=== PATIENT | female | born 1935 | race Caucasian/White ===

== ENCOUNTER → 2018-02-08 | Outpatient (CLI) | payer OTHER ==
--- NOTE | 2018-02-08 15:54 | DIAGNOSTIC IMAGING REPORT ---
TWO VIEW CHEST CLINICAL HISTORY: Pleural effusion. FINDINGS: PA and lateral chest radiographs are obtained. No prior studies are available for comparison at the time of dictation. The heart is enlarged and there is atherosclerotic calcification of the thoracic aorta. The pulmonary vasculature is noncongested. Nonspecific interstitial thickening is likely chronic. There is a small right pleural effusion with associated atelectasis. Left lung appears clear. There is no pneumothorax. The skeletal structures are osteopenic. Postoperative changes partially visualized in the left proximal humerus. Degenerative change and mild hyperkyphosis are noted in the thoracic spine. IMPRESSION: 1. Cardiomegaly without radiographic evidence of congestive failure. 2. There is a small right pleural effusion with associated atelectasis. Electronically signed by: Serjio Henning M.D. 02/08/2018 3:53 PM Dictated Date/Time: 02/08/2018 3:52 PM
== END | disposition home or self-care (01) ==
LOC: C.RAD1850 15:15
PROVIDERS: ATTEND Physician Assistant
DX: J90 Pleural effusion, not elsewhere classified (principal)

== ENCOUNTER 2022-02-10 15:23 | Inpatient (IN) ==
--- NOTE | 2022-02-10 16:19 | Emergency Department Note ---
History of Present Illness General Chief complaint: Abnormal Labs/Diagnostic Testing Stated complaint: ABNORMAL CT, WEAKNESS Time Seen by Provider: 02/10/22 15:50 Source: patient Mode of arrival: ambulatory Limitations: no limitations History of Present Illness Provider complaint: Chest pain, abnormal CT Onset (ago): week(s) Location: chest Radiation: non-radiation Associated symptoms: + chest pain and + shortness of breath; no cough, no loss of appetite or no nausea/vomiting Treatments prior to arrival: none This is an 86-year-old female presents emergency department after being referred in by physician statistical assistant and Dr. Krishnamurthy of cardiology due to an abnormal outpatient chest CT. Patient states she has had intermittent left-sided chest pain over the last several weeks. She did wear a heart monitor for some time, and had outpatient blood work done on Monday. Per the CT report patient had an elevated D-dimer and was sent for CT of the chest today. CT results that accompany the patient on the chart were negative for PE, but did show a moderate pericardial effusion. The physician statistical assistant who ordered the test spoke with Dr. Krishnamurthy who advised patient needs to come to the emergency room. Patient denies any prior history of pericardial effusion. Denies any recent fevers, chills, or URI symptoms. Patient does have a history of atrial fibrillation and does take Coumadin. She states this was last checked 3 to 4 weeks ago and was 3.4 at that time. She states she skipped a dose and then resumed her usual dosing. Patient states she does have a prior history of congestive heart failure and occasionally will take extra of her usual diuretic when she feels she needs it. Patient states last time she did this was 4 days ago. Patient states she is intermittently mildly more short of breath with exertion than usual although states this is very mild and not bothersome. Patient denies dizziness or syncope. She denies any increased leg swelling. Patient states s he routinely follows with Toy Baird PA-C for cardiology. Patient denies any current pain or sense of shortness of breath. Pt seen during a time of high acuity and national emergency pandemic while wearing PPE. Home Medications Medication Instructions Recorded Confirmed Type acetaminophen 500 mg tablet 500 - 1,000 mg PO Q6H PRN 02/10/22 02/10/22 History alprazolam 0.25 mg tablet 0.25 mg PO TID PRN 02/10/22 02/10/22 History aspirin 81 mg tablet,delayed 81 mg PO DAILY 02/10/22 02/10/22 History release calcium 600 mg capsule 1,200 mg PO DAILY 02/10/22 02/10/22 History dextran 70-hypromellose 0.1 %-0.3 2 drp OPHTHALMIC (EYE) TID PRN 02/10/22 02/10/22 History % eye drops (Artificial Tears (dextran 70-hypromellose)) diltiazem HCl 240 mg 240 mg PO DAILY 02/10/22 02/10/22 History capsule,extended release 24 hr famotidine 20 mg tablet 20 mg PO DAILY 02/10/22 02/10/22 History furosemide 20 mg tablet 20 mg PO DAILY PRN 02/10/22 02/10/22 History metoprolol succinate 25 mg 25 mg PO DAILY 02/10/22 02/10/22 History tablet,extended release 24 hr metoprolol succinate 25 mg 37.5 mg PO PM 02/10/22 02/10/22 History tablet,extended release 24 hr multivitamin 1 tab PO DAILY 02/10/22 02/10/22 History omega-3 fatty acids 1,000 mg PO DAILY 02/10/22 02/10/22 History raloxifene 60 mg tablet 60 mg PO DAILY 02/10/22 02/10/22 History warfarin 2 mg tablet 2 mg PO SUMOTUWEFRSA@1630 02/10/22 02/10/22 History warfarin 2 mg tablet 3 mg PO TH@1630 02/10/22 02/10/22 History Allergies Allergy/AdvReac Type Severity Reaction Status Date / Time Sulfa (Sulfonamide AdvReac Mild nausea Verified 02/10/22 17:02 Antibiotics) Past Med/Surg History Medical History Atrial fibrillation Carotid artery stenosis, asymptomatic Chronic anticoagulation CKD (chronic kidney disease) stage 3, GFR 30-59 ml/min GERD (gastroesophageal reflux disease) HTN (hypertension) Macular degeneration Pre-diabetes Pulmonary HTN Surgical History History of appendectomy History of colonoscopy History of cystoscopy History of total hysterectomy Family History Son Colorectal cancer Father Heart disease Silicosis Mother Hypertension Stroke Social History Smoking Status: Never smoker Hx Alcohol Use: No Hx Substance Use: No Preferred Language: Chadian Communication Ability: Effective [place] Inspector Required: No Beliefs That Will Affect Care: None marital status: / Current Living Situation: Alone Current Living Situation Comment: house, 1 floor Other Information That Helps Us Care for You: No Feels Safe at Home: Yes Safety Concerns: Feels Safe At This Time Assistive Devices: Glasses Review of Systems A total of 10 systems reviewed and were otherwise negative All systems reviewed & are unremarkable except as noted in HPI & below Physical Exam Vital Signs Vital Signs - 24 hr 02/10/22 15:30 Temperature 36.1 C L Temperature Source Oral Pulse Rate 80 Pulse Rhythm Regular Pulse Strength Normal Respiratory Rate 20 Respiratory Effort / Characteristics Non-Labored Spontaneous Respiratory Depth Normal Respiratory Pattern Regular Blood Pressure 146/92 H Blood Pressure Mean 110 Blood Pressure Position Sitting Pulse Oximetry 99 Oxygen Delivery Method Room Air Sepsis Recent Fever Within 48 Hours No Sepsis New/Unexplained Change in Mental Status N/A Sepsis Action Taken by Nursing No Action Required GENERAL: alert, well appearing, well nourished, no distress, non-toxic EYE EXAM: normal conjunctiva, PERRL and EOM's grossly intact OROPHARYNX: no exudate, no erythema, lips, buccal mucosa, and tongue normal and mucous membranes are moist NECK: supple, no nuchal rigidity, no adenopathy, non-tender, JVD noted on right LUNGS: Clear to auscultation. Normal chest wall mechanics, no w/r/r HEART: no murmurs, S1 normal and S2 normal ABDOMEN: abdomen soft, non-tender, normo-active bowel sounds, no masses, no rebound or guarding. BACK: Back is symmetrical on inspection and there is no deformity, no midline tenderness, no CVA tenderness. SKIN: no rashes and no bruising UPPER EXTREMITIES: upper extremities are grossly normal. FROM, nml pulses b/l. LOWER EXTREMITIES: No pitting edema. FROM, nml pulses b/l. NEURO EXAM: Normal sensorium, cranial nerves II-XII grossly intact, normal speech, no gross weakness of arms, no gross weakness of legs. Gross sensation intact. Course Administered Medications Metoprolol Succinate (Metoprolol Succ 25mg Ext Rel Tab) 37.5 mg PO PM ANA MARÍA Stop: 03/12/22 20:59 Last Admin: 02/10/22 21:44 Dose: 37.5 mg Documented by: [id number] Medical Decision Making Differential Diagnosis Differential diagnoses includes but is not limited to acute coronary syndrome, myocardial infarction, pericarditis, pulmonary embolus, aortic dissection, pneumonia, pneumothorax, musculoskeletal, shingles, esophageal. Medical Records Attestation: I reviewed the patient's medical records. Home Medications Current Medication List: was personally reviewed by me Laboratory Data Attestation: I reviewed the patient's lab results. Result diagrams: 02/10/22 16:27 02/10/22 16:27 Lab Results 02/10/22 02/10/22 02/10/22 Range/Units 16:27 16:27 16:27 WBC 7.67 (4.8-10.8) K/uL RBC 4.60 (4.2-5.4) M/uL Hgb 14.9 (12.0-16.0) g/dL Hct 44.0 (37-47) % MCV 95.7 (80-100) fL MCH 32.4 (25-34) pg MCHC 33.9 (32-36) g/dL RDW Std Deviation 52.7 H (36.4-46.3) fL RDW Coeff of Lonny 15.2 H (11.5-14.5) % Plt Count 176 (130-400) K/uL MPV 13.3 H (7.4-10.4) fL Immature Gran % (Auto) 0.1 % Neut % (Auto) 71.6 % Lymph % (Auto) 15.5 % Elmore % (Auto) 10.8 % Eos % (Auto) 1.6 % Baso % (Auto) 0.4 % Neut # (Auto) 5.49 (1.4-6.5) K/uL Lymph # (Auto) 1.19 L (1.2-3.4) K/uL Elmore # (Auto) 0.83 H (0.11-0.59) K/uL Eos # (Auto) 0.12 (0-0.5) K/uL Baso # (Auto) 0.03 (0-0.2) K/uL Immature Gran # (Auto) 0.01 (0.00-0.02) K/uL ESR (0-30) mm/hr PT 32.9 H (9.0-12.0) Seconds INR 3.3 H (0.9-1.1) Sodium 136 (136-145) mmol/L Potassium 4.1 (3.5-5.1) mmol/L Chloride 105 (98-107) mmol/L Carbon Dioxide 19 L (21-32) mmol/L Anion Gap 12 H (3-11) BUN 39 H (6-23) mg/dl Creatinine 1.41 H (0.6-1.2) mg/dl Est Cr Clr Drug Dosing 27.3 ml/min Est GFR ( Amer) 39.3 ml/min Est GFR (Non-Af Amer) 33.9 ml/min BUN/Creatinine Ratio 27.7 H (10-20) Glucose 123 H (70-99(Fasting)) mg/dl Calcium 9.3 (8.5-10.1) mg/dl Magnesium 2.2 (1.7-2.4) mg/dl Total Bilirubin 0.8 (0.2-1.0) mg/dl AST 22 (13-39) U/L ALT 13 (7-52) U/L Alkaline Phosphatase 155 H (34-104) U/L Troponin I High Sens 17.7 H (0-14) pg/ml C-Reactive Protein (0-0.5) mg/dl Total Protein 7.5 (6.0-8.3) gm/dl Albumin 4.3 (3.4-5.0) gm/dl Globulin 3.2 (2.5-4.0) gm/dl Albumin/Globulin Ratio 1.3 (0.9-2) Lipase 25 (11-82) U/L TSH (0.300-4.500) uIu/ml Lyme Disease IgG Ab (Negative) Lyme Disease IgM Ab (Negative) 02/10/22 02/10/22 02/10/22 Range/Units 16:27 16:27 16:27 WBC (4.8-10.8) K/uL RBC (4.2-5.4) M/uL Hgb (12.0-16.0) g/dL Hct (37-47) % MCV (80-100) fL MCH (25-34) pg MCHC (32-36) g/dL RDW Std Deviation (36.4-46.3) fL RDW Coeff of Lonny (11.5-14.5) % Plt Count (130-400) K/uL MPV (7.4-10.4) fL Immature Gran % (Auto) % Neut % (Auto) % Lymph % (Auto) % Elmore % (Auto) % Eos % (Auto) % Baso % (Auto) % Neut # (Auto) (1.4-6.5) K/uL Lymph # (Auto) (1.2-3.4) K/uL Elmore # (Auto) (0.11-0.59) K/uL Eos # (Auto) (0-0.5) K/uL Baso # (Auto) (0-0.2) K/uL Immature Gran # (Auto) (0.00-0.02) K/uL ESR 44 H (0-30) mm/hr PT (9.0-12.0) Seconds INR (0.9-1.1) Sodium (136-145) mmol/L Potassium (3.5-5.1) mmol/L Chloride (98-107) mmol/L Carbon Dioxide (21-32) mmol/L Anion Gap (3-11) BUN (6-23) mg/dl Creatinine (0.6-1.2) mg/dl Est Cr Clr Drug Dosing ml/min Est GFR ( Amer) ml/min Est GFR (Non-Af Amer) ml/min BUN/Creatinine Ratio (10-20) Glucose (70-99(Fasting)) mg/dl Calcium (8.5-10.1) mg/dl Magnesium (1.7-2.4) mg/dl Total Bilirubin (0.2-1.0) mg/dl AST (13-39) U/L ALT (7-52) U/L Alkaline Phosphatase (34-104) U/L Troponin I High Sens (0-14) pg/ml C-Reactive Protein (0-0.5) mg/dl Total Protein (6.0-8.3) gm/dl Albumin (3.4-5.0) gm/dl Globulin (2.5-4.0) gm/dl Albumin/Globulin Ratio (0.9-2) Lipase (11-82) U/L TSH 2.108 (0.300-4.500) uIu/ml Lyme Disease IgG Ab Negative (Negative) Lyme Disease IgM Ab Negative (Negative) 02/10/22 Range/Units 16:27 WBC (4.8-10.8) K/uL RBC (4.2-5.4) M/uL Hgb (12.0-16.0) g/dL Hct (37-47) % MCV (80-100) fL MCH (25-34) pg MCHC (32-36) g/dL RDW Std Deviation (36.4-46.3) fL RDW Coeff of Lonny (11.5-14.5) % Plt Count (130-400) K/uL MPV (7.4-10.4) fL Immature Gran % (Auto) % Neut % (Auto) % Lymph % (Auto) % Elmore % (Auto) % Eos % (Auto) % Baso % (Auto) % Neut # (Auto) (1.4-6.5) K/uL Lymph # (Auto) (1.2-3.4) K/uL Elmore # (Auto) (0.11-0.59) K/uL Eos # (Auto) (0-0.5) K/uL Baso # (Auto) (0-0.2) K/uL Immature Gran # (Auto) (0.00-0.02) K/uL ESR (0-30) mm/hr PT (9.0-12.0) Seconds INR (0.9-1.1) Sodium (136-145) mmol/L Potassium (3.5-5.1) mmol/L Chloride (98-107) mmol/L Carbon Dioxide (21-32) mmol/L Anion Gap (3-11) BUN (6-23) mg/dl Creatinine (0.6-1.2) mg/dl Est Cr Clr Drug Dosing ml/min Est GFR ( Amer) ml/min Est GFR (Non-Af Amer) ml/min BUN/Creatinine Ratio (10-20) Glucose (70-99(Fasting)) mg/dl Calcium (8.5-10.1) mg/dl Magnesium (1.7-2.4) mg/dl Total Bilirubin (0.2-1.0) mg/dl AST (13-39) U/L ALT (7-52) U/L Alkaline Phosphatase (34-104) U/L Troponin I High Sens (0-14) pg/ml C-Reactive Protein 1.62 H (0-0.5) mg/dl Total Protein (6.0-8.3) gm/dl Albumin (3.4-5.0) gm/dl Globulin (2.5-4.0) gm/dl Albumin/Globulin Ratio (0.9-2) Lipase (11-82) U/L TSH (0.300-4.500) uIu/ml Lyme Disease IgG Ab (Negative) Lyme Disease IgM Ab (Negative) MDM Narrative This is a well-appearing 86-year-old female who presents emergency department after being contacted by her outpatient provider and encouraged to come to the ER due to an abnormal outpatient CT chest which showed pericardial effusion. Patient had been evaluated for intermittent chest pain over the last several weeks with a heart monitor, blood work drawn the beginning of this week, and due to an elevated D-dimer a CTA of the chest today. No PE or other acute lung etiology noted however patient was noted to have a moderate pericardial effusion. Patient sent in based on the recommendation of cardiology. Patient is anticoagulated due to history of atrial fibrillation. She denies any recent illness or fevers. She had no pain or shortness of breath during my evaluation in the emergency room. Repeat labs drawn and sent, patient was found to have abnormal creatinine and does have a history of CKD. Troponin mildly elevated despite no EKG changes and no current chest pain, and INR slightly supratherapeutic. Patient remained hemodynamically stable while in the emergency room. Case discussed with hospitalist for additional evaluation and management. Pt seen during a time of high acuity and national emergency pandemic while wearing PPE. Impression & Plan Chest pain, Atrial fibrillation, CKD (chronic kidney disease) stage 3, GFR 30- 59 ml/min, Pericardial effusion, Elevated troponin, Chronic anticoagulation Discharge Plan Visit Data Chief Complaint: Abnormal Labs/Diagnostic Testing Stated Complaint: ABNORMAL CT, WEAKNESS ED Provider: Jada Romo Discharge Problem: Chest pain, Atrial fibrillation, CKD (chronic kidney disease) stage 3, GFR 30- 59 ml/min, Pericardial effusion, Elevated troponin, Chronic anticoagulation Patient Disposition: Admitted As Inpatient Discharge Instructions Interventions: ED Discharge Assessment Last Done: 02/10/22 19:38 Discharge Problem: Chest pain Qualifiers: Chest pain type: unspecified Qualified Code(s): R07.9 - Chest pain, unspecified Atrial fibrillation Qualifiers: Atrial fibrillation type: unspecified chronic Qualified Code(s): I48.20 - Chronic atrial fibrillation, unspecified CKD (chronic kidney disease) stage 3, GFR 30-59 ml/min Qualifiers: Chronic kidney disease stage 3 subtype: unspecified whether 3a or 3b Qualified Code(s): N18.30 - Chronic kidney disease, stage 3 unspecified
[2022-02-10 16:42] LABS: Basophils # (auto) 0.03 K/uL (0-0.2); Basophils % (auto) 0.4 %; Eosinophils # (auto) 0.12 K/uL (0-0.5); Eosinophils % (auto) 1.6 %; Hemoglobin 14.9 g/dL (12.0-16.0); Immature Granulocytes # (auto) 0.01 K/uL (0.00-0.02); Immature Granulocytes % (auto) 0.1 %; Lymphocytes # (auto) 1.19 K/uL (1.2-3.4); Lymphocytes % (auto) 15.5 %; Mean Corpuscular Hemoglobin 32.4 pg (25-34); Mean Corpuscular Hgb Conc 33.9 g/dL (32-36); Mean Corpuscular Volume 95.7 fL (80-100); Mean Platelet Volume 13.3 fL (7.4-10.4); Monocytes # (auto) 0.83 K/uL (0.11-0.59); Monocytes % (auto) 10.8 %; Neutrophils # (auto) 5.49 K/uL (1.4-6.5); Neutrophils % (auto) 71.6 %; Platelet Count 176 K/uL (130-400); RDW Coefficient of Variation 15.2 % (11.5-14.5); RDW Standard Deviation 52.7 fL (36.4-46.3); White Blood Count 7.67 K/uL (4.8-10.8)
--- NOTE | 2022-02-10 16:50 | History & Physical Report ---
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 Moderate pericardial effusion Supratherapeutic INR Left-sided chest pain Elevated troponin Admit to PCU Consult cardiology Obtain echocardiogram Hold warfarin given elevated INR Obtain ESR, CRP continue tele monitoring will make npo after midnight in event intervention is warranted cycle troponins, currently pt is CP free Chronic Atrial fibrillation Long-term anticoagulation Continue diltiazem and metoprolol, currently rate controlled Hold warfarin, INR 3.3 Current regimen is 3 mg on and 2 mg all other days Patient is requesting possibly switching to DOAC, encouraged her to discuss with carbon paper coating machine setter Pre diabetes a1c 01/24/22 6.4 currently no treatment indicated monitor fbs CKD 3b cr ~ 1.4 baseline monitor CMP pending avoid nephrotoxic agents DVT ppx: SCDS, hold warfarin Dispo: PCU PCP: Zander FULL CODE Pt was seen and examined in collaboration with Dr. 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 Patient was seen in [facility] from clinic on 02/07/2022 secondary to intermittent chest pain that was worse with inspiration and improved with Tylenol. Lab work was ordered at that time troponin elevated D-dimer. She was scheduled for an outpatient CTA which was performed today 02/10/2022. CT results accompany patient today as it was done at [facility] [place]. CTA was negative for PE but did show a moderate pericardial effusion. Case was discussed with [facility] carbon paper coating machine setter who recommended patient be referred to ED for admission and further evaluation. Patient states over the last week or so she is been having intermittent left-sided chest pain. Symptoms typically last minutes, resolved with Tylenol, worse with inspiration, not affected with meals or leaning forward or lying down. She describes the pain as an ache and it is nonradiating. She has never experienced it before. She also complains of dyspnea on exertion but denies any orthopnea or PND. She does have intermittent lower extremity swelling which is controlled with Lasix as needed. She does not feel this is changed. She denies any weight gain. Her appetite has been normal. No recent illness. She always has chills but denies any documented fever or sweats. Denies any lightheadedness, dizziness, syncope, palpitations, hemoptysis, cough, URI symptoms, nausea, vomiting, abdominal pain, change in bowel or urinary habits. Her son is at bedside. Patient currently lives by herself and ambulates without assist device. In ED patient remained hemodynamically stable. Her EKG did reveal atrial fibrillation at 80 bpm and incomplete right bundle branch block. No ST or T wave changes were noted. Her initial troponin was elevated at 17.7. Her CBC was relatively unremarkable. CMP is currently pending. INR was elevated at 3.3. Allergies Allergy/AdvReac Type Severity Reaction Status Date / Time Sulfa (Sulfonamide AdvReac Mild nausea Verified 02/10/22 17:02 Antibiotics) Home Medications Medication Instructions Recorded Confirmed Type acetaminophen 500 mg tablet 500 - 1,000 mg PO Q6H PRN 02/10/22 02/10/22 History alprazolam 0.25 mg tablet 0.25 mg PO TID PRN 02/10/22 02/10/22 History aspirin 81 mg tablet,delayed 81 mg PO DAILY 02/10/22 02/10/22 History release calcium 600 mg capsule 1,200 mg PO DAILY 02/10/22 02/10/22 History diltiazem HCl 240 mg 240 mg PO DAILY 02/10/22 02/10/22 History capsule,extended release 24 hr famotidine 20 mg tablet 20 mg PO DAILY 02/10/22 02/10/22 History furosemide 20 mg tablet 20 mg PO DAILY PRN 02/10/22 02/10/22 History metoprolol succinate 25 mg 25 mg PO DAILY 02/10/22 02/10/22 History tablet,extended release 24 hr metoprolol succinate 25 mg 37.5 mg PO PM 02/10/22 02/10/22 History tablet,extended release 24 hr multivitamin 1 tab PO DAILY 02/10/22 02/10/22 History omega-3 fatty acids 1,000 mg PO DAILY 02/10/22 02/10/22 History raloxifene 60 mg tablet 60 mg PO DAILY 02/10/22 02/10/22 History warfarin 2 mg tablet 2 mg PO SUMOTUWEFRSA@1630 02/10/22 02/10/22 History warfarin 2 mg tablet 3 mg PO TH@1630 02/10/22 02/10/22 History Past Med/Surg History Medical History Atrial fibrillation Carotid artery stenosis, asymptomatic Chronic anticoagulation CKD (chronic kidney disease) stage 3, GFR 30-59 ml/min GERD (gastroesophageal reflux disease) HTN (hypertension) Macular degeneration Pre-diabetes Pulmonary HTN Surgical History History of appendectomy History of colonoscopy History of cystoscopy History of total hysterectomy Family History Son Colorectal cancer Father Heart disease Silicosis Mother Hypertension Stroke Social History Smoking Status: Never smoker Hx Alcohol Use: No Hx Substance Use: No Preferred Language: Malay marital status: / Current Living Situation: Alone Feels Safe at Home: Yes Review of Systems Review of Systems: All systems reviewed & are unremarkable except as noted in HPI & below Physical Exam Physical Exam: Constitutional: WD/WN, vitals as above, NAD, sitting up in bed, pleasant, conversing easily Head: Normocephalic, Atraumatic Eyes: PERRL, conjunctivae normal, anicteric sclerae ENMT: external ear and nose normal, oropharynx normal Neck: trachea midline, no thyromegaly normal visual inspection Respiratory: normal respiratory effort, lungs clear to auscultation, no wheeze, rales, rhonchi. Normal insp/exp effort, no accessory muscle use Cardiovascular:, Irregular rhythm, no murmur, bilateral venous stasis changes +1edema Vessels: no JVD or carotid bruit Chest: normal inspection of chest Abdomen: normal bowel sounds, soft, nontender, no hepatosplenomegaly Musculoskeletal: no cyanosis or clubbing, extremities motor strength 5/5 Skin: no rashes, warm and dry normal turgor Neurologic: PERRL, EOMI, accommodation nl, no face palsy, no dysarthria CN's II-XI intact bilaterally and moves all extremities Psychiatric: A+Ox3, euthymic affect Lymphatic: no cervical or axillary lymphadenopathy : deferred Results & Data Results & Data ([facility]) Vital Signs (Past 12 Hours) Vital Signs Temp Pulse Pulse Resp BP BP Pulse Ox 02/10/22 16:41 82 17 134/88 94 02/10/22 15:30 36.1 C L 80 20 146/[address] scan report reviewed from outside facility revealing a moderate pericardial effusion, no PE. ECG Rate (beats per minute): 80 Rhythm: atrial fibrillation COVID-19 Results Results COVID-19 Adm Lab Results: RBC 4.60 M/uL (4.2-5.4) 02/10/22 WBC 7.67 K/uL (4.8-10.8) 02/10/22 Hgb 14.9 g/dL (12.0-16.0) 02/10/22 Hct 44.0 % (37-47) 02/10/22 Plt Count 176 K/uL (130-400) 02/10/22 Neutrophils (%) (Auto) 71.6 % 02/10/22 Lymphocytes (%) (Auto) 15.5 % 02/10/22 Monocytes # (Auto) 0.83 K/uL (0.11-0.59) H 02/10/22 Eosinophils # (Auto) 0.12 K/uL (0-0.5) 02/10/22 Immature Granulocyte % (Auto) 0.1 % 02/10/22 Neutrophils # (Auto) 5.49 K/uL (1.4-6.5) 02/10/22 Lymphocytes # (Auto) 1.19 K/uL (1.2-3.4) L 02/10/22 Monocytes # (Auto) 0.83 K/uL (0.11-0.59) H 02/10/22 Eosinophils # (Auto) 0.12 K/uL (0-0.5) 02/10/22 Basophils # (Auto) 0.03 K/uL (0-0.2) 02/10/22 Immature Granulocyte # (Auto) 0.01 K/uL (0.00-0.02) 02/10/22 Na Pending 02/10/22 K Pending 02/10/22 Cl Pending 02/10/22 CO2 Pending 02/10/22 Anion Gap Pending 02/10/22 BUN Pending 02/10/22 Creatinine Pending 02/10/22 BUN/Creatinine Ratio Pending 02/10/22 Glucose Level Pending 02/10/22 Ca Pending 02/10/22 Total Bilirubin Pending 02/10/22 AST/SGOT Pending 02/10/22 ALT/SGPT Pending 02/10/22 Alkaline Phosphatase Pending 02/10/22 Total Protein Pending 02/10/22 Albumin Pending 02/10/22 Globulin Pending 02/10/22 Albumin/Globulin Ratio Pending 02/10/22 CRP Pending 02/10/22 INR 3.3 (0.9-1.1) H 02/10/22 SARS-CoV-2, RNA, NAAT NEGATIVE (NEGATIVE) 02/10/22 Code Status & VTE Plan Code Status FULL CODE VTE Prophylaxis Plan VTE Prophylaxis will be ordered: Yes
[2022-02-10 16:55] LABS: INR 3.3 (0.9-1.1); Prothrombin Time 32.9 Seconds (9.0-12.0)
[2022-02-10 17:21] LABS: Troponin I High Sensitivity 17.7 pg/ml (0-14)
[2022-02-10 17:36] LABS: Lyme Ab IgG w/WB Rflx Negative (Negative); Lyme Ab IgM w/WB Rflx Negative (Negative)
[2022-02-10 18:20] LABS: Albumin Globulin Ratio 1.3 (0.9-2); Albumin Level 4.3 gm/dl (3.4-5.0); BUN Creatinine Ratio 27.7 (10-20); Bilirubin,Total 0.8 mg/dl (0.2-1.0); Calcium 9.3 mg/dl (8.5-10.1); Creatinine Clr Calc Pharmacy 27.3 ml/min; Est GFR (African American) 39.3 ml/min; Est GFR (Non-African American) 33.9 ml/min; Globulin 3.2 gm/dl (2.5-4.0); Magnesium 2.2 mg/dl (1.7-2.4); Potassium 4.1 mmol/L (3.5-5.1); Total Protein 7.5 gm/dl (6.0-8.3)
--- NOTE | 2022-02-10 18:36 | Communication Note ---
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 Patient was complaining of chest pain on and off since last few weeks, was evaluated on Monday for achy chest pain as OP and D-dimer was elevated, CTA was ordered which was done yesterday and was found to have moderate pericardial effusion today and hence sent by cardiology office to the ER. Patient denies fever/headache/chills/cough/palpitation/acute changes in bowel or bladder habits/other review of symptoms. Labs reviewed, hs troponin minimally elevated, trend troponin. Cardiology co nsult for pericardial effusion. INR 3.3, hold Coumadin today. follow inr, resume when appropriate. N.p.o. midnight. For further information, refer to H&P. Upon examination: GENERAL: Alert and oriented x3. NAD, on RA. HEENT: No pallor, no icterus. Pupils equal, round and reactive to light. Oral mucosa moist. NECK: No JVD, no neck masses. HEART: S1 and S2 heard. irregular rate and rhythm. No murmur, no gallop. RESPIRATORY SYSTEM: Normal AP diameter. No accessory muscle use. No wheezing, no crackles. ABDOMEN: Soft, bowel sounds present, nontender, no distention. CENTRAL NERVOUS SYSTEM: No facial droop. Speech is clear. Obeys simple commands. Moves extremities. EXTREMITIES: trace ble edema, b/l chronic skin changes noted, no erythema seen. I have seen and examined the patient and have discussed the case with the provider above. I agree with the assessment and plan as stated in H and P.
[2022-02-10] MEDS ORDERED: ACETAMINOPHEN 325 MG TAB PO PRN (20:03)
[2022-02-10] MEDS ORDERED: ALPRAZolam 0.25 MG TABLET PO PRN (20:03)
[2022-02-10] MEDS ORDERED: POLYETHYLENE (MIRALAX) 17 GM PACK PO PRN (20:03)
[2022-02-10] MEDS ORDERED: MAGNESIUM HYDROXIDE SUSP 30 ML UDC PO PRN (20:03)
[2022-02-10] MEDS ORDERED: ONDANSETRON INJ 2 MG/ML 2 ML VIAL IV PRN (20:03)
[2022-02-10] MEDS ORDERED: DEXTRAN HYPROMELLOSE OP PRN (20:03)
[2022-02-10] MEDS ORDERED: ALUMINUM/MAGNESIUM SUSP 30 ML UDC PO PRN (20:03)
[2022-02-10] MEDS: METOPROLOL SUCC 25MG EXT REL TAB PO SCH ×2 (21:30→21:44)
[2022-02-11] MEDS ORDERED: MELATONIN 3 MG TAB PO PRN (01:14)
[2022-02-11] MEDS ORDERED: MELATONIN 3 MG TAB PO ONE (01:16)
[2022-02-11 04:41] LABS: Hematocrit (blood only) 38.4 % (37-47); Hemoglobin 13.1 g/dL (12.0-16.0); Mean Corpuscular Hemoglobin 32.3 pg (25-34); Mean Corpuscular Hgb Conc 34.1 g/dL (32-36); Mean Corpuscular Volume 94.6 fL (80-100); Platelet Count 150 K/uL (130-400); RDW Coefficient of Variation 15.1 % (11.5-14.5); RDW Standard Deviation 51.2 fL (36.4-46.3); Red Blood Count 4.06 M/uL (4.2-5.4); White Blood Count 7.39 K/uL (4.8-10.8)
[2022-02-11 04:57] LABS: INR 3.3 (0.9-1.1); Prothrombin Time 33.3 Seconds (9.0-12.0)
[2022-02-11 05:02] LABS: Albumin Globulin Ratio 1.2 (0.9-2); Albumin Level 3.4 gm/dl (3.4-5.0); BUN Creatinine Ratio 24.1 (10-20); Bilirubin,Total 0.8 mg/dl (0.2-1.0); Calcium 8.6 mg/dl (8.5-10.1); Est GFR (Non-African American) 32.8 ml/min; Globulin 2.8 gm/dl (2.5-4.0); Total Protein 6.2 gm/dl (6.0-8.3)
[2022-02-11] MEDS: MULTIVITAMIN TAB PO SCH (08:33)
[2022-02-11] MEDS: CALCIUM CARBONATE 1250MG TAB PO SCH (08:33)
[2022-02-11] MEDS: dilTIAZem HCL 240 MG CAPCR PO SCH (08:33)
[2022-02-11] MEDS: ASPIRIN 81 MG ECTAB PO SCH (08:33)
[2022-02-11] MEDS: RALOXIFENE HCL 60 MG TAB PO SCH (08:33)
[2022-02-11] MEDS: METOPROLOL SUCC 25MG EXT REL TAB PO SCH ×2 (08:33→20:22)
[2022-02-11] MEDS: FAMOTIDINE 20 MG TAB PO SCH (08:34)
[2022-02-11] MEDS: OMEGA-3 (PURIFIED FISH OIL) 1 GM CAP PO SCH (08:34)
--- NOTE | 2022-02-11 10:16 | Hospitalist Progress Note ---
Date of Service February 11, 2022 Assessment & Plan (1) Pericardial effusion: (2) Atrial fibrillation: (3) Chronic anticoagulation: (4) Supratherapeutic INR: (5) Elevated troponin: (6) Pre-diabetes: (7) CKD (chronic kidney disease) stage 3, GFR 30-59 ml/min: Plan: 86-year-old female who has a significant past medical history of PAF anticoagulated on warfarin, pulmonary hypertension, prediabetes, 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 Moderate pericardial effusion Left-sided chest pain Elevated troponin No chest pain at this time Reports occasional MAX at home CT chest was reported to show moderate pericardial effusion CRP elevated at 1.62. ESR 44 Get 2D Echo Pericarditis is a possibility Appreciate Cardiology evaluation. Colchicine 0.3mg daily started Troponin HS in the 20s Continue tele monitoring Chronic Atrial fibrillation Long-term anticoagulation Supratherapeutic INR Continue diltiazem and metoprolol, currently rate controlled Hold warfarin, INR 3.3 Current regimen is 3 mg on and 2 mg all other days Monitor INR Pre diabetes A1c 01/24/22 6.4 Monitor blood glucose CKD 3b Cr ~ 1.4 baseline Stable Avoid nephrotoxic agents DVT ppx: SCDS, hold warfarin Dispo: PCU PCP: Zander FULL CODE Admission and Anticipated Discharge Date Admission Date: February 10, 2022 Subjective Patient seen and examined. Denies any chest pain at this time. Denies cough, shortness of breath at rest. Reports occasional dyspnea on exertion Denies any nausea, vomiting, abdominal pain, diarrhea Denies fevers, chills Denies dysuria, frequency, urgency Physical Exam Constitutional: + well hydrated; no acute distress Elderly woman ENMT: external ear and nose normal, oropharynx normal Respiratory: normal respiratory effort, lungs clear to auscultation Cardiovascular: Rate/Rhythm: + irregularly irregular S1-S2 Gastrointestinal (Abdomen): normal bowel sounds, soft, nontender, no hepatosplenomegaly Musculoskeletal: No pedal edema Neurologic: PERRL, EOMI, accommodation nl, no face palsy, no dysarthria Psychiatric: A+Ox3, euthymic affect Results & Data Results & Data ([facility]) Vital Signs (Past 12 Hours) Vital Signs Temp Pulse Pulse Resp BP Pulse Ox 02/11/22 07:45 36.6 C 72 16 138/88 90 02/11/22 02:37 36.6 C 68 18 120/68 95 02/11/22 00:33 80 02/10/22 22:56 36.5 C 71 18 132/80 92 Laboratory Results Abnormal lab results 02/10/22 02/10/22 02/10/22 Range/Units 16:27 16:27 16:27 RBC (4.2-5.4) M/uL RDW Std Deviation 52.7 H (36.4-46.3) fL RDW Coeff of Lonny 15.2 H (11.5-14.5) % MPV 13.3 H (7.4-10.4) fL Lymph # (Auto) 1.19 L (1.2-3.4) K/uL Motley # (Auto) 0.83 H (0.11-0.59) K/uL ESR (0-30) mm/hr PT 32.9 H (9.0-12.0) Seconds INR 3.3 H (0.9-1.1) Chloride (98-107) mmol/L Carbon Dioxide 19 L (21-32) mmol/L Anion Gap 12 H (3-11) BUN 39 H (6-23) mg/dl Creatinine 1.41 H (0.6-1.2) mg/dl BUN/Creatinine Ratio 27.7 H (10-20) Glucose 123 H (70-99(Fasting)) mg/dl Alkaline Phosphatase 155 H (34-104) U/L Troponin I High Sens 17.7 H (0-14) pg/ml C-Reactive Protein (0-0.5) mg/dl 02/10/22 02/10/22 02/10/22 Range/Units 16:27 16:27 22:44 RBC (4.2-5.4) M/uL RDW Std Deviation (36.4-46.3) fL RDW Coeff of Lonny (11.5-14.5) % MPV (7.4-10.4) fL Lymph # (Auto) (1.2-3.4) K/uL Motley # (Auto) (0.11-0.59) K/uL ESR 44 H (0-30) mm/hr PT (9.0-12.0) Seconds INR (0.9-1.1) Chloride (98-107) mmol/L Carbon Dioxide (21-32) mmol/L Anion Gap (3-11) BUN (6-23) mg/dl Creatinine (0.6-1.2) mg/dl BUN/Creatinine Ratio (10-20) Glucose (70-99(Fasting)) mg/dl Alkaline Phosphatase (34-104) U/L Troponin I High Sens 20.4 H (0-14) pg/ml C-Reactive Protein 1.62 H (0-0.5) mg/dl 02/11/22 02/11/22 02/11/22 Range/Units 04:16 04:16 04:16 RBC 4.06 L (4.2-5.4) M/uL RDW Std Deviation 51.2 H (36.4-46.3) fL RDW Coeff of Lonny 15.1 H (11.5-14.5) % MPV 13.0 H (7.4-10.4) fL Lymph # (Auto) (1.2-3.4) K/uL Motley # (Auto) (0.11-0.59) K/uL ESR (0-30) mm/hr PT 33.3 H (9.0-12.0) Seconds INR 3.3 H (0.9-1.1) Chloride 109 H (98-107) mmol/L Carbon Dioxide 19 L (21-32) mmol/L Anion Gap (3-11) BUN 35 H (6-23) mg/dl Creatinine 1.45 H (0.6-1.2) mg/dl BUN/Creatinine Ratio 24.1 H (10-20) Glucose (70-99(Fasting)) mg/dl Alkaline Phosphatase 123 H (34-104) U/L Troponin I High Sens (0-14) pg/ml C-Reactive Protein (0-0.5) mg/dl 02/11/22 Range/Units 04:16 RBC (4.2-5.4) M/uL RDW Std Deviation (36.4-46.3) fL RDW Coeff of Lonny (11.5-14.5) % MPV (7.4-10.4) fL Lymph # (Auto) (1.2-3.4) K/uL Motley # (Auto) (0.11-0.59) K/uL ESR (0-30) mm/hr PT (9.0-12.0) Seconds INR (0.9-1.1) Chloride (98-107) mmol/L Carbon Dioxide (21-32) mmol/L Anion Gap (3-11) BUN (6-23) mg/dl Creatinine (0.6-1.2) mg/dl BUN/Creatinine Ratio (10-20) Glucose (70-99(Fasting)) mg/dl Alkaline Phosphatase (34-104) U/L Troponin I High Sens 22.9 H (0-14) pg/ml C-Reactive Protein (0-0.5) mg/dl (1) CKD (chronic kidney disease) stage 3, GFR 30-59 ml/min Chronic kidney disease stage 3 subtype: unspecified whether 3a or 3b Qualified Code(s): N18.30 - Chronic kidney disease, stage 3 unspecified (2) Atrial fibrillation Atrial fibrillation type: unspecified chronic Qualified Code(s): I48.20 - Chronic atrial fibrillation, unspecified
--- NOTE | 2022-02-11 12:09 | Electrocardiogram Report ---
Test Reason : Blood Pressure : / mmHG Vent. Rate : 080 BPM Atrial Rate : 088 BPM P-R Int : 000 ms QRS Dur : 094 ms QT Int : 394 ms P-R-T Axes : 000 112 -02 degrees QTc Int : 454 ms Atrial fibrillation with premature ventricular or aberrantly conducted complexes Right axis deviation Incomplete right bundle branch block Septal infarct , age undetermined Abnormal ECG No previous ECGs available Confirmed by Chong Castle ([id number]) on 02/11/2022 12:09:18 PM Referred By: Dena Fermin Confirmed By:Chong Castle
--- NOTE | 2022-02-11 13:30 | Cardiology Consultation ---
Date of Consultation February 11, 2022 Assessment & Plan (1) Pleuritic chest pain: (2) Elevated troponin: (3) Pericardial effusion: (4) Pulmonary HTN: (5) Atrial fibrillation: Complex 86-year-old female with history of past paroxysmal and now longstanding persistent atrial fibrillation, known severe pulmonary hypertension, severely dilated RV with severe RV dysfunction, preserved LV systolic function, hypertensive heart and kidney disease, mild atherosclerotic carotid disease. Patient admitted following recent presentation with pleuritic type chest pain, CT scan demonstrating moderate pericardial effusion. Echocardiography this morning reveals a moderate loculated posterior pericardial effusion with moderate organization, possible thrombus, without echocardiographic indications of cardiac tamponade. HS Troponin minimally elevated. Patient afebrile, currently asymptomatic. Recommend cautious conservative treatment. Given age, renal function, and weight, recommend trial of colchicine 0.3 mg once daily x 1 month, as tolerated. Outpatient limited TTE and cardiology follow-up in 2 weeks. Supervising Physician Co-Signing Physician Notes 86-year-old female seen and examined the bedside. Referred to the hospital from the outpatient clinic due to CT evidence of moderate pericardial effusion. She is chronically anticoagulated due to history of atrial fibrillation. Patient reports chest discomfort several days ago which has resolved. Currently she is asymptomatic. Her echocardiogram reveals a moderate loculated posterior pericardial effusion with moderate organization. There is no evidence of tamponade. Patient denies palpitations, lightheadedness, dizziness. No orthopnea, PND, or lower extremity edema. Denies signs/symptoms of GI/ blood loss. PE: VSS. Gen: NAD, AAOx3. Heart: Irregular rhythm, normal S1-S2. 1/6 systolic ejection murmur heard best at the apex. Lungs: Clear bilateral, no rales, rhonchi, wheeze. Extremities: No clubbing, cyanosis, edema. Neuro: No focal deficit. A/P: Agree with above PA-C history, physical exam, assessment and plan. 86-year-old female currently asymptomatic. Echocardiogram demonstrating posterior loculated pericardial fusion. I suspect effusion is secondary to recent pericarditis which is spontaneously resolved. Due to presence of effusion agree with addition of low-dose colchicine. Repeat resting 2D transthoracic echocardiogram in 1-2 weeks. If there is any evidence of enlarging effusion or recurrent chest discomfort, a course of corticosteroids tapered over 2-3 weeks will be considered. Thank you for allowing to participat e in the care of your patient. History of Present Illness Reason for Consultation: Moderate pericardial effusion Requesting Physician: Brandee Attending Physician: Wilman History of Present Illness Ms. Bradford is a very pleasant 86-year-old female who began to have chest discomfort at the end of January. She describes to me earlier this morning experiencing a hurting or an achy type pain in the upper chest as well as lower chest that seemed to be worse when taking a deep breath in. This was not aggravated by positional change. She notes no issues when attempting to lay flat. She notes no recent illnesses. No sick contacts. No trauma other than falling on the ice in December. Notes improvement with discomfort with acetaminophen. On February 07, 2022 she was evaluated by [facility]. EKG at that time revealed atrial fibrillation with premature ventricular or aberrantly conducted complexes. Laboratory work included a CBC with normal white blood cell count. H&H were 14.7 and 45.0. An elevated D-dimer led to a CT scan of the chest that was performed at [facility]. Per report, there was no evidence of PE. Cardiomegaly was noted along with a moderately large pericardial effusion. Due to the CT findings, the patient was referred for hospitalization and was admitted to [facility] on February 10, 2022 The patient has been chest pain-free since admission. EKG on presentation revealed atrial fibrillation with premature ventricular or aberrantly conducted complexes, right axis deviation, incomplete right bundle branch block, possible old septal infarct. EKG this morning reveals atrial fibrillation with premature ventricular or aberrantly conducted complexes, right axis deviation, low voltage QRS, incomplete right bundle branch block. Criteria for septal infarct is no longer present. Resting echocardiography revealed a moderate loculated posterior pericardial effusion with moderate organization, possible thrombus. No echocardiographic indications of cardiac tamponade. IVC was dilated, with normal inspiratory variation. Septum was flattened, consistent with RV pressure/volume overload. The right ventricle was severely dilated, moderately reduced function. Ejection fraction 55 to 60%. LV cavity size small. Continuous telemetry monitoring has demonstrated atrial fibrillation with rates ranging from the 70s to 150s. No periods of sinus observed on telemetry. ESR 44. CRP 1.62 TSH normal, 2.108. High-sensitivity troponin I minimally elevated at 17.7, 20.4, 22.9 pg/ml Allergies Allergy/AdvReac Type Severity Reaction Status Date / Time Sulfa (Sulfonamide AdvReac Mild nausea Verified 02/10/22 17:02 Antibiotics) Home Medications Medication Instructions Recorded Confirmed Type acetaminophen 500 mg tablet 500 - 1,000 mg PO Q6H PRN 02/10/22 02/10/22 History alprazolam 0.25 mg tablet 0.25 mg PO TID PRN 02/10/22 02/10/22 History aspirin 81 mg tablet,delayed 81 mg PO DAILY 02/10/22 02/10/22 History release calcium 600 mg capsule 1,200 mg PO DAILY 02/10/22 02/10/22 History dextran 70-hypromellose 0.1 %-0.3 2 drp OPHTHALMIC (EYE) TID PRN 02/10/22 02/10/22 History % eye drops (Artificial Tears (dextran 70-hypromellose)) diltiazem HCl 240 mg 240 mg PO DAILY 02/10/22 02/10/22 History capsule,extended release 24 hr famotidine 20 mg tablet 20 mg PO DAILY 02/10/22 02/10/22 History furosemide 20 mg tablet 20 mg PO DAILY PRN 02/10/22 02/10/22 History metoprolol succinate 25 mg 25 mg PO DAILY 02/10/22 02/10/22 History tablet,extended release 24 hr metoprolol succinate 25 mg 37.5 mg PO PM 02/10/22 02/10/22 History tablet,extended release 24 hr multivitamin 1 tab PO DAILY 02/10/22 02/10/22 History omega-3 fatty acids 1,000 mg PO DAILY 02/10/22 02/10/22 History raloxifene 60 mg tablet 60 mg PO DAILY 02/10/22 02/10/22 History warfarin 2 mg tablet 2 mg PO SUMOTUWEFRSA@1630 02/10/22 02/10/22 History warfarin 2 mg tablet 3 mg PO TH@1630 02/10/22 02/10/22 History Patient History Medical History Atrial fibrillation Carotid artery stenosis, asymptomatic Chronic anticoagulation CKD (chronic kidney disease) stage 3, GFR 30-59 ml/min GERD (gastroesophageal reflux disease) HTN (hypertension) Macular degeneration Pre-diabetes Pulmonary HTN Surgical History History of appendectomy History of colonoscopy History of cystoscopy History of total hysterectomy Family History Son Colorectal cancer Father Heart disease Silicosis Mother Hypertension Stroke Social History Smoking Status: Never smoker Hx Alcohol Use: No Hx Substance Use: No Preferred Language: Yakut Communication Ability: Effective Government Affairs Manager Required: No Beliefs That Will Affect Care: None marital status: / Current Living Situation: Alone Current Living Situation Comment: house, 1 floor How many Children do You have: 5 Other Information That Helps Us Care for You: No Feels Safe at Home: Yes Safety Concerns: Feels Safe At This Time Assistive Devices: None Review of Systems Review of Systems: Complete review of systems is otherwise as stated above, negative, noncontributory. Physical Exam Physical Exam: General: Thin age-appropriate female in no acute distress Head: normocephalic, no masses, lesions, tenderness or abnormalities Eyes: conjunctiva are pink and non-injected, sclera clear Chest: normal shape and normal respiratory effort Lungs: clear to auscultation Cardiac Exam: Irregularly irregular around 100 bpm. Grade II/ holosystolic murmur. No diastolic murmur. No rub. Normal S-1. Normal S-2 Abdomen: Soft, non-tender, no abnormal masses, no hepatosplenomegaly, no abdomi nal bruit, no femoral bruit Extremities: Stasis changes. Varicosities. + Blister on the left second toe. No edema. No clubbing. No cyanosis. Pulses intact 2+/4 Neuro: grossly normal exam Results & Data ([facility]) Vital Signs (Past 12 Hours) Vital Signs Temp Pulse Resp BP BP Pulse Ox 02/11/22 11:04 36.5 C 85 17 129/77 92 02/11/22 07:45 36.6 C 72 16 138/88 90 02/11/22 02:37 36.6 C 68 18 120/68 95 Laboratory Results Laboratory Results - last 48 hr 02/10/22 02/10/22 02/10/22 16:27 16:27 16:27 WBC 7.67 RBC 4.60 Hgb 14.9 Hct 44.0 MCV 95.7 MCH 32.4 MCHC 33.9 RDW Std Deviation 52.7 H RDW Coeff of Lonny 15.2 H Plt Count 176 MPV 13.3 H Immature Gran % (Auto) 0.1 Neut % (Auto) 71.6 Lymph % (Auto) 15.5 [place] % (Auto) 10.8 Eos % (Auto) 1.6 Baso % (Auto) 0.4 Neut # (Auto) 5.49 Lymph # (Auto) 1.19 L [place] # (Auto) 0.83 H Eos # (Auto) 0.12 Baso # (Auto) 0.03 Immature Gran # (Auto) 0.01 ESR PT 32.9 H INR 3.3 H Sodium 136 Potassium 4.1 Chloride 105 Carbon Dioxide 19 L Anion Gap 12 H BUN 39 H Creatinine 1.41 H Est Cr Clr Drug Dosing 27.3 Est GFR ( Amer) 39.3 Est GFR (Non-Af Amer) 33.9 BUN/Creatinine Ratio 27.7 H Glucose 123 H Calcium 9.3 Magnesium 2.2 Total Bilirubin 0.8 AST 22 ALT 13 Alkaline Phosphatase 155 H Troponin I High Sens 17.7 H C-Reactive Protein Total Protein 7.5 Albumin 4.3 Globulin 3.2 Albumin/Globulin Ratio 1.3 Lipase 25 TSH Lyme Disease IgG Ab Lyme Disease IgM Ab SARS-CoV-2, RNA, NAAT 02/10/22 02/10/22 02/10/22 16:27 16:27 16:27 WBC RBC Hgb Hct MCV MCH MCHC RDW Std Deviation RDW Coeff of Lonny Plt Count MPV Immature Gran % (Auto) Neut % (Auto) Lymph % (Auto) [place] % (Auto) Eos % (Auto) Baso % (Auto) Neut # (Auto) Lymph # (Auto) [place] # (Auto) Eos # (Auto) Baso # (Auto) Immature Gran # (Auto) ESR 44 H PT INR Sodium Potassium Chloride Carbon Dioxide Anion Gap BUN Creatinine Est Cr Clr Drug Dosing Est GFR ( Amer) Est GFR (Non-Af Amer) BUN/Creatinine Ratio Glucose Calcium Magnesium Total Bilirubin AST ALT Alkaline Phosphatase Troponin I High Sens C-Reactive Protein Total Protein Albumin Globulin Albumin/Globulin Ratio Lipase TSH 2.108 Lyme Disease IgG Ab Negative Lyme Disease IgM Ab Negative SARS-CoV-2, RNA, NAAT 02/10/22 02/10/22 02/10/22 16:27 16:32 22:44 WBC RBC Hgb Hct MCV MCH MCHC RDW Std Deviation RDW Coeff of Lonny Plt Count MPV Immature Gran % (Auto) Neut % (Auto) Lymph % (Auto) [place] % (Auto) Eos % (Auto) Baso % (Auto) Neut # (Auto) Lymph # (Auto) [place] # (Auto) Eos # (Auto) Baso # (Auto) Immature Gran # (Auto) ESR PT INR Sodium Potassium Chloride Carbon Dioxide Anion Gap BUN Creatinine Est Cr Clr Drug Dosing Est GFR ( Amer) Est GFR (Non-Af Amer) BUN/Creatinine Ratio Glucose Calcium Magnesium Total Bilirubin AST ALT Alkaline Phosphatase Troponin I High Sens 20.4 H C-Reactive Protein 1.62 H Total Protein Albumin Globulin Albumin/Globulin Ratio Lipase TSH Lyme Disease IgG Ab Lyme Disease IgM Ab SARS-CoV-2, RNA, NAAT NEGATIVE 02/11/22 02/11/22 02/11/22 04:16 04:16 04:16 WBC 7.39 RBC 4.06 L Hgb 13.1 Hct 38.4 MCV 94.6 MCH 32.3 MCHC 34.1 RDW Std Deviation 51.2 H RDW Coeff of Lonny 15.1 H Plt Count 150 MPV 13.0 H Immature Gran % (Auto) Neut % (Auto) Lymph % (Auto) [place] % (Auto) Eos % (Auto) Baso % (Auto) Neut # (Auto) Lymph # (Auto) [place] # (Auto) Eos # (Auto) Baso # (Auto) Immature Gran # (Auto) ESR PT 33.3 H INR 3.3 H Sodium 138 Potassium 4.0 Chloride 109 H Carbon Dioxide 19 L Anion Gap 10 BUN 35 H Creatinine 1.45 H Est Cr Clr Drug Dosing 26.0 Est GFR ( Amer) 38.0 Est GFR (Non-Af Amer) 32.8 BUN/Creatinine Ratio 24.1 H Glucose 77 Calcium 8.6 Magnesium Total Bilirubin 0.8 AST 18 ALT 10 Alkaline Phosphatase 123 H Troponin I High Sens C-Reactive Protein Total Protein 6.2 Albumin 3.4 Globulin 2.8 Albumin/Globulin Ratio 1.2 Lipase TSH Lyme Disease IgG Ab Lyme Disease IgM Ab SARS-CoV-2, RNA, NAAT 02/11/22 04:16 WBC RBC Hgb Hct MCV MCH MCHC RDW Std Deviation RDW Coeff of Lonny Plt Count MPV Immature Gran % (Auto) Neut % (Auto) Lymph % (Auto) [place] % (Auto) Eos % (Auto) Baso % (Auto) Neut # (Auto) Lymph # (Auto) [place] # (Auto) Eos # (Auto) Baso # (Auto) Immature Gran # (Auto) ESR PT INR Sodium Potassium Chloride Carbon Dioxide Anion Gap BUN Creatinine Est Cr Clr Drug Dosing Est GFR ( Amer) Est GFR (Non-Af Amer) BUN/Creatinine Ratio Glucose Calcium Magnesium Total Bilirubin AST ALT Alkaline Phosphatase Troponin I High Sens 22.9 H C-Reactive Protein Total Protein Albumin Globulin Albumin/Globulin Ratio Lipase TSH Lyme Disease IgG Ab Lyme Disease IgM Ab SARS-CoV-2, RNA, NAAT Diagnostic Findings February 11, 2022 TTE Interpretation Summary ([facility], Dr. Eugene): Technically adequate. No comparison study available. The left ventricular cavity size is small. Ejection fraction 55 to 60%. Flattened septum is consistent with RV pressure/volume overload. RV is severely dilated. RV systolic function is moderately reduced. Severely dilated right atrium. Dilated tricuspid annulus resulting in severe tricuspid regurgitation. Moderate loculated posterior pericardial effusion with moderate organization, possible thrombus. No echocardiographic findings of cardiac tamponade. Dilated IVC with normal respiratory variation. (1) Atrial fibrillation Atrial fibrillation type: unspecified chronic Qualified Code(s): I48.20 - Chronic atrial fibrillation, unspecified
[2022-02-11] MEDS: COLCHICINE 0.6 MG TAB PO SCH (16:52)
[2022-02-11] MEDS ORDERED: LORazepam 2 MG/1 ML VIAL IV STA (22:52)
[2022-02-11] MEDS ORDERED: dilTIAZem HCl 5 MG/ML 5 ML VIAL IV STA (22:52)
[2022-02-11] MEDS ORDERED: ALBUMIN 25% 12.5 GM/50 ML VIAL IV ONE (22:53)
[2022-02-11] MEDS ORDERED: LORazepam 2 MG/1 ML VIAL ONE (22:58)
[2022-02-12 06:49] LABS: Hematocrit (blood only) 39.3 % (37-47); Hemoglobin 13.1 g/dL (12.0-16.0); Mean Corpuscular Hemoglobin 31.8 pg (25-34); Mean Corpuscular Hgb Conc 33.3 g/dL (32-36); Mean Corpuscular Volume 95.4 fL (80-100); Mean Platelet Volume 12.9 fL (7.4-10.4); Platelet Count 135 K/uL (130-400); RDW Coefficient of Variation 15.3 % (11.5-14.5); RDW Standard Deviation 52.8 fL (36.4-46.3); Red Blood Count 4.12 M/uL (4.2-5.4); White Blood Count 5.86 K/uL (4.8-10.8)
[2022-02-12 06:59] LABS: INR 2.3 (0.9-1.1); Prothrombin Time 23.5 Seconds (9.0-12.0)
[2022-02-12 07:30] LABS: BUN Creatinine Ratio 29.6 (10-20); Calcium 8.7 mg/dl (8.5-10.1); Creatinine Clr Calc Pharmacy 30.8 ml/min; Est GFR (African American) 45.4 ml/min; Est GFR (Non-African American) 39.2 ml/min; Potassium 3.9 mmol/L (3.5-5.1)
--- NOTE | 2022-02-12 07:38 | Electrocardiogram Report ---
Test Reason : Blood Pressure : / mmHG Vent. Rate : 079 BPM Atrial Rate : 250 BPM P-R Int : 000 ms QRS Dur : 104 ms QT Int : 414 ms P-R-T Axes : 000 114 010 degrees QTc Int : 474 ms Atrial fibrillation with premature ventricular or aberrantly conducted complexes Right axis deviation Low voltage QRS Incomplete right bundle branch block Abnormal ECG When compared with ECG of 10-FEB-2022 16:24, (unconfirmed) No significant change Confirmed by Chong Castle ([id number]) on 02/12/2022 7:37:51 AM Referred By: Dena Fermin Confirmed By:Chong Castle
[2022-02-12] MEDS: ASPIRIN 81 MG ECTAB PO SCH (08:07)
[2022-02-12] MEDS: COLCHICINE 0.6 MG TAB PO SCH (08:08)
[2022-02-12] MEDS: CALCIUM CARBONATE 1250MG TAB PO SCH (08:08)
[2022-02-12] MEDS: FAMOTIDINE 20 MG TAB PO SCH (08:10)
[2022-02-12] MEDS: MULTIVITAMIN TAB PO SCH (08:10)
[2022-02-12] MEDS: OMEGA-3 (PURIFIED FISH OIL) 1 GM CAP PO SCH (08:10)
[2022-02-12] MEDS: METOPROLOL SUCC 25MG EXT REL TAB PO SCH (08:10)
[2022-02-12] MEDS: RALOXIFENE HCL 60 MG TAB PO SCH (08:10)
[2022-02-12] MEDS: dilTIAZem HCL 240 MG CAPCR PO SCH (08:10)
--- NOTE | 2022-02-12 08:27 | XRay Report ---
XR chest 1V portable CLINICAL HISTORY: Renal failure. COMPARISON STUDY: Chest radiograph February 08, 2018. FINDINGS: An old proximal left humeral deformity is incidentally noted. There is no pneumothorax. Tra ce right pleural effusion is noted. No consolidation to suggest pneumonia. There is no evidence for p ulmonary edema. Marked enlargement of the cardiac silhouette is noted. This is increased since prior exam. IMPRESSION: 1. Marked enlargement of the cardiac silhouette, increased since prior exam. 2. Trace right pleural effusion. 3. No consolidation to suggest pneumonia. ACT 112: Negative or not required by law. Electronically signed by: Jarod Kaye M.D. 02/12/2022 8:26 AM
--- NOTE | 2022-02-12 11:30 | Hospitalist Progress Note ---
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 Moderate pericardial effusion Left-sided chest pain Elevated troponin No chest pain at this time Reports occasional MAX at home Tolerating colchicine without issues. CT chest was reported to show moderate pericardial effusion CRP elevated at 1.62. ESR 44 Echo revealed EF 55-60%, flattened septum consistent with RV pressure/volume overload, reduced RV systolic function, severe TR, moderate loculated posterior pericardial effusion with moderate organization, possible thrombus, no evidence of tamponade. Pericarditis is a possibility Appreciate Cardiology evaluation. Colchicine 0.3mg daily started Continue tele monitoring Chronic Atrial fibrillation Long-term anticoagulation Supratherapeutic INR Continue diltiazem and metoprolol, currently rate controlled Held warfarin initially with INR 3.3 but restarting today. Monitor INR CKD Stage III chronic, stable with Cr ~ 1.4 baseline Avoid nephrotoxic agents DVT ppx: SCDs, warfarin Dispo: PCU PCP: Zander FULL CODE DO [facility] Hospitalist Admission and Anticipated Discharge Date Admission Date: February 10, 2022 Subjective 86 yo F presented with weakness and chest pain on the left side. Denies CP, SOB today. Ambulating to bedside commode without issues today Had some hospital delirium overnight, receiving Ativan 0.25mg IV x 1 and Alprazolam 0.25mg PO last evening prior to midnight. As a result of her confusion, she was more tachycardic and did require dilt 20mg IV around this same time. 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 Review of Systems Review of Systems: all systems were reviewed and negative except as indicated in subjective above. Physical Exam Physical Exam: CONSTITUTIONAL: WNWD, vitals as above, generally well- appearing, NAD EYES: normal conjunctivae, no scleral icterus ENT: external ear and nose normal, MMM NECK: trachea midline RESPIRATORY: clear to auscultation bilaterally, no crackles, rales or wheezes, normal respiratory effort CARDIOVASCULAR: regular rate and rhythm, S1 and 2 heard without murmurs, gallops or rubs, no JVD, no peripheral edema CHEST: inspection of chest was normal GASTROINTESTINAL: soft, nontender, ND, no guarding MUSCULOSKELETAL: strength 5/5 throughout, head is normocephalic and atraumatic SKIN: warm and dry NEUROLOGIC: No facial palsy, no dysarthria. Touch, pain and proprioception normal. CN 2-12 grossly intact, no sensory deficit, normal cognition, normal speech, no tremor. No gross focal deficits. PSYCHIATRIC: alert cooperative and oriented to person, place and time. Results & Data Results & Data ([facility]) Vital Signs (Past 12 Hours) Vital Signs Temp Pulse Pulse Resp BP Pulse Ox 02/12/22 07:32 36.7 C 63 16 136/86 93 02/12/22 06:14 66 02/12/22 04:33 36.7 C 71 18 138/80 91 02/12/22 00:00 95 H Laboratory Results Short CBC 02/12/22 Range/Units 06:13 WBC 5.86 (4.8-10.8) K/uL Hgb 13.1 (12.0-16.0) g/dL Hct 39.3 (37-47) % Plt Count 135 (130-400) K/uL [facility] 02/12/22 06:13 Sodium 139 Potassium 3.9 Chloride 111 H Carbon Dioxide 21 BUN 37 H Creatinine 1.25 H Glucose 74 Calcium 8.7 Diagnostic Findings Chest X-Ray 02/11/22 22:53 XR chest 1V portable CLINICAL HISTORY: Renal failure. COMPARISON STUDY: Chest radiograph February 08, 2018. FINDINGS: An old proximal left humeral deformity is incidentally noted. There is no pneumothorax. Trace right pleural effusion is noted. No consolidation to suggest pneumonia. There is no evidence for pulmonary edema. Marked enlargement of the cardiac silhouette is noted. This is increased since prior exam. IMPRESSION: 1. Marked enlargement of the cardiac silhouette, increased since prior exam. 2. Trace right pleural effusion. 3. No consolidation to suggest pneumonia. ACT 112: Negative or not required by law. Electronically signed by: Jarod Kaye M.D. 02/12/2022 8:26 AM Medications Administered Current Inpatient Medications Acetaminophen (Acetaminophen 325 Mg Tab) 650 mg PO Q4H PRN PRN Reason: Pain or Fever Stop: 03/12/22 20:02 Al Hydrox/Mg Hydrox/Simethicone (Aluminum/Magnesium Susp 30 Ml Udc) 15 ml PO Q4H PRN PRN Reason: Dyspepsia Stop: 03/12/22 20:02 Alprazolam (Alprazolam 0.25 Mg Tablet) 0.25 mg PO TID PRN PRN Reason: Anxiety Stop: 03/12/22 20:02 Last Admin: 02/11/22 22:13 Dose: 0.25 mg Documented by: Aspirin (Aspirin 81 Mg Ectab) 81 mg PO DAILY ANA MARÍA Stop: 03/13/22 08:59 Last Admin: 02/12/22 08:07 Dose: 81 mg Documented by: Calcium Carbonate (Calcium Carbonate 1250mg Tab) 1,200 mg PO DAILY ANA MARÍA Stop: 03/13/22 08:59 Last Admin: 02/12/22 08:08 Dose: 1,200 mg Documented by: Colchicine (Colchicine 0.6 Mg Tab) 0.3 mg PO QAM ANA MARÍA Stop: 03/13/22 14:59 Last Admin: 02/12/22 08:08 Dose: 0.3 mg Documented by: Diltiazem HCl (Diltiazem Hcl 240 Mg Capcr) 240 mg PO DAILY ANA MARÍA Stop: 03/13/22 08:59 Last Admin: 02/12/22 08:10 Dose: 240 mg Documented by: Famotidine (Famotidine 20 Mg Tab) 20 mg PO DAILY ANA MARÍA Stop: 03/13/22 08:59 Last Admin: 02/12/22 08:10 Dose: 20 mg Documented by: Fish Oil (Elmo-3 (Purified Fish Oil) 1 Gm Cap) 1 gm PO DAILY ANA MARÍA Stop: 03/13/22 08:59 Last Admin: 02/12/22 08:10 Dose: 1 gm Documented by: Magnesium Hydroxide (Magnesium Hydroxide Susp 30 Ml Udc) 30 ml PO Q12H PRN PRN Reason: Constipation Stop: 03/12/22 20:02 Melatonin (Melatonin 3 Mg Tab) 3 mg PO HS PRN PRN Reason: Sleep Stop: 03/13/22 01:13 Last Admin: 02/11/22 20:22 Dose: 3 mg Documented by: Metoprolol Succinate (Metoprolol Succ 25mg Ext Rel Tab) 25 mg PO DAILY ANA MARÍA Stop: 03/13/22 08:59 Last Admin: 02/12/22 08:10 Dose: 25 mg Documented by: Metoprolol Succinate (Metoprolol Succ 25mg Ext Rel Tab) 37.5 mg PO PM ANA MARÍA Stop: 03/12/22 20:59 Last Admin: 02/11/22 20:22 Dose: 37.5 mg Documented by: Multivitamins (Multivitamin Tab) 1 tab PO DAILY ANA MARÍA Stop: 03/13/22 08:59 Last Admin: 02/12/22 08:10 Dose: 1 tab Documented by: Ondansetron HCl (Ondansetron Inj 2 Mg/Ml 2 Ml Vial) 4 mg IV Q6H PRN PRN Reason: Nausea Stop: 03/12/22 20:02 Polyethylene Glycol (Polyethylene (Miralax) 17 Gm Pack) 17 gm PO DAILY PRN PRN Reason: Constipation Stop: 03/12/22 20:02 Raloxifene HCl (Raloxifene Hcl 60 Mg Tab) 60 mg PO DAILY ANA MARÍA Stop: 03/13/22 08:59 Last Admin: 02/12/22 08:10 Dose: 60 mg Documented by: (1) CKD (chronic kidney disease) stage 3, GFR 30-59 ml/min Chronic kidney disease stage 3 subtype: unspecified whether 3a or 3b Qualified Code(s): N18.30 - Chronic kidney disease, stage 3 unspecified (2) Atrial fibrillation Atrial fibrillation type: unspecified chronic Qualified Code(s): I48.20 - Chronic atrial fibrillation, unspecified
--- NOTE | 2022-02-12 16:50 | Discharge Summary ---
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 Patient was seen in [facility] from clinic on 02/07/2022 secondary to intermittent chest pain that was worse with inspiration and improved with Tylenol. Lab work was ordered at that time troponin elevated D-dimer. She was scheduled for an outpatient CTA which was performed today 02/10/2022. CT results accompany patient today as it was done at [facility]. CTA was negative for PE but did show a moderate pericardial effusion. Case was discussed with [facility] surgical instrument technician who recommended patient be referred to ED for admission and further evaluation. Patient states over the last week or so she is been having intermittent left-sided chest pain. Symptoms typically last minutes, resolved with Tylenol, worse with inspiration, not affected with meals or leaning forward or lying down. She describes the pain as an ache and it is nonradiating. She has never experienced it before. She also complains of dyspnea on exertion but denies any orthopnea or PND. She does have intermittent lower extremity swelling which is controlled with Lasix as needed. She does not feel this is changed. She denies any weight gain. Her appetite has been normal. No recent illness. She always has chills but denies any documented fever or sweats. Denies any lightheadedness, dizziness, syncope, palpitations, hemoptysis, cough, URI symptoms, nausea, vomiting, abdominal pain, change in bowel or urinary habits. Her son is at bedside. Patient currently lives by herself and ambulates without assist device. In ED patient remained hemodynamically stable. Her EKG did reveal atrial fibrillation at 80 bpm and incomplete right bundle branch block. No ST or T wave changes were noted. Her initial troponin was elevated at 17.7. Her CBC was relatively unremarkable. CMP is currently pending. INR was elevated at 3.3. Admission Exam Per Admitting Provider Constitutional: WD/WN, vitals as above, NAD, sitting up in bed, pleasant, conversing easily Head: Normocephalic, Atraumatic Eyes: PERRL, conjunctivae normal, anicteric sclerae ENMT: external ear and nose normal, oropharynx normal Neck: trachea midline, no thyromegaly normal visual inspection Respiratory: normal respiratory effort, lungs clear to auscultation, no wheeze, rales, rhonchi. Normal insp/exp effort, no accessory muscle use Cardiovascular:, Irregular rhythm, no murmur, bilateral venous stasis changes +1edema Vessels: no JVD or carotid bruit Chest: normal inspection of chest Abdomen: normal bowel sounds, soft, nontender, no hepatosplenomegaly Musculoskeletal: no cyanosis or clubbing, extremities motor strength 5/5 Skin: no rashes, warm and dry normal turgor Neurologic: PERRL, EOMI, accommodation nl, no face palsy, no dysarthria CN's II-XI intact bilaterally and moves all extremities Psychiatric: A+Ox3, euthymic affect Lymphatic: no cervical or axillary lymphadenopathy : deferred Principal Diagnosis pericardial effusion Discharge Exam CONSTITUTIONAL: WNWD, vitals as above, generally well-appearing, NAD EYES: normal conjunctivae, no scleral icterus ENT: external ear and nose normal, MMM NECK: trachea midline RESPIRATORY: clear to auscultation bilaterally, no crackles, rales or wheezes, normal respiratory effort CARDIOVASCULAR: regular rate and rhythm, S1 and 2 heard without murmurs, gallops or rubs, no JVD, no peripheral edema CHEST: inspection of chest was normal GASTROINTESTINAL: soft, nontender, ND, no guarding MUSCULOSKELETAL: strength 5/5 throughout, head is normocephalic and atraumatic SKIN: warm and dry NEUROLOGIC: No facial palsy, no dysarthria. Touch, pain and proprioception normal. CN 2-12 grossly intact, no sensory deficit, normal cognition, normal speech, no tremor. No gross focal deficits. PSYCHIATRIC: alert cooperative and oriented to person, place and time. Discharge Data Allergies Allergy/AdvReac Type Severity Reaction Status Date / Time Sulfa (Sulfonamide AdvReac Mild nausea Verified 02/10/22 17:02 Antibiotics) Consultations 02/10/22 16:24 ED Decision to Admit Stat 02/10/22 16:28 Consult Cardiology Routine Hospital Course (1) Pericardial effusion: (2) Atrial fibrillation: (3) Chronic anticoagulation: (4) Supratherapeutic INR: (5) Elevated troponin: (6) Pre-diabetes: (7) CKD (chronic kidney disease) stage 3, GFR 30-59 ml/min: 86-year-old female who has a significant past medical history of PAF anticoagulated on warfarin, pulmonary hypertension, prediabetes, 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 Moderate pericardial effusion Left-sided chest pain Elevated troponin No chest pain at this time Reports occasional MAX at home Tolerating colchicine without issues. CT chest was reported to show moderate pericardial effusion CRP elevated at 1.62. ESR 44 Get 2D Echo Pericarditis is a possibility Cardiology evaluated as decided on conservative approach. Colchicine 0.3mg daily started Stable on telemetry monitoring, tolerating treatment and denied symptoms of chest pain for at least 48 hours prior to discharge. Chronic Atrial fibrillation Long-term anticoagulation Supratherapeutic INR Continue diltiazem and metoprolol, currently rate controlled warfarin therapeutic Total Time Total Time Spent Total Time Spent (In Minutes): 60 Discharge Plan Discharge Items Patient Disposition: Home - Self-Care Reason For Visit: ABNORMAL CT, WEAKNESS Discharge Diagnosis: Chest pain Pericardial effusion Pulmonary Hypertension Atrial fibrillation Activity: Resume your previous activity Non-emergency contact: Primary Care Provider Call non-emergency contact if: you have any medication questions, your symptoms worsen, your pain is not controlled, your pain is worsening, your pain is unusual for you, your pain is concerning for you and you have a fever Follow-up/Referrals: Dena Fermin MD [Primary Care Provider] - Diet: Heart Healthy Addtl Attending Provider Instructions: Please continue taking colchicine as instructed. You will need refills from your physician. Please followup with [facility] Cardiology in 1-2 weeks for a repeat echocardiogram and post-hospital visit. It is recommended that you follow-up with your primary care physician within the next week. Someone will contact you after the weekend to schedule this appointment. It was a pleasure taking care of you! Please call if you have any questions or problems. You can reach a [facility] hospitalist on duty at [facility] 24 hours a day by calling [phone]. Take care of yourself. Patricia Man, [facility] Hospitalist Pending Studies at Discharge: No Stand-Alone Forms: My [facility] Medications and DC Order Prescriptions: New colchicine [Colcrys] 0.6 mg Tablet 0.3 mg PO QAM Qty: 30 RF: 0 Continued multivitamin Tablet 1 tab PO DAILY RF: 0 calcium 600 mg Capsule 1,200 mg PO DAILY RF: 0 diltiazem HCl 240 mg capsule,extended release 24hr 240 mg PO DAILY RF: 0 aspirin 81 mg Tablet,Delayed Release (Dr/Ec) 81 mg PO DAILY RF: 0 acetaminophen 500 mg Tablet 500 - 1,000 mg PO Q6H PRN (Reason: Pain) RF: 0 alprazolam 0.25 mg Tablet 0.25 mg PO TID PRN (Reason: Anxiety) RF: 0 famotidine 20 mg Tablet 20 mg PO DAILY RF: 0 warfarin 2 mg tablet 3 mg PO TH@1630 RF: 0 warfarin 2 mg tablet 2 mg PO SUMOTUWEFRSA@1630 RF: 0 raloxifene 60 mg tablet 60 mg PO DAILY RF: 0 furosemide 20 mg Tablet 20 mg PO DAILY PRN (Reason: Edema) RF: 0 metoprolol succinate 25 mg Tablet Extended Release 24 Hr 25 mg PO DAILY RF: 0 metoprolol succinate 25 mg tablet extended release 24 hr 37.5 mg PO PM RF: 0 omega-3 fatty acids Capsule 1,000 mg PO DAILY RF: 0 Artificial Tears([id number]) 0.1-0.3 % drops 2 drp OPHTHALMIC (EYE) TID PRN (Reason: Dry Eye(S)) RF: 0 Discharge Orders: Discharge Order (Routine); Ordered 02/12/22 Ordered By: Patricia Man Admission Data Admit Date/Time: 02/10/22 16:28 Attending Provider: Patricia Man Admit Provider: Tracy Gallegos Primary Care Provider: Dena Fermin Other Providers: Matthew Eugene Rishikesh Other Interventions: Discharge Summary Assessment (RN) Last Done: 02/12/22 17:00
== END 2022-02-12 17:42 | disposition home or self-care (01) | DRG 315 ==
LOC: ED 15:23 → 2S 16:28 → SUATTDRO 16:28 → 2S 19:38

== ENCOUNTER 2022-05-03 17:36 | Inpatient (IN) ==
--- NOTE | 2022-05-03 17:43 | ED Triage Note ---
Date of Service May 03, 2022 History of Present Illness This patient was briefly evaluated while in triage. An abbreviated physical exam was performed. This patient is a 86-year-old Female with past medical history of GERD, HTN, macular degeneration who presents to the ED for evaluation of chest pain. Pt. has L sided intermittent chest pain which started 1 week ago. Also having right sided abdominal pain, right sided flank pain. Today, chest pain is 10/10. Physical Exam VITALS: Vitals are noted on the nurse's note and reviewed by myself. GENERAL: This is an 86 year old white female, in no acute distress, nondiaphoretic, well-developed well-nourished. SKIN: No rashes, edema, ecchymosis HEAD: Normocephalic atraumatic. NECK: No JVD. LUNGS: No retractions or accessory muscle use. MUSCULOSKELETAL: No obvious deformity NEURO: Patient was alert and oriented to person place and time. No focal neurological deficits. Initial orders for labs and / or imaging were placed and patient was placed in the waiting area until a bed is available. Please see further documentation for the full ED course. MDM / Impression Impression Impression: Acute hyponatremia, Pericardial effusion
--- NOTE | 2022-05-03 18:04 | Emergency Department Note ---
History of Present Illness General Chief complaint: Chest Pain Stated complaint: CHEST PAIN, FLANK PAIN Time Seen by Provider: 05/03/22 17:51 History of Present Illness Provider complaint: And abdominal pain weakness Onset (ago): week(s) 1 Location: abdomen Maximum Pain Intensity: 10 Associated symptoms: + chest pain, + malaise and + weakness; no cough, no fever/chills, no headaches, no nausea/vomiting or no shortness of breath 86-year-old female presents emergency department for chest pain abdominal pain and weakness. Patient's daughter reports her symptoms been gone for the last week. She reports that she recently stopped taking her Coumadin due to recurrent epistaxis. No fevers. No cough. Home Medications Medication Instructions Recorded Confirmed Type acetaminophen 500 mg tablet 500 - 1,000 mg PO Q6H PRN Pain 02/10/22 05/03/22 History alprazolam 0.25 mg tablet 0.125 - 0.25 mg PO TID PRN Anxiety 02/10/22 05/03/22 History aspirin 81 mg tablet,delayed 81 mg PO .ON HOLD 02/10/22 05/03/22 History release calcium 600 mg capsule 1,200 mg PO DAILY 02/10/22 05/03/22 History dextran 70-hypromellose 0.1 %-0.3 2 drp ophthalmic (eye) TID PRN Dry 02/10/22 05/03/22 History % eye drops (Artificial Tears Eye(S) (dextran 70-hypromellose)) diltiazem HCl 240 mg 240 mg PO DAILY 02/10/22 05/03/22 History capsule,extended release 24 hr furosemide 20 mg tablet 20 mg PO DAILY PRN Edema 02/10/22 05/03/22 History metoprolol succinate 25 mg 12.5 mg PO PM 02/10/22 05/03/22 History tablet,extended release 24 hr metoprolol succinate 25 mg 25 mg PO DAILY 02/10/22 05/03/22 History tablet,extended release 24 hr multivitamin 1 tab PO DAILY 02/10/22 05/03/22 History omega-3 fatty acids 1,000 mg PO .ON HOLD 02/10/22 05/03/22 History warfarin 2 mg tablet 3 mg PO DIRECTED 02/10/22 05/03/22 History Peroxide 1/2 Strength 1 dose buccal DIRECTED PRN SORES 05/03/22 05/03/22 History cholecalciferol (vitamin D3) 10 10 mcg PO DAILY 05/03/22 05/03/22 History mcg (400 unit) tablet (Vitamin D3) escitalopram oxalate 10 mg tablet 5 mg PO DAILY 05/03/22 05/03/22 History famotidine 10 mg tablet 10 mg PO DAILY 05/03/22 05/03/22 History Allergies Allergy/AdvReac Type Severity Reaction Status Date / Time Sulfa (Sulfonamide AdvReac Mild nausea Verified 05/03/22 19:40 Antibiotics) Past Med/Surg History Medical History (Updated 05/03/22 @ 21:58 by Abilio Rose) Atrial fibrillation Carotid artery stenosis, asymptomatic Chest pain Chronic anticoagulation CKD (chronic kidney disease) stage 3, GFR 30-59 ml/min Elevated troponin GERD (gastroesophageal reflux disease) HTN (hypertension) Macular degeneration Pericardial effusion Surgical History History of appendectomy History of colonoscopy History of cystoscopy History of total hysterectomy Family History Son Colorectal cancer Father Heart disease Silicosis Mother Hypertension Stroke Social History Smoking Status: Never smoker Hx Alcohol Use: No Hx Substance Use: No Preferred Language: Thai Communication Ability: Effective 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: No Beliefs That Will Affect Care: None marital status: / Current Living Situation: Alone Current Living Situation Comment: house, 1 floor How many Children do You have: 5 Feels Safe at Home: Yes Assistive Devices: None Review of Systems A total of 10 systems reviewed and were otherwise negative Physical Exam Vital Signs Vital Signs - 24 hr 05/03/22 17:38 05/03/22 18:06 05/03/22 17:56 Temperature 36.4 C L Temperature Source Temporal Artery Scan Pulse Rate 130 H 108 H 112 H Pulse Rate from SpO2 Sensor Respiratory Rate 20 16 36 H Blood Pressure 145/94 H Blood Pressure Mean 111 Blood Pressure Position Sitting Pulse Oximetry 94 93 Oxygen Delivery Method Room Air Room Air Sepsis Recent Fever Within 48 Hours No Sepsis New/Unexplained Change in Mental Status No Sepsis Action Taken by Nursing No Action Required 05/03/22 18:00 05/03/22 18:10 05/03/22 18:20 Temperature Temperature Source Pulse Rate 106 H 105 H 81 Pulse Rate from SpO2 Sensor 94 H Respiratory Rate 43 H 38 H 32 H Blood Pressure Blood Pressure Mean Blood Pressure Position Pulse Oximetry 91 Oxygen Delivery Method Sepsis Recent Fever Within 48 Hours Sepsis New/Unexplained Change in Mental Status Sepsis Action Taken by Nursing 05/03/22 18:30 05/03/22 18:40 05/03/22 18:50 Temperature Temperature Source Pulse Rate 90 108 H 86 Pulse Rate from SpO2 Sensor 92 H 94 H 80 Respiratory Rate 41 H 35 H 31 H Blood Pressure Blood Pressure Mean Blood Pressure Position Pulse Oximetry 93 93 90 Oxygen Delivery Method Sepsis Recent Fever Within 48 Hours Sepsis New/Unexplained Change in Mental Status Sepsis Action Taken by Nursing 05/03/22 19:00 05/03/22 19:53 05/03/22 19:53 Temperature Temperature Source Pulse Rate 101 H 66 Pulse Rate from SpO2 Sensor 108 H Respiratory Rate 28 H 27 H Blood Pressure 133/97 Blood Pressure Mean 109 Blood Pressure Position Pulse Oximetry 94 Oxygen Delivery Method Sepsis Recent Fever Within 48 Hours Sepsis New/Unexplained Change in Mental Status Sepsis Action Taken by Nursing 05/03/22 20:00 05/03/22 20:10 05/03/22 20:20 Temperature Temperature Source Pulse Rate 105 H 105 H 92 H Pulse Rate from SpO2 Sensor Respiratory Rate 36 H 27 H 34 H Blood Pressure Blood Pressure Mean Blood Pressure Position Pulse Oximetry Oxygen Delivery Method Sepsis Recent Fever Within 48 Hours Sepsis New/Unexplained Change in Mental Status Sepsis Action Taken by Nursing 05/03/22 20:30 05/03/22 20:40 05/03/22 20:50 Temperature Temperature Source Pulse Rate 122 H 116 H 113 H Pulse Rate from SpO2 Sensor Respiratory Rate 36 H 30 H 24 Blood Pressure Blood Pressure Mean Blood Pressure Position Pulse Oximetry Oxygen Delivery Method Sepsis Recent Fever Within 48 Hours Sepsis New/Unexplained Change in Mental Status Sepsis Action Taken by Nursing 05/03/22 21:00 05/03/22 21:10 05/03/22 21:20 Temperature Temperature Source Pulse Rate 108 H 94 H 126 H Pulse Rate from SpO2 Sensor Respiratory Rate 30 H 32 H 30 H Blood Pressure 133/97 Blood Pressure Mean 109 Blood Pressure Position Pulse Oximetry Oxygen Delivery Method Sepsis Recent Fever Within 48 Hours Sepsis New/Unexplained Change in Mental Status Sepsis Action Taken by Nursing 05/03/22 21:30 Temperature Temperature Source Pulse Rate 122 H Pulse Rate from SpO2 Sensor Respiratory Rate 22 Blood Pressure 161/115 H Blood Pressure Mean 130 Blood Pressure Position Pulse Oximetry Oxygen Delivery Method Sepsis Recent Fever Within 48 Hours Sepsis New/Unexplained Change in Mental Status Sepsis Action Taken by Nursing Physical Exam GENERAL: She is oriented to person, place, and time. She appears well-developed and well-nourished. She does not appear distressed. HENT: Exam performed. -Head: Normocephalic and atraumatic. -Right Ear: External ear normal. No mastoid tenderness. -Left Ear: External ear normal. No mastoid tenderness. -Mouth/Throat: The oropharynx is clear and moist. No trismus in the jaw. No dental abscesses or uvula swelling. No oropharyngeal exudate or tonsillar abscesses. EYES: Conjunctivae and EOM are normal. Pupils are equal, round, and reactive to light. Right eye exhibits no discharge. Left eye exhibits no discharge. No s cleral icterus. NECK: Normal range of motion. Neck supple. No JVD present. No spinous process tenderness present. No carotid bruit present. No rigidity. No tracheal deviation and normal range of motion present. No Brudzinski's sign and no Kernig's sign noted. CV: Normal rate, irregular rhythm, normal heart sounds and intact distal pulses. There is no peripheral edema. Palpable radial pulses bue. PULM/CHEST: Effort normal and breath sounds normal. No respiratory distress. No stridor. She has no wheezes. She has no rales. -Chest Wall: She exhibits no tenderness. ABD: The abdomen is soft. Bowel sounds are normal. She has no distension. No mass is present. There is no tenderness. There is no rebound, no guarding, no Wagner's sign and no tenderness at McBurney's point. Rovsig negative MUSC/SKEL: Normal range of motion. There is no peripheral edema, tenderness or deformity. LYMPH: No cervical adenopathy. NEURO: She is alert and oriented to person, place, and time. She has normal strength. No cranial nerve deficit or sensory deficit. Coordination and gait normal. GCS eye subscore is 4. GCS verbal subscore is 5. GCS motor subscore is 6. Cerebellar tests wnl. SKIN: Skin is warm and dry. She is not diaphoretic. PSYCH: She has a normal mood and affect. Behavior is normal. Judgment and thought content normal. Course Course 1750: The patient was evaluated in room C1. A complete history and physical exam was performed Cardiac monitoring: An order was placed for continuous cardiac monitoring. The monitor shows a rate of 90-110 with atrial fibrilation rhythm 2030: Vital signs stable. Labs showA D-dimer 4960. Sodium 123. Potassium 5.2. Creatinine within normal limits. Total bilirubin 1.3. Alkaline phosphatase 217. Troponin 27.6. CT of the head within normal limits. CTA of the chest shows no pulmonary embolus but does show large pericardial effusion with bilateral pleural regions. Bedside ultrasound was performed which did not show any evidence of tamponade. Patient blood pressures been stable and there is no JVD evidence of clinical tamponade either. CT of the abdomen shows cardiomegaly with moderate pericardial effusion as well as distended intrahepatic IVC. There is significant pericholecystic edema likely due to patient's cardiac congestion. Radiology reports and acute cholecystitis considered less likely. I agree with this assessment as clinically the patient has no Wagner sign and no pain on palpation of the right upper quadrant. Patient will be admitted to the [facility] hospitalist team Dr. Allen notified. Administered Medications Sodium Chloride (Nss) 500 mls @ 75 mls/hr IV .[id number] ANA MARÍA Stop: 06/02/22 18:14 Last Admin: 05/03/22 18:33 Dose: 75 mls/hr Documented By: CARYN Magnesium Sulfate/Dextrose (Magnesium Sulfate / D5w) 1 gm in 100 mls @ 50 mls/hr IV ONE ONE Stop: 05/03/22 22:48 Last Admin: 05/03/22 21:04 Dose: 50 mls/hr Documented By: CARYN Discontinued Medications Furosemide (Furosemide Inj 20 Mg/2 Ml Vial) 20 mg IV ONE ONE Stop: 05/03/22 20:42 Last Admin: 05/03/22 21:03 Dose: 20 mg Documented By: CARYN Ioversol (Optiray 320 125ml) 119 ml IV ONCE ONE Stop: 05/03/22 19:21 Last Admin: 05/03/22 19:21 Dose: 119 ml Documented By: LILIANA Ipratropium [place] (Ipratropium [place] Neb Soln 0.02% 2.5 Ml Vial) 0.5 mg INH NOW STA Stop: 05/03/22 20:53 Last Admin: 05/03/22 21:04 Dose: 0.5 mg Documented By: CARYN Levalbuterol HCl (Levalbuterol 1.25mg/0.5ml Neb) 1.25 mg INH NOW STA Stop: 05/03/22 20:53 Last Admin: 05/03/22 21:04 Dose: 1.25 mg Documented By: CARYN Medical Decision Making Laboratory Data Result diagrams: 05/03/22 18:08 05/03/22 18:08 Lab Results 05/03/22 05/03/22 05/03/22 Range/Units 18:08 18:08 18:08 WBC 11.87 H (4.8-10.8) K/ul RBC 4.31 (3.93-5.22) M/uL Hgb 13.9 (12.0-16.0) g/dl Hct 40.1 (34.1-44.9) % MCV 93.0 (80.0-100.0) fL MCH 32.3 (25.0-34.0) pg MCHC 34.7 (32.0-36.0) g/dL RDW Std Deviation 59.3 H (36.4-46.3) fL RDW Coeff of Lonny 17.4 H (11.5-14.5) % Plt Count 244 (130-400) K/uL MPV 12.1 (9.4-12.3) fL Immature Gran % (Auto) 0.7 % Neut % (Auto) 84.3 % Lymph % (Auto) 4.9 % [place] % (Auto) 9.8 % Eos % (Auto) 0.0 % Baso % (Auto) 0.3 % Neut # (Auto) 10.01 H (1.4-6.5) K/uL Lymph # (Auto) 0.58 L (1.2-3.4) K/uL [place] # (Auto) 1.16 H (0.24-0.82) K/uL Eos # (Auto) 0.00 (0-0.50) K/uL Baso # (Auto) 0.04 (0-0.2) K/uL Immature Gran # (Auto) 0.08 H (0.00-0.02) K/uL PT 14.7 H (9.0-12.0) Seconds INR 1.4 H (0.9-1.1) APTT 33.4 H (21.0-31.0) Seconds PTT Ratio 1.2 D-Dimer 4960 H* (0-500) ug/L FEU Sodium 123 L (136-145) mmol/L Potassium 5.2 H (3.5-5.1) mmol/L Chloride 95 L (98-107) mmol/L Carbon Dioxide 18 L (21-32) mmol/L Anion Gap 10 (3-11) BUN 27 H (6-23) mg/dl Creatinine 1.08 (0.6-1.2) mg/dl Est Cr Clr Drug Dosing Not Reportable Est GFR ( Amer) 54.2 ml/min Est GFR (Non-Af Amer) 46.8 ml/min BUN/Creatinine Ratio 25.0 H (10-20) Glucose 118 H (70-99(Fasting)) mg/dl Calcium 9.0 (8.5-10.1) mg/dl Magnesium 1.8 (1.7-2.4) mg/dl Total Bilirubin 1.3 H (0.2-1.0) mg/dl AST 29 (13-39) U/L ALT 18 (7-52) U/L Alkaline Phosphatase 217 H (34-104) U/L Troponin I High Sens 27.6 H (0-14) pg/ml Total Protein 7.2 (6.0-8.3) gm/dl Albumin 3.9 (3.4-5.0) gm/dl Globulin 3.3 (2.5-4.0) gm/dl Albumin/Globulin Ratio 1.2 (0.9-2) Lipase 17 (11-82) U/L SARS-CoV-2, RNA, NAAT (NEGATIVE) 05/03/22 Range/Units 19:58 WBC (4.8-10.8) K/ul RBC (3.93-5.22) M/uL Hgb (12.0-16.0) g/dl Hct (34.1-44.9) % MCV (80.0-100.0) fL MCH (25.0-34.0) pg MCHC (32.0-36.0) g/dL RDW Std Deviation (36.4-46.3) fL RDW Coeff of Lonny (11.5-14.5) % Plt Count (130-400) K/uL MPV (9.4-12.3) fL Immature Gran % (Auto) % Neut % (Auto) % Lymph % (Auto) % [place] % (Auto) % Eos % (Auto) % Baso % (Auto) % Neut # (Auto) (1.4-6.5) K/uL Lymph # (Auto) (1.2-3.4) K/uL [place] # (Auto) (0.24-0.82) K/uL Eos # (Auto) (0-0.50) K/uL Baso # (Auto) (0-0.2) K/uL Immature Gran # (Auto) (0.00-0.02) K/uL PT (9.0-12.0) Seconds INR (0.9-1.1) APTT (21.0-31.0) Seconds PTT Ratio D-Dimer (0-500) ug/L FEU Sodium (136-145) mmol/L Potassium (3.5-5.1) mmol/L Chloride (98-107) mmol/L Carbon Dioxide (21-32) mmol/L Anion Gap (3-11) BUN (6-23) mg/dl Creatinine (0.6-1.2) mg/dl Est Cr Clr Drug Dosing Est GFR ( Amer) ml/min Est GFR (Non-Af Amer) ml/min BUN/Creatinine Ratio (10-20) Glucose (70-99(Fasting)) mg/dl Calcium (8.5-10.1) mg/dl Magnesium (1.7-2.4) mg/dl Total Bilirubin (0.2-1.0) mg/dl AST (13-39) U/L ALT (7-52) U/L Alkaline Phosphatase (34-104) U/L Troponin I High Sens (0-14) pg/ml Total Protein (6.0-8.3) gm/dl Albumin (3.4-5.0) gm/dl Globulin (2.5-4.0) gm/dl Albumin/Globulin Ratio (0.9-2) Lipase (11-82) U/L SARS-CoV-2, RNA, NAAT NEGATIVE (NEGATIVE) Imaging Data Radiologist's Impression: Chest X-Ray 05/03/22 17:43 XR chest 1V portable CLINICAL HISTORY: Chest Pain. COMPARISON STUDY: 02/11/2022 TECHNIQUE: 1 view of the chest FINDINGS: Single frontal view of the chest demonstrates the heart to again be markedly enlarged. There has been interval development of bilateral pleural effusions and bibasilar atelectasis. The lungs are clear of alveolar opacities. There is no evidence for vascular congestion. There is no acute osseous pathology. IMPRESSION: 1. Cardiomegaly with interval development of small bilateral pleural effusions and bibasilar atelectasis. ACT 112: Negative or not required by law. Electronically signed by: Willian Rust M.D. 05/03/2022 6:46 PM Abdomen/Pelvis CT 05/03/22 18:[address] WITH IV CONTRAST CT DOSE: HISTORY: Weakness. Atypical chest pain. Generalized abdominal pain. TECHNIQUE: Multiaxial CT images of the abdomen and pelvis were performed following the use of intravenous contrast. A dose lowering technique was utilized adhering to the principles of ALARA. COMPARISON STUDY: None. FINDINGS: The visualized heart is markedly enlarged. There is a moderate pericardial effusion. There are small bilateral pleural effusions. Bibasilar densities favor atelectasis. This is better appreciated on the same day chest CT. No pneumoperitoneum. No pneumatosis. No fractures within the visualized osseous structures. Mild body wall edema is noted. Distended IVC and hepatic veins with heterogeneous enhancement of the liver. This suggests cardiac congestion. No hepatic masses. The main portal vein is patent. There is significant pericholecystic edema. No definite gallstones. The spleen and adrenal glands are unremarkable. Near complete fatty replacement of the pancreas. No retroperitoneal lymphadenopathy. Moderate calcified plaque within the normal caliber abdominal aorta. Moderate bilateral cortical renal thinning. There are few small bilateral renal hypodense lesions. These likely represent cysts. No ureteral stones. No hydronephrosis. No pelvic lymphadenopathy. The bladder is not well-distended but appears unremarkable. Prior hysterectomy. Trace pelvic free fluid. No bowel wall thickening or obstruction. The appendix is not identified and reportedly surgically absent. IMPRESSION: 1. No bowel wall thickening or obstruction. 2. Severe cardiomegaly with a moderate pericardial effusion and small bilateral pleural effusions. This is better present on the same day chest CT. 3. Distended intrahepatic IVC and hepatic veins likely due to the right-sided heart failure/dysfunction. 4. Significant pericholecystic edema. This is also likely due to the patient's cardiac congestion. Acute cholecystitis is considered less likely. Clinical correlation recommended for. Trace pelvic free fluid. 5. Mild body wall edema. ACT 112: Negative or not required by law. Electronically signed by: Harlan Ferrara M.D. 05/03/2022 7:42 PM Chest CTA 05/03/22 18:00 CT angio chest PE protocol CLINICAL HISTORY: Weakness, chest pain and abdominal pain COMPARISON STUDY: Portable chest from 05/03/2022 CT DOSE: TECHNIQUE: CT Angio of the chest was performed.followed by image post processing with coronal, and sagittal MIP reformats. Contrast Volume: Optiray 320, 119 ml FINDINGS: Vasculature: There is homogeneous perfusion of the pulmonary vasculature bilaterally. No intraluminal filling defects or evidence for pulmonary embolus is seen. Airway: The airway is clear. No endobronchial lesion is identified. Lungs and pleural: Compared to the chest radiograph, there are actually a moderate-sized bilateral pleural effusions with compressive atelectasis/collapse involving both lower lobes. The lungs are otherwise clear of acute alveolar opacities, air bronchograms or pulmonary nodules. Mediastinum: There is no evidence for pathologic adenopathy. The heart is markedly enlarged. There is a large pericardial effusion present. The thoracic aorta is within normal limits. Osseous structures: There is no acute osseous pathology. Degenerative changes are present. Impression: 1. No CTA evidence for pulmonary embolus. 2. Marked cardiomegaly with a large pericardial effusion. 3. Moderate sized bilateral pleural effusions with compressive atelectasis/collapse of both lung bases. ACT 112: Negative or not required by law. Electronically signed by: Willian Rust M.D. 05/03/2022 7:[address] 05/03/22 18:[address] DOSE: 1288.68 mGy.cm HISTORY: weakness cp abd pain TECHNIQUE: Multiaxial CT images of the head were performed without the use of intravenous contrast. Automated exposure control was utilized for this study. A dose lowering technique was utilized adhering to the principles of ALARA. Comparison: None. Findings: The paranasal sinuses and mastoid air cells are clear. The calvarium and skull base are intact. There is no mass, hematoma, midline shift, acute infarct. White matter hypodensity is nonspecific but suggestive of microvascular ischemic change. The ventricles and sulci demonstrate mild age-related involutional changes. Impression: No acute intracranial abnormality. ACT 112: Negative or not required by law. Electronically signed by: Harlan Ferrara M.D. 05/03/2022 7:33 PM ECG Data Indication: + chest pain Rate (beats per minute): 94 Rhythm: + atrial fibrillation ECG Intervals/blocks: + Normal QRS and + Normal QT-c ECG ST segments: + Normal ST segments ECG Findings: + PVCs MDM Narrative Vital signs stable. Labs showA D-dimer 4960. Sodium 123. Potassium 5.2. Creatinine within normal limits. Total bilirubin 1.3. Alkaline phosphatase 217. Troponin 27.6. CT of the head within normal limits. CTA of the chest shows no pulmonary embolus but does show large pericardial effusion with bilateral pleural regions. Bedside ultrasound was performed which did not show any evidence of tamponade. Patient blood pressures been stable and there is no JVD evidence of clinical tamponade either. CT of the abdomen shows cardiomegaly with moderate pericardial effusion as well as distended intrahepatic IVC. There is significant pericholecystic edema likely due to patient's cardiac congestion. Radiology reports and acute cholecystitis considered less likely. I agree with this assessment as clinically the patient has no Wagner sign and no pain on palpation of the right upper quadrant. [facility] Impression & Plan Acute hyponatremia, Pericardial effusion Discharge Plan Visit Data Chief Complaint: Chest Pain Stated Complaint: CHEST PAIN, FLANK PAIN ED Provider: Abilio Rose Discharge Problem: Acute hyponatremia, Pericardial effusion Patient Disposition: Admitted As Inpatient Forms Stand Alone Forms: [facility] Prescriptions Prescriptions: No Action multivitamin Tablet 1 tab PO DAILY calcium 600 mg Capsule 1,200 mg PO DAILY diltiazem HCl 240 mg capsule,extended release 24hr 240 mg PO DAILY aspirin 81 mg Tablet,Delayed Release (Dr/Ec) 81 mg PO .ON HOLD acetaminophen 500 mg Tablet 500 - 1,000 mg PO Q6H PRN (Reason: Pain) alprazolam 0.25 mg Tablet 0.125 - 0.25 mg PO TID PRN (Reason: Anxiety) warfarin 2 mg tablet 3 mg PO DIRECTED Rx Instructions: .ON HOLD. DIRECTED BY [facility] furosemide 20 mg Tablet 20 mg PO DAILY PRN (Reason: Edema) metoprolol succinate 25 mg Tablet Extended Release 24 Hr 25 mg PO DAILY metoprolol succinate 25 mg tablet extended release 24 hr 12.5 mg PO PM omega-3 fatty acids Capsule 1,000 mg PO .ON HOLD Artificial Tears([id number]) 0.1-0.3 % drops 2 drp OPHTHALMIC (EYE) TID PRN (Reason: Dry Eye(S)) famotidine 10 mg Tablet 10 mg PO DAILY cholecalciferol (vitamin D3) [Vitamin D3] 10 mcg (400 unit) Tablet 10 mcg PO DAILY escitalopram oxalate 10 mg tablet 5 mg PO DAILY Rx Instructions: AFTER 1ST Peroxide 1/2 Strength 1 dose buccal DIRECTED PRN (Reason: SORES) Referrals Referrals: Dena Fermin MD [Primary Care Provider] -
[2022-05-03] MEDS ORDERED: SODIUM CHLORIDE 0.9% 500 ML IV SCH (18:15)
[2022-05-03 18:26] LABS: Basophils # (auto) 0.04 K/uL (0-0.2); Basophils % (auto) 0.3 %; Hematocrit (blood only) 40.1 % (34.1-44.9); Hemoglobin 13.9 g/dl (12.0-16.0); Immature Granulocytes # (auto) 0.08 K/uL (0.00-0.02); Immature Granulocytes % (auto) 0.7 %; Lymphocytes # (auto) 0.58 K/uL (1.2-3.4); Lymphocytes % (auto) 4.9 %; Mean Corpuscular Hemoglobin 32.3 pg (25.0-34.0); Mean Corpuscular Hgb Conc 34.7 g/dL (32.0-36.0); Mean Platelet Volume 12.1 fL (9.4-12.3); Monocytes # (auto) 1.16 K/uL (0.24-0.82); Monocytes % (auto) 9.8 %; Neutrophils # (auto) 10.01 K/uL (1.4-6.5); Neutrophils % (auto) 84.3 %; Platelet Count 244 K/uL (130-400); RDW Coefficient of Variation 17.4 % (11.5-14.5); RDW Standard Deviation 59.3 fL (36.4-46.3); Red Blood Count 4.31 M/uL (3.93-5.22); White Blood Count 11.87 K/ul (4.8-10.8)
[2022-05-03 18:47] LABS: INR 1.4 (0.9-1.1); Partial Thromboplastin Ratio 1.2; Partial Thromboplastin Time 33.4 Seconds (21.0-31.0); Prothrombin Time 14.7 Seconds (9.0-12.0)
--- NOTE | 2022-05-03 18:47 | XRay Report ---
XR chest 1V portable CLINICAL HISTORY: Chest Pain. COMPARISON STUDY: 02/11/2022 TECHNIQUE: 1 view of the chest FINDINGS: Single frontal view of the chest demonstrates the heart to again be markedly enlarged. There has been interval development of bilateral pleural effusions and bibasilar atelectasis. The lungs are clear o f alveolar opacities. There is no evidence for vascular congestion. There is no acute osseous patholo gy. IMPRESSION: 1. Cardiomegaly with interval development of small bilateral pleural effusions and bibasilar atelecta sis. ACT 112: Negative or not required by law. Electronically signed by: Willian Rust M.D. 05/03/2022 6:46 PM
[2022-05-03 18:49] LABS: D Dimer 4960 ug/L FEU (0-500)
[2022-05-03 18:52] LABS: Alanine Aminotransferase 18 U/L (7-52); Albumin Globulin Ratio 1.2 (0.9-2); Albumin Level 3.9 gm/dl (3.4-5.0); Alkaline Phosphatase 217 U/L (34-104); Anion Gap 10 (3-11); Aspartate Aminotransferase 29 U/L (13-39); Bilirubin,Total 1.3 mg/dl (0.2-1.0); Blood Urea Nitrogen 27 mg/dl (6-23); Carbon Dioxide 18 mmol/L (21-32); Chloride 95 mmol/L (98-107); Est GFR (African American) 54.2 ml/min; Est GFR (Non-African American) 46.8 ml/min; Globulin 3.3 gm/dl (2.5-4.0); Glucose 118 mg/dl (70-99(Fasting)); Lipase 17 U/L (11-82); Magnesium 1.8 mg/dl (1.7-2.4); Potassium 5.2 mmol/L (3.5-5.1); Sodium 123 mmol/L (136-145); Total Protein 7.2 gm/dl (6.0-8.3)
[2022-05-03 18:53] LABS: Troponin I High Sensitivity 27.6 pg/ml (0-14)
[2022-05-03] MEDS ORDERED: OPTIRAY 320 125ml IV ONE (19:20)
--- NOTE | 2022-05-03 19:35 | CT Scan Report ---
HEAD CT NONCONTRAST CT DOSE: 1288.68 mGy.cm HISTORY: weakness cp abd pain TECHNIQUE: Multiaxial CT images of the head were performed without the use of intravenous contrast. A utomated exposure control was utilized for this study. A dose lowering technique was utilized adheri ng to the principles of ALARA. Comparison: None. Findings: The paranasal sinuses and mastoid air cells are clear. The calvarium and skull base are int act. There is no mass, hematoma, midline shift, acute infarct. White matter hypodensity is nonspecifi c but suggestive of microvascular ischemic change. The ventricles and sulci demonstrate mild age-rela francie involutional changes. Impression: No acute intracranial abnormality. ACT 112: Negative or not required by law. Electronically signed by: Harlan Ferrara M.D. 05/03/2022 7:33 PM
--- NOTE | 2022-05-03 19:35 | CT Scan Report ---
CT angio chest PE protocol CLINICAL HISTORY: Weakness, chest pain and abdominal pain COMPARISON STUDY: Portable chest from 05/03/2022 CT DOSE: TECHNIQUE: CT Angio of the chest was performed.followed by image post processing with coronal, and s agittal MIP reformats. Contrast Volume: Optiray 320, 119 ml FINDINGS: Vasculature: There is homogeneous perfusion of the pulmonary vasculature bilaterally. No intraluminal filling defects or evidence for pulmonary embolus is seen. Airway: The airway is clear. No endobronchial lesion is identified. Lungs and pleural: Compared to the chest radiograph, there are actually a moderate-sized bilateral pl eural effusions with compressive atelectasis/collapse involving both lower lobes. The lungs are other gottlieb clear of acute alveolar opacities, air bronchograms or pulmonary nodules. Mediastinum: There is no evidence for pathologic adenopathy. The heart is markedly enlarged. There is a large pericardial effusion present. The thoracic aorta is within normal limits. Osseous structures: There is no acute osseous pathology. Degenerative changes are present. Impression: 1. No CTA evidence for pulmonary embolus. 2. Marked cardiomegaly with a large pericardial effusion. 3. Moderate sized bilateral pleural effusions with compressive atelectasis/collapse of both lung base s. ACT 112: Negative or not required by law. Electronically signed by: Willian Rust M.D. 05/03/2022 7:34 PM
--- NOTE | 2022-05-03 19:44 | CT Scan Report ---
ABDOMEN AND PELVIS CT WITH IV CONTRAST CT DOSE: HISTORY: Weakness. Atypical chest pain. Generalized abdominal pain. TECHNIQUE: Multiaxial CT images of the abdomen and pelvis were performed following the use of intrave nous contrast. A dose lowering technique was utilized adhering to the principles of ALARA. COMPARISON STUDY: None. FINDINGS: The visualized heart is markedly enlarged. There is a moderate pericardial effusion. There are small bilateral pleural effusions. Bibasilar densities favor atelectasis. This is better apprecia francie on the same day chest CT. No pneumoperitoneum. No pneumatosis. No fractures within the visualized osseous structures. Mild body wall edema is noted. Distended IVC and hepatic veins with heterogeneou s enhancement of the liver. This suggests cardiac congestion. No hepatic masses. The main portal vein is patent. There is significant pericholecystic edema. No definite gallstones. The spleen and adrena l glands are unremarkable. Near complete fatty replacement of the pancreas. No retroperitoneal lympha denopathy. Moderate calcified plaque within the normal caliber abdominal aorta. Moderate bilateral co rtical renal thinning. There are few small bilateral renal hypodense lesions. These likely represent cysts. No ureteral stones. No hydronephrosis. No pelvic lymphadenopathy. The bladder is not well-dist ended but appears unremarkable. Prior hysterectomy. Trace pelvic free fluid. No bowel wall thickening or obstruction. The appendix is not identified and reportedly surgically absent. IMPRESSION: 1. No bowel wall thickening or obstruction. 2. Severe cardiomegaly with a moderate pericardial effusion and small bilateral pleural effusions. Th is is better present on the same day chest CT. 3. Distended intrahepatic IVC and hepatic veins likely due to the right-sided heart failure/dysfuncti on. 4. Significant pericholecystic edema. This is also likely due to the patient's cardiac congestion. Ac lower [place] cholecystitis is considered less likely. Clinical correlation recommended for. Trace pelvic free fluid. 5. Mild body wall edema. ACT 112: Negative or not required by law. Electronically signed by: Harlan Ferrara M.D. 05/03/2022 7:42 PM
[2022-05-03] MEDS ORDERED: XOPENEX/ATROVENT 1.25mg/0.5MG NEB COMBO NEB STA (20:41)
[2022-05-03] MEDS ORDERED: FUROSEMIDE INJ 20 MG/2 ML VIAL IV ONE (20:41)
--- NOTE | 2022-05-03 20:46 | History & Physical Report ---
Date of Service May 03, 2022 Assessment & Plan (1) Chest pain: (2) Atrial fibrillation: (3) Chronic anticoagulation: (4) HTN (hypertension): (5) Pericardial effusion: (6) CKD (chronic kidney disease) stage 3, GFR 30-59 ml/min: (7) Shortness of breath: Plan This is an 86yo F with a PMH of PAF anticoagulated on warfarin, pulmonary hypertension, prediabetes, exudative age-related macular degeneration, HTN, asymptomatic carotid artery stenosis, CKD stage IIIb, GERD, resolving pericardial effusion who presents to ED with chest pain x [address] Tracy's addendum for assessment and plan. History of Present Illness Chief Complaint: CP, SOB Primary Care Provider: Dena Fermin MD This is an 86yo F with a PMH of PAF anticoagulated on warfarin, pulmonary hypertension, prediabetes, exudative age-related macular degeneration, HTN, asymptomatic carotid artery stenosis, CKD stage IIIb, GERD who presents to ED with chest pain x 1 week. Patient was admitted in February 2022 for intermittent chest pain and CT chest revealed moderate pericardial effusion. Was discharged on colchicine for possible pericarditis and has completed course. Has been evaluated by Dr. Smith with recommendation for pacemaker but placement was delayed due to recent pericarditis. Was admitted at [facility] 04/18-04/19 for chest pain and a fib with RVR. Pericardial effusion on repeat echo was noted to be substantially improved from previous imaging. Continues to have intermittent CP and SOB per outpatient notes. Seen by PRISCILA Baird on 04/21/22. Plan for EP follow up and recommended counseling for treatment of generalized anxiety. Patient was experiencing dull intermittent chest pain over the past week that was more severe earlier today. Pain is L sided and non-radiating. Also endorsing R sided flank pain. Both have resolved by time of evaluation in ED. Endorses feeling very anxious. Feels short of breath. No fever, chills, wheezing, nausea, vomiting, abdominal pain, dysuria, diarrhea or constipation. Allergies Allergy/AdvReac Type Severity Reaction Status Date / Time Sulfa (Sulfonamide AdvReac Mild nausea Verified 05/03/22 19:40 Antibiotics) Home Medications Medication Instructions Recorded Confirmed Type acetaminophen 500 mg tablet 500 - 1,000 mg PO Q6H PRN Pain 02/10/22 05/03/22 History alprazolam 0.25 mg tablet 0.125 - 0.25 mg PO TID PRN Anxiety 02/10/22 05/03/22 History aspirin 81 mg tablet,delayed 81 mg PO .ON HOLD 02/10/22 05/03/22 History release calcium 600 mg capsule 1,200 mg PO DAILY 02/10/22 05/03/22 History dextran 70-hypromellose 0.1 %-0.3 2 drp ophthalmic (eye) TID PRN Dry 02/10/22 05/03/22 History % eye drops (Artificial Tears Eye(S) (dextran 70-hypromellose)) diltiazem HCl 240 mg 240 mg PO DAILY 02/10/22 05/03/22 History capsule,extended release 24 hr furosemide 20 mg tablet 20 mg PO DAILY PRN Edema 02/10/22 05/03/22 History metoprolol succinate 25 mg 12.5 mg PO PM 02/10/22 05/03/22 History tablet,extended release 24 hr metoprolol succinate 25 mg 25 mg PO DAILY 02/10/22 05/03/22 History tablet,extended release 24 hr multivitamin 1 tab PO DAILY 02/10/22 05/03/22 History omega-3 fatty acids 1,000 mg PO .ON HOLD 02/10/22 05/03/22 History warfarin 2 mg tablet 3 mg PO DIRECTED 02/10/22 05/03/22 History Peroxide 1/2 Strength 1 dose buccal DIRECTED PRN SORES 05/03/22 05/03/22 History cholecalciferol (vitamin D3) 10 10 mcg PO DAILY 05/03/22 05/03/22 History mcg (400 unit) tablet (Vitamin D3) escitalopram oxalate 10 mg tablet 5 mg PO DAILY 05/03/22 05/03/22 History famotidine 10 mg tablet 10 mg PO DAILY 05/03/22 05/03/22 History Past Med/Surg History Medical History (Updated 05/03/22 @ 21:58 by Abilio Rose) Atrial fibrillation Carotid artery stenosis, asymptomatic Chest pain Chronic anticoagulation CKD (chronic kidney disease) stage 3, GFR 30-59 ml/min Elevated troponin GERD (gastroesophageal reflux disease) HTN (hypertension) Macular degeneration Pericardial effusion Surgical History History of appendectomy History of colonoscopy History of cystoscopy History of total hysterectomy Family History Son Colorectal cancer Father Heart disease Silicosis Mother Hypertension Stroke Social History Smoking Status: Never smoker Second Hand Exposure: No; Do You Dip or Chew Tobacco: No; Tobacco Cessation Education Requested by Patient: No Hx Alcohol Use: No Hx Substance Use: No Preferred Language: Croatian Communication Ability: Effective Custom Protection Officer Required: No Beliefs That Will Affect Care: None marital status: / Current Living Situation: Alone Current Living Situation Comment: house, 1 floor How many Children do You have: 5 Other Information That Helps Us Care for You: No Feels Safe at Home: Yes Assistive Devices: Glasses Review of Systems Review of Systems: At least ten systems reviewed and negative except as noted in the HPI. Physical Exam Physical Exam: General Appearance: WD/WN, vitals as above, NAD, sitting up in bed, pleasant, anxious, oxygen mask in place Head: normocephalic, atraumatic Eyes: normal inspection, PERRL, conjunctivae normal, anicteric sclerae ENT: external ear and nose normal, oropharynx normal Neck: normal visual inspection, trachea midline, no thyromegaly Respiratory: normal respiratory effort, coarse lung sounds at bases, no wheezing or rhonchi. No accessory muscle use Cardiovascular: irregular rate & rhythm, no murmur, normal peripheral pulses, no BLE edema. Vessels: no JVD Chest: normal inspection of chest Abdomen/GI: normal bowel sounds, soft, nontender, no hepatosplenomegaly Extremities/Musculoskeletal: no cyanosis or clubbing, extremities motor strength 5/5 Neurologic: PERRL, EOMI, accommodation nl, no face palsy, no dysarthria, CN's II-XI intact bilaterally and moves all extremities Psychiatric: A+Ox3, anxious Skin: no rashes, normal color, warm/dry Results & Data Results & Data ([facility]) Vital Signs (Past 12 Hours) Vital Signs Temp Pulse Resp BP Pulse Ox O2 Del Method 05/03/22 20:20 92 H 34 H 05/03/22 20:10 105 H 27 H 05/03/22 20:00 105 H 36 H 07/26/22 19:53 66 27 H 05/03/22 19:53 133/97 05/03/22 19:00 101 H 28 H 94 05/03/22 18:50 86 31 H 90 05/03/22 18:40 108 H 35 H 93 05/03/22 18:30 90 41 H 93 05/03/22 18:20 81 32 H 91 05/03/22 18:10 105 H 38 H 05/03/22 18:00 106 H 43 H 05/03/22 17:56 112 H 36 H 05/03/22 18:06 108 H 16 93 Room Air 05/03/22 17:38 36.4 C L 130 H 20 145/94 H 94 Room Air Laboratory Results Short CBC 05/03/22 Range/Units 18:08 WBC 11.87 H (4.8-10.8) K/ul Hgb 13.9 (12.0-16.0) g/dl Hct 40.1 (34.1-44.9) % Plt Count 244 (130-400) K/uL BMP 05/03/22 18:08 Sodium 123 L Potassium 5.2 H Chloride 95 L Carbon Dioxide 18 L BUN 27 H Creatinine 1.08 Glucose 118 H Calcium 9.0 Liver Function 05/03/22 Range/Units 18:08 Total Bilirubin 1.3 H (0.2-1.0) mg/dl AST 29 (13-39) U/L ALT 18 (7-52) U/L Alkaline Phosphatase 217 H (34-104) U/L Albumin 3.9 (3.4-5.0) gm/dl Diagnostic Findings Chest X-Ray 05/03/22 17:43 XR chest 1V portable CLINICAL HISTORY: Chest Pain. COMPARISON STUDY: 02/11/2022 TECHNIQUE: 1 view of the chest FINDINGS: Single frontal view of the chest demonstrates the heart to again be markedly enlarged. There has been interval development of bilateral pleural effusions and bibasilar atelectasis. The lungs are clear of alveolar opacities. There is no evidence for vascular congestion. There is no acute osseous pathology. IMPRESSION: 1. Cardiomegaly with interval development of small bilateral pleural effusions and bibasilar atelectasis. ACT 112: Negative or not required by law. Electronically signed by: Willian Rust M.D. 05/03/2022 6:46 PM Abdomen/Pelvis CT 05/03/22 18:[address] WITH IV CONTRAST CT DOSE: HISTORY: Weakness. Atypical chest pain. Generalized abdominal pain. TECHNIQUE: Multiaxial CT images of the abdomen and pelvis were performed following the use of intravenous contrast. A dose lowering technique was utilized adhering to the principles of ALARA. COMPARISON STUDY: None. FINDINGS: The visualized heart is markedly enlarged. There is a moderate pericardial effusion. There are small bilateral pleural effusions. Bibasilar densities favor atelectasis. This is better appreciated on the same day chest CT. No pneumoperitoneum. No pneumatosis. No fractures within the visualized osseous structures. Mild body wall edema is noted. Distended IVC and hepatic veins with heterogeneous enhancement of the liver. This suggests cardiac congestion. No hepatic masses. The main portal vein is patent. There is significant pericholecystic edema. No definite gallstones. The spleen and adrenal glands are unremarkable. Near complete fatty replacement of the pancreas. No retroperitoneal lymphadenopathy. Moderate calcified plaque within the normal caliber abdominal aorta. Moderate bilateral cortical renal thinning. There are few small bilateral renal hypodense lesions. These likely represent cysts. No ureteral stones. No hydronephrosis. No pelvic lymphadenopathy. The bladder is not well-distended but appears unremarkable. Prior hysterectomy. Trace pelvic free fluid. No bowel wall thickening or obstruction. The appendix is not identified and reportedly surgically absent. IMPRESSION: 1. No bowel wall thickening or obstruction. 2. Severe cardiomegaly with a moderate pericardial effusion and small bilateral pleural effusions. This is better present on the same day chest CT. 3. Distended intrahepatic IVC and hepatic veins likely due to the right-sided heart failure/dysfunction. 4. Significant pericholecystic edema. This is also likely due to the patient's cardiac congestion. Acute cholecystitis is considered less likely. Clinical correlation recommended for. Trace pelvic free fluid. 5. Mild body wall edema. ACT 112: Negative or not required by law. Electronically signed by: Harlan Ferrara M.D. 05/03/2022 7:42 PM Chest CTA 05/03/22 18:00 CT angio chest PE protocol CLINICAL HISTORY: Weakness, chest pain and abdominal pain COMPARISON STUDY: Portable chest from 05/03/2022 CT DOSE: TECHNIQUE: CT Angio of the chest was performed.followed by image post processing with coronal, and sagittal MIP reformats. Contrast Volume: Optiray 320, 119 ml FINDINGS: Vasculature: There is homogeneous perfusion of the pulmonary vasculature bilaterally. No intraluminal filling defects or evidence for pulmonary embolus is seen. Airway: The airway is clear. No endobronchial lesion is identified. Lungs and pleural: Compared to the chest radiograph, there are actually a moderate-sized bilateral pleural effusions with compressive atelectasis/collapse involving both lower lobes. The lungs are otherwise clear of acute alveolar opacities, air bronchograms or pulmonary nodules. Mediastinum: There is no evidence for pathologic adenopathy. The heart is markedly enlarged. There is a large pericardial effusion present. The thoracic aorta is within normal limits. Osseous structures: There is no acute osseous pathology. Degenerative changes are present. Impression: 1. No CTA evidence for pulmonary embolus. 2. Marked cardiomegaly with a large pericardial effusion. 3. Moderate sized bilateral pleural effusions with compressive atelectasis/raymond apse of both lung bases. ACT 112: Negative or not required by law. Electronically signed by: Willian Rust M.D. 05/03/2022 7:[address] 05/03/22 18:[address] DOSE: 1288.68 mGy.cm HISTORY: weakness cp abd pain TECHNIQUE: Multiaxial CT images of the head were performed without the use of intravenous contrast. Automated exposure control was utilized for this study. A dose lowering technique was utilized adhering to the principles of ALARA. Comparison: None. Findings: The paranasal sinuses and mastoid air cells are clear. The calvarium and skull base are intact. There is no mass, hematoma, midline shift, acute infarct. White matter hypodensity is nonspecific but suggestive of microvascular ischemic change. The ventricles and sulci demonstrate mild age-related involutional changes. Impression: No acute intracranial abnormality. ACT 112: Negative or not required by law. Electronically signed by: Harlan Ferrara M.D. 05/03/2022 7:33 PM Supervising Physician Co-Signing Physician Notes IM ATTENDING : Patient seen and examined. History obtained from patient and records. Preceding documentation by Ms. Judy Salazar PA-C reviewed. FINAL ASSESSMENT AND PLAN as follows : Decompensated heart failure History right-sided heart failure/diastolic dysfunction (EF 55 to 60%), TTE 2021 Underlying pulmonary hypertension hx pericardial effusion status post colchicine Rx Rapid A. fib secondary to illness Anxiety contributory hx SSS, pacemaker procedure schedule on hold due to recent pericardial effusion Coumadin held recently due to bouts of epistaxis Hypervolemic hyponatremia SSRI possibly contributory History of PVD Prediabetes, hemoglobin A1c of 6.10 January 2022 PCU Diuretic Rx Cardiology consult Re: CHF/chest pain/persistent pericardial effusion Continue home beta-alon and CCB meds for rate control Low-dose IV heparin for thromboembolic prophylaxis given recent bouts of epistaxis Resume Coumadin if hemoglobin stable and if without recurrent epistaxis Resume home aspirin for PVD Hyponatremia work-up Hold SSRI for now until serum sodium within normal limits May benefit from nephrology consultation for hyponatremia PT OT eval DVT prophylaxis. IV heparin Full code Text document was generated using [employer] voice recognition software. It may contain grammatical or spelling errors. Kindly contact undersigned for clarification of any documentation item in question. (1) CKD (chronic kidney disease) stage 3, GFR 30-59 ml/min Chronic kidney disease stage 3 subtype: unspecified whether 3a or 3b Qualified Code(s): N18.30 - Chronic kidney disease, stage 3 unspecified (2) Atrial fibrillation Atrial fibrillation type: unspecified chronic Qualified Code(s): I48.20 - Chronic atrial fibrillation, unspecified (3) Chest pain Chest pain type: unspecified Qualified Code(s): R07.9 - Chest pain, unspecified
[2022-05-03] MEDS ORDERED: MAGNESIUM SULFATE / D5W 1 GM/100 ML BAG IV ONE (20:49)
[2022-05-03] MEDS ORDERED: IPRATROPIUM BROMIDE NEB SOLN 0.02% 2.5 ML VIAL INH STA (20:52)
[2022-05-03] MEDS ORDERED: LEVALBUTEROL 1.25MG/0.5ML NEB INH STA (20:52)
[2022-05-03] MEDS ORDERED: METOPROLOL TARTRATE 1 MG/ML VIAL IV STA (21:54)
[2022-05-03] MEDS ORDERED: Heparin IV Adult Wt-Based Low-Dose *NO* Bolus Protocol IV STA (21:58)
[2022-05-03] MEDS ORDERED: oxyCODONE HCL IR 5 MG TAB (IMMEDIATE RELEASE) PO PRN (23:15)
[2022-05-03] MEDS: HEPARIN SODIUM/DEXTROSE 25,000 UNITS/500 ML BAG IV SCH (23:31)
[2022-05-04] MEDS: METOPROLOL SUCC 25MG EXT REL TAB PO SCH ×3 (00:01→20:38)
[2022-05-04 00:13] LABS: Appearance Urine Clear (Clear); Bacteria Urine Automated Negative (Negative); Bilirubin Urine Negative (Negative); Blood Urine Negative (Negative); Color Urine Yellow; Epithelial Cell Urine Auto 20-30 /lpf (0-5); Glucose Urine UA Negative (Negative); Ketones Urine Negative (Negative); Leukocyte Esterase Urine Negative (Negative); Nitrite Urine Negative (Negative); Protein Urine 2+ (Negative); RBC Urine Automated 0-4 /hpf (0-4); Specific Gravity Urine > 1.045 (1.000-1.030); Urobilinogen Urine Negative (Negative)
[2022-05-04] MEDS: ACETAMINOPHEN 325 MG TAB PO PRN ×3 (01:06→22:04)
[2022-05-04 02:07] LABS: C Reactive Protein 10.89 mg/dl (0-0.5); Calcium 8.9 mg/dl (8.5-10.1); Est GFR (African American) 56.7 ml/min; Potassium 5.1 mmol/L (3.5-5.1)
[2022-05-04 02:08] LABS: Troponin I High Sensitivity 26.1 pg/ml (0-14)
[2022-05-04 05:43] LABS: Basophils # (auto) 0.03 K/uL (0-0.2); Basophils % (auto) 0.3 %; Eosinophils # (auto) 0.02 K/uL (0-0.50); Eosinophils % (auto) 0.2 %; Hematocrit (blood only) 37.3 % (34.1-44.9); Hemoglobin 13.1 g/dl (12.0-16.0); Immature Granulocytes # (auto) 0.06 K/uL (0.00-0.02); Immature Granulocytes % (auto) 0.6 %; Lymphocytes # (auto) 0.74 K/uL (1.2-3.4); Lymphocytes % (auto) 7.6 %; Mean Corpuscular Hemoglobin 32.6 pg (25.0-34.0); Mean Corpuscular Hgb Conc 35.1 g/dL (32.0-36.0); Mean Corpuscular Volume 92.8 fL (80.0-100.0); Mean Platelet Volume 12.2 fL (9.4-12.3); Monocytes # (auto) 1.36 K/uL (0.24-0.82); Monocytes % (auto) 13.9 %; Neutrophils # (auto) 7.59 K/uL (1.4-6.5); Neutrophils % (auto) 77.4 %; Platelet Count 212 K/uL (130-400); RDW Coefficient of Variation 17.2 % (11.5-14.5); RDW Standard Deviation 58.4 fL (36.4-46.3); Red Blood Count 4.02 M/uL (3.93-5.22)
[2022-05-04 06:11] LABS: BUN Creatinine Ratio 25.3 (10-20); Calcium 8.6 mg/dl (8.5-10.1); Creatinine Clr Calc Pharmacy 38.9 ml/min; Est GFR (African American) 60.2 ml/min
[2022-05-04 06:14] LABS: INR 1.4 (0.9-1.1); Partial Thromboplastin Ratio 1.7; Prothrombin Time 14.4 Seconds (9.0-12.0)
[2022-05-04 06:57] LABS: Partial Thromboplastin Time 48.1 Seconds (21.0-31.0)
[2022-05-04] MEDS: MULTIVITAMIN TAB PO SCH (08:23)
[2022-05-04] MEDS: dilTIAZem HCL 240 MG CAPCR PO SCH (08:23)
[2022-05-04] MEDS: ASPIRIN 81 MG ECTAB PO SCH ×2 (08:23→10:19)
[2022-05-04] MEDS: FAMOTIDINE 10 MG TABLET PO SCH (08:23)
--- NOTE | 2022-05-04 11:23 | Cardiology Consultation ---
Date of Consultation May 04, 2022 Assessment & Plan (1) Chest pain: (2) Shortness of breath: (3) Pleural effusion: (4) Pericardial effusion: (5) Chronic anticoagulation: (6) CKD (chronic kidney disease) stage 3, GFR 30-59 ml/min: (7) Atrial fibrillation: (8) HTN (hypertension): Plan chest pain with large pericardial effusion pt recently received shorten course of treatment for pericarditis given her age and small stature will restart colchicine 0.6 mg po bid along with ibuprofen 600mg po tid mediastinal ultrasound to further evaluate pleural effusions significant hyponatemia, likely volume overload will defer diuretics to our nephrology colleagues, recommend consultation History of Present Illness Attending Physician: Todd John MD History of Present Illness Patient Active Problem List Diagnosis Code Carotid stenosis, non-symptomatic I65.29 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 Gastroesophageal reflux disease without esophagitis K21.9 ADVANCE DIRECTIVE INFORMATION [facility] M19.019 HTN, goal below 140/80 I10 Pulmonary hypertension, moderate to severe (HCC) I27.20 Paroxysmal atrial fibrillation (HCC) I48.0 ARB intolerance Z78.9 Elevated hemoglobin (HCC) D58.2 Exudative age-related macular degeneration of both eyes with active choroidal neovascularization (HCC) H35.3231 FRAN (renal osteodystrophy) N25.0 Hx of actinic keratosis Z87.2 Age-related osteoporosis without current pathological fracture M81.0 Prediabetes R73.03 Hypertensive heart and kidney disease with chronic diastolic congestive heart failure and stage 3b chronic kidney disease (HCC) I13.0, I50.32, N18.32 Chronic kidney disease, stage 3b (HCC) N18.32 Seasonal allergic rhinitis J30.2 Pericardial effusion I31.3 Allergies Allergy/AdvReac Type Severity Reaction Status Date / Time Sulfa (Sulfonamide AdvReac Mild nausea Verified 05/03/22 19:40 Antibiotics) Home Medications Medication Instructions Recorded Confirmed Type acetaminophen 500 mg tablet 500 - 1,000 mg PO Q6H PRN Pain 02/10/22 05/03/22 History alprazolam 0.25 mg tablet 0.125 - 0.25 mg PO TID PRN Anxiety 02/10/22 05/03/22 History aspirin 81 mg tablet,delayed 81 mg PO .ON HOLD 02/10/22 05/03/22 History release calcium 600 mg capsule 1,200 mg PO DAILY 02/10/22 05/03/22 History dextran 70-hypromellose 0.1 %-0.3 2 drp ophthalmic (eye) TID PRN Dry 02/10/22 05/03/22 History % eye drops (Artificial Tears Eye(S) (dextran 70-hypromellose)) diltiazem HCl 240 mg 240 mg PO DAILY 02/10/22 05/03/22 History capsule,extended release 24 hr furosemide 20 mg tablet 20 mg PO DAILY PRN Edema 02/10/22 05/03/22 History metoprolol succinate 25 mg 12.5 mg PO PM 02/10/22 05/03/22 History tablet,extended release 24 hr metoprolol succinate 25 mg 25 mg PO DAILY 02/10/22 05/03/22 History tablet,extended release 24 hr multivitamin 1 tab PO DAILY 02/10/22 05/03/22 History omega-3 fatty acids 1,000 mg PO .ON HOLD 02/10/22 05/03/22 History warfarin 2 mg tablet 3 mg PO DIRECTED 02/10/22 05/03/22 History Peroxide 1/2 Strength 1 dose buccal DIRECTED PRN SORES 05/03/22 05/03/22 History cholecalciferol (vitamin D3) 10 10 mcg PO DAILY 05/03/22 05/03/22 History mcg (400 unit) tablet (Vitamin D3) escitalopram oxalate 10 mg tablet 5 mg PO DAILY 05/03/22 05/03/22 History famotidine 10 mg tablet 10 mg PO DAILY 05/03/22 05/03/22 History Patient History Medical History (Updated 05/04/22 @ 11:19 by Amos Baeza DO) Atrial fibrillation Carotid artery stenosis, asymptomatic Chest pain Chronic anticoagulation CKD (chronic kidney disease) stage 3, GFR 30-59 ml/min Elevated troponin GERD (gastroesophageal reflux disease) HTN (hypertension) Macular degeneration Pericardial effusion Surgical History History of appendectomy History of colonoscopy History of cystoscopy History of total hysterectomy Family History Son Colorectal cancer Father Heart disease Silicosis Mother Hypertension Stroke Social History Smoking Status: Never smoker Second Hand Exposure: No; Do You Dip or Chew Tobacco: No; Tobacco Cessation Education Requested by Patient: No Hx Alcohol Use: No Hx Substance Use: No Preferred Language: [place] Arabian Communication Ability: Effective Car Lubricator Required: No Beliefs That Will Affect Care: None marital status: / Current Living Situation: Alone Current Living Situation Comment: house, 1 floor How many Children do You have: 5 Other Information That Helps Us Care for You: No Feels Safe at Home: Yes Assistive Devices: Glasses Results & Data ([facility]) Vital Signs (Past 12 Hours) Vital Signs Temp Pulse Resp BP BP Pulse Ox Pulse Ox 05/04/22 07:40 36.6 C 115 H 16 142/86 H 96 05/04/22 03:00 36.5 C 102 H 16 130/87 96 05/04/22 01:49 80 16 129/81 94 05/04/22 00:00 94 O2 Del Method O2 Del Method O2 Flow Rate 05/04/22 07:40 Nasal Cannula 4 05/04/22 03:00 05/04/22 01:49 Nasal Cannula 4 05/04/22 00:00 Room Air (1) CKD (chronic kidney disease) stage 3, GFR 30-59 ml/min Chronic kidney disease stage 3 subtype: unspecified whether 3a or 3b Qualified Code(s): N18.30 - Chronic kidney disease, stage 3 unspecified (2) Atrial fibrillation Atrial fibrillation type: unspecified chronic Qualified Code(s): I48.20 - Chronic atrial fibrillation, unspecified (3) Chest pain Chest pain type: unspecified Qualified Code(s): R07.9 - Chest pain, unspecified
[2022-05-04] MEDS: IBUPROFEN 600 MG TAB PO SCH ×3 (12:12→20:43)
[2022-05-04] MEDS: COLCHICINE 0.6 MG TAB PO SCH ×2 (12:12→20:38)
--- NOTE | 2022-05-04 13:09 | Electrocardiogram Report ---
Test Reason : Blood Pressure : / mmHG Vent. Rate : 094 BPM Atrial Rate : 133 BPM P-R Int : 000 ms QRS Dur : 088 ms QT Int : 340 ms P-R-T Axes : 000 129 051 degrees QTc Int : 425 ms Atrial fibrillation f with premature ventricular or aberrantly conducted complexes Right axis deviation Incomplete right bundle branch block Possible Old Anteroseptal infarct Abnormal ECG When compared with ECG of 11-FEB-2022 04:58, No significant change Confirmed by Isaias Hartley ([id number]) on 05/04/2022 1:09:11 PM Referred By: REFERRED SELF Confirmed By:Isaias Hartley
--- NOTE | 2022-05-04 16:56 | Ultrasound Report ---
US effusion-chest/mediastinum HISTORY: 86 years-old Female pleural effusions follow-up study in a patient with pleural effusions COMPARISON: CTA chest 05/03/2022 TECHNIQUE: Multiple real time sonographic images of the chest were obtained assessing grayscale appea rosa maria FINDINGS: Bilateral minimally complex pleural effusions are present. The right pleural effusion has a volume of 322 mL and the left has a volume of 399 mL IMPRESSION: Bilateral pleural effusions are redemonstrated. ACT 112: Negative or not required by law. The above report was generated using voice recognition software. It may contain grammatical, syntax o r spelling errors. Electronically signed by: Jovani Chin M.D. 05/04/2022 4:54 PM
--- NOTE | 2022-05-04 17:49 | Nephrology Consultation ---
Date of Consultation May 04, 2022 Assessment & Plan (1) Hyponatremia: her sodium was 134 on outside labs 04/25 w/ K 4.3, creat 1.5. presented w/ sNa 123>124 today. not floridly overloaded on exam; would hold on lasix for now given her ; also w/ NAGMA ? from loose BM hypoosmolar hyponatremia > she is total body overloaded but examines as intravascularly depleted; challenging case of hyponatremia in a medically complex patient -bmp now > based on this will consider next steps but low threshold to give gen tle IVF; recheck mag w/ this -daily standing weight -strict I/O -for now no fluid limit (2) CKD (chronic kidney disease) stage 3, GFR 30-59 ml/min: high risk for ALEXANDER on CKD > d/t obligate diuretics, d/t IV contrast received, d/t nsaid use, d/t high dose colchicine -recheck bmp now -discuss pericarditis RX w/ cardiology in AM/not emergent History of Present Illness Reason for Consultation: hyponatremia Requesting Physician: Dr John Attending Physician: Todd John MD History of Present Illness 86 y/o F whom I'm asked to see for hyponatremia was sent to [facility] from CKD clinic yesterday d/t complaints of diffuse pain including sternal and L arm in setting of recent pericarditis and found to have recurrent now large pericardial effus ion. Her presenting sodium was 123 w/ K 5.2, creat 1.1. PMH includes permanent A fib w/ coumadin recently stopped, pulmonary hypertension w/ dilated and dysfunction right ventricle, CKD 3B, HTN, carotid artery stenosis, GERD, anxiety. Also admitted here February 2022 for pericarditis and small pericardial effusion treated with low dose colchicine. admitted [facility] 04/17- for chest and shoulder pain, a fib w/ RVR. She has been having recurrent nosebleeds and her coumadin has been held for unclear timeframe, since at least 05/02. In the ER she had 20 IV lasix x 1 as well as IV mag, 1/2 L NS Cardiology saw the patient and recommended colchicine and ibuprofen 600 mg bid as well as mediastinal u/s. pt has been eating poorly she tells me x months but works at [employer]; denies sob; stable chronic cough from PND w/ white phlegm; no worsenign orthopnea (sleeps w/ HOB elevated d/t GERD), no voiding sx, some loose BM today; no n/v or abd pain. no rash; no f. her diffuse joint pain dian BL shoulders L chest have resolved. ate well this evening she states w/o n/v. Allergies Allergy/AdvReac Type Severity Reaction Status Date / Time Sulfa (Sulfonamide AdvReac Mild nausea Verified 05/03/22 19:40 Antibiotics) Home Medications Medication Instructions Recorded Confirmed Type acetaminophen 500 mg tablet 500 - 1,000 mg PO Q6H PRN Pain 02/10/22 05/03/22 History alprazolam 0.25 mg tablet 0.125 - 0.25 mg PO TID PRN Anxiety 02/10/22 05/03/22 History aspirin 81 mg tablet,delayed 81 mg PO .ON HOLD 02/10/22 05/03/22 History release calcium 600 mg capsule 1,200 mg PO DAILY 02/10/22 05/03/22 History dextran 70-hypromellose 0.1 %-0.3 2 drp ophthalmic (eye) TID PRN Dry 02/10/22 05/03/22 History % eye drops (Artificial Tears Eye(S) (dextran 70-hypromellose)) diltiazem HCl 240 mg 240 mg PO DAILY 02/10/22 05/03/22 History capsule,extended release 24 hr furosemide 20 mg tablet 20 mg PO DAILY PRN Edema 02/10/22 05/03/22 History metoprolol succinate 25 mg 12.5 mg PO PM 02/10/22 05/03/22 History tablet,extended release 24 hr metoprolol succinate 25 mg 25 mg PO DAILY 02/10/22 05/03/22 History tablet,extended release 24 hr multivitamin 1 tab PO DAILY 02/10/22 05/03/22 History omega-3 fatty acids 1,000 mg PO .ON HOLD 02/10/22 05/03/22 History warfarin 2 mg tablet 3 mg PO DIRECTED 02/10/22 05/03/22 History Peroxide 1/2 Strength 1 dose buccal DIRECTED PRN SORES 05/03/22 05/03/22 History cholecalciferol (vitamin D3) 10 10 mcg PO DAILY 05/03/22 05/03/22 History mcg (400 unit) tablet (Vitamin D3) escitalopram oxalate 10 mg tablet 5 mg PO DAILY 05/03/22 05/03/22 History famotidine 10 mg tablet 10 mg PO DAILY 05/03/22 05/03/22 History Patient History Medical History (Updated 05/04/22 @ 18:10 by Hilaria Smith MD, PhD) Atrial fibrillation Carotid artery stenosis, asymptomatic Chest pain Chronic anticoagulation CKD (chronic kidney disease) stage 3, GFR 30-59 ml/min Elevated troponin GERD (gastroesophageal reflux disease) HTN (hypertension) Macular degeneration Pericardial effusion Surgical History History of appendectomy History of colonoscopy History of cystoscopy History of total hysterectomy Family History Son Colorectal cancer Father Heart disease Silicosis Mother Hypertension Stroke Social History Smoking Status: Never smoker Second Hand Exposure: No; Do You Dip or Chew Tobacco: No; Tobacco Cessation Education Requested by Patient: No Hx Alcohol Use: No Hx Substance Use: No Preferred Language: Upper Sorbian Communication Ability: Effective Commodity Director Required: No Beliefs That Will Affect Care: None marital status: / Current Living Situation: Alone Current Living Situation Comment: house, 1 floor How many Children do You have: 5 Other Information That Helps Us Care for You: No Feels Safe at Home: Yes Assistive Devices: None Review of Systems Review of Systems: All systems reviewed & are unremarkable except as noted in HPI & below Physical Exam Constitutional: well developed, well nourished, + thin and cooperative; no acute distress Eyes: EOM intact bilaterally ENMT: Ears: no external ear abnormality Nose: no external nose abnormality Mouth: + dry oral mucous membranes Neck: no nuchal rigidity Respiratory: normal respiratory effort Auscultation: + diminished lung sounds Cardiovascular: Rate/Rhythm: + irregularly irregular Heart Sounds: + murmur and + cardiac rub (?) Palpation: + abnormal PMI Extremities: no edema Gastrointestinal (Abdomen): Inspection/Auscultation: normal bowel sounds Percussion/Palpation: abdomen soft; abdomen nontender Musculoskeletal: Extremities: strength 5/5 throughout Skin: no rashes, warm and dry Neurologic: hackett, fluent speech, no tremor Psychiatric: Orientation: oriented x 3 Speech: normal rate/rhythm/volume of speech Affect: euthymic affect and + anxious affect Results & Data ([facility]) Vital Signs (Past 12 Hours) Vital Signs Temp Pulse Resp BP Pulse Ox O2 Del Method O2 Flow Rate 05/04/22 16:53 Room Air 05/04/22 16:08 36.7 C 89 19 137/90 90 Room Air 05/04/22 12:03 36.6 C 119 H 18 129/84 94 Room Air 05/04/22 07:40 36.6 C 115 H 16 142/86 H 96 Nasal Cannula 4 Laboratory Results 05/04/22 05:26 05/04/22 05:26 s albumin 3.9 s Osm 272 CRP 11 UA > 1045 sg; 2+ protein uOsm 568 Rocio 18 Diagnostic Findings CTA Vasculature: There is homogeneous perfusion of the pulmonary vasculature bilaterally. No intraluminal filling defects or evidence for pulmonary embolus is seen. Airway: The airway is clear. No endobronchial lesion is identified. Lungs and pleural: Compared to the chest radiograph, there are actually a mode rate-sized bilateral pleural effusions with compressive atelectasis/collapse involving both lower lobes. The lungs are otherwise clear of acute alveolar opacities, air bronchograms or pulmonary nodules. Mediastinum: There is no evidence for pathologic adenopathy. The heart is markedly enlarged. There is a large pericardial effusion present. The thoracic aorta is within normal limits. Osseous structures: There is no acute osseous pathology. Degenerative changes are present. Impression: 1. No CTA evidence for pulmonary embolus. 2. Marked cardiomegaly with a large pericardial effusion. 3. Moderate sized bilateral pleural effusions with compressive atelectasis/collapse of both lung bases. CT a/p no con FINDINGS: The visualized heart is markedly enlarged. There is a moderate pericardial effusion. There are small bilateral pleural effusions. Bibasilar densities favor atelectasis. This is better appreciated on the same day chest CT. No pneumoperitoneum. No pneumatosis. No fractures within the visualized osseous structures. Mild body wall edema is noted. Distended IVC and hepatic veins with heterogeneous enhancement of the liver. This suggests cardiac congestion. No hepatic masses. The main portal vein is patent. There is significant pericholecystic edema. No definite gallstones. The spleen and adrenal glands are unremarkable. Near complete fatty replacement of the pancreas. No retroperitoneal lymphadenopathy. Moderate calcified plaque within the normal caliber abdominal aorta. Moderate bilateral cortical renal thinning. There are few small bilateral renal hypodense lesions. These likely represent cysts. No ureteral stones. No hydronephrosis. No pelvic lymphadenopathy. The bl adder is not well-distended but appears unremarkable. Prior hysterectomy. Trace pelvic free fluid. No bowel wall thickening or obstruction. The appendix is not identified and reportedly surgically absent. IMPRESSION: 1. No bowel wall thickening or obstruction. 2. Severe cardiomegaly with a moderate pericardial effusion and small bilateral pleural effusions. This is better present on the same day chest CT. 3. Distended intrahepatic IVC and hepatic veins likely due to the right-sided heart failure/dysfunction. 4. Significant pericholecystic edema. This is also likely due to the patient's cardiac congestion. Acute cholecystitis is considered less likely. Clinical correlation recommended for. Trace pelvic free fluid. 5. Mild body wall edema. Head CT unremarkable cxr 1. Cardiomegaly with interval development of small bilateral pleural effusions and bibasilar atelectasis. mediastinal u/s Bilateral minimally complex pleural effusions are present. The right pleural effusion has a volume of 322 mL and the left has a volume of 399 mL IMPRESSION: Bilateral pleural effusions are redemonstrated. ECG no change from prior (1) CKD (chronic kidney disease) stage 3, GFR 30-59 ml/min Chronic kidney disease stage 3 subtype: unspecified whether 3a or 3b Qualified Code(s): N18.30 - Chronic kidney disease, stage 3 unspecified
[2022-05-04 19:51] LABS: BUN Creatinine Ratio 25.4 (10-20); Calcium 9.1 mg/dl (8.5-10.1); Creatinine Clr Calc Pharmacy 31.6 ml/min; Est GFR (African American) 46.8 ml/min; Est GFR (Non-African American) 40.4 ml/min; Magnesium 2.1 mg/dl (1.7-2.4); Potassium 5.3 mmol/L (3.5-5.1)
[2022-05-04] MEDS ORDERED: ALBUMIN 25% 12.5 GM/50 ML VIAL IV ONE (20:51)
--- NOTE | 2022-05-04 20:52 | Communication Note ---
Date of Service: May 04, 2022 Made aware by RN of 7 PM labs. serum potassium 5.3 serum crea 1.22 (from 0.99 in AM) AP ARF, hyperkalemia Hold NSAID Monitor creatinine response to IV albumin ADDENDUM : Dr. Joseph (Nephrology) recommended sodium bicarb IVF and chemistry recheck in a.m.
[2022-05-04] MEDS ORDERED: ALBUMIN 25% 100 mL 25 GM/100 ML VIAL IV ONE (20:53)
[2022-05-04] MEDS ORDERED: DEXTROSE 5% IV SCH (21:30)
[2022-05-04] MEDS ORDERED: SODIUM BICARBONATE IV SCH (21:30)
[2022-05-04] MEDS: ALPRAZolam 0.25 MG TABLET PO PRN (22:05)
--- NOTE | 2022-05-04 22:30 | Hospitalist Progress Note ---
Date of Service May 04, 2022 Assessment & Plan (1) Chest pain: (2) Atrial fibrillation: (3) Chronic anticoagulation: (4) HTN (hypertension): (5) Pericardial effusion: (6) CKD (chronic kidney disease) stage 3, GFR 30-59 ml/min: (7) Shortness of breath: Plan: Possible related to Large pleural effusion CTA chest showed Marked cardiomegaly with a large pericardial effusion. Moderate sized bilateral pleural effusions with compressive atelectasis/collapse of both lung bases. Received lasix 20mg IV on admission Chest u/s showed Bilateral pleural effusions are redemonstrated. Cardiology on board recommended to restart colchicine 0.6mg BID and Ibuprofen 600mg TID Diuretic management as per nephrology Continue monitor closely Hyponatremia Mostly due to volume overload Na 124 today Nephrology consulted Continue gentle hydration Continue monitor BMP Afib Rate control Continue IN+V heparin drip for now Coumadin on hold CKD stage 3 Creatinine stable continue monitor BMP DVT px on heparin subq Code status Full code Admission and Anticipated Discharge Date Admission Date: May 03, 2022 Subjective Pt was seen and examined for follow up of chest pain Lying in bed with no acute distress eating her meal She said that chest pain improves Denies any palpitation, dizziness and fever Review of Systems Review of Systems: All systems reviewed & are unremarkable except as noted in Subjective Physical Exam Physical Exam: General- No acute distress Head- atraumatic Eyes- PERRL, EOMI, ENT- oropharynx clear Neck- supple, no JVD Lungs- clear to auscultation Heart- no murmur Abdomen- normal bowel sounds, soft, nontender Extremities- no calf tenderness Neuro- alert, oriented x 3; PERRL, EOMI; no facial palsy; no dysarthria Skin- warm & dry Results & Data Results & [facility] ([facility]) Vital Signs (Past 12 Hours) Vital Signs Temp Pulse Resp BP BP Pulse Ox O2 Del Method 05/04/22 19:11 36.9 C 68 19 119/77 90 Room Air 05/04/22 16:53 Room Air 05/04/22 16:08 36.7 C 89 19 137/90 90 Room Air 05/04/22 12:03 36.6 C 119 H 18 129/84 94 Room Air (1) CKD (chronic kidney disease) stage 3, GFR 30-59 ml/min Chronic kidney disease stage 3 subtype: unspecified whether 3a or 3b Qualified Code(s): N18.30 - Chronic kidney disease, stage 3 unspecified (2) Atrial fibrillation Atrial fibrillation type: unspecified chronic Qualified Code(s): I48.20 - Chronic atrial fibrillation, unspecified (3) Chest pain Chest pain type: unspecified Qualified Code(s): R07.9 - Chest pain, unspecified
[2022-05-05] MEDS: ACETAMINOPHEN 325 MG TAB PO PRN ×3 (02:20→13:00)
[2022-05-05] MEDS: NITROGLYCERIN SL 0.4 MG/TAB TAB SL PRN ×3 (02:25→08:22)
[2022-05-05 04:34] LABS: Hematocrit (blood only) 36.1 % (34.1-44.9); Hemoglobin 12.5 g/dl (12.0-16.0); Mean Corpuscular Hemoglobin 32.2 pg (25.0-34.0); Mean Corpuscular Hgb Conc 34.6 g/dL (32.0-36.0); Mean Platelet Volume 11.9 fL (9.4-12.3); Platelet Count 218 K/uL (130-400); RDW Coefficient of Variation 17.5 % (11.5-14.5); RDW Standard Deviation 59.1 fL (36.4-46.3); Red Blood Count 3.88 M/uL (3.93-5.22); White Blood Count 9.34 K/ul (4.8-10.8)
[2022-05-05 04:45] LABS: INR 1.3 (0.9-1.1); Prothrombin Time 14.1 Seconds (9.0-12.0)
[2022-05-05 04:54] LABS: BUN Creatinine Ratio 25.7 (10-20); Calcium 8.3 mg/dl (8.5-10.1); Creatinine Clr Calc Pharmacy 35.3 ml/min; Est GFR (African American) 53.6 ml/min; Est GFR (Non-African American) 46.3 ml/min; Potassium 4.7 mmol/L (3.5-5.1)
[2022-05-05 05:01] LABS: Troponin I High Sensitivity 32.9 pg/ml (0-14)
[2022-05-05 07:35] LABS: Partial Thromboplastin Ratio 1.8
[2022-05-05 07:38] LABS: Partial Thromboplastin Time 50.7 Seconds (21.0-31.0)
[2022-05-05] MEDS: ASPIRIN 81 MG ECTAB PO SCH (08:42)
[2022-05-05] MEDS: dilTIAZem HCL 240 MG CAPCR PO SCH (08:43)
[2022-05-05] MEDS: COLCHICINE 0.6 MG TAB PO SCH (08:43)
[2022-05-05] MEDS: FAMOTIDINE 10 MG TABLET PO SCH (08:44)
[2022-05-05] MEDS: METOPROLOL SUCC 25MG EXT REL TAB PO SCH ×2 (08:45→20:40)
[2022-05-05] MEDS: MULTIVITAMIN TAB PO SCH (08:45)
--- NOTE | 2022-05-05 09:15 | Electrocardiogram Report ---
Test Reason : Blood Pressure : / mmHG Vent. 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
--- NOTE | 2022-05-05 09:39 | Electrocardiogram Report ---
Test Reason : Blood Pressure : / mmHG Vent. Rate : 125 BPM Atrial Rate : 129 BPM P-R Int : 000 ms QRS Dur : 082 ms QT Int : 334 ms P-R-T Axes : 000 144 078 degrees QTc Int : 482 ms Atrial fibrillation with rapid ventricular response with premature ventricular or aberrantly conducte d complexes Right axis deviation Possible Right ventricular hypertrophy Old Anteroseptal infarct (cited on or before 03-MAY-2022) Abnormal ECG When compared with ECG of 05-MAY-2022 02:29, No significant change was found Confirmed by Isaias Hartley ([id number]) on 05/05/2022 9:39:10 AM Referred By: REFERRED SELF Confirmed By:Isaias Hartley
[2022-05-05] MEDS: IBUPROFEN 600 MG TAB PO SCH ×2 (11:24→20:39)
--- NOTE | 2022-05-05 11:49 | Nephrology Progress Note ---
Date of Service May 05, 2022 Assessment & Plan (1) Hyponatremia: Plan: her sodium was 134 on outside labs 04/25 w/ K 4.3, creat 1.5. presented w/ sNa 123>124>123 today. suspect her ongoing/chronic pericardial effusion drives the recent onset (but not symptomatic and not acute) hyponatremia. mechanism for this not well understood but can relate to increased ADH secretion with increased atrial pressures +/- in this pt's case her uncontrolled pain. pericardial effusion - associated hyponatremia is more common with malignancy related pericardial effusions and with those that show tamponade physiology. -last evening w/ gave her 1/2 L of bicarb rich isotonic fluid > no real change in sodium but NAGMA/ mild hyperkalemia improved >>>>recommend she have a repeat TTE and that we get TTE from [place] if done during admission this month for comparison; would also get chem panels from that admission as well >advised patient to take nsaids as rx'd and we will watch renal function -coordinated care w/ cardiology -await TTE before more fluids or /and diuretic -started urea bid -recheck bmp 1500 adn will add ESR and CK -daily standing weight -strict I/O -for now no fluid limit (2) CKD (chronic kidney disease) stage 3, GFR 30-59 ml/min: Plan: high risk for ALEXANDER on CKD > d/t obligate diuretics, d/t IV contrast received, d/t nsaid use, d/t high dose colchicine -recheck bmp 1-2 times daily d/t hyponatremia -have discussed optimal pericarditis RX w/ cardiology >> agree w/ proceeding for now with nsaids and colchicine; (3) Pericarditis: Plan: based on large pericardial effusion, chest pain -will lower colchicine to daily 0.6 mg based on wt and contiue current nsaid dose for now -ensure PPI dosed while on nsaid in addition to H2 alon -watch for dilt/colchicine interaction -check ESR and CK w/ next labs (4) Pericardial effusion: Plan: can be a/w hyponatremia and when it is there is higher likelihood of tamponade and of malignancy related -cardiology agrees w/ repeat TTE Admission and Anticipated Discharge Date Admission Date: May 03, 2022 Subjective pt had restless night w/ recurrence of L chest pain. no sob, no n/v, no confusion. refused ibuprofen last evening b/c states she'd been told in past (prior to hospital) not to take it. no voiding sx. no worsening edema. pain /10 at time I saw her. Review of Systems Review of Systems: All systems reviewed & are unremarkable except as noted in Subjective Physical Exam Constitutional: well developed, well nourished, + thin and cooperative (looks tired today); no acute distress Eyes: EOM intact bilaterally ENMT: Ears: no external ear abnormality Nose: no external nose abnormality Mouth: + dry oral mucous membranes Neck: no nuchal rigidity Respiratory: normal respiratory effort Auscultation: + diminished lung sounds and + crackles (bibasilar) Cardiovascular: Rate/Rhythm: + irregularly irregular Heart Sounds: + murmur and + cardiac rub (?) Palpation: + abnormal PMI Extremities: no edema Gastrointestinal (Abdomen): Inspection/Auscultation: normal bowel sounds Percussion/Palpation: abdomen soft; abdomen nontender Musculoskeletal: Extremities: strength 5/5 throughout Skin: no rashes, warm and dry Neurologic: hackett, fluent speech, no tremor; generally weaker this am Psychiatric: Orientation: oriented x 3 Speech: normal rate/rhythm/volume of speech Affect: euthymic affect and + anxious affect Results & Data ([facility]) Vital Signs (Past 12 Hours) Vital Signs Temp Pulse Pulse Pulse Resp BP BP 05/05/22 11:00 36.7 C 69 17 102/61 05/05/22 06:12 71 05/05/22 08:20 75 124/82 05/05/22 07:53 36.4 C L 72 20 127/86 05/05/22 02:46 36 C L 79 22 122/84 05/05/22 00:00 Pulse Ox Pulse Ox O2 Del Method O2 Del Method O2 Flow Rate O2 Flow Rate 05/05/22 11:00 95 Nasal Cannula 2 05/05/22 06:12 05/05/22 08:20 05/05/22 07:53 96 Nasal Cannula 3 05/05/22 02:46 91 Nasal Cannula 3 05/05/22 00:00 90 Nasal Cannula 3 Laboratory Results 05/05/22 04:24 05/05/22 04:24 (1) CKD (chronic kidney disease) stage 3, GFR 30-59 ml/min Chronic kidney disease stage 3 subtype: unspecified whether 3a or 3b Qualif ied Code(s): N18.30 - Chronic kidney disease, stage 3 unspecified
[2022-05-05] MEDS: HEPARIN SODIUM/DEXTROSE 25,000 UNITS/500 ML BAG IV SCH (12:24)
[2022-05-05] MEDS: PANTOprazole 40 MG TAB PO SCH (13:10)
[2022-05-05] MEDS: UREA (UREA-NA) 15 GM PACK PO SCH ×2 (13:11→20:40)
[2022-05-05 15:25] LABS: BUN Creatinine Ratio 38.9 (10-20); Calcium 8.6 mg/dl (8.5-10.1); Creatinine Clr Calc Pharmacy 34.1 ml/min; Est GFR (African American) 51.3 ml/min; Est GFR (Non-African American) 44.3 ml/min; Magnesium 1.9 mg/dl (1.7-2.4); Potassium 4.8 mmol/L (3.5-5.1)
[2022-05-05] MEDS ORDERED: SODIUM CHLORIDE 0.65% NA SOLN 45 ML (OCEAN) ONE (15:40)
[2022-05-05] MEDS ORDERED: SODIUM CHLORIDE 0.65% NA SOLN 45 ML (OCEAN) PRN (15:44)
[2022-05-05] MEDS ORDERED: Nursing to Pharmacy Communication SCH (15:45)
[2022-05-05] MEDS ORDERED: FUROSEMIDE 40 MG/4 ML VIAL IV STA (19:00)
--- NOTE | 2022-05-05 22:17 | Hospitalist Progress Note ---
Date of Service May 05, 2022 Assessment & Plan (1) Chest pain: (2) Atrial fibrillation: (3) Chronic anticoagulation: (4) HTN (hypertension): (5) Pericardial effusion: (6) CKD (chronic kidney disease) stage 3, GFR 30-59 ml/min: (7) Shortness of breath: Plan: Possible related to Large pleural effusion CTA chest showed Marked cardiomegaly with a large pericardial effusion. Moderate sized bilateral pleural effusions with compressive atelectasis/collapse of both lung bases. Received lasix 20mg IV on admission Chest u/s showed Bilateral pleural effusions are redemonstrated. Cardiology on board recommended to restart colchicine 0.6mg BID and Ibuprofen 600mg TID Diuretic management as per nephrology Continue Lasix 30 mg 3 times daily Continue monitor closely Hyponatremia Mostly due to volume overload Na 123 today Nephrology consulted Continue urea Continue monitor BMP Afib Rate control Continue IV heparin drip for now Coumadin on hold Patient and daughter were thinking about to transition to Eliquis while inpatient CKD stage 3 Creatinine stable continue monitor BMP DVT px on heparin subq Code status Full code Admission and Anticipated Discharge Date Admission Date: May 03, 2022 Subjective Patient was seen and evaluated for follow-up of chest pain and hyponatremia Lying in bed with no acute distress Patient said last night she had ongoing chest pain but now she feels a lot better Daughter and son at bedside provided with update and answer all the question Currently denies any chest pain, palpitation, dizziness, shortness of breath. Review of Systems Review of Systems: All systems reviewed & are unremarkable except as noted in Subjective Physical Exam Physical Exam: General- No acute distress Head- atraumatic Eyes- PERRL, EOMI, ENT- oropharynx clear Neck- supple, no JVD Lungs- clear to auscultation Heart- no murmur Abdomen- normal bowel sounds, soft, nontender Extremities- no calf tenderness Neuro- alert, oriented x 3; PERRL, EOMI; no facial palsy; no dysarthria Skin- warm & dry Results & Data Results & Data ([facility]) Vital Signs (Past 12 Hours) Vital Signs Temp Pulse Pulse Resp BP Pulse Ox O2 Del Method 05/05/22 20:00 Nasal Cannula 05/05/22 19:44 36.5 C 73 20 134/83 92 Nasal Cannula 05/05/22 16:18 36.5 C 70 19 119/84 90 Nasal Cannula 05/05/22 14:15 67 05/05/22 11:00 36.7 C 69 17 102/61 95 Nasal Cannula O2 Flow Rate 05/05/22 20:00 4 05/05/22 19:44 4 05/05/22 16:18 4 05/05/22 14:15 05/05/22 11:00 2 (1) CKD (chronic kidney disease) stage 3, GFR 30-59 ml/min Chronic kidney disease stage 3 subtype: unspecified whether 3a or 3b Qualified Code(s): N18.30 - Chronic kidney disease, stage 3 unspecified (2) Atrial fibrillation Atrial fibrillation type: unspecified chronic Qualified Code(s): I48.20 - Chronic atrial fibrillation, unspecified (3) Chest pain Chest pain type: unspecified Qualified Code(s): R07.9 - Chest pain, unspecified
[2022-05-06 00:20] LABS: BUN Creatinine Ratio 47.1 (10-20); Calcium 8.8 mg/dl (8.5-10.1); Creatinine Clr Calc Pharmacy 27.9 ml/min; Est GFR (African American) 40.3 ml/min; Est GFR (Non-African American) 34.8 ml/min; Potassium 4.6 mmol/L (3.5-5.1)
[2022-05-06] MEDS: IBUPROFEN 600 MG TAB PO SCH ×3 (04:47→20:04)
[2022-05-06] MEDS: FUROSEMIDE 40 MG/4 ML VIAL IV SCH ×3 (06:11→17:31)
[2022-05-06 08:11] LABS: BUN Creatinine Ratio 43.9 (10-20); C Reactive Protein 10.25 mg/dl (0-0.5); Calcium 8.4 mg/dl (8.5-10.1); Creatinine Clr Calc Pharmacy 29.2 ml/min; Est GFR (African American) 42.5 ml/min; Est GFR (Non-African American) 36.7 ml/min; Potassium 4.1 mmol/L (3.5-5.1)
[2022-05-06 08:27] LABS: Partial Thromboplastin Ratio 2.4
[2022-05-06 08:33] LABS: Partial Thromboplastin Time 65.5 Seconds (21.0-31.0)
[2022-05-06] MEDS: ASPIRIN 81 MG ECTAB PO SCH (08:40)
[2022-05-06] MEDS: COLCHICINE 0.6 MG TAB PO SCH (08:40)
[2022-05-06] MEDS: dilTIAZem HCL 240 MG CAPCR PO SCH (08:41)
[2022-05-06] MEDS: ESCITALOPRAM OXALATE 10 MG TAB PO SCH (08:41)
[2022-05-06] MEDS: FAMOTIDINE 10 MG TABLET PO SCH (08:42)
[2022-05-06] MEDS: METOPROLOL SUCC 25MG EXT REL TAB PO SCH ×2 (08:42→20:04)
[2022-05-06] MEDS: MULTIVITAMIN TAB PO SCH (08:43)
[2022-05-06] MEDS: UREA (UREA-NA) 15 GM PACK PO SCH ×2 (08:43→20:04)
[2022-05-06] MEDS: PANTOprazole 40 MG TAB PO SCH (08:46)
[2022-05-06] MEDS ORDERED: COLCHICINE 0.6 MG TAB PO SCH (09:00)
--- NOTE | 2022-05-06 11:53 | Nephrology Progress Note ---
Date of Service May 06, 2022 Assessment & Plan (1) Hyponatremia: Plan: her sodium was 134 on outside labs 04/25 w/ K 4.3, creat 1.5. presented w/ sNa 123>124>123 but uptrending to 125 today. suspect her ongoing/chronic pericardial effusion drives the recent onset (but not symptomatic and not acute) hyponatremia. mechanism for this not well understood but can relate to increased ADH secretion with increased atrial pressures +/- in this pt's case her uncontrolled pain. pericardial effusion - associated hyponatremia is more common with malignancy related pericardial effusions and with those that show tamponade physiology. -Continue Lasix and urea -daily standing weight -strict I/O -for now no fluid limit (2) CKD (chronic kidney disease) stage 3, GFR 30-59 ml/min: Plan: high risk for ALEXANDER on CKD > d/t obligate diuretics, d/t IV contrast received, d/t nsaid use, d/t high dose colchicine -Cautious use of nsaids and colchicine; (3) Pericarditis: Plan: based on large pericardial effusion, chest pain -will continue colchicine to daily 0.6 mg based on wt and continue current nsaid dose for now Admission and Anticipated Discharge Date Admission Date: May 03, 2022 Subjective Seen for hyponatremia. She feels better. Still short of breath with exertion Review of Systems Review of Systems: All other systems were reviewed and negative except as noted in HPI Physical Exam Physical Exam: General exam: Appears comfortable, no acute distress. On oxygen nasal cannula HEENT: Pupils are equal and reactive to light Neck: No JVD, neck is supple trachea is midline Respiratory system: Clear breath sounds bilaterally. Gastrointestinal: Abdomen is soft, non distended, non tender, bowel sounds are present CVS: Regular rate and rhythm. No murmurs, rubs or gallops Musculoskeletal: No joint or muscle tenderness Extremities: Non tender, no edema, peripheral pulses are present Neuro: Oriented, no tremors, no focal neurological deficits Skin: No rashes Results & Data ([facility]) Vital Signs (Past 12 Hours) Vital Signs Temp Pulse Pulse Resp BP BP Pulse Ox 05/06/22 08:00 05/06/22 07:52 36.5 C 74 20 152/85 H 91 05/06/22 03:45 36.5 C 111 H 19 135/81 94 05/06/22 00:00 79 O2 Del Method O2 Flow Rate 05/06/22 08:00 Nasal Cannula 4 05/06/22 07:52 Nasal Cannula 4 05/06/22 03:45 Nasal Cannula 4 05/06/22 00:00 Laboratory Results 05/06/22 07:04 (1) CKD (chronic kidney disease) stage 3, GFR 30-59 ml/min Chronic kidney disease stage 3 subtype: unspecified whether 3a or 3b Qualified Code(s): N18.30 - Chronic kidney disease, stage 3 unspecified
--- NOTE | 2022-05-06 12:24 | Cardiology Progress Note ---
Date of Service May 06, 2022 Assessment & Plan (1) Chest pain: (2) Shortness of breath: (3) Pleural effusion: (4) Pericardial effusion: (5) Chronic anticoagulation: (6) CKD (chronic kidney disease) stage 3, GFR 30-59 ml/min: (7) Atrial fibrillation: (8) HTN (hypertension): Plan chest pain with large pericardial effusion pt recently received shorten course of treatment for pericarditis given her age and small stature After discussion with nephrology colchicine was reduced to 0.6 mg p.o. daily Chest pain is now resolved. No further cardiac testing intervention from cardiac perspective. Will sign off, please call with questions or concerns will defer diuretics to our nephrology colleagues, recommend consultation Admission and Anticipated Discharge Date Admission Date: May 03, 2022 Subjective Patient seen and examined, chart reviewed. Currently out of bed in chair and states that chest pain has resolved. Review of Systems Review of Systems: All systems reviewed & are unremarkable except as noted in HPI & below Physical Exam Physical Exam: General: Awake, alert and oriented x 3. No acute distress. HEENT: Normocephalic, atraumatic. Pupils equal, round and reactive to light and accommodation. Extraocular muscles are intact. Anicteric sclera. Moist mucous membranes. Neck: No JVD. No bruit. Cardiovascular: Regular. Positive S-4. Normal S-1 and S-2. No S-3. No murmurs or rubs. Pulmonary: Clear to auscultation B/L. No rales, rhonchi or wheezing Abdomen: Bowel sounds x 4, soft. No rebound, guarding or tenderness. No organomegaly. Extremities: No clubbing, cyanosis or edema. +2 pedal pulses bilaterally. Skin: Warm and dry. Results & Data ([facility]) Vital Signs (Past 12 Hours) Vital Signs Temp Pulse Resp BP BP Pulse Ox O2 Del Method 05/06/22 12:14 36.3 C L 75 18 114/77 94 Room Air 05/06/22 08:00 Nasal Cannula 05/06/22 07:52 36.5 C 74 20 152/85 H 91 Nasal Cannula 05/06/22 03:45 36.5 C 111 H 19 135/81 94 Nasal Cannula O2 Flow Rate 05/06/22 12:14 05/06/22 08:00 4 05/06/22 07:52 4 05/06/22 03:45 4 (1) Chest pain Chest pain type: unspecified Qualified Code(s): R07.9 - Chest pain, unspecified (2) CKD (chronic kidney disease) stage 3, GFR 30-59 ml/min Chronic kidney disease stage 3 subtype: unspecified whether 3a or 3b Qualified Code(s): N18.30 - Chronic kidney disease, stage 3 unspecified (3) Atrial fibrillation Atrial fibrillation type: unspecified chronic Qualified Code(s): I48.20 - Chronic atrial fibrillation, unspecified
--- NOTE | 2022-05-06 18:54 | Hospitalist Progress Note ---
Date of Service May 06, 2022 Assessment & Plan (1) Chest pain: (2) Atrial fibrillation: (3) Chronic anticoagulation: (4) HTN (hypertension): (5) Pericardial effusion: (6) CKD (chronic kidney disease) stage 3, GFR 30-59 ml/min: (7) Shortness of breath: Plan: Possible related to Large pleural effusion CTA chest showed Marked cardiomegaly with a large pericardial effusion. Moderate sized bilateral pleural effusions with compressive atelectasis/collapse of both lung bases. Received lasix 20mg IV on admission Chest u/s showed Bilateral pleural effusions are redemonstrated. CRP 10.2 today Cardiology on board colchicine decreased to 0.6mg daily and Ibuprofen 600mg TID Diuretic management as per nephrology Continue Lasix 30 mg 3 times daily Continue monitor closely Monitor I/O Hyponatremia Mostly due to volume overload Na 125 today Nephrology consulted Continue urea Continue monitor BMP Afib Rate control Continue IV heparin drip for now will resume coumadin today Patient and daughter were thinking about to transition to Eliquis while inpatient I discussed with cardiology to transition to eliquis. Cardiology was against it due to her age and renal function Also pt is on Motrin TID and colchicine CKD stage 3 Creatinine stable at 1.3 continue monitor BMP DVT px on heparin subq Code status Full code Admission and Anticipated Discharge Date Admission Date: May 03, 2022 Subjective Patient was seen and evaluated for follow-up of chest pain and hyponatremia Lying in bed with no acute distress eating her lunch She said that she did not sleep last night due to the noise She said that she did not have any chest pain last night She was off the oxygen early when i saw her this morning Currently denies any chest pain, palpitation, dizziness, shortness of breath. Review of Systems Review of Systems: All systems reviewed & are unremarkable except as noted in Subjective Physical Exam Physical Exam: General- No acute distress Head- atraumatic Eyes- PERRL, EOMI, ENT- oropharynx clear Neck- supple, no JVD Lungs- clear to auscultation Heart- no murmur Abdomen- normal bowel sounds, soft, nontender Extremities- no calf tenderness Neuro- alert, oriented x 3; PERRL, EOMI; no facial palsy; no dysarthria Skin- warm & dry Results & Data Results & Data ([facility]) Vital Signs (Past 12 Hours) Vital Signs Temp Pulse Resp BP BP Pulse Ox O2 Del Method 05/06/22 16:03 36.4 C L 72 18 112/73 90 Nasal Cannula 05/06/22 12:14 36.3 C L 75 18 114/77 94 Room Air 05/06/22 08:00 Nasal Cannula 05/06/22 07:52 36.5 C 74 20 152/85 H 91 Nasal Cannula O2 Flow Rate 05/06/22 16:03 2.0 05/06/22 12:14 05/06/22 08:00 4 05/06/22 07:52 4 (1) Chest pain Chest pain type: unspecified Qualified Code(s): R07.9 - Chest pain, unspecified (2) Atrial fibrillation Atrial fibrillation type: unspecified chronic Qualified Code(s): I48.20 - Chronic atrial fibrillation, unspecified (3) CKD (chronic kidney disease) stage 3, GFR 30-59 ml/min Chronic kidney disease stage 3 subtype: unspecified whether 3a or 3b Qualified Code(s): N18.30 - Chronic kidney disease, stage 3 unspecified
[2022-05-06] MEDS ORDERED: WARFARIN SOD 3 MG TAB PO ONE (19:04)
[2022-05-07] MEDS: HEPARIN SODIUM/DEXTROSE 25,000 UNITS/500 ML BAG IV SCH (00:17)
[2022-05-07] MEDS: ALPRAZolam 0.25 MG TABLET PO PRN (00:29)
[2022-05-07] MEDS: IBUPROFEN 600 MG TAB PO SCH ×2 (04:34→11:13)
[2022-05-07] MEDS: FUROSEMIDE 40 MG/4 ML VIAL IV SCH ×3 (05:47→17:19)
[2022-05-07 07:16] LABS: Partial Thromboplastin Ratio 2.4; Partial Thromboplastin Time 64.9 Seconds (21.0-31.0)
[2022-05-07] MEDS: ASPIRIN 81 MG ECTAB PO SCH (08:27)
[2022-05-07] MEDS: ESCITALOPRAM OXALATE 10 MG TAB PO SCH (08:27)
[2022-05-07] MEDS: PANTOprazole 40 MG TAB PO SCH (08:28)
[2022-05-07] MEDS: MULTIVITAMIN TAB PO SCH (08:28)
[2022-05-07] MEDS: dilTIAZem HCL 240 MG CAPCR PO SCH (08:29)
[2022-05-07] MEDS: METOPROLOL SUCC 25MG EXT REL TAB PO SCH ×2 (08:29→20:27)
[2022-05-07] MEDS: COLCHICINE 0.6 MG TAB PO SCH (08:29)
[2022-05-07] MEDS: UREA (UREA-NA) 15 GM PACK PO SCH ×2 (08:30→20:27)
[2022-05-07] MEDS: FAMOTIDINE 10 MG TABLET PO SCH (09:23)
[2022-05-07 10:03] LABS: INR 1.3 (0.9-1.1); Prothrombin Time 13.3 Seconds (9.0-12.0)
[2022-05-07 10:17] LABS: Calcium 8.7 mg/dl (8.5-10.1); Creatinine Clr Calc Pharmacy 26.9 ml/min; Est GFR (African American) 38.6 ml/min; Est GFR (Non-African American) 33.3 ml/min; Potassium 3.5 mmol/L (3.5-5.1)
--- NOTE | 2022-05-07 12:54 | Cardiology Progress Note ---
Date of Service May 07, 2022 Assessment & Plan (1) Chest pain: (2) Shortness of breath: (3) Pleural effusion: (4) Pericardial effusion: (5) Chronic anticoagulation: (6) CKD (chronic kidney disease) stage 3, GFR 30-59 ml/min: (7) Atrial fibrillation: (8) HTN (hypertension): Plan The patient is clinically stable and improving. I had a discussion with nephrology, they are having problems with worsening renal function and hyponatremia. They asked if we could decrease the dosage of ibuprofen and colchicine. I think it would be reasonable at this time to decrease the colchicine to 0.3 mg daily and ibuprofen to 200 mg 3 times daily. Admission and Anticipated Discharge Date Admission Date: May 03, 2022 Subjective The patient is eating lunch. Her son is visiting her. Overall she states that she is slowly getting better. Review of Systems Review of Systems: Review of Systems: See HPI for pertinent positives. All other 10 point review of systems are negative. Physical Exam Physical Exam: General: no acute distress and stated age Head: normocephalic, no masses, lesions, tenderness or abnormalities Eyes: conjunctiva are pink and non-injected, sclera clear Neck: supple, no adenopathy, no bruits, normal jugular venous pulse, no hepatojugular reflux Chest: normal shape and normal respiratory effort Lungs: clear to auscultation and percussion Cardiac Exam: - regular rate & rhythm, no murmurs gallops or rubs - normal S1, normal S2 Pulses: 2(+) throughout Abdomen: abdomen soft, non-tender, no abnormal masses and no hepatosplenomegaly Musculoskeletal: no gait disturbance, no joint inflammation, no deforming arthritis Extremities: no edema and no cyanosis Neuro: grossly normal exam Results & Data ([facility]) Vital Signs (Past 12 Hours) Vital Signs Temp Pulse Pulse Resp BP BP Pulse Ox 05/07/22 11:40 36.5 C 75 18 110/74 97 05/07/22 06:00 68 05/07/22 07:16 36.4 C L 69 21 130/72 92 05/07/22 02:27 36.7 C 77 20 126/81 90 O2 Del Method O2 Flow Rate 05/07/22 11:40 Nasal Cannula 2.0 05/07/22 06:00 05/07/22 07:16 Nasal Cannula 2 05/07/22 02:27 Room Air Laboratory Results Laboratory Results - last 24 hr 05/07/22 05/07/22 05/07/22 06:10 06:10 06:14 PT 13.3 H INR 1.3 H APTT 64.9 H* PTT Ratio 2.4 Sodium 125 L Potassium 3.5 Chloride 91 L Carbon Dioxide 24 Anion Gap 10 BUN 70 H Creatinine 1.43 H Est Cr Clr Drug Dosing 26.9 Est GFR ( Amer) 38.6 Est GFR (Non-Af Amer) 33.3 BUN/Creatinine Ratio 49.0 H Glucose 91 Calcium 8.7 Medications Administered Current Inpatient Medications Acetaminophen (Acetaminophen 325 Mg Tab) 650 mg PO Q4H PRN PRN Reason: Mild Pain or Fever Stop: 06/02/22 23:14 Last Admin: 05/05/22 13:00 Dose: 650 mg Alprazolam (Alprazolam 0.25 Mg Tablet) 0.125 mg PO TID PRN PRN Reason: Anxiety Stop: 06/02/22 23:14 Last Admin: 05/07/22 00:29 Dose: 0.125 mg Aspirin (Aspirin 81 Mg Ectab) 81 mg PO DAILY ANA MARÍA Stop: 06/03/22 08:59 Last Admin: 05/07/22 08:27 Dose: 81 mg Colchicine (Colchicine 0.6 Mg Tab) 0.3 mg PO QAM ANA MARÍA Stop: 06/07/22 08:59 Diltiazem HCl (Diltiazem Hcl 240 Mg Capcr) 240 mg PO DAILY ANA MARÍA Stop: 06/03/22 08:59 Last Admin: 05/07/22 08:29 Dose: 240 mg Escitalopram Oxalate (Escitalopram Oxalate 10 Mg Tab) 5 mg PO DAILY ANA MARÍA Stop: 06/05/22 08:59 Last Admin: 05/07/22 08:27 Dose: 5 mg Famotidine (Famotidine 10 Mg Tablet) 10 mg PO DAILY ANA MARÍA Stop: 06/03/22 08:59 Last Admin: 05/07/22 09:23 Dose: 10 mg Furosemide (Furosemide 40 Mg/4 Ml Vial) 30 mg IV TID@0600,1200,1800 ANA MARÍA Stop: 06/05/22 05:59 Last Admin: 05/07/22 11:13 Dose: 30 mg Heparin Sodium/Dextrose (Heparin Sodium/Dextrose) 25,000 units in 500 mls @ 13 mls/hr IV .Q24H ANA MARÍA; Protocol Stop: 06/02/22 21:59 Last Titration: 05/07/22 06:53 Dose: 650 units/hr, 13 mls/hr Ibuprofen (Ibuprofen 200 Mg Tab) 200 mg PO Q8H ANA MARÍA Stop: 06/06/22 18:59 Metoprolol Succinate (Metoprolol Succ 25mg Ext Rel Tab) 25 mg PO DAILY ANA MARÍA Stop: 06/03/22 08:59 Last Admin: 05/07/22 08:29 Dose: 25 mg Metoprolol Succinate (Metoprolol Succ 25mg Ext Rel Tab) 12.5 mg PO PM ANA MARÍA Stop: 06/02/22 23:14 Last Admin: 05/06/22 20:04 Dose: 12.5 mg Multivitamins (Multivitamin Tab) 1 tab PO DAILY ANA MARÍA Stop: 06/03/22 08:59 Last Admin: 05/07/22 08:28 Dose: 1 tab Nitroglycerin (Nitroglycerin Sl 0.4 Mg/Tab Tab) 0.4 mg SL UD PRN PRN Reason: Chest Pain Stop: 06/02/22 23:14 Last Admin: 05/05/22 08:22 Dose: 0.4 mg Oxycodone HCl (Oxycodone Hcl Ir 5 Mg Tab (Immediate Release)) 5 mg PO Q4H PRN PRN Reason: Moderate/Severe Pain Stop: 05/17/22 23:14 Last Admin: 05/05/22 02:40 Dose: 5 mg Pantoprazole Sodium (Pantoprazole 40 Mg Tab) 40 mg PO QAM ANA MARÍA Stop: 05/08/22 09:01 Last Admin: 05/07/22 08:28 Dose: 40 mg Sodium Chloride (Sodium Chloride 0.65% Na Soln 45 Ml ([place])) 1 sprays NA PRN PRN PRN Reason: Dryness Stop: 06/04/22 15:43 Urea (Urea (Urea-Na) 15 Gm Pack) 15 gm PO BID [facility] Stop: 06/04/22 12:14 Last Admin: 05/07/22 08:30 Dose: 15 gm (1) CKD (chronic kidney disease) stage 3, GFR 30-59 ml/min Chronic kidney disease stage 3 subtype: unspecified whether 3a or 3b Qualified Code(s): N18.30 - Chronic kidney disease, stage 3 unspecified (2) Atrial fibrillation Atrial fibrillation type: unspecified chronic Qualified Code(s): I48.20 - Chronic atrial fibrillation, unspecified (3) Chest pain Chest pain type: unspecified Qualified Code(s): R07.9 - Chest pain, unspecified
--- NOTE | 2022-05-07 15:57 | Nephrology Progress Note ---
Date of Service May 07, 2022 Assessment & Plan (1) Hyponatremia: Plan: her sodium was 134 on outside labs 04/25 w/ K 4.3, creat 1.5. presented w/ sNa 123>124>123 > 125 and plateau'd 125 today. suspect her ongoing/chronic pericardial effusion drives the recent onset (but not symptomatic and not acute) hyponatremia. mechanism for this not well understood but can relate to increased ADH secretion with increased atrial pressures +/- in this pt's case her uncontrolled pain. pericardial effusion - associated hyponatremia is more common with malignancy related pericardial effusions and with those that show tamponade physiology; however no evidence of either enoch gnancy or tamponade here. -Continue urea and lasix current dose bu tlow threshold to lower lasix if bp drops -daily standing weight -strict I/O -for now no fluid limit (2) CKD (chronic kidney disease) stage 3, GFR 30-59 ml/min: Plan: high risk for ALEXANDER on CKD > d/t obligate diuretics, d/t IV contrast received, d/t nsaid use, d/t high dose colchicine -Cautious use of nsaids and colchicine; appreciate cardiology adjusting nsaid, colchicine dosing (3) Pericarditis: Plan: based on large pericardial effusion, chest pain -colchicine and nsaid doses lowered 05/07 Admission and Anticipated Discharge Date Admission Date: May 03, 2022 Subjective no interval events. son at bedside midday when I saw her. no n/v, no worsening sob, no recurrent chest pain or diffuse body aches. Review of Systems Review of Systems: All systems reviewed & are unremarkable except as noted in Subjective Physical Exam Constitutional: well developed, well nourished, + thin and cooperative (looks tired today); no acute distress Eyes: EOM intact bilaterally ENMT: Ears: no external ear abnormality Nose: no external nose abnormality Mouth: + dry oral mucous membranes Neck: no nuchal rigidity Respiratory: normal respiratory effort Auscultation: + diminished lung sounds and + crackles (bibasilar but fewe) Cardiovascular: Rate/Rhythm: regular rate and regular rhythm Heart Sounds: + murmur Palpation: + abnormal PMI Extremities: + edema (trace LLE) Gastrointestinal (Abdomen): Inspection/Auscultation: normal bowel sounds Percussion/Palpation: abdomen soft; abdomen nontender Musculoskeletal: Extremities: strength 5/5 throughout Skin: no rashes, warm and dry Psychiatric: Orientation: oriented x 3 Speech: normal rate/rhythm/volume of speech Affect: euthymic affect and + anxious affect Results & Data ([facility]) Vital Signs (Past 12 Hours) Vital Signs Temp Pulse Pulse Resp BP Pulse Ox O2 Del Method 05/07/22 15:42 36.4 C L 74 17 102/69 92 Nasal Cannula 05/07/22 14:17 85 05/07/22 11:40 36.5 C 75 18 110/74 97 Nasal Cannula 05/07/22 06:00 68 05/07/22 07:16 36.4 C L 69 21 130/72 92 Nasal Cannula O2 Flow Rate 05/07/22 15:42 2.0 05/07/22 14:17 05/07/22 11:40 2.0 05/07/22 06:00 05/07/22 07:16 2 Laboratory Results 05/05/22 04:24 05/07/22 06:14 (1) CKD (chronic kidney disease) stage 3, GFR 30-59 ml/min Chronic kidney disease stage 3 subtype: unspecified whether 3a or 3b Qualifie d Code(s): N18.30 - Chronic kidney disease, stage 3 unspecified
[2022-05-07] MEDS: ACETAMINOPHEN 325 MG TAB PO PRN (17:18)
[2022-05-07] MEDS: IBUPROFEN 200 MG TAB PO SCH (18:40)
--- NOTE | 2022-05-07 20:25 | Hospitalist Progress Note ---
Date of Service May 07, 2022 Assessment & Plan (1) Chest pain: (2) Atrial fibrillation: (3) Chronic anticoagulation: (4) HTN (hypertension): (5) Pericardial effusion: (6) CKD (chronic kidney disease) stage 3, GFR 30-59 ml/min: (7) Shortness of breath: Plan: Possible related to Large pleural effusion CTA chest showed Marked cardiomegaly with a large pericardial effusion. Moderate sized bilateral pleural effusions with compressive atelectasis/collapse of both lung bases. Received lasix 20mg IV on admission Chest u/s showed Bilateral pleural effusions are redemonstrated. CRP 10.2 today Cardiology on board colchicine decreased to 0.3mg daily and Ibuprofen 200mg TID due to renal function Diuretic management as per nephrology Continue Lasix 30 mg 3 times daily Continue monitor closely Monitor I/O Hyponatremia Mostly due to volume overload Na 125 today Nephrology consulted Continue urea Continue monitor BMP Afib Rate control Continue IV heparin drip for now Patient and daughter were thinking about to transition to Eliquis while inpatient I discussed with cardiology to transition to eliquis. Cardiology was against it due to her age and renal function while currently on colchicine and Motrin TID Cardiology said that we can make the change to eliquis outpatient once completes the course of colchicine and motrin Continue Coumadin 3 mg , INR 1.3 CKD stage 3 Creatinine stable at 1.4 continue monitor BMP DVT px on heparin subq Code status Full code Admission and Anticipated Discharge Date Admission Date: May 03, 2022 Subjective Patient was seen and evaluated for follow-up of hyponatremia and pericarditis Lying in bed with no acute distress with son at bedside She got very anxious when she is getting ready to get the urea tele monitor showed a brief episodes of Vtach She said that her breathing is better Currently denies any chest pain, palpitation, dizziness, shortness of breath. Review of Systems Review of Systems: All systems reviewed & are unremarkable except as noted in Subjective Physical Exam Physical Exam: General- No acute distress Head- atraumatic Eyes- PERRL, EOMI, ENT- oropharynx clear Neck- supple, no JVD Lungs- clear to auscultation Heart- no murmur Abdomen- normal bowel sounds, soft, nontender Extremities- no calf tenderness Neuro- alert, oriented x 3; PERRL, EOMI; no facial palsy; no dysarthria Skin- warm & dry Results & Data Results & Data ([facility]) Vital Signs (Past 12 Hours) Vital Signs Temp Pulse Pulse Resp BP Pulse Ox O2 Del Method 05/07/22 19:55 Nasal Cannula 05/07/22 18:54 36.4 C L 66 20 107/71 92 Nasal Cannula 05/07/22 15:42 36.4 C L 74 17 102/69 92 Nasal Cannula 05/07/22 14:17 85 05/07/22 11:40 36.5 C 75 18 110/74 97 Nasal Cannula O2 Flow Rate 05/07/22 19:55 2 05/07/22 18:54 2 05/07/22 15:42 2.0 05/07/22 14:17 05/07/22 11:40 2.0 (1) CKD (chronic kidney disease) stage 3, GFR 30-59 ml/min Chronic kidney disease stage 3 subtype: unspecified whether 3a or 3b Qualified Code(s): N18.30 - Chronic kidney disease, stage 3 unspecified (2) Atrial fibrillation Atrial fibrillation type: unspecified chronic Qualified Code(s): I48.20 - Chronic atrial fibrillation, unspecified (3) Chest pain Chest pain type: unspecified Qualified Code(s): R07.9 - Chest pain, unspecified
[2022-05-07] MEDS ORDERED: WARFARIN SOD 3 MG TAB PO ONE (20:38)
[2022-05-08] MEDS: IBUPROFEN 200 MG TAB PO SCH ×3 (03:46→18:29)
[2022-05-08] MEDS: FUROSEMIDE 40 MG/4 ML VIAL IV SCH ×3 (06:00→18:28)
[2022-05-08 07:51] LABS: BUN Creatinine Ratio 59.6 (10-20); C Reactive Protein 10.93 mg/dl (0-0.5); Calcium 9.3 mg/dl (8.5-10.1); Creatinine Clr Calc Pharmacy 16.4 ml/min; Est GFR (African American) 37.6 ml/min; Est GFR (Non-African American) 32.5 ml/min; Potassium 3.5 mmol/L (3.5-5.1)
[2022-05-08 07:52] LABS: INR 1.6 (0.9-1.1); Partial Thromboplastin Ratio 2.3; Partial Thromboplastin Time 62.6 Seconds (21.0-31.0); Prothrombin Time 16.9 Seconds (9.0-12.0)
[2022-05-08] MEDS: COLCHICINE 0.6 MG TAB PO SCH (08:16)
[2022-05-08] MEDS: dilTIAZem HCL 240 MG CAPCR PO SCH (08:16)
[2022-05-08] MEDS: ASPIRIN 81 MG ECTAB PO SCH (08:19)
[2022-05-08] MEDS: FAMOTIDINE 10 MG TABLET PO SCH (08:19)
[2022-05-08] MEDS: PANTOprazole 40 MG TAB PO SCH (08:19)
[2022-05-08] MEDS: UREA (UREA-NA) 15 GM PACK PO SCH ×2 (08:19→20:39)
[2022-05-08] MEDS: METOPROLOL SUCC 25MG EXT REL TAB PO SCH ×2 (08:19→20:40)
[2022-05-08] MEDS: ESCITALOPRAM OXALATE 10 MG TAB PO SCH (08:20)
[2022-05-08] MEDS: MULTIVITAMIN TAB PO SCH (08:20)
[2022-05-08 08:25] LABS: Hematocrit (blood only) 40.4 % (34.1-44.9); Hemoglobin 14.3 g/dl (12.0-16.0); Mean Corpuscular Hgb Conc 35.4 g/dL (32.0-36.0); Mean Corpuscular Volume 90.4 fL (80.0-100.0); Mean Platelet Volume 12.6 fL (9.4-12.3); Platelet Count 263 K/uL (130-400); RDW Coefficient of Variation 17.4 % (11.5-14.5); RDW Standard Deviation 56.9 fL (36.4-46.3); Red Blood Count 4.47 M/uL (3.93-5.22); White Blood Count 11.16 K/ul (4.8-10.8)
[2022-05-08] MEDS: HEPARIN SODIUM/DEXTROSE 25,000 UNITS/500 ML BAG IV SCH (11:05)
[2022-05-08] MEDS: HYDROCORTISONE HC 2.5% CRM 30GM TUBE EXT PRN (14:16)
[2022-05-08] MEDS ORDERED: WARFARIN SOD 3 MG TAB PO SCH (16:00)
[2022-05-08] MEDS: ACETAMINOPHEN 325 MG TAB PO PRN (16:05)
--- NOTE | 2022-05-08 19:58 | Hospitalist Progress Note ---
Date of Service May 08, 2022 Assessment & Plan (1) Chest pain: (2) Atrial fibrillation: (3) Chronic anticoagulation: (4) HTN (hypertension): (5) Pericardial effusion: (6) CKD (chronic kidney disease) stage 3, GFR 30-59 ml/min: (7) Shortness of breath: Plan: Possible related to Large pleural effusion CTA chest showed Marked cardiomegaly with a large pericardial effusion. Moderate sized bilateral pleural effusions with compressive atelectasis/collapse of both lung bases. Received lasix 20mg IV on admission Chest u/s showed Bilateral pleural effusions are redemonstrated. CRP slightly increased from 10.2 to 10.9 Cardiology on board Continue colchicine 0.3mg daily and Ibuprofen 200mg TID due to renal function Diuretic management as per nephrology Continue Lasix 30 mg 3 times daily Continue monitor closely Monitor I/O Hyponatremia Mostly due to volume overload Na 128 today Nephrology consulted Continue urea Continue monitor BMP Afib Rate control Continue IV heparin drip for now Patient and daughter were thinking about to transition to Eliquis while inpatient I discussed with cardiology to transition to eliquis. Cardiology was against it due to her age and renal function while currently on colchicine and Motrin TID Cardiology said that we can make the change to eliquis outpatient once completes the course of colchicine and motrin Continue Coumadin 3 mg , INR 1.6 CKD stage 3 Creatinine stable at 1.4 continue monitor BMP DVT px on heparin subq Code status Full code Admission and Anticipated Discharge Date Admission Date: May 03, 2022 Subjective Patient was seen and evaluated for follow-up of hyponatremia and pericarditis Lying in bed with no acute distress with son and daughter at bedside She said that she feels alot better today Family is pleased by the way she looks today Currently denies any chest pain, palpitation, dizziness, shortness of breath. Review of Systems Review of Systems: All systems reviewed & are unremarkable except as noted in Subjective Physical Exam Physical Exam: General- No acute distress Head- atraumatic Eyes- PERRL, EOMI, ENT- oropharynx clear Neck- supple, no JVD Lungs- clear to auscultation Heart- no murmur Abdomen- normal bowel sounds, soft, nontender Extremities- no calf tenderness Neuro- alert, oriented x 3; PERRL, EOMI; no facial palsy; no dysarthria Skin- warm & dry Results & Data Results & Data ([facility]) Vital Signs (Past 12 Hours) Vital Signs Temp Pulse Pulse Resp BP BP Pulse Ox 05/08/22 19:44 36.5 C 76 17 95/63 L 96 05/08/22 14:19 85 05/08/22 15:10 36.5 C 79 19 107/68 91 05/08/22 12:21 36.6 C 86 19 103/65 96 05/08/22 08:00 05/08/22 08:29 36.4 C L 62 20 129/63 98 O2 Del Method O2 Flow Rate 05/08/22 19:44 Nasal Cannula 1 05/08/22 14:19 05/08/22 15:10 Nasal Cannula 1 05/08/22 12:21 Nasal Cannula 2 05/08/22 08:00 Nasal Cannula 2 05/08/22 08:29 Nasal Cannula 2 (1) Chest pain Chest pain type: unspecified Qualified Code(s): R07.9 - Chest pain, unspecified (2) Atrial fibrillation Atrial fibrillation type: unspecified chronic Qualified Code(s): I48.20 - Chronic atrial fibrillation, unspecified (3) CKD (chronic kidney disease) stage 3, GFR 30-59 ml/min Chronic kidney disease stage 3 subtype: unspecified whether 3a or 3b Qualified Code(s): N18.30 - Chronic kidney disease, stage 3 unspecified
[2022-05-08] MEDS ORDERED: POTASSIUM CHLORIDE CRTAB 20 MEQ TABCR PO STA (22:22)
--- NOTE | 2022-05-08 22:26 | Nephrology Progress Note ---
Date of Service May 08, 2022 Assessment & Plan (1) Hyponatremia: Plan: her sodium was 134 on outside labs 04/25 w/ K 4.3, creat 1.5. presented w/ sNa 123>124>123 > 125 and to 128 today. suspect her ongoing/chronic pericardial effusion drives the recent onset (but not symptomatic and not acute) hyponatremia. mechanism for this not well understood but can relate to increased ADH secretion with increased atrial pressures +/- in this pt's case her uncontrolled pain. -Continue urea and lasix current dose bu tlow threshold to lower lasix if bp drops > did put hold parameters on lasix -replete K; stopped low K diet -daily standing weight -strict I/O -cont FR 1.5L (2) CKD (chronic kidney disease) stage 3, GFR 30-59 ml/min: Plan: high risk for ALEXANDER on CKD > d/t obligate diuretics, d/t IV contrast received, d/t nsaid use, d/t high dose colchicine -Cautious use of nsaids and colchicine; appreciate cardiology adjusting nsaid, colchicine dosing; creatinine creaeping up slowly > baseline about 1.1 (3) Pericarditis: Plan: based on large pericardial effusion, chest pain -colchicine and nsaid doses lowered 05/07 Admission and Anticipated Discharge Date Admission Date: May 03, 2022 Subjective no interval events. pt more sore in back/ neck > thinks it's chairs/bed; not like the pain that brought her in Review of Systems Review of Systems: All systems reviewed & are unremarkable except as noted in Subjective Physical Exam Constitutional: well developed, well nourished, + thin and cooperative; no acute distress Eyes: EOM intact bilaterally ENMT: Ears: no external ear abnormality Nose: no external nose abnormality Mouth: + dry oral mucous membranes Neck: no nuchal rigidity Respiratory: normal respiratory effort Auscultation: + diminished lung sounds and + crackles (bibasilar but fewe) Cardiovascular: Rate/Rhythm: regular rate, regular rhythm and + irregularly irregular Heart Sounds: + murmur and + cardiac rub (?) Palpation: + abnormal PMI Extremities: + edema (trace LLE) Gastrointestinal (Abdomen): Inspection/Auscultation: normal bowel sounds Percussion/Palpation: abdomen soft; abdomen nontender Musculoskeletal: Extremities: strength 5/5 throughout Skin: no rashes, warm and dry Psychiatric: Orientation: oriented x 3 Speech: normal rate/rhythm/volume of speech Affect: euthymic affect and + anxious affect Results & Data ([facility]) Vital Signs (Past 12 Hours) Vital Signs Temp Pulse Pulse Resp BP BP Pulse Ox 05/08/22 20:00 05/08/22 19:44 36.5 C 76 17 95/63 L 96 05/08/22 14:19 85 05/08/22 15:10 36.5 C 79 19 107/68 91 05/08/22 12:21 36.6 C 86 19 103/65 96 O2 Del Method O2 Flow Rate 05/08/22 20:00 Nasal Cannula 1 05/08/22 19:44 Nasal Cannula 1 05/08/22 14:19 05/08/22 15:10 Nasal Cannula 1 05/08/22 12:21 Nasal Cannula 2 Laboratory Results 05/08/22 06:33 05/08/22 06:33 (1) CKD (chronic kidney disease) stage 3, GFR 30-59 ml/min Chronic kidney disease stage 3 subtype: unspecified whether 3a or 3b Qual ified Code(s): N18.30 - Chronic kidney disease, stage 3 unspecified
[2022-05-09] MEDS: IBUPROFEN 200 MG TAB PO SCH ×3 (02:17→18:01)
[2022-05-09] MEDS: FUROSEMIDE 40 MG/4 ML VIAL IV SCH ×3 (05:27→18:04)
[2022-05-09 06:41] LABS: Hematocrit (blood only) 37.1 % (34.1-44.9); Hemoglobin 12.8 g/dl (12.0-16.0); Mean Corpuscular Hemoglobin 31.4 pg (25.0-34.0); Mean Corpuscular Hgb Conc 34.5 g/dL (32.0-36.0); Mean Corpuscular Volume 91.2 fL (80.0-100.0); Mean Platelet Volume 11.6 fL (9.4-12.3); Platelet Count 229 K/uL (130-400); RDW Standard Deviation 56.6 fL (36.4-46.3); Red Blood Count 4.07 M/uL (3.93-5.22); White Blood Count 9.76 K/ul (4.8-10.8)
[2022-05-09 07:04] LABS: BUN Creatinine Ratio 64.3 (10-20); Calcium 8.9 mg/dl (8.5-10.1); Creatinine Clr Calc Pharmacy 23.4 ml/min; Est GFR (African American) 35.3 ml/min; Est GFR (Non-African American) 30.5 ml/min; Potassium 3.2 mmol/L (3.5-5.1)
[2022-05-09] MEDS ORDERED: POTASSIUM CHLORIDE CRTAB 20 MEQ TABCR PO STA (07:49)
[2022-05-09 07:50] LABS: INR 2.8 (0.9-1.1); Partial Thromboplastin Ratio 3.2; Prothrombin Time 28.2 Seconds (9.0-12.0)
[2022-05-09 07:55] LABS: Partial Thromboplastin Time 88.2 Seconds (21.0-31.0)
[2022-05-09] MEDS ORDERED: HEPARIN STOP ORDER ONE (08:15)
[2022-05-09] MEDS: METOPROLOL SUCC 25MG EXT REL TAB PO SCH ×2 (08:16→20:06)
[2022-05-09] MEDS: dilTIAZem HCL 240 MG CAPCR PO SCH (08:16)
[2022-05-09] MEDS: COLCHICINE 0.6 MG TAB PO SCH (08:17)
[2022-05-09] MEDS: ASPIRIN 81 MG ECTAB PO SCH (08:18)
[2022-05-09] MEDS: ESCITALOPRAM OXALATE 10 MG TAB PO SCH (08:18)
[2022-05-09] MEDS: FAMOTIDINE 10 MG TABLET PO SCH (08:19)
[2022-05-09] MEDS: MULTIVITAMIN TAB PO SCH (08:20)
[2022-05-09] MEDS: POTASSIUM CHLORIDE CRTAB 20 MEQ TABCR PO SCH (08:21)
[2022-05-09] MEDS: UREA (UREA-NA) 15 GM PACK PO SCH (08:59)
--- NOTE | 2022-05-09 09:03 | Nephrology Progress Note ---
Date of Service May 09, 2022 Assessment & Plan Admission and Anticipated Discharge Date Admission Date: May 03, 2022 Subjective Assessment & Plan (1) Hyponatremia: Plan: her sodium was 134 on outside labs 04/25 w/ K 4.3, creat 1.5. presented w/ sNa 123>124>123 > 125 and to 129 today. suspect her ongoing/chronic pericardial effusion drives the recent onset (but not symptomatic and not acute) hyponatremia. mechanism for this not well understood but can relate to increased ADH secretion with increased atrial pressures +/- in this pt's case her uncontrolled pain. -Continue urea and lasix current dose but low threshold to lower lasix if bp drops > did put hold parameters on lasix -replete K -daily standing weight -strict I/O -cont FR 1.5L na 129 and creat 1.5--for now continue same. Once na > 130 will cut down lasix use (2) CKD (chronic kidney disease) stage 3, GFR 30-59 ml/min: Plan: high risk for ALEXANDER on CKD > Due to obligate diuretics, Ongoing NSAID and IV contrast received+ colchicine. Creat up a tiny bit so far acceptable rise. (3) Pericarditis: Plan: based on large pericardial effusion, chest pain -colchicine and nsaid doses lowered 05/07 Subjective no interval events. pt more sore in back/ neck > thinks it's chairs/bed; not like the pain that brought her in Review of Systems Review of Systems: All systems reviewed & are unremarkable except as noted in Subjective Physical Exam Constitutional: well developed, well nourished, + thin and cooperative; no acute distress Eyes: EOM intact bilaterally ENMT: Ears: no external ear abnormality Nose: no external nose abnormality Mouth: + dry oral mucous membranes Neck: no nuchal rigidity Respiratory: normal respiratory effort Auscultation: + diminished lung sounds and + crackles (bibasilar but fewe) Cardiovascular: Rate/Rhythm: regular rate, regular rhythm and + irregularly irregular Heart Sounds: + murmur and + cardiac rub (?) Palpation: + abnormal PMI Extremities: + edema (trace LLE) Gastrointestinal (Abdomen): Inspection/Auscultation: normal bowel sounds Percussion/Palpation: abdomen soft; abdomen nontender Musculoskeletal: Extremities: strength 5/5 throughout Skin: no rashes, warm and dry Psychiatric: Orientation: oriented x 3 Speech: normal rate/rhythm/volume of speech Affect: euthymic affect and + anxious affect Results & Data ([facility]) Vital Signs (Past 12 Hours) Vital Signs Temp Pulse Pulse Resp BP Pulse Ox O2 Del Method 05/09/22 06:06 70 05/09/22 06:47 36.4 C L 77 18 114/78 92 Nasal Cannula 05/09/22 03:30 36.4 C L 79 19 113/71 95 Nasal Cannula 05/09/22 00:00 36.7 C 82 20 101/64 95 Nasal Cannula 05/08/22 23:07 74 O2 Flow Rate 05/09/22 06:06 05/09/22 06:47 05/09/22 03:30 05/09/22 00:00 1 05/08/22 23:07
[2022-05-09] MEDS: METOCLOPRAMIDE HCL INJ 5 MG/ML 2 ML VIAL IV STA ×2 (10:36→10:59)
[2022-05-09] MEDS ORDERED: ONDANSETRON 2 MG OD TAB PO PRN (11:19)
[2022-05-09] MEDS: WARFARIN SOD 2 MG TAB PO SCH (15:26)
--- NOTE | 2022-05-09 21:18 | Hospitalist Progress Note ---
Date of Service May 09, 2022 Assessment & Plan (1) Chest pain: (2) Atrial fibrillation: (3) Chronic anticoagulation: (4) HTN (hypertension): (5) Pericardial effusion: (6) CKD (chronic kidney disease) stage 3, GFR 30-59 ml/min: (7) Shortness of breath: Plan: Possible related to Large pleural effusion CTA chest showed Marked cardiomegaly with a large pericardial effusion. Moderate sized bilateral pleural effusions with compressive atelectasis/collapse of both lung bases. Received lasix 20mg IV on admission Chest u/s showed Bilateral pleural effusions are redemonstrated. CRP slightly increased from 10.2 to 10.9 Cardiology on board Continue colchicine 0.3mg daily and Ibuprofen 200mg TID due to renal function Diuretic management as per nephrology Continue Lasix 30 mg 3 times daily Continue monitor closely Monitor I/O Hyponatremia Mostly due to volume overload Na 129 today Nephrology consulted Urea discontinued today Continue monitor BMP Afib Rate control Continue IV heparin drip for now Patient and daughter were thinking about to transition to Eliquis while inpatient I discussed with cardiology to transition to eliquis. Cardiology was against it due to her age and renal function while currently on colchicine and Motrin TID Cardiology said that we can make the change to eliquis outpatient once completes the course of colchicine and motrin Heparin drip discontinued INR 2.8 today. continue coumain CKD stage 3 Creatinine stable at 1.5 Nephrology on board continue monitor BMP Hypokalemia Mostly due to diuretic K 3.2 today K replaced DVT px on heparin subq Code status Full code Admission and Anticipated Discharge Date Admission Date: May 03, 2022 Subjective Patient was seen and evaluated for follow-up of hyponatremia and pericarditis Lying in bed with no acute distress She feels nauseated after drinking the urea Currently denies any chest pain, palpitation, dizziness, shortness of breath. Review of Systems Review of Systems: All systems reviewed & are unremarkable except as noted in Subjective Physical Exam Physical Exam: General- No acute distress Head- atraumatic Eyes- PERRL, EOMI, ENT- oropharynx clear Neck- supple, no JVD Lungs- clear to auscultation Heart- +murmur, irregular Abdomen- normal bowel sounds, soft, nontender Extremities- no calf tenderness Neuro- alert, oriented x 3; PERRL, EOMI; no facial palsy; no dysarthria Skin- warm & dry Results & Data Results & Data ([facility]) Vital Signs (Past 12 Hours) Vital Signs Temp Pulse Pulse Resp BP BP Pulse Ox 05/09/22 20:22 36.4 C L 85 18 122/72 94 05/09/22 20:03 36.6 C 85 20 117/76 93 05/09/22 15:02 36.6 C 70 18 102/59 L 93 05/09/22 14:17 73 05/09/22 10:58 36.6 C 74 19 101/66 93 O2 Del Method 05/09/22 20:22 Room Air 05/09/22 20:03 Room Air 05/09/22 15:02 Room Air 05/09/22 14:17 05/09/22 10:58 Room Air (1) CKD (chronic kidney disease) stage 3, GFR 30-59 ml/min Chronic kidney disease stage 3 subtype: unspecified whether 3a or 3b Qualified Code(s): N18.30 - Chronic kidney disease, stage 3 unspecified (2) Atrial fibrillation Atrial fibrillation type: unspecified chronic Qualified Code(s): I48.20 - Chronic atrial fibrillation, unspecified (3) Chest pain Chest pain type: unspecified Qualified Code(s): R07.9 - Chest pain, unspecified
[2022-05-09] MEDS: ALPRAZolam 0.25 MG TABLET PO PRN (21:39)
[2022-05-10] MEDS: IBUPROFEN 200 MG TAB PO SCH ×3 (03:56→20:03)
[2022-05-10] MEDS: FUROSEMIDE 40 MG/4 ML VIAL IV SCH ×2 (05:01→16:20)
[2022-05-10 06:55] LABS: Prothrombin Time 30.3 Seconds (9.0-12.0)
[2022-05-10 07:11] LABS: BUN Creatinine Ratio 51.6 (10-20); Calcium 9.4 mg/dl (8.5-10.1); Creatinine Clr Calc Pharmacy 22.5 ml/min; Est GFR (African American) 33.5 ml/min; Est GFR (Non-African American) 28.9 ml/min; Potassium 3.6 mmol/L (3.5-5.1)
[2022-05-10] MEDS: ASPIRIN 81 MG ECTAB PO SCH (08:15)
[2022-05-10] MEDS: COLCHICINE 0.6 MG TAB PO SCH (08:16)
[2022-05-10] MEDS: dilTIAZem HCL 240 MG CAPCR PO SCH (08:17)
[2022-05-10] MEDS: ESCITALOPRAM OXALATE 10 MG TAB PO SCH (08:18)
[2022-05-10] MEDS: METOPROLOL SUCC 25MG EXT REL TAB PO SCH ×2 (08:19→20:03)
[2022-05-10] MEDS: FAMOTIDINE 10 MG TABLET PO SCH (08:19)
[2022-05-10] MEDS: MULTIVITAMIN TAB PO SCH (08:19)
[2022-05-10] MEDS: POTASSIUM CHLORIDE CRTAB 20 MEQ TABCR PO SCH (08:20)
[2022-05-10] MEDS: HYDROCORTISONE HC 2.5% CRM 30GM TUBE EXT PRN (10:11)
--- NOTE | 2022-05-10 11:43 | Nephrology Progress Note ---
Date of Service May 10, 2022 Assessment & Plan Admission and Anticipated Discharge Date Admission Date: May 03, 2022 Subjective Assessment & Plan (1) Hyponatremia: Plan: her sodium was 134 on outside labs 04/25 w/ K 4.3, creat 1.5. presented w/ sNa 123>124>123 > 125 and to 129 today. suspect her ongoing/chronic pericardial effusion drives the recent onset (but not symptomatic and not acute) hyponatremia. mechanism for this not well understood but can relate to increased ADH secretion with increased atrial pressures +/- in this pt's case her uncontrolled pain. -lower lasix to 30 iv bid. stop urea-NA -replete K -daily standing weight -strict I/O -cont FR 1.5L na 135 and creat 1.6 will cut down lasix use (2) CKD (chronic kidney disease) stage 3, GFR 30-59 ml/min: Plan: high risk for ALEXANDER on CKD > Due to obligate diuretics, Ongoing NSAID and IV contrast received+ colchicine. Creat up a tiny bit and Na normal so will lower lasx dose to 30 iv bid (3) Pericarditis: Plan: based on large pericardial effusion, chest pain -colchicine and nsaid doses lowered 05/07 Subjective no interval events. Feels better. No 02 and also walked in the hallway Review of Systems Review of Systems: All systems reviewed & are unremarkable except as noted in Subjective Physical Exam Constitutional: well developed, well nourished, + thin and cooperative; no acute distress Eyes: EOM intact bilaterally ENMT: Ears: no external ear abnormality Nose: no external nose abnormality Mouth: + dry oral mucous membranes Neck: no nuchal rigidity Respiratory: normal respiratory effort Auscultation: + diminished lung sounds and + crackles (bibasilar but fewe) Cardiovascular: Rate/Rhythm: regular rate, regular rhythm and + irregularly irregular Heart Sounds: + murmur and + cardiac rub (?) Palpation: + abnormal PMI Extremities: + edema (trace LLE) Gastrointestinal (Abdomen): Inspection/Auscultation: normal bowel sounds Percussion/Palpation: abdomen soft; abdomen nontender Musculoskeletal: Extremities: strength 5/5 throughout Skin: no rashes, warm and dry Psychiatric: Orientation: oriented x 3 Speech: normal rate/rhythm/volume of speech Affect: euthymic affect and + anxious affect Results & Data ([facility]) Vital Signs (Past 12 Hours) Vital Signs Temp Pulse Resp BP BP Pulse Ox O2 Del Method 05/10/22 11:29 36.8 C 80 20 114/77 92 Room Air 05/10/22 08:22 36.8 C 89 19 105/71 94 Room Air 05/10/22 04:00 36.4 C L 72 18 115/74 93 Room Air
--- NOTE | 2022-05-10 14:08 | Cardiology Progress Note ---
Date of Service May 10, 2022 Assessment & Plan (1) Chest pain: (2) Shortness of breath: (3) Pleural effusion: (4) Pericardial effusion: (5) Chronic anticoagulation: (6) CKD (chronic kidney disease) stage 3, GFR 30-59 ml/min: (7) Atrial fibrillation: (8) HTN (hypertension): Plan The patient still has a friction rub but her chest pain is markedly improved. I would continue the colchicine and ibuprofen. Otherwise patient is stable. Admission and Anticipated Discharge Date Admission Date: May 03, 2022 Subjective The patient's chest pain has for the most part resolved. She has no new cardiac complaints today. Review of Systems Review of Systems: Review of Systems: See HPI for pertinent positives. All other 10 point review of systems are negative. Physical Exam Physical Exam: General: no acute distress and stated age Head: normocephalic, no masses, lesions, tenderness or abnormalities Eyes: conjunctiva are pink and non-injected, sclera clear Neck: supple, no adenopathy, no bruits, normal jugular venous pulse, no hepatojugular reflux Chest: normal shape and normal respiratory effort Lungs: clear to auscultation and percussion Cardiac Exam: - regular rate & rhythm, friction rub- normal S1, normal S2 Pulses: 2(+) throughout Abdomen: abdomen soft, non-tender, no abnormal masses and no hepatosplenomegaly Musculoskeletal: no gait disturbance, no joint inflammation, no deforming arthritis Extremities: no edema and no cyanosis Neuro: grossly normal exam Results & Data ([facility]) Vital Signs (Past 12 Hours) Vital Signs Temp Pulse Resp BP BP Pulse Ox O2 Del Method 05/10/22 11:29 36.8 C 80 20 114/77 92 Room Air 05/10/22 08:22 36.8 C 89 19 105/71 94 Room Air 05/10/22 04:00 36.4 C L 72 18 115/74 93 Room Air Laboratory Results Laboratory Results - last 24 hr 05/10/22 05/10/22 06:16 06:16 PT 30.3 H INR 3.0 H Sodium 135 L Potassium 3.6 Chloride 95 L Carbon Dioxide 32 Anion Gap 8 BUN 83 H Creatinine 1.61 H Est Cr Clr Drug Dosing 22.5 Est GFR ( Amer) 33.5 Est GFR (Non-Af Amer) 28.9 BUN/Creatinine Ratio 51.6 H Glucose 118 H Calcium 9.4 Medications Administered Current Inpatient Medications Acetaminophen (Acetaminophen 325 Mg Tab) 650 mg PO Q4H PRN PRN Reason: Mild Pain or Fever Stop: 06/02/22 23:14 Last Admin: 05/08/22 16:05 Dose: 650 mg Alprazolam (Alprazolam 0.25 Mg Tablet) 0.125 mg PO TID PRN PRN Reason: Anxiety Stop: 06/02/22 23:14 Last Admin: 05/09/22 21:39 Dose: 0.125 mg Aspirin (Aspirin 81 Mg Ectab) 81 mg PO DAILY ANA MARÍA Stop: 06/03/22 08:59 Last Admin: 05/10/22 08:15 Dose: 81 mg Colchicine (Colchicine 0.6 Mg Tab) 0.3 mg PO QAM ANA MARÍA Stop: 06/07/22 08:59 Last Admin: 05/10/22 08:16 Dose: 0.3 mg Diltiazem HCl (Diltiazem Hcl 240 Mg Capcr) 240 mg PO DAILY ANA MARÍA Stop: 06/03/22 08:59 Last Admin: 05/10/22 08:17 Dose: 240 mg Escitalopram Oxalate (Escitalopram Oxalate 10 Mg Tab) 5 mg PO DAILY ANA MARÍA Stop: 06/05/22 08:59 Last Admin: 05/10/22 08:18 Dose: 5 mg Famotidine (Famotidine 10 Mg Tablet) 10 mg PO DAILY ANA MARÍA Stop: 06/03/22 08:59 Last Admin: 05/10/22 08:19 Dose: 10 mg Furosemide (Furosemide 40 Mg/4 Ml Vial) 30 mg IV [id number] [facility] Stop: 06/09/22 16:59 Hydrocortisone (Hydrocortisone Hc 2.5% Crm 30gm Tube) 1 appln EXT BID PRN PRN Reason: Hemorrhoids Stop: 06/07/22 12:19 Last Admin: 05/10/22 10:11 Dose: 1 appln Ibuprofen (Ibuprofen 200 Mg Tab) 200 mg PO Q8H ANA MARÍA Stop: 06/06/22 18:59 Last Admin: 05/10/22 11:27 Dose: 200 mg Metoprolol Succinate (Metoprolol Succ 25mg Ext Rel Tab) 25 mg PO DAILY ANA MARÍA Stop: 06/03/22 08:59 Last Admin: 05/10/22 08:19 Dose: 25 mg Metoprolol Succinate (Metoprolol Succ 25mg Ext Rel Tab) 12.5 mg PO PM ANA MARÍA Stop: 06/02/22 23:14 Last Admin: 05/09/22 20:06 Dose: 12.5 mg Multivitamins (Multivitamin Tab) 1 tab PO DAILY ANA MARÍA Stop: 06/03/22 08:59 Last Admin: 05/10/22 08:19 Dose: 1 tab Nitroglycerin (Nitroglycerin Sl 0.4 Mg/Tab Tab) 0.4 mg SL UD PRN PRN Reason: Chest Pain Stop: 06/02/22 23:14 Last Admin: 05/05/22 08:22 Dose: 0.4 mg Ondansetron HCl (Ondansetron 2 Mg Od Tab) 2 mg PO Q12H PRN PRN Reason: Nausea Stop: 06/08/22 11:18 Oxycodone HCl (Oxycodone Hcl Ir 5 Mg Tab (Immediate Release)) 5 mg PO Q4H PRN PRN Reason: Moderate/Severe Pain Stop: 05/17/22 23:14 Last Admin: 05/05/22 02:40 Dose: 5 mg Potassium Chloride (Potassium Chloride Crtab 20 Meq Tabcr) 20 meq PO QAM ANA MARÍA Stop: 06/08/22 08:59 Last Admin: 05/10/22 08:20 Dose: 20 meq Sodium Chloride (Sodium Chloride 0.65% Na Soln 45 Ml ([place])) 1 sprays NA PRN PRN PRN Reason: Dryness Stop: 06/04/22 15:43 Warfarin Sodium (Warfarin Sod 2 Mg Tab) 2 mg PO DAILY@1600 [facility] Stop: 06/08/22 15:59 Last Admin: 05/09/22 15:26 Dose: 2 mg (1) CKD (chronic kidney disease) stage 3, GFR 30-59 ml/min Chronic kidney disease stage 3 subtype: unspecified whether 3a or 3b Qualified Code(s): N18.30 - Chronic kidney disease, stage 3 unspecified (2) Atrial fibrillation Atrial fibrillation type: unspecified chronic Qualified Code(s): I48.20 - Chronic atrial fibrillation, unspecified (3) Chest pain Chest pain type: unspecified Qualified Code(s): R07.9 - Chest pain, unspecified
[2022-05-10] MEDS: WARFARIN SOD 2 MG TAB PO SCH (15:56)
--- NOTE | 2022-05-10 23:47 | Hospitalist Progress Note ---
Date of Service May 10, 2022 Assessment & Plan (1) Chest pain: (2) Atrial fibrillation: (3) Chronic anticoagulation: (4) HTN (hypertension): (5) Pericardial effusion: (6) CKD (chronic kidney disease) stage 3, GFR 30-59 ml/min: (7) Shortness of breath: Plan: Possible related to Large pleural effusion CTA chest showed Marked cardiomegaly with a large pericardial effusion. Moderate sized bilateral pleural effusions with compressive atelectasis/collapse of both lung bases. Received lasix 20mg IV on admission Chest u/s showed Bilateral pleural effusions are redemonstrated. CRP slightly increased from 10.2 to 10.9 Cardiology on board Continue colchicine 0.3mg daily and Ibuprofen 200mg TID due to renal function Diuretic management as per nephrology Case discussed with nephrology recommended to decrease to Lasix 30 mg BID Continue monitor closely Stable from cardiology, continue colchicine and NSAID on discharge Hyponatremia Mostly due to volume overload Na 135 today Nephrology consulted Urea discontinued Continue monitor BMP Afib Rate control Continue IV heparin drip for now Patient and daughter were thinking about to transition to Eliquis while inpatient I discussed with cardiology to transition to eliquis. Cardiology was against it due to her age and renal function while currently on colchicine and Motrin TID Cardiology said that we can make the change to eliquis outpatient once completes the course of colchicine and motrin Heparin drip discontinued INR 3 today. continue coumadin CKD stage 3 Creatinine 1.6 today Nephrology on board continue monitor BMP closely Hypokalemia Mostly due to diuretic K 3.6 today Continue K supplement DVT px On Coumadin Code status Full code Admission and Anticipated Discharge Date Admission Date: May 03, 2022 Subjective Patient was seen and evaluated for follow-up of hyponatremia and pericarditis Lying in bed with no acute distress She said that she feels better today because she did not have to drink the urea Currently denies any chest pain, palpitation, dizziness, shortness of breath. Review of Systems Review of Systems: All systems reviewed & are unremarkable except as noted in Subjective Physical Exam Physical Exam: General- No acute distress Head- atraumatic Eyes- PERRL, EOMI, ENT- oropharynx clear Neck- supple, no JVD Lungs- clear to auscultation Heart- +murmur, irregular Abdomen- normal bowel sounds, soft, nontender Extremities- no calf tenderness Neuro- alert, oriented x 3; PERRL, EOMI; no facial palsy; no dysarthria Skin- warm & dry Results & Data Results & Data ([facility]) Vital Signs (Past 12 Hours) Vital Signs Temp Pulse Pulse Resp BP Pulse Ox O2 Del Method 05/10/22 23:44 78 05/10/22 19:52 36.4 C L 68 18 112/75 92 Room Air 05/10/22 15:50 36.8 C 71 18 124/79 91 Room Air (1) CKD (chronic kidney disease) stage 3, GFR 30-59 ml/min Chronic kidney disease stage 3 subtype: unspecified whether 3a or 3b Qualified Code(s): N18.30 - Chronic kidney disease, stage 3 unspecified (2) Atrial fibrillation Atrial fibrillation type: unspecified chronic Qualified Code(s): I48.20 - Chronic atrial fibrillation, unspecified (3) Chest pain Chest pain type: unspecified Qualified Code(s): R07.9 - Chest pain, unspecified
[2022-05-11] MEDS: IBUPROFEN 200 MG TAB PO SCH ×3 (02:45→17:56)
[2022-05-11 06:45] LABS: Hematocrit (blood only) 37.4 % (34.1-44.9); Hemoglobin 12.8 g/dl (12.0-16.0); Mean Corpuscular Hemoglobin 32.2 pg (25.0-34.0); Mean Corpuscular Hgb Conc 34.2 g/dL (32.0-36.0); Mean Corpuscular Volume 94.2 fL (80.0-100.0); Mean Platelet Volume 11.7 fL (9.4-12.3); Platelet Count 226 K/uL (130-400); RDW Coefficient of Variation 17.7 % (11.5-14.5); RDW Standard Deviation 61.1 fL (36.4-46.3); Red Blood Count 3.97 M/uL (3.93-5.22); White Blood Count 9.09 K/ul (4.8-10.8)
[2022-05-11 07:00] LABS: INR 2.8 (0.9-1.1)
[2022-05-11 07:07] LABS: BUN Creatinine Ratio 49.7 (10-20); Calcium 9.1 mg/dl (8.5-10.1); Creatinine Clr Calc Pharmacy 24.9 ml/min; Est GFR (African American) 38.6 ml/min; Est GFR (Non-African American) 33.3 ml/min; Potassium 3.4 mmol/L (3.5-5.1)
--- NOTE | 2022-05-11 08:15 | Hospitalist Progress Note ---
Date of Service May 11, 2022 Assessment & Plan (1) Chest pain: (2) Atrial fibrillation: (3) Chronic anticoagulation: (4) HTN (hypertension): (5) Pericardial effusion: (6) CKD (chronic kidney disease) stage 3, GFR 30-59 ml/min: (7) Shortness of breath: Plan: Possible related to Large pleural effusion CTA chest showed Marked cardiomegaly with a large pericardial effusion. Moderate sized bilateral pleural effusions with compressive atelectasis/collapse of both lung bases. Received lasix 20mg IV on admission Chest u/s showed Bilateral pleural effusions are re-demonstrated. CRP slightly increased from 10.2 to 10.9 Cardiology consulted Continue colchicine 0.3mg daily and Ibuprofen 200mg TID due to renal function Diuretic management as per nephrology Case discussed with nephrology recommended to decrease to Lasix 30 mg BID Continue monitor closely Stable from cardiology, continue colchicine and NSAID on discharge Hyponatremia Mostly due to volume overload Na 137 today Nephrology consulted Urea discontinued Continue monitor BMP Afib Rate control Continue IV heparin drip for now Patient and daughter were thinking about to transition to Eliquis while inpatient I discussed with cardiology to transition to eliquis. Cardiology was against it due to her age and renal function while currently on colchicine and Motrin TID Cardiology said that we can make the change to eliquis outpatient once completes the course of colchicine and motrin Heparin drip discontinued INR 3. continue coumadin CKD stage 3 Creatinine 1.4 today Nephrology on board continue monitor BMP closely Hypokalemia Mostly due to diuretic K 3.6 today Continue K supplement DVT px On Coumadin Code status Full code Admission and Anticipated Discharge Date Admission Date: May 03, 2022 Subjective Patient was seen and evaluated for follow-up of hyponatremia and pericarditis Sitting up in bed in NAD Daughter at the bedside Pt reports feeling better overall Currently denies any chest pain, palpitation, dizziness, shortness of breath. Review of Systems Review of Systems: All systems reviewed & are unremarkable except as noted in Subjective Physical Exam Physical Exam: General- No acute distress Head- atraumatic Eyes- PERRL, EOMI, ENT- oropharynx clear Neck- supple, no JVD Lungs- clear to auscultation Heart- +murmur, irregular Abdomen- normal bowel sounds, soft, nontender Extremities- no calf tenderness, moves extremities Neuro- alert, oriented x 3; PERRL, EOMI; no facial palsy; no dysarthria, moves extremities Skin- warm & dry Results & Data Results & Data ([facility]) Vital Signs (Past 12 Hours) Vital Signs Temp Pulse Pulse Resp BP BP Pulse Ox 05/11/22 02:43 37 C 78 20 119/79 05/10/22 23:44 36.3 C L 87 22 110/69 93 05/10/22 23:44 78 O2 Del Method 05/11/22 02:43 Room Air 05/10/22 23:44 Room Air 05/10/22 23:44 Laboratory Results 05/11/22 05/11/22 05/11/22 Range/Units 06:01 06:01 06:01 WBC 9.09 (4.8-10.8) K/ul RBC 3.97 (3.93-5.22) M/uL Hgb 12.8 (12.0-16.0) g/dl Hct 37.4 (34.1-44.9) % MCV 94.2 (80.0-100.0) fL MCH 32.2 (25.0-34.0) pg MCHC 34.2 (32.0-36.0) g/dL RDW Std Deviation 61.1 H (36.4-46.3) fL RDW Coeff of Lonny 17.7 H (11.5-14.5) % Plt Count 226 (130-400) K/uL MPV 11.7 (9.4-12.3) fL PT 28.0 H (9.0-12.0) Seconds INR 2.8 H (0.9-1.1) Sodium 137 (136-145) mmol/L Potassium 3.4 L (3.5-5.1) mmol/L Chloride 97 L (98-107) mmol/L Carbon Dioxide 31 (21-32) mmol/L Anion Gap 9 (3-11) BUN 71 H (6-23) mg/dl Creatinine 1.43 H (0.6-1.2) mg/dl Est Cr Clr Drug Dosing 24.9 ml/min Est GFR ( Amer) 38.6 ml/min Est GFR (Non-Af Amer) 33.3 ml/min BUN/Creatinine Ratio 49.7 H (10-20) Glucose 103 H (70-99(Fasting)) mg/dl Calcium 9.1 (8.5-10.1) mg/dl Medications Administered Current Inpatient Medications Acetaminophen (Acetaminophen 325 Mg Tab) 650 mg PO Q4H PRN PRN Reason: Mild Pain or Fever Stop: 06/02/22 23:14 Last Admin: 05/08/22 16:05 Dose: 650 mg Alprazolam (Alprazolam 0.25 Mg Tablet) 0.125 mg PO TID PRN PRN Reason: Anxiety Stop: 06/02/22 23:14 Last Admin: 05/09/22 21:39 Dose: 0.125 mg Aspirin (Aspirin 81 Mg Ectab) 81 mg PO DAILY [facility] Stop: 06/03/22 08:59 Last Admin: 05/10/22 08:15 Dose: 81 mg Colchicine (Colchicine 0.6 Mg Tab) 0.3 mg PO QAM [facility] Stop: 06/07/22 08:59 Last Admin: 05/10/22 08:16 Dose: 0.3 mg Diltiazem HCl (Diltiazem Hcl 240 Mg Capcr) 240 mg PO DAILY [facility] Stop: 06/03/22 08:59 Last Admin: 05/10/22 08:17 Dose: 240 mg Escitalopram Oxalate (Escitalopram Oxalate 10 Mg Tab) 5 mg PO DAILY [facility] Stop: 06/05/22 08:59 Last Admin: 05/10/22 08:18 Dose: 5 mg Famotidine (Famotidine 10 Mg Tablet) 10 mg PO DAILY [facility] Stop: 06/03/22 08:59 Last Admin: 05/10/22 08:19 Dose: 10 mg Furosemide (Furosemide 40 Mg/4 Ml Vial) 30 mg IV BID17 [facility] Stop: 06/09/22 16:59 Last Admin: 05/10/22 16:20 Dose: 30 mg Hydrocortisone (Hydrocortisone Hc 2.5% Crm 30gm Tube) 1 appln EXT BID PRN PRN Reason: Hemorrhoids Stop: 06/07/22 12:19 Last Admin: 05/10/22 10:11 Dose: 1 appln Ibuprofen (Ibuprofen 200 Mg Tab) 200 mg PO Q8H [facility] Stop: 06/06/22 18:59 Last Admin: 05/11/22 02:45 Dose: 200 mg Metoprolol Succinate (Metoprolol Succ 25mg Ext Rel Tab) 25 mg PO DAILY [facility] Stop: 06/03/22 08:59 Last Admin: 05/10/22 08:19 Dose: 25 mg Metoprolol Succinate (Metoprolol Succ 25mg Ext Rel Tab) 12.5 mg PO PM [facility] Stop: 06/02/22 23:14 Last Admin: 05/10/22 20:03 Dose: 12.5 mg Multivitamins (Multivitamin Tab) 1 tab PO DAILY [facility] Stop: 06/03/22 08:59 Last Admin: 05/10/22 08:19 Dose: 1 tab Nitroglycerin (Nitroglycerin Sl 0.4 Mg/Tab Tab) 0.4 mg SL UD PRN PRN Reason: Chest Pain Stop: 06/02/22 23:14 Last Admin: 05/05/22 08:22 Dose: 0.4 mg Ondansetron HCl (Ondansetron 2 Mg Od Tab) 2 mg PO Q12H PRN PRN Reason: Nausea Stop: 06/08/22 11:18 Oxycodone HCl (Oxycodone Hcl Ir 5 Mg Tab (Immediate Release)) 5 mg PO Q4H PRN PRN Reason: Moderate/Severe Pain Stop: 05/17/22 23:14 Last Admin: 05/05/22 02:40 Dose: 5 mg Potassium Chloride (Potassium Chloride Crtab 20 Meq Tabcr) 20 meq PO QAM [facility] Stop: 06/08/22 08:59 Last Admin: 05/10/22 08:20 Dose: 20 meq Sodium Chloride (Sodium Chloride 0.65% Na Soln 45 Ml ([place])) 1 sprays NA PRN PRN PRN Reason: Dryness Stop: 06/04/22 15:43 Warfarin Sodium (Warfarin Sod 2 Mg Tab) 2 mg PO DAILY@1600 [facility] Stop: 06/08/22 15:59 Last Admin: 05/10/22 15:56 Dose: 2 mg (1) CKD (chronic kidney disease) stage 3, GFR 30-59 ml/min Chronic kidney disease stage 3 subtype: unspecified whether 3a or 3b Qualified Code(s): N18.30 - Chronic kidney disease, stage 3 unspecified (2) Atrial fibrillation Atrial fibrillation type: unspecified chronic Qualified Code(s): I48.20 - Chr onic atrial fibrillation, unspecified (3) Chest pain Chest pain type: unspecified Qualified Code(s): R07.9 - Chest pain, unspecified
[2022-05-11] MEDS: ASPIRIN 81 MG ECTAB PO SCH (08:30)
[2022-05-11] MEDS: COLCHICINE 0.6 MG TAB PO SCH (08:30)
[2022-05-11] MEDS: dilTIAZem HCL 240 MG CAPCR PO SCH (08:32)
[2022-05-11] MEDS: ESCITALOPRAM OXALATE 10 MG TAB PO SCH (08:32)
[2022-05-11] MEDS: FAMOTIDINE 10 MG TABLET PO SCH (08:33)
[2022-05-11] MEDS: FUROSEMIDE 40 MG/4 ML VIAL IV SCH ×2 (08:34→16:38)
[2022-05-11] MEDS: METOPROLOL SUCC 25MG EXT REL TAB PO SCH ×2 (08:35→20:02)
[2022-05-11] MEDS: MULTIVITAMIN TAB PO SCH (08:35)
--- NOTE | 2022-05-11 09:24 | Nephrology Progress Note ---
Date of Service May 11, 2022 Assessment & Plan Admission and Anticipated Discharge Date Admission Date: May 03, 2022 Subjective Assessment & Plan (1) Hyponatremia: Plan: her sodium was 134 on outside labs 04/25 w/ K 4.3, creat 1.5. presented w/ sNa 123>124>123 > 125 and to 129 today. suspect her ongoing/chronic pericardial effusion drives the recent onset (but not symptomatic and not acute) hyponatremia. mechanism for this not well understood but can relate to increased ADH secretion with increased atrial pressures +/- in this pt's case her uncontrolled pain. -Continue lasix 30 iv bid. na remains good now and also the creat -daily standing weight -strict I/O -cont FR 1.5L (2) CKD (chronic kidney disease) stage 3, GFR 30-59 ml/min: Plan: high risk for ALEXANDER on CKD > Due to obligate diuretics, Ongoing NSAID and IV contrast received+ colchicine. Creat went down a bit from yesterday after lasix lowered (3) Pericarditis: Plan: based on large pericardial effusion, chest pain -colchicine and nsaid doses lowered 05/07 Subjective no interval events. Feels better. No 02 and also walked in the hallway Review of Systems Review of Systems: All systems reviewed & are unremarkable except as noted in Subjective Physical Exam Constitutional: well developed, well nourished, + thin and cooperative; no acute distress Eyes: EOM intact bilaterally ENMT: Ears: no external ear abnormality Nose: no external nose abnormality Mouth: + dry oral mucous membranes Neck: no nuchal rigidity Respiratory: normal respiratory effort Auscultation: + diminished lung sounds and + crackles (bibasilar but fewe) Cardiovascular: Rate/Rhythm: regular rate, regular rhythm and + irregularly irregular Heart Sounds: + murmur and + cardiac rub (?) Palpation: + abnormal PMI Extremities: + edema (trace LLE) Gastrointestinal (Abdomen): Inspection/Auscultation: normal bowel sounds Percussion/Palpation: abdomen soft; abdomen nontender Musculoskeletal: Extremities: strength 5/5 throughout Skin: no rashes, warm and dry Psychiatric: Orientation: oriented x 3 Speech: normal rate/rhythm/volume of speech Affect: euthymic affect and + anxious affect Results & Data ([facility]) Vital Signs (Past 12 Hours) Vital Signs Temp Pulse Pulse Resp BP BP Pulse Ox 05/11/22 08:00 36.9 C 79 20 128/74 92 05/11/22 02:43 37 C 78 20 119/79 05/10/22 23:44 36.3 C L 87 22 110/69 93 05/10/22 23:44 78 O2 Del Method 05/11/22 08:00 05/11/22 02:43 Room Air 05/10/22 23:44 Room Air 05/10/22 23:44
[2022-05-11] MEDS: POTASSIUM CHLORIDE 20 MEQ/15 ML UDC PO SCH (09:43)
--- NOTE | 2022-05-11 13:51 | Cardiology Progress Note ---
Date of Service May 11, 2022 Assessment & Plan (1) Chest pain: (2) Shortness of breath: (3) Pleural effusion: (4) Pericardial effusion: (5) Chronic anticoagulation: (6) CKD (chronic kidney disease) stage 3, GFR 30-59 ml/min: (7) Atrial fibrillation: (8) HTN (hypertension): Plan The patient is clinically stable. I would continue the ibuprofen and colchicine. Admission and Anticipated Discharge Date Admission Date: May 03, 2022 Subjective Patient states she feels well. Review of Systems Review of Systems: Review of Systems: See HPI for pertinent positives. All other 10 point review of systems are negative. Physical Exam Physical Exam: General: no acute distress and stated age Head: normocephalic, no masses, lesions, tenderness or abnormalities Eyes: conjunctiva are pink and non-injected, sclera clear Neck: supple, no adenopathy, no bruits, normal jugular venous pulse, no hepatojugular reflux Chest: normal shape and normal respiratory effort Lungs: clear to auscultation and percussion Cardiac Exam: - regular rate & rhythm, friction rub- normal S1, normal S2 Pulses: 2(+) throughout Abdomen: abdomen soft, non-tender, no abnormal masses and no hepatosplenomegaly Musculoskeletal: no gait disturbance, no joint inflammation, no deforming arthritis Extremities: no edema and no cyanosis Neuro: grossly normal exam Results & Data ([facility]) Vital Signs (Past 12 Hours) Vital Signs Temp Pulse Resp BP BP Pulse Ox O2 Del Method 05/11/22 11:09 36.4 C L 68 18 112/78 96 Room Air 05/11/22 08:00 36.9 C 79 20 128/74 92 05/11/22 02:43 37 C 78 20 119/79 Room Air Laboratory Results Laboratory Results - last 24 hr 05/11/22 05/11/22 05/11/22 06:01 06:01 06:01 WBC 9.09 RBC 3.97 Hgb 12.8 Hct 37.4 MCV 94.2 MCH 32.2 MCHC 34.2 RDW Std Deviation 61.1 H RDW Coeff of Lonny 17.7 H Plt Count 226 MPV 11.7 PT 28.0 H INR 2.8 H Sodium 137 Potassium 3.4 L Chloride 97 L Carbon Dioxide 31 Anion Gap 9 BUN 71 H Creatinine 1.43 H Est Cr Clr Drug Dosing 24.9 Est GFR ( Amer) 38.6 Est GFR (Non-Af Amer) 33.3 BUN/Creatinine Ratio 49.7 H Glucose 103 H Calcium 9.1 Medications Administered Current Inpatient Medications Acetaminophen (Acetaminophen 325 Mg Tab) 650 mg PO Q4H PRN PRN Reason: Mild Pain or Fever Stop: 06/02/22 23:14 Last Admin: 05/08/22 16:05 Dose: 650 mg Alprazolam (Alprazolam 0.25 Mg Tablet) 0.125 mg PO TID PRN PRN Reason: Anxiety Stop: 06/02/22 23:14 Last Admin: 05/09/22 21:39 Dose: 0.125 mg Aspirin (Aspirin 81 Mg Ectab) 81 mg PO DAILY [facility] Stop: 06/03/22 08:59 Last Admin: 05/11/22 08:30 Dose: 81 mg Colchicine (Colchicine 0.6 Mg Tab) 0.3 mg PO QAM [facility] Stop: 06/07/22 08:59 Last Admin: 05/11/22 08:30 Dose: 0.3 mg Diltiazem HCl (Diltiazem Hcl 240 Mg Capcr) 240 mg PO DAILY [facility] Stop: 06/03/22 08:59 Last Admin: 05/11/22 08:32 Dose: 240 mg Escitalopram Oxalate (Escitalopram Oxalate 10 Mg Tab) 5 mg PO DAILY [facility] Stop: 06/05/22 08:59 Last Admin: 05/11/22 08:32 Dose: 5 mg Famotidine (Famotidine 10 Mg Tablet) 10 mg PO DAILY [facility] Stop: 06/03/22 08:59 Last Admin: 05/11/22 08:33 Dose: 10 mg Furosemide (Furosemide 40 Mg/4 Ml Vial) 30 mg IV BID17 [facility] Stop: 06/09/22 16:59 Last Admin: 05/11/22 08:34 Dose: 30 mg Hydrocortisone (Hydrocortisone Hc 2.5% Crm 30gm Tube) 1 appln EXT BID PRN PRN Reason: Hemorrhoids Stop: 06/07/22 12:19 Last Admin: 05/10/22 10:11 Dose: 1 appln Ibuprofen (Ibuprofen 200 Mg Tab) 200 mg PO Q8H [facility] Stop: 06/06/22 18:59 Last Admin: 05/11/22 11:59 Dose: 200 mg Metoprolol Succinate (Metoprolol Succ 25mg Ext Rel Tab) 25 mg PO DAILY [facility] Stop: 06/03/22 08:59 Last Admin: 05/11/22 08:35 Dose: 25 mg Metoprolol Succinate (Metoprolol Succ 25mg Ext Rel Tab) 12.5 mg PO PM [facility] Stop: 06/02/22 23:14 Last Admin: 05/10/22 20:03 Dose: 12.5 mg Multivitamins (Multivitamin Tab) 1 tab PO DAILY [facility] Stop: 06/03/22 08:59 Last Admin: 05/11/22 08:35 Dose: 1 tab Nitroglycerin (Nitroglycerin Sl 0.4 Mg/Tab Tab) 0.4 mg SL UD PRN PRN Reason: Chest Pain Stop: 06/02/22 23:14 Last Admin: 05/05/22 08:22 Dose: 0.4 mg Ondansetron HCl (Ondansetron 2 Mg Od Tab) 2 mg PO Q12H PRN PRN Reason: Nausea Stop: 06/08/22 11:18 Oxycodone HCl (Oxycodone Hcl Ir 5 Mg Tab (Immediate Release)) 5 mg PO Q4H PRN PRN Reason: Moderate/Severe Pain Stop: 05/17/22 23:14 Last Admin: 05/05/22 02:40 Dose: 5 mg Potassium Chloride (Potassium Chloride 20 Meq/15 Ml Udc) 20 meq PO QAM [facility] Stop: 06/10/22 08:59 Last Admin: 05/11/22 09:43 Dose: 20 meq Sodium Chloride (Sodium Chloride 0.65% Na Soln 45 Ml ([place])) 1 sprays NA PRN PRN PRN Reason: Dryness Stop: 06/04/22 15:43 Warfarin Sodium (Warfarin Sod 2 Mg Tab) 2 mg PO DAILY@1600 [facility] Stop: 06/08/22 15:59 Last Admin: 05/10/22 15:56 Dose: 2 mg (1) Chest pain Chest pain type: unspecified Qualified Code(s): R07.9 - Chest pain, unspecified (2) CKD (chronic kidney disease) stage 3, GFR 30-59 ml/min Chronic kidney disease stage 3 subtype: unspecified whether 3a or 3b Q ualified Code(s): N18.30 - Chronic kidney disease, stage 3 unspecified (3) Atrial fibrillation Atrial fibrillation type: unspecified chronic Qualified Code(s): I48.20 - Chronic atrial fibrillation, unspecified
[2022-05-11] MEDS: WARFARIN SOD 2 MG TAB PO SCH (16:38)
[2022-05-11] MEDS: ACETAMINOPHEN 325 MG TAB PO PRN (22:33)
[2022-05-12] MEDS: IBUPROFEN 200 MG TAB PO SCH ×3 (03:09→19:37)
[2022-05-12 06:49] LABS: INR 2.9 (0.9-1.1); Prothrombin Time 28.7 Seconds (9.0-12.0)
[2022-05-12] MEDS: COLCHICINE 0.6 MG TAB PO SCH (09:23)
[2022-05-12] MEDS: MULTIVITAMIN TAB PO SCH (09:23)
[2022-05-12] MEDS: FAMOTIDINE 10 MG TABLET PO SCH (09:23)
[2022-05-12] MEDS: ESCITALOPRAM OXALATE 10 MG TAB PO SCH (09:23)
[2022-05-12] MEDS: ASPIRIN 81 MG ECTAB PO SCH (09:24)
[2022-05-12] MEDS: METOPROLOL SUCC 25MG EXT REL TAB PO SCH ×2 (09:24→19:37)
[2022-05-12] MEDS: FUROSEMIDE 40 MG/4 ML VIAL IV SCH ×2 (09:24→18:02)
[2022-05-12] MEDS: dilTIAZem HCL 240 MG CAPCR PO SCH (09:24)
[2022-05-12] MEDS: POTASSIUM CHLORIDE 20 MEQ/15 ML UDC PO SCH (09:25)
--- NOTE | 2022-05-12 12:36 | Hospitalist Progress Note ---
Date of Service May 12, 2022 Assessment & Plan (1) Chest pain: (2) Atrial fibrillation: (3) Chronic anticoagulation: (4) HTN (hypertension): (5) Pericardial effusion: (6) CKD (chronic kidney disease) stage 3, GFR 30-59 ml/min: (7) Shortness of breath: Plan: Possible related to Large pleural effusion CTA chest showed Marked cardiomegaly with a large pericardial effusion. Moderate sized bilateral pleural effusions with compressive atelectasis/collapse of both lung bases. Received lasix 20mg IV on admission Chest u/s showed Bilateral pleural effusions are re-demonstrated. CRP slightly increased from 10.2 to 10.9 Cardiology consulted Continue colchicine 0.3mg daily and Ibuprofen 200mg TID due to renal function Diuretic management as per nephrology Case discussed with nephrology recommended to decrease to Lasix 30 mg BID Continue monitor closely Stable from cardiology, continue colchicine and NSAID on discharge Hyponatremia Mostly due to volume overload Na 137 today Nephrology consulted Urea discontinued Continue monitor BMP Afib Rate control Continue IV heparin drip for now Patient and daughter were thinking about to transition to Eliquis while inpatient I discussed with cardiology to transition to eliquis. Cardiology was against it due to her age and renal function while currently on colchicine and Motrin TID Cardiology said that we can make the change to eliquis outpatient once completes the course of colchicine and motrin Heparin drip discontinued INR 3. continue coumadin CKD stage 3 Creatinine 1.4 today Nephrology on board continue monitor BMP closely Hypokalemia Mostly due to diuretic K 3.6 today Continue K supplement DVT px On Coumadin Code status Full code Admission and Anticipated Discharge Date Admission Date: May 03, 2022 Subjective Patient was seen and evaluated for follow-up of hyponatremia and pericarditis Sitting up in bed in NAD Pt reports feeling better overall Currently denies any chest pain, palpitation, dizziness, shortness of breath. Review of Systems Review of Systems: All systems reviewed & are unremarkable except as noted in Subjective Physical Exam Physical Exam: General- No acute distress Head- atraumatic Eyes- PERRL, EOMI, ENT- oropharynx clear Neck- supple, no JVD Lungs- clear to auscultation Heart- +murmur, irregular Abdomen- normal bowel sounds, soft, nontender Extremities- no calf tenderness, moves extremities Neuro- alert, oriented x 3; PERRL, EOMI; no facial palsy; no dysarthria, moves extremities Skin- warm & dry Results & Data Results & Data ([facility]) Vital Signs (Past 12 Hours) Vital Signs Temp Pulse Resp BP BP Pulse Ox O2 Del Method 05/12/22 12:12 36.4 C L 88 16 125/79 93 Room Air 05/12/22 08:48 36.4 C L 91 H 16 124/79 93 Room Air 05/12/22 03:06 36.4 C L 79 16 100/54 L 92 Room Air Laboratory Results 05/12/22 05/12/22 05/12/22 Range/Units 12:38 12:34 05:56 PT 30.3 H 28.7 H (9.0-12.0) Seconds INR 3.0 H 2.9 H (0.9-1.1) Sodium 137 (136-145) mmol/L Potassium 3.8 (3.5-5.1) mmol/L Chloride 96 L (98-107) mmol/L Carbon Dioxide 31 (21-32) mmol/L Anion Gap 10 (3-11) BUN 70 H (6-23) mg/dl Creatinine 1.37 H (0.6-1.2) mg/dl Est Cr Clr Drug Dosing 26.0 ml/min Est GFR ( Amer) 40.7 ml/min Est GFR (Non-Af Amer) 35.1 ml/min BUN/Creatinine Ratio 51.1 H (10-20) Glucose 129 H (70-99(Fasting)) mg/dl Calcium 9.4 (8.5-10.1) mg/dl Phosphorus 3.3 (2.5-4.9) mg/dl Magnesium 2.0 (1.7-2.4) mg/dl Medications Administered Current Inpatient Medications Acetaminophen (Acetaminophen 325 Mg Tab) 650 mg PO Q4H PRN PRN Reason: Mild Pain or Fever Stop: 06/02/22 23:14 Last Admin: 05/11/22 22:33 Dose: 650 mg Alprazolam (Alprazolam 0.25 Mg Tablet) 0.125 mg PO TID PRN PRN Reason: Anxiety Stop: 06/02/22 23:14 Last Admin: 05/09/22 21:39 Dose: 0.125 mg Aspirin (Aspirin 81 Mg Ectab) 81 mg PO DAILY [facility] Stop: 06/03/22 08:59 Last Admin: 05/12/22 09:24 Dose: 81 mg Colchicine (Colchicine 0.6 Mg Tab) 0.3 mg PO QAM [facility] Stop: 06/07/22 08:59 Last Admin: 05/12/22 09:23 Dose: 0.3 mg Diltiazem HCl (Diltiazem Hcl 240 Mg Capcr) 240 mg PO DAILY [facility] Stop: 06/03/22 08:59 Last Admin: 05/12/22 09:24 Dose: 240 mg Escitalopram Oxalate (Escitalopram Oxalate 10 Mg Tab) 5 mg PO DAILY [facility] Stop: 06/05/22 08:59 Last Admin: 05/12/22 09:23 Dose: 5 mg Famotidine (Famotidine 10 Mg Tablet) 10 mg PO DAILY [facility] Stop: 06/03/22 08:59 Last Admin: 05/12/22 09:23 Dose: 10 mg Furosemide (Furosemide 40 Mg/4 Ml Vial) 30 mg IV BID17 [facility] Stop: 06/09/22 16:59 Last Admin: 05/12/22 09:24 Dose: 30 mg Hydrocortisone (Hydrocortisone Hc 2.5% Crm 30gm Tube) 1 appln EXT BID PRN PRN Reason: Hemorrhoids Stop: 06/07/22 12:19 Last Admin: 05/10/22 10:11 Dose: 1 appln Ibuprofen (Ibuprofen 200 Mg Tab) 200 mg PO Q8H [facility] Stop: 06/06/22 18:59 Last Admin: 05/12/22 11:32 Dose: 200 mg Metoprolol Succinate (Metoprolol Succ 25mg Ext Rel Tab) 25 mg PO DAILY [facility] Stop: 06/03/22 08:59 Last Admin: 05/12/22 09:24 Dose: 25 mg Metoprolol Succinate (Metoprolol Succ 25mg Ext Rel Tab) 12.5 mg PO PM [facility] Stop: 06/02/22 23:14 Last Admin: 05/11/22 20:02 Dose: 12.5 mg Multivitamins (Multivitamin Tab) 1 tab PO DAILY [facility] Stop: 06/03/22 08:59 Last Admin: 05/12/22 09:23 Dose: 1 tab Nitroglycerin (Nitroglycerin Sl 0.4 Mg/Tab Tab) 0.4 mg SL UD PRN PRN Reason: Chest Pain Stop: 06/02/22 23:14 Last Admin: 05/05/22 08:22 Dose: 0.4 mg Ondansetron HCl (Ondansetron 2 Mg Od Tab) 2 mg PO Q12H PRN PRN Reason: Nausea Stop: 06/08/22 11:18 Oxycodone HCl (Oxycodone Hcl Ir 5 Mg Tab (Immediate Release)) 5 mg PO Q4H PRN PRN Reason: Moderate/Severe Pain Stop: 05/17/22 23:14 Last Admin: 05/05/22 02:40 Dose: 5 mg Potassium Chloride (Potassium Chloride 20 Meq/15 Ml Udc) 20 meq PO QAM [facility] Stop: 06/10/22 08:59 Last Admin: 05/12/22 09:25 Dose: 20 meq Sodium Chloride (Sodium Chloride 0.65% Na Soln 45 Ml ([place])) 1 sprays NA PRN PRN PRN Reason: Dryness Stop: 06/04/22 15:43 Warfarin Sodium (Warfarin Sod 2 Mg Tab) 2 mg PO DAILY@1600 [facility] Stop: 06/08/22 15:59 Last Admin: 05/11/22 16:38 Dose: 2 mg (1) CKD (chronic kidney disease) stage 3, GFR 30-59 ml/min Chronic kidney disease stage 3 subtype: unspecified whether 3a or 3b Qualified Code(s): N18.30 - Chronic kidney disease, stage 3 unspecified (2) Atrial fibrillation Atrial fibrillation type: unspecified chronic Qualified Code(s): I48.20 - Chronic atrial fibrillation, unspecified (3) Chest pain Chest pain type: unspecified Qualified Code(s): R07.9 - Chest pain, unspecified
[2022-05-12 13:07] LABS: Prothrombin Time 30.3 Seconds (9.0-12.0)
[2022-05-12 13:12] LABS: BUN Creatinine Ratio 51.1 (10-20); Calcium 9.4 mg/dl (8.5-10.1); Est GFR (African American) 40.7 ml/min; Est GFR (Non-African American) 35.1 ml/min; Phosphorus 3.3 mg/dl (2.5-4.9); Potassium 3.8 mmol/L (3.5-5.1)
--- NOTE | 2022-05-12 14:09 | Nephrology Progress Note ---
Date of Service May 12, 2022 Assessment & Plan Admission and Anticipated Discharge Date Admission Date: May 03, 2022 Subjective Assessment & Plan (1) Hyponatremia: Plan: her sodium was 134 on outside labs 04/25 w/ K 4.3, creat 1.5. presented w/ sNa 123>124>123 > 125 and to 137 today. suspect her ongoing/chronic pericardial effusion drives the recent onset (but not symptomatic and not acute) hyponatremia. mechanism for this not well understood but can relate to increased ADH secretion with increased atrial pressures +/- in this pt's case her uncontrolled pain. -Continue lasix 30 iv bid. Defer to cardiology about changing to oral. na normal now and Creat getting better -daily standing weight -strict I/O -cont FR 1.5L. (2) Pericarditis: Plan: based on large pericardial effusion, chest pain -colchicine and nsaid doses lowered 05/07 Subjective no interval events. Feels better. No 02 and also walked in the hallway Review of Systems Review of Systems: All systems reviewed & are unremarkable except as noted in Subjective Physical Exam Constitutional: well developed, well nourished, + thin and cooperative; no acute distress Eyes: EOM intact bilaterally ENMT: Ears: no external ear abnormality Nose: no external nose abnormality Mouth: + dry oral mucous membranes Neck: no nuchal rigidity Respiratory: normal respiratory effort Auscultation: + diminished lung sounds and + crackles (bibasilar but fewe) Cardiovascular: Rate/Rhythm: regular rate, regular rhythm and + irregularly irregular Heart Sounds: + murmur and + cardiac rub (?) Palpation: + abnormal P MD Extremities: + edema (trace LLE) Gastrointestinal (Abdomen): Inspection/Auscultation: normal bowel sounds Percussion/Palpation: abdomen soft; abdomen nontender Musculoskeletal: Extremities: strength 5/5 throughout Skin: no rashes, warm and dry Psychiatric: Orientation: oriented x 3 Speech: normal rate/rhythm/volume of speech Affect: euthymic affect and + anxious affect Results & Data ([facility]) Vital Signs (Past 12 Hours) Vital Signs Temp Pulse Resp BP BP Pulse Ox O2 Del Method 05/12/22 12:12 36.4 C L 88 16 125/79 93 Room Air 05/12/22 08:48 36.4 C L 91 H 16 124/79 93 Room Air 05/12/22 03:06 36.4 C L 79 16 100/54 L 92 Room Air
[2022-05-12] MEDS: WARFARIN SOD 2 MG TAB PO SCH (16:30)
[2022-05-13] MEDS: IBUPROFEN 200 MG TAB PO SCH ×2 (03:31→14:00)
[2022-05-13 07:20] LABS: INR 2.7 (0.9-1.1); Prothrombin Time 27.7 Seconds (9.0-12.0)
[2022-05-13 07:38] LABS: BUN Creatinine Ratio 48.9 (10-20); Creatinine Clr Calc Pharmacy 26.8 ml/min; Est GFR (African American) 42.1 ml/min; Est GFR (Non-African American) 36.4 ml/min; Phosphorus 3.8 mg/dl (2.5-4.9); Potassium 3.4 mmol/L (3.5-5.1)
[2022-05-13] MEDS ORDERED: POTASSIUM CHLORIDE CRTAB 20 MEQ TABCR PO STA (07:43)
--- NOTE | 2022-05-13 08:22 | Hospitalist Progress Note ---
Date of Service May 13, 2022 Assessment & Plan (1) Chest pain: (2) Atrial fibrillation: (3) Chronic anticoagulation: (4) HTN (hypertension): (5) Pericardial effusion: (6) CKD (chronic kidney disease) stage 3, GFR 30-59 ml/min: (7) Shortness of breath: Plan: Possible related to Large pleural effusion CTA chest showed Marked cardiomegaly with a large pericardial effusion. Moderate sized bilateral pleural effusions with compressive atelectasis/collapse of both lung bases. Received lasix 20mg IV on admission Chest u/s showed Bilateral pleural effusions are re-demonstrated. CRP slightly increased from 10.2 to 10.9 Cardiology consulted Continue colchicine 0.3mg daily and Ibuprofen 200mg TID due to renal function Diuretic management as per nephrology Case discussed with nephrology recommended to decrease to Lasix 30 mg BID Continue monitor closely Stable from cardiology, continue colchicine and NSAID on discharge (at least 4 weeks) Plan to DC on lasix 20 mg daily Hyponatremia Mostly due to volume overload Na 138 today Nephrology consulted Urea discontinued Continue monitor BMP Follow up as outpt Afib Rate control Continue IV heparin drip for now Patient and daughter were thinking about to transition to Eliquis while inpatient I discussed with cardiology to transition to eliquis. Cardiology was against it due to her age and renal function while currently on colchicine and Motrin TID Cardiology said that we can make the change to eliquis outpatient once completes the course of colchicine and motrin Heparin drip discontinued INR 2.7 (on 05/13/22), INR 3 yesterday continue coumadin CKD stage 3 Creatinine 1.3 today (05/13/22) Nephrology on board continue monitor BMP closely Hypokalemia Mostly due to diuretic resolved DVT px On Coumadin Code status Full code Admission and Anticipated Discharge Date Admission Date: May 03, 2022 Subjective Patient was seen and evaluated for follow-up of hyponatremia and pericarditis Sitting up in bed in NAD Pt reports feeling better overall Currently denies any chest pain, palpitation, dizziness, shortness of breath. Review of Systems Review of Systems: All systems reviewed & are unremarkable except as noted in Subjective Physical Exam Physical Exam: General- No acute distress Head- atraumatic Eyes- PERRL, EOMI, ENT- oropharynx clear Neck- supple, no JVD Lungs- clear to auscultation Heart- +murmur, irregular Abdomen- normal bowel sounds, soft, nontender Extremities- no calf tenderness, moves extremities Neuro- alert, oriented x 3; PERRL, EOMI; no facial palsy; no dysarthria, moves extremities Skin- warm & dry Results & Data Results & Data ([facility]) Vital Signs (Past 12 Hours) Vital Signs Temp Pulse Pulse Resp BP BP Pulse Ox 05/13/22 07:57 37.1 C 82 22 119/76 94 05/13/22 03:32 36.4 C L 82 20 119/73 92 05/12/22 23:55 82 05/12/22 23:02 36.7 C 78 14 123/85 94 O2 Del Method 05/13/22 07:57 Room Air 05/13/22 03:32 Room Air 05/12/22 23:55 05/12/22 23:02 Room Air Laboratory Results 05/13/22 05/13/22 05/12/22 Range/Units 06:39 06:39 12:38 PT 27.7 H 30.3 H (9.0-12.0) Seconds INR 2.7 H 3.0 H (0.9-1.1) Sodium 138 (136-145) mmol/L Potassium 3.4 L (3.5-5.1) mmol/L Chloride 98 (98-107) mmol/L Carbon Dioxide 31 (21-32) mmol/L Anion Gap 9 (3-11) BUN 65 H (6-23) mg/dl Creatinine 1.33 H (0.6-1.2) mg/dl Est Cr Clr Drug Dosing 26.8 ml/min Est GFR ( Amer) 42.1 ml/min Est GFR (Non-Af Amer) 36.4 ml/min BUN/Creatinine Ratio 48.9 H (10-20) Glucose 92 (70-99(Fasting)) mg/dl Calcium 9.0 (8.5-10.1) mg/dl Phosphorus 3.8 (2.5-4.9) mg/dl Magnesium 2.0 (1.7-2.4) mg/dl 05/12/22 Range/Units 12:34 PT (9.0-12.0) Seconds INR (0.9-1.1) Sodium 137 (136-145) mmol/L Potassium 3.8 (3.5-5.1) mmol/L Chloride 96 L (98-107) mmol/L Carbon Dioxide 31 (21-32) mmol/L Anion Gap 10 (3-11) BUN 70 H (6-23) mg/dl Creatinine 1.37 H (0.6-1.2) mg/dl Est Cr Clr Drug Dosing 26.0 ml/min Est GFR ( Amer) 40.7 ml/min Est GFR (Non-Af Amer) 35.1 ml/min BUN/Creatinine Ratio 51.1 H (10-20) Glucose 129 H (70-99(Fasting)) mg/dl Calcium 9.4 (8.5-10.1) mg/dl Phosphorus 3.3 (2.5-4.9) mg/dl Magnesium 2.0 (1.7-2.4) mg/dl Medications Administered Current Inpatient Medications Acetaminophen (Acetaminophen 325 Mg Tab) 650 mg PO Q4H PRN PRN Reason: Mild Pain or Fever Stop: 06/02/22 23:14 Last Admin: 05/11/22 22:33 Dose: 650 mg Alprazolam (Alprazolam 0.25 Mg Tablet) 0.125 mg PO TID PRN PRN Reason: Anxiety Stop: 06/02/22 23:14 Last Admin: 05/09/22 21:39 Dose: 0.125 mg Aspirin (Aspirin 81 Mg Ectab) 81 mg PO DAILY [facility] Stop: 06/03/22 08:59 Last Admin: 05/12/22 09:24 Dose: 81 mg Colchicine (Colchicine 0.6 Mg Tab) 0.3 mg PO QAM [facility] Stop: 06/07/22 08:59 Last Admin: 05/12/22 09:23 Dose: 0.3 mg Diltiazem HCl (Diltiazem Hcl 240 Mg Capcr) 240 mg PO DAILY [facility] Stop: 06/03/22 08:59 Last Admin: 05/12/22 09:24 Dose: 240 mg Escitalopram Oxalate (Escitalopram Oxalate 10 Mg Tab) 5 mg PO DAILY [facility] Stop: 06/05/22 08:59 Last Admin: 05/12/22 09:23 Dose: 5 mg Famotidine (Famotidine 10 Mg Tablet) 10 mg PO DAILY [facility] Stop: 06/03/22 08:59 Last Admin: 05/12/22 09:23 Dose: 10 mg Furosemide (Furosemide 40 Mg/4 Ml Vial) 30 mg IV BID17 [facility] Stop: 06/09/22 16:59 Last Admin: 05/12/22 18:02 Dose: 30 mg Hydrocortisone (Hydrocortisone Hc 2.5% Crm 30gm Tube) 1 appln EXT BID PRN PRN Reason: Hemorrhoids Stop: 06/07/22 12:19 Last Admin: 05/10/22 10:11 Dose: 1 appln Ibuprofen (Ibuprofen 200 Mg Tab) 200 mg PO Q8H ANA MARÍA Stop: 06/06/22 18:59 Last Admin: 05/13/22 03:31 Dose: 200 mg Metoprolol Succinate (Metoprolol Succ 25mg Ext Rel Tab) 25 mg PO DAILY [facility]ÍA Stop: 06/03/22 08:59 Last Admin: 05/12/22 09:24 Dose: 25 mg Metoprolol Succinate (Metoprolol Succ 25mg Ext Rel Tab) 12.5 mg PO PM ANA MARÍA Stop: 06/02/22 23:14 Last Admin: 05/12/22 19:37 Dose: 12.5 mg Multivitamins (Multivitamin Tab) 1 tab PO DAILY [facility] Stop: 06/03/22 08:59 Last Admin: 05/12/22 09:23 Dose: 1 tab Nitroglycerin (Nitroglycerin Sl 0.4 Mg/Tab Tab) 0.4 mg SL UD PRN PRN Reason: Chest Pain Stop: 06/02/22 23:14 Last Admin: 05/05/22 08:22 Dose: 0.4 mg Ondansetron HCl (Ondansetron 2 Mg Od Tab) 2 mg PO Q12H PRN PRN Reason: Nausea Stop: 06/08/22 11:18 Oxycodone HCl (Oxycodone Hcl Ir 5 Mg Tab (Immediate Release)) 5 mg PO Q4H PRN PRN Reason: Moderate/Severe Pain Stop: 05/17/22 23:14 Last Admin: 05/05/22 02:40 Dose: 5 mg Potassium Chloride (Potassium Chloride 20 Meq/15 Ml Udc) 20 meq PO QAM [facility] Stop: 06/10/22 08:59 Last Admin: 05/12/22 09:25 Dose: 20 meq Sodium Chloride (Sodium Chloride 0.65% Na Soln 45 Ml (Register)) 1 sprays NA PRN PRN PRN Reason: Dryness Stop: 06/04/22 15:43 Warfarin Sodium (Warfarin Sod 2 Mg Tab) 2 mg PO DAILY@1600 ANA MARÍA Stop: 06/08/22 15:59 Last Admin: 05/12/22 16:30 Dose: 2 mg (1) Chest pain Chest pain type: unspecified Qualified Code(s): R07.9 - Chest pain, unspecified (2) Atrial fibrillation Atrial fibrillation type: unspecified chronic Qualified Code(s): I48.20 - Chronic atrial fibrillation, unspecified (3) CKD (chronic kidney disease) stage 3, GFR 30-59 ml/min Chronic kidney disease stage 3 subtype: unspecified whether 3a or 3b Qualified Code(s): N18.30 - Chronic kidney disease, stage 3 unspecified
--- NOTE | 2022-05-13 08:33 | Discharge Summary ---
Date of Service May 13, 2022 Admission HPI Per Admitting Provider This is an 86yo F with a PMH of PAF anticoagulated on warfarin, pulmonary hypertension, prediabetes, exudative age-related macular degeneration, HTN, asymptomatic carotid artery stenosis, CKD stage IIIb, GERD who presents to ED with chest pain x 1 week. Patient was admitted in February 2022 for intermittent chest pain and CT chest revealed moderate pericardial effusion. Was discharged on colchicine for possible pericarditis and has completed course. Has been evaluated by Dr. Smith with recommendation for pacemaker but placement was delayed due to recent pericarditis. Was admitted at [facility] 04/18-04/19 for chest pain and a fib with RVR. Pericardial effusion on repeat echo was noted to be substantially improved from previous imaging. Continues to have intermittent CP and SOB per outpatient notes. Seen by PRISCILA Baird on 04/21/22. Plan for EP follow up and recommended counseling for treatment of generalized anxiety. Patient was experiencing dull intermittent chest pain over the past week that was more severe earlier today. Pain is L sided and non-radiating. Also endorsing R sided flank pain. Both have resolved by time of evaluation in ED. Endorses feeling very anxious. Feels short of breath. No fever, chills, wheezing, nausea, vomiting, abdominal pain, dysuria, diarrhea or constipation. Admission Exam Per Admitting Provider General Appearance:WD/WN, vitals as above, NAD, sitting up in bed, pleasant, anxious, oxygen mask in place Head: normocephalic, atraumatic Eyes:normal inspection, PERRL, conjunctivae normal, anicteric sclerae ENT: external ear and nose normal, oropharynx normal Neck: normal visual inspection, trachea midline, no thyromegaly Respiratory:normal respiratory effort, coarse lung sounds at bases, no wheezing or rhonchi. No accessory muscle use Cardiovascular: irregular rate & rhythm, no murmur, normal peripheral pulses, no BLE edema. Vessels: no JVD Chest: normal inspection of chest Abdomen/GI: normal bowel sounds, soft, nontender, no hepatosplenomegaly Extremities/Musculoskeletal: no cyanosis or clubbing, extremities motor strength 5/5 Neurologic: PERRL, EOMI, accommodation nl, no face palsy, no dysarthria, CN's II-XI intact bilaterally and moves all extremities Psychiatric:A+Ox3, anxious Skin: no rashes, normal color, warm/dry Principal Diagnosis Pericardial effusion, pleural effusion, hyponatremia Discharge Exam General- No acute distress Head- atraumatic Eyes- PERRL, EOMI, ENT- oropharynx clear Neck- supple, no JVD Lungs- clear to auscultation, somewhat diminished at bases Heart- +murmur, irregular Abdomen- normal bowel sounds, soft, nontender Extremities- no calf tenderness, moves extremities Neuro- alert, oriented x 3; PERRL, EOMI; no facial palsy; no dysarthria, moves extremities Skin- warm & dry Discharge Data Allergies Allergy/AdvReac Type Severity Reaction Status Date / Time Sulfa (Sulfonamide AdvReac Mild nausea Verified 05/03/22 19:40 Antibiotics) Consultations 05/03/22 20:33 ED Decision to Admit Stat 05/03/22 23:15 Consult Cardiology Routine 05/04/22 11:42 Consult Nephrology Routine Ordered Studies 05/03/22 18:00 CT abd pelvis IV con only Stat FINDINGS: The visualized heart is markedly enlarged. There is a moderate pericardial effusion. There are small bilateral pleural effusions. Bibasilar densities favor atelectasis. This is better appreciated on the same day chest CT. No pneumoperitoneum. No pneumatosis. No fractures within the visualized osseous structures. Mild body wall edema is noted. Distended IVC and hepatic veins with heterogeneous enhancement of the liver. This suggests cardiac congestion. No hepatic masses. The main portal vein is patent. There is significant pericholecystic edema. No definite gallstones. The spleen and adrenal glands are unremarkable. Near complete fatty replacement of the pancreas. No retroperitoneal lymphadenopathy. Moderate calcified plaque within the normal caliber abdominal aorta. Moderate bilateral cortical renal thinning. There are few small bilateral renal hypodense lesions. These likely represent cysts. No ureteral stones. No hydronephrosis. No pelvic lymphadenopathy. The bladder is not well-distended but appears unremarkable. Prior hysterectomy. Trace pelvic free fluid. No bowel wall thickening or obstruction. The appendix is not identified and reportedly surgically absent. IMPRESSION: 1. No bowel wall thickening or obstruction. 2. Severe cardiomegaly with a moderate pericardial effusion and small bilateral pleural effusions. This is better present on the same day chest CT. 3. Distended intrahepatic IVC and hepatic veins likely due to the right-sided heart failure/dysfunction. 4. Significant pericholecystic edema. This is also likely due to the patient's cardiac congestion. Acute cholecystitis is considered less likely. Clinical correlation recommended for. Trace pelvic free fluid. 5. Mild body wall edema. CT angio chest PE protocol Stat FINDINGS: Vasculature: There is homogeneous perfusion of the pulmonary vasculature bilaterally. No intraluminal filling defects or evidence for pulmonary embolus is seen. Airway: The airway is clear. No endobronchial lesion is identified. Lungs and pleural: Compared to the chest radiograph, there are actually a mode rate-sized bilateral pleural effusions with compressive atelectasis/collapse involving both lower lobes. The lungs are otherwise clear of acute alveolar opacities, air bronchograms or pulmonary nodules. Mediastinum: There is no evidence for pathologic adenopathy. The heart is markedly enlarged. There is a large pericardial effusion present. The thoracic aorta is within normal limits. Osseous structures: There is no acute osseous pathology. Degenerative changes are present. Impression: 1. No CTA evidence for pulmonary embolus. 2. Marked cardiomegaly with a large pericardial effusion. 3. Moderate sized bilateral pleural effusions with compressive atelectasis/collapse of both lung bases. CT head/brain wo con Stat Findings: The paranasal sinuses and mastoid air cells are clear. The calvarium and skull base are intact. There is no mass, hematoma, midline shift, acute infarct. White matter hypodensity is nonspecific but suggestive of microvascular ischemic change. The ventricles and sulci demonstrate mild age-related involutional changes. Impression: No acute intracranial abnormality. 05/04/22 11:25 US effusion-chest/mediastinum Routine FINDINGS: Bilateral minimally complex pleural effusions are present. The right pleural effusion has a volume of 322 mL and the left has a volume of 399 mL IMPRESSION: Bilateral pleural effusions are redemonstrated. Hospital Course (1) Chest pain: (2) Atrial fibrillation: (3) Chronic anticoagulation: (4) HTN (hypertension): (5) Pericardial effusion: (6) CKD (chronic kidney disease) stage 3, GFR 30-59 ml/min: (7) Shortness of breath: Possible related to Large pleural effusion CTA chest showed Marked cardiomegaly with a large pericardial effusion. Moderate sized bilateral pleural effusions with compressive atelectasis/collapse of both lung bases. Received lasix 20mg IV on admission Chest u/s showed Bilateral pleural effusions are re-demonstrated. Echo -Small pericardial effusion. Circumferential pericardial effusion is noted. There are no echocardiographic indications of cardiac tamponade. Normal LV chamber size and wall thickness. Low normal LV systolic function with paradoxical septal wall motion consistent with RV pressure/volume overload, otherwise normal wall motion. Right ventricular cavity is enlarged. RV systolic function is reduced. Aortic valve sclerosis moderate, without significant aortic valvular stenosis. There is borderline mitral valve prolapse. There is mild mitral regurg. Severely dilated tricuspid annulus with torrential tricuspid regurg. Severe biatrial enlargement. PA systolic pressure of 34 mmHg assuming right atrial pressure of 15 mmHg. CRP slightly increased from 10.2 to 10.9 Cardiology consulted Continue colchicine 0.3mg daily and Ibuprofen 200mg TID due to renal function Diuretic management as per nephrology Case discussed with nephrology recommended to decrease to Lasix 30 mg BID Continue monitor closely Stable from cardiology, continue colchicine and NSAID on discharge (at least 4 weeks) Plan to DC on lasix 20 mg daily Hyponatremia Mostly due to volume overload Na 138 today Nephrology consulted Urea discontinued Continue monitor BMP Follow up as outpt Afib Rate control Continue IV heparin drip for now Patient [facility] discussed with [facility] to transition to eliquis. Cardiology was against it due to her age and renal function while currently on colchicine and Motrin TID Cardiology said that we can make the change to eliquis outpatient once completes the course of colchicine and motrin Heparin drip discontinued INR 2.7 (on 05/13/22), INR 3 yesterday continue coumadin CKD stage 3 Creatinine 1.3 today (05/13/22) Nephrology on board continue monitor BMP closely Hypokalemia Mostly due to diuretic resolved Total Time Total Time Spent Total Time Spent (In Minutes): 40 Discharge Plan Discharge Items Patient Disposition: Home - Home Health Services Reason For Visit: CHF, HYPONATREMIA Discharge Diagnosis: Pericardial effusion, pleural effusion, hyponatremia Activity: Per Instructions section Non-emergency contact: Primary Care Provider and Clearance Rep Call non-emergency contact if: you have any medication questions and your symptoms worsen Follow-up/Referrals: Liz Vieyra PA-C [Outside Practitioners] - (Date & Time 05/16/2022 3:00 PM Provider Liz Vieyra PA-C Department Rheumatology [facility] ) Dena Fermin MD [Primary Care Provider] - (Date & Time 05/17/2022 11:10 AM Provider Allie Eric DO Department Family Medicine [facility] ) Diet: Regular Fluids: 1500ml (6 cups) Addtl Attending Provider Instructions: Follow-up with the primary care provider, the appointment was scheduled for you for May 17. Take Lasix 20 mg daily. Take colchicine and ibuprofen as prescribed, for at least next 4 weeks. Adhere to fluid restriction, 1.5 L a day. Check your sodium level and kidney function in next 1 to 2 weeks. Pending Studies at Discharge: No Stand-Alone Forms: My [facility] PrePay, Smoking Cessation Medications and DC Order Prescriptions: New ibuprofen 200 mg Tablet 200 mg PO Q8H 28 Days Qty: 84 0RF colchicine [Colcrys] 0.6 mg Tablet 0.3 mg PO QAM Qty: 30 0RF Continued multivitamin Tablet 1 tab PO DAILY calcium 600 mg Capsule 1,200 mg PO DAILY diltiazem HCl 240 mg capsule,extended release 24hr 240 mg PO DAILY aspirin 81 mg Tablet,Delayed Release (Dr/Ec) 81 mg PO .ON HOLD acetaminophen 500 mg Tablet 500 - 1,000 mg PO Q6H PRN (Reason: Pain) alprazolam 0.25 mg Tablet 0.125 - 0.25 mg PO TID PRN (Reason: Anxiety) warfarin 2 mg tablet 3 mg PO DIRECTED Rx Instructions: .ON HOLD. DIRECTED BY [facility] metoprolol succinate 25 mg Tablet Extended Release 24 Hr 25 mg PO DAILY metoprolol succinate 25 mg tablet extended release 24 hr 12.5 mg PO PM omega-3 fatty acids Capsule 1,000 mg PO .ON HOLD Artificial Tears([id number]) 0.1-0.3 % drops 2 drp OPHTHALMIC (EYE) TID PRN (Reason: Dry Eye(S)) famotidine 10 mg Tablet 10 mg PO DAILY cholecalciferol (vitamin D3) [Vitamin D3] 10 mcg (400 unit) Tablet 10 mcg PO DAILY escitalopram oxalate 10 mg tablet 5 mg PO DAILY Rx Instructions: AFTER 1ST Peroxide 1/2 Strength 1 dose buccal DIRECTED PRN (Reason: SORES) Changed furosemide 20 mg Tablet 20 mg PO DAILY Qty: 30 0RF Discharge Orders: Discharge Order (Routine); Ordered 05/13/22 Ordered By: Andrew Acosta Admission Data Admit Date/Time: 05/03/22 21:58 Attending Provider: Andrew Acosta Admit Provider: Wyatt Tracy Primary Care Provider: Dena Fermin Other Providers: Wyatt Tracy ; Amos Baeza ; Georges Krishnamurthy ; Toni Ortiz ; Matthew Eugene ; Ede Laurent ; Toy Baird ; Yue Martinez ; Mago Smith ; Grace Mejia ; Prince Wyatt ; Hilaria Smith ; Todd John
[2022-05-13] MEDS: COLCHICINE 0.6 MG TAB PO SCH (08:48)
[2022-05-13] MEDS: ESCITALOPRAM OXALATE 10 MG TAB PO SCH (08:49)
[2022-05-13] MEDS: dilTIAZem HCL 240 MG CAPCR PO SCH (08:49)
[2022-05-13] MEDS: FAMOTIDINE 10 MG TABLET PO SCH (08:50)
[2022-05-13] MEDS: METOPROLOL SUCC 25MG EXT REL TAB PO SCH (08:50)
[2022-05-13] MEDS: MULTIVITAMIN TAB PO SCH (08:51)
[2022-05-13] MEDS: ASPIRIN 81 MG ECTAB PO SCH (08:51)
[2022-05-13] MEDS: FUROSEMIDE 40 MG/4 ML VIAL IV SCH ×2 (08:51→11:29)
[2022-05-13] MEDS: POTASSIUM CHLORIDE 20 MEQ/15 ML UDC PO SCH (11:29)
== END 2022-05-13 14:30 | disposition home health service (06) | DRG 315 ==
LOC: ED 17:36 → 2S 21:58 → SUATTDRO 21:58 → 2S 22:50

== ENCOUNTER 2022-07-08 16:55 | Inpatient (IN) ==
[2022-07-08] MEDS ORDERED: SODIUM CHLORIDE 0.9% 500 ML IV SCH (17:00)
[2022-07-08] MEDS ORDERED: METOPROLOL TARTRATE 1 MG/ML VIAL IV STA ×2 (17:01→19:02)
--- NOTE | 2022-07-08 17:11 | Emergency Department Note ---
Impression & Plan Atrial fibrillation with rapid ventricular response, Pleural effusion, Heart palpitations, Hypoxia ED Provider Note NAME: JOHNY BONE AGE: 87 SEX: F : 1935 ARRIVES VIA: Ambulance INFORMANT: Patient, EMS ED PROVIDER(S): Tim Carroll DO CHIEF COMPLAINT: Palpitations HPI: The patient is an 87-year-old female who presented to the emergency department by ambulance for fast heart rate. The patient has a history of atrial fibrillation. She takes beta-blockers as well as warfarin. She was evaluated by her home health nurse today and was felt to be in rapid atrial fibrillation. She was sent to the emergency department for further evaluation. The patient has no complaints at this time. She denies having any shortness of breath. Reportedly she had a low oxygen saturation prior to arrival by the visiting nurse. She denies having any abdominal pain. She has had no chest pain. She denies having any lower extremity swelling over baseline but does have abnormal swelling in the legs on a daily basis. She does normally have to sleep sitting upright. She has had an increase in her beta-alon dose recently. She has been taking her medications as prescribed. ROS: See above HPI for pertinent positives & negatives. A total of 10 systems reviewed and were otherwise negative. PAST MEDICAL HISTORY: See Below PAST SURGICAL HISTORY: See Below FAMILY HISTORY: See Below SOCIAL HISTORY: See Below HOME MEDICATIONS: See Below ALLERGIES: See Below VITALS: See Below PHYSICAL EXAMINATION: GENERAL: Patient is awake alert in no acute distress patient is resting comfortably and showing no signs of anxiety EYES: The conjunctivae are clear. The pupils are round and reactive. EARS, NOSE, MOUTH AND THROAT: The nose is without any evidence of any deformity. Mucous membranes are moist. Tongue is midline. NECK: The neck is nontender and supple. RESPIRATORY: Normal respiratory effort is noted there is no evidence of wheezing rhonchi or rales CARDIOVASCULAR: Tachycardic and irregular heart sounds were noted auscultation. No definite murmur was noted. GASTROINTESTINAL: The abdomen is soft. Abdomen is nontender. MUSCULOSKELETAL/EXTREMITIES: There is no evidence of gross deformity full range of motion is noted in the hips and shoulders. SKIN: Venous stasis changes were noted. Pedal edema was noted bilaterally. Skin is warm and dry. NEUROLOGIC: Patient is awake alert and oriented x3 MEDICAL DECISION MAKING: The patient is an 87-year-old female who presented to the emergency department for an evaluation of palpitations. The patient was found have hypoxia as well. She was treated with a small fluid bolus as well as IV Lopressor and IV Cardizem. On reevaluation she was feeling much better. Her pulse rate would fluctuate and A. fib with RVR was noted on reevaluation. I was concerned about the patient's overall condition. I discussed patient's laboratory and radiographic studies with her and her family member. Ultimately I discussed this case with the on-call [facility] hospitalist. They have agreed in the emergency department for further management and disposition. Triage Nursing notes reviewed. Prior medical records reviewed Vital Signs: reviewed and remarkable for no significant abnormalities Differential diagnosis: Premature contractions, electrolyte abnormality, cardiac dysrhythmia, thyroid dysfunction, pulmonary embolism, infection, gastrointestinal, as well as other pathologies. ER treatment provided: See below Diagnostics interpreted by me: ECG: EG was obtained in the emergency department. My interpretation is atrial fibrillation at 122 bpm. PVCs were noted. No acute ST segment abnormalities noted. This was compared to a tracing from May 05, 2022. No changes were noted. Cardiac Monitoring: An order was placed for continuous cardiac monitoring. The monitor shows a rate of 66 bpm with sinus rhythm. Laboratory studies: As stated above and show below. Imaging studies: See below Consultation(s): I discussed this case with Dr. Pulido ED COURSE: Procedures: none Critical Care: I have personally spent greater than 40 minutes of critical care time in the direct management of this patient. This includes bedside care, interpretation of diagnostic studies, and testing, discussion with consultants, patient, and family members, and other required patient management activities. This 40 minutes is in excess of all separately billable procedures. Past Med/Surg History Medical History Atrial fibrillation Carotid artery stenosis, asymptomatic Chest pain Chronic anticoagulation CKD (chronic kidney disease) stage 3, GFR 30-59 ml/min Elevated troponin GERD (gastroesophageal reflux disease) HTN (hypertension) Macular degeneration Pericardial effusion Surgical History History of appendectomy History of colonoscopy History of cystoscopy History of total hysterectomy Family History Son Colorectal cancer Father Heart disease Silicosis Mother Hypertension Stroke Social History Smoking Status: Never smoker Second Hand Exposure: No; Hx Alcohol Use: No Hx Substance Use: No Preferred Language: German Communication Ability: Effective Brush Hand Required: No Beliefs That Will Affect Care: None marital status: / Current Living Situation: Alone Current Living Situation Comment: house, 1 floor How many Children do You have: 5 Feels Safe at Home: Yes Assistive Devices: None Allergies Allergies Allergy/AdvReac Type Severity Reaction Status Date / Time Sulfa (Sulfonamide AdvReac Mild nausea Verified 05/03/22 19:40 Antibiotics) Home Meds Home Medications Medication Instructions Recorded Confirmed acetaminophen 500 mg tablet 500 - 1,000 mg PO Q6H PRN Pain 02/10/22 05/03/22 alprazolam 0.25 mg tablet 0.125 - 0.25 mg PO TID PRN Anxiety 02/10/22 05/03/22 aspirin 81 mg tablet,delayed 81 mg PO .ON HOLD 02/10/22 05/03/22 release calcium 600 mg capsule 1,200 mg PO DAILY 02/10/22 05/03/22 dextran 70-hypromellose 0.1 %-0.3 2 drp ophthalmic (eye) TID PRN Dry 02/10/22 05/03/22 % eye drops (Artificial Tears Eye(S) (dextran 70-hypromellose)) diltiazem HCl 240 mg 240 mg PO DAILY 02/10/22 05/03/22 capsule,extended release 24 hr metoprolol succinate 25 mg 12.5 mg PO PM 02/10/22 05/03/22 tablet,extended release 24 hr metoprolol succinate 25 mg 25 mg PO DAILY 02/10/22 05/03/22 tablet,extended release 24 hr multivitamin 1 tab PO DAILY 02/10/22 05/03/22 omega-3 fatty acids 1,000 mg PO .ON HOLD 02/10/22 05/03/22 warfarin 2 mg tablet 3 mg PO DIRECTED 02/10/22 05/03/22 Peroxide 1/2 Strength 1 dose buccal DIRECTED PRN SORES 05/03/22 05/03/22 cholecalciferol (vitamin D3) 10 10 mcg PO DAILY 05/03/22 05/03/22 mcg (400 unit) tablet (Vitamin D3) escitalopram oxalate 10 mg tablet 5 mg PO DAILY 05/03/22 05/03/22 famotidine 10 mg tablet 10 mg PO DAILY 05/03/22 05/03/22 Previous Rx's Medication Instructions Recorded colchicine 0.6 mg tablet (Colcrys) 0.3 mg PO QAM #30 tabs 05/13/22 furosemide 20 mg tablet 20 mg PO DAILY #30 tabs 05/13/22 potassium chloride 10 mEq 10 meq PO DAILY #14 caps 05/13/22 capsule,extended release Results & Data (ED) Vital Signs Vital Signs - 24 hr 07/08/22 17:08 07/08/22 17:18 07/08/22 17:26 Temperature 36.5 C Temperature Source Oral Pulse Rate 111 H 124 H 124 H Pulse Rate [Radial] Pulse Rhythm Regular Irregular Pulse Rhythm [Radial] Pulse Strength Normal Pulse Strength [Radial] Respiratory Rate 24 24 Respiratory Effort / Characteristics Non-Labored Spontaneous Respiratory Depth Normal Respiratory Pattern Regular Blood Pressure 133/104 H 133/105 H Blood Pressure [Right Arm] Blood Pressure Mean 114 Blood Pressure Mean [Right Arm] Blood Pressure Position Sitting Blood Pressure Position [Right Arm] Pulse Oximetry 92 92 Oxygen Delivery Method Room Air Room Air Sepsis Recent Fever Within 48 Hours No Sepsis New/Unexplained Change in Mental Status No Sepsis Action Taken by Nursing Physician Notified 07/08/22 17:27 07/08/22 17:28 07/08/22 19:00 Temperature Temperature Source Pulse Rate Pulse Rate [Radial] 124 H 86 119 H Pulse Rhythm Pulse Rhythm [Radial] Regular Irregular Pulse Strength Pulse Strength [Radial] Normal Normal Respiratory Rate 24 24 16 Respiratory Effort / Characteristics Non-Labored Spontaneous Non-Labored Spontaneous Respiratory Depth Normal Normal Respiratory Pattern Regular Regular Blood Pressure Blood Pressure [Right Arm] 133/105 H 128/98 128/91 Blood Pressure Mean Blood Pressure Mean [Right Arm] 114 108 103 Blood Pressure Position Blood Pressure Position [Right Arm] Sitting Sitting Pulse Oximetry 92 92 91 Oxygen Delivery Method Room Air Room Air Room Air Sepsis Recent Fever Within 48 Hours Sepsis New/Unexplained Change in Mental Status Sepsis Action Taken by Nursing 07/08/22 19:14 07/08/22 20:42 07/08/22 21:00 Temperature Temperature Source Pulse Rate 119 H Pulse Rate [Radial] 103 H 66 Pulse Rhythm Pulse Rhythm [Radial] Pulse Strength Pulse Strength [Radial] Respiratory Rate 18 18 Respiratory Effort / Characteristics Non-Labored Spontaneous Respiratory Depth Normal Respiratory Pattern Blood Pressure 128/91 Blood Pressure [Right Arm] 121/88 116/67 Blood Pressure Mean Blood Pressure Mean [Right Arm] 99 83 Blood Pressure Position Blood Pressure Position [Right Arm] Pulse Oximetry 90 90 Oxygen Delivery Method Room Air Room Air Sepsis Recent Fever Within 48 Hours Sepsis New/Unexplained Change in Mental Status Sepsis Action Taken by Jail Medications Current Medication List: was personally reviewed by me Laboratory Data Attestation: I reviewed the patient's lab results. Result diagrams: 07/08/22 17:05 07/08/22 17:05 Lab Results 07/08/22 07/08/22 07/08/22 Range/Units 17:05 17:05 17:05 WBC 7.35 (4.8-10.8) K/ul RBC 4.40 (3.93-5.22) M/uL Hgb 14.1 (12.0-16.0) g/dl Hct 41.1 (34.1-44.9) % MCV 93.4 (80.0-100.0) fL MCH 32.0 (25.0-34.0) pg MCHC 34.3 (32.0-36.0) g/dL RDW Std Deviation 55.1 H (36.4-46.3) fL RDW Coeff of Lonny 16.2 H (11.5-14.5) % Plt Count 135 (130-400) K/uL MPV 13.8 H (9.4-12.3) fL Immature Gran % (Auto) 0.4 % Neut % (Auto) 72.7 % Lymph % (Auto) 13.2 % Arroyo % (Auto) 10.7 % Eos % (Auto) 2.3 % Baso % (Auto) 0.7 % Neut # (Auto) 5.34 (1.4-6.5) K/uL Lymph # (Auto) 0.97 L (1.2-3.4) K/uL Arroyo # (Auto) 0.79 (0.24-0.82) K/uL Eos # (Auto) 0.17 (0-0.50) K/uL Baso # (Auto) 0.05 (0-0.2) K/uL Immature Gran # (Auto) 0.03 H (0.00-0.02) K/uL PT 23.7 H (9.0-12.0) Seconds INR 2.3 H (0.9-1.1) APTT 39.0 H (21.0-31.0) Seconds PTT Ratio 1.4 VBG pH (7.36-7.41) VBG pCO2 (38-50) mmHg VBG pO2 mmHg VBG HCO3 mmol/L VBG O2 Saturation % VBG Base Excess mEq/L Sodium 133 L (136-145) mmol/L Potassium 4.4 (3.5-5.1) mmol/L Chloride 104 (98-107) mmol/L Carbon Dioxide 18 L (21-32) mmol/L Anion Gap 11 (3-11) BUN 43 H (6-23) mg/dl Creatinine 1.26 H (0.6-1.2) mg/dl Est Cr Clr Drug Dosing Not Reportable Est GFR ( Amer) 44.7 ml/min Est GFR (Non-Af Amer) 38.5 ml/min BUN/Creatinine Ratio 34.1 H (10-20) Glucose 102 H (70-99(Fasting)) mg/dl Calcium 9.4 (8.5-10.1) mg/dl Magnesium 2.2 (1.7-2.4) mg/dl Total Bilirubin 0.8 (0.2-1.0) mg/dl AST 28 (13-39) U/L ALT 15 (7-52) U/L Alkaline Phosphatase 209 H (34-104) U/L Troponin I High Sens 43.1 H (0-14) pg/ml Total Protein 7.8 (6.0-8.3) gm/dl Albumin 4.2 (3.4-5.0) gm/dl Globulin 3.6 (2.5-4.0) gm/dl Albumin/Globulin Ratio 1.2 (0.9-2) TSH (0.300-4.500) uIu/ml SARS-CoV-2 (PCR) (Negative) Influenza Type A (PCR) (Neg) Influenza Type B (PCR) (Neg) RSV (RT-PCR) (Neg) 07/08/22 07/08/22 07/08/22 Range/Units 17:05 17:46 18:00 WBC (4.8-10.8) K/ul RBC (3.93-5.22) M/uL Hgb (12.0-16.0) g/dl Hct (34.1-44.9) % MCV (80.0-100.0) fL MCH (25.0-34.0) pg MCHC (32.0-36.0) g/dL RDW Std Deviation (36.4-46.3) fL RDW Coeff of Lonny (11.5-14.5) % Plt Count (130-400) K/uL MPV (9.4-12.3) fL Immature Gran % (Auto) % Neut % (Auto) % Lymph % (Auto) % Arroyo % (Auto) % Eos % (Auto) % Baso % (Auto) % Neut # (Auto) (1.4-6.5) K/uL Lymph # (Auto) (1.2-3.4) K/uL Arroyo # (Auto) (0.24-0.82) K/uL Eos # (Auto) (0-0.50) K/uL Baso # (Auto) (0-0.2) K/uL Immature Gran # (Auto) (0.00-0.02) K/uL PT (9.0-12.0) Seconds INR (0.9-1.1) APTT (21.0-31.0) Seconds PTT Ratio VBG pH 7.38 (7.36-7.41) VBG pCO2 33 L (38-50) mmHg VBG pO2 31 mmHg VBG HCO3 20 mmol/L VBG O2 Saturation < 60.0 % VBG Base Excess -4.7 mEq/L Sodium (136-145) mmol/L Potassium (3.5-5.1) mmol/L Chloride (98-107) mmol/L Carbon Dioxide (21-32) mmol/L Anion Gap (3-11) BUN (6-23) mg/dl Creatinine (0.6-1.2) mg/dl Est Cr Clr Drug Dosing Est GFR ( Amer) ml/min Est GFR (Non-Af Amer) ml/min BUN/Creatinine Ratio (10-20) Glucose (70-99(Fasting)) mg/dl Calcium (8.5-10.1) mg/dl Magnesium (1.7-2.4) mg/dl Total Bilirubin (0.2-1.0) mg/dl AST (13-39) U/L ALT (7-52) U/L Alkaline Phosphatase (34-104) U/L Troponin I High Sens (0-14) pg/ml Total Protein (6.0-8.3) gm/dl Albumin (3.4-5.0) gm/dl Globulin (2.5-4.0) gm/dl Albumin/Globulin Ratio (0.9-2) TSH 2.009 (0.300-4.500) uIu/ml SARS-CoV-2 (PCR) NEGATIVE (Negative) Influenza Type A (PCR) Negative (Neg) Influenza Type B (PCR) Negative (Neg) RSV (RT-PCR) Negative (Neg) Administered Medications Discontinued Medications Diltiazem HCl (Diltiazem Hcl 5 Mg/Ml 5 Ml Vial) 10 mg IV NOW STA Stop: 07/08/22 20:23 Last Admin: 07/08/22 20:30 Dose: 10 mg Documented By: AN Co-signed By: FREDDY Sodium Chloride (Nss) 500 mls @ 999 mls/hr IV .Q31M ANA MARÍA Stop: 07/08/22 17:30 Last Infusion: 07/08/22 18:14 Dose: 0 mls/hr Documented By: Admin: 07/08/22 17:11 Dose: 999 mls/hr Documented By: DAMIAN Metoprolol Tartrate (Metoprolol Tartrate 1 Mg/Ml Vial) 5 mg IV NOW STA Stop: 07/08/22 17:02 Last Admin: 07/08/22 17:08 Dose: 5 mg Documented By: DAMIAN Metoprolol Tartrate (Metoprolol Tartrate 1 Mg/Ml Vial) 5 mg IV NOW STA Stop: 07/08/22 19:03 Last Admin: 07/08/22 19:14 Dose: 5 mg Documented By: AN Imaging Data Radiologist's Impression: Chest X-Ray 07/08/22 17:00 XR chest 1V portable CLINICAL HISTORY: weakness TECHNIQUE: Single frontal radiograph of the chest was obtained. Comparison: Comparison is made to chest radiograph 05/03/2022 FINDINGS: No lines and tubes are seen. Cardiomegaly is noted. The lungs are clear. Small right pleural effusion is seen. IMPRESSION: Small right pleural effusion. Stable cardiomegaly. Previously noted left effusion is not seen on today's exam. ACT 112: Negative or not required by law. Electronically signed by: Miguel Leggett M.D. 07/08/2022 5:40 PM Discharge Plan Visit Data Chief Complaint: Tachycardia Stated Complaint: TACHYCARIDA, HYPOXIA ED Provider: Tim Carroll Discharge Problem: Atrial fibrillation with rapid ventricular response, Pleural effusion, Heart palpitations, Hypoxia Patient Disposition: Being Evaluated by Hospitalist Forms Stand Alone Forms: My [facility] Prescriptions Prescriptions: No Action multivitamin Tablet 1 tab PO DAILY calcium 600 mg Capsule 1,200 mg PO DAILY diltiazem HCl 240 mg capsule,extended release 24hr 240 mg PO DAILY aspirin 81 mg Tablet,Delayed Release (Dr/Ec) 81 mg PO .ON HOLD acetaminophen 500 mg Tablet 500 - 1,000 mg PO Q6H PRN (Reason: Pain) alprazolam 0.25 mg Tablet 0.125 - 0.25 mg PO TID PRN (Reason: Anxiety) warfarin 2 mg tablet 3 mg PO DIRECTED Rx Instructions: .ON HOLD. DIRECTED BY [facility] metoprolol succinate 25 mg Tablet Extended Release 24 Hr 25 mg PO DAILY metoprolol succinate 25 mg tablet extended release 24 hr 12.5 mg PO PM omega-3 fatty acids Capsule 1,000 mg PO .ON HOLD Artificial Tears([id number]) 0.1-0.3 % drops 2 drp OPHTHALMIC (EYE) TID PRN (Reason: Dry Eye(S)) famotidine 10 mg Tablet 10 mg PO DAILY cholecalciferol (vitamin D3) [Vitamin D3] 10 mcg (400 unit) Tablet 10 mcg PO DAILY escitalopram oxalate 10 mg tablet 5 mg PO DAILY Rx Instructions: AFTER 1ST Peroxide 1/2 Strength 1 dose buccal DIRECTED PRN (Reason: SORES) colchicine [Colcrys] 0.6 mg Tablet 0.3 mg PO QAM Qty: 30 0RF furosemide 20 mg Tablet 20 mg PO DAILY Qty: 30 0RF potassium chloride 10 mEq capsule, extended release 10 meq PO DAILY Qty: 14 0RF Referrals Referrals: Dena Fermin MD [Primary Care Provider] -
[2022-07-08 17:16] LABS: Hematocrit (blood only) 41.1 % (34.1-44.9); Hemoglobin 14.1 g/dl (12.0-16.0); Mean Corpuscular Hgb Conc 34.3 g/dL (32.0-36.0); Mean Corpuscular Volume 93.4 fL (80.0-100.0); RDW Coefficient of Variation 16.2 % (11.5-14.5); RDW Standard Deviation 55.1 fL (36.4-46.3); White Blood Count 7.35 K/ul (4.8-10.8)
[2022-07-08 17:21] LABS: Basophils # (auto) 0.05 K/uL (0-0.2); Basophils % (auto) 0.7 %; Eosinophils # (auto) 0.17 K/uL (0-0.50); Eosinophils % (auto) 2.3 %; Immature Granulocytes # (auto) 0.03 K/uL (0.00-0.02); Immature Granulocytes % (auto) 0.4 %; Lymphocytes # (auto) 0.97 K/uL (1.2-3.4); Lymphocytes % (auto) 13.2 %; Mean Platelet Volume 13.8 fL (9.4-12.3); Monocytes # (auto) 0.79 K/uL (0.24-0.82); Monocytes % (auto) 10.7 %; Neutrophils # (auto) 5.34 K/uL (1.4-6.5); Neutrophils % (auto) 72.7 %; Platelet Count 135 K/uL (130-400)
[2022-07-08 17:27] LABS: INR 2.3 (0.9-1.1); Partial Thromboplastin Ratio 1.4; Prothrombin Time 23.7 Seconds (9.0-12.0)
[2022-07-08 17:35] LABS: Alanine Aminotransferase 15 U/L (7-52); Albumin Globulin Ratio 1.2 (0.9-2); Albumin Level 4.2 gm/dl (3.4-5.0); Alkaline Phosphatase 209 U/L (34-104); Anion Gap 11 (3-11); Aspartate Aminotransferase 28 U/L (13-39); BUN Creatinine Ratio 34.1 (10-20); Bilirubin,Total 0.8 mg/dl (0.2-1.0); Blood Urea Nitrogen 43 mg/dl (6-23); Calcium 9.4 mg/dl (8.5-10.1); Carbon Dioxide 18 mmol/L (21-32); Chloride 104 mmol/L (98-107); Est GFR (African American) 44.7 ml/min; Est GFR (Non-African American) 38.5 ml/min; Globulin 3.6 gm/dl (2.5-4.0); Glucose 102 mg/dl (70-99(Fasting)); Magnesium 2.2 mg/dl (1.7-2.4); Potassium 4.4 mmol/L (3.5-5.1); Sodium 133 mmol/L (136-145); Total Protein 7.8 gm/dl (6.0-8.3)
[2022-07-08 17:41] LABS: Troponin I High Sensitivity 43.1 pg/ml (0-14)
--- NOTE | 2022-07-08 17:41 | XRay Report ---
XR chest 1V portable CLINICAL HISTORY: weakness TECHNIQUE: Single frontal radiograph of the chest was obtained. Comparison: Comparison is made to chest radiograph 05/03/2022 FINDINGS: No lines and tubes are seen. Cardiomegaly is noted. The lungs are clear. Small right pleural effusion is seen. IMPRESSION: Small right pleural effusion. Stable cardiomegaly. Previously noted left effusion is not seen on toda y's exam. ACT 112: Negative or not required by law. Electronically signed by: Miguel Leggett M.D. 07/08/2022 5:40 PM
[2022-07-08 18:24] LABS: Base Excess VBG -4.7 mEq/L; HCO3 VBG 20 mmol/L; Oxygen Saturation VBG < 60.0 %; PCO2 VBG 33 mmHg (38-50); PO2 VBG 31 mmHg; pH VBG 7.38 (7.36-7.41)
[2022-07-08 18:40] LABS: Influenza A virus by PCR Negative (Neg); Influenza B virus by PCR Negative (Neg); RSV by PCR Negative (Neg); SARS CoV2 RNA(COVID-19) InHosp NEGATIVE (Negative)
[2022-07-08] MEDS ORDERED: dilTIAZem HCl 5 MG/ML 5 ML VIAL IV STA (20:22)
[2022-07-08 22:23] LABS: Appearance Urine Clear (Clear); Bacteria Urine Automated Negative (Negative); Bilirubin Urine Negative (Negative); Blood Urine Negative (Negative); Color Urine Yellow; Epithelial Cell Urine Auto >30 /lpf (0-5); Glucose Urine UA Negative (Negative); Ketones Urine Negative (Negative); Leukocyte Esterase Urine Negative (Negative); Nitrite Urine Negative (Negative); Protein Urine 1+ (Negative); RBC Urine Automated 0-4 /hpf (0-4); Specific Gravity Urine 1.014 (1.000-1.030); Urobilinogen Urine Negative (Negative)
[2022-07-08] MEDS ORDERED: WARFARIN SOD 1 MG TAB PO STA (22:23)
--- NOTE | 2022-07-09 00:14 | History and Physical Report ---
DATE OF ADMISSION: 07/08/2022 CHIEF COMPLAINT: Palpitations, rapid AFib. HISTORY OF PRESENT ILLNESS: An 87-year-old female with past medical history significant for paroxysmal atrial fibrillation, anticoagulated on Coumadin, moderate to severe pulmonary hypertension, prediabetes, exudative age-related macular degeneration, hypertension, asymptomatic carotid artery stenosis, chronic kidney disease stage IIIB, GERD, chronic diastolic CHF, history of pericardial effusion, history of renal osteodystrophy, ARB intolerance presents with palpitations. The palpitations going on for about a week, on and off. She had chest pain, but currently, she does not have any chest pain. Per the home visiting nurse, the patient was saturating only 88% on room air and was decided to come to the hospital. She was recently in the hospital, discharged on 05/16/2022. At that time, she was discharged on colchicine and ibuprofen for pericardial effusion, completed the course. The patient has currently received couple of doses of IV Lopressor and a dose of Cardizem. Her heart rate are in the 90s currently. Denies any headache. No blurred visions, no earache, no runny nose, no sore throat, no cough, no fevers. Appetite is not that great. No difficulty swallowing. No chest pain or shortness of breath, no nausea, no abdominal pain. Normal bowel and bladder movements. Her swelling in the legs is better. ALLERGIES: SULFA ANTIBIOTICS. PAST MEDICAL HISTORY: As mentioned above. PAST SURGICAL HISTORY: Colonoscopy, EGD with biopsy, freeing of bowel adhesions, appendectomy, removal of ovarian cyst, sigmoidoscopy, total hysterectomy. MEDICATIONS: The patient is on Tylenol p.r.n., alprazolam 0.5 mg p.o. daily p.r.n., calcium carbonate 500 mg p.o. daily, vitamin D 10 mcg p.o. daily, diltiazem 180 mg p.o. daily, famotidine 10 mg p.o. daily, furosemide 20 mg p.o. daily, melatonin 2 mg p.o. at bedtime p.r.n., metoprolol succinate 25 mg in a.m. and 12.5 mg in p.m., multivitamin 1 tablet daily, potassium chloride 10 mEq p.o. daily, sertraline 12.5 mg p.o. daily, PreserVision 1 capsule p.o. b.i.d., Coumadin 2 mg as directed. FAMILY HISTORY: Significant for father had heart disorder; mother had hypertension, stroke. Aunt had tuberculosis. SOCIAL HISTORY: . No smoking, no alcohol, no drug use. REVIEW OF SYSTEMS: As per HPI. Rest of review of systems is negative. PHYSICAL EXAMINATION: GENERAL: The patient is old and frail, not in acute distress. VITAL SIGNS: Temperature 36.5, pulse 66, respiratory rate 18, blood pressure 116/67, oxygen 98% on room air. HEENT: Pupils equal, round and reactive to light. Oral mucosa moist. NECK: No JVD or neck masses. CARDIOVASCULAR: S1 and S2 heard. Regular rate and rhythm. No murmur, no gallop. RESPIRATORY SYSTEM: Normal AP diameter. No accessory muscle use. No wheezing, no crackles. ABDOMEN: Soft, bowel sounds present, nontender, no distention. CENTRAL NERVOUS SYSTEM: Cranial nerves II through XII grossly intact, nonfocal. EXTREMITIES: Trace pedal edema, chronic skin changes. LABORATORY DATA: WBC 7.8, hemoglobin 14.1, hematocrit 41.1, platelets 135. PT 23.7, INR 2.3, APTT 29. Venous blood gas, pH of 7.38, pCO2 of 33, pO2 of 31, bicarbonate 20. Sodium 133, potassium 4.4, chloride 104, CO2 of 18, BUN 43, creatinine 1.2, serum glucose 112, calcium 9.4, magnesium 2.2, total bilirubin 0.8, AST 28, ALT 215, alkaline phosphatase 209. Troponin I high sensitivity 43.1. TSH is 2.09. Urinalysis negative. SARS-CoV-2 PCR negative. Influenza A and B PCR negative. RSV PCR negative. IMAGING DATA: Chest x-ray, small right pleural effusion, stable cardiomegaly. EKG: Accelerated junctional rhythm at a rate of 122. ASSESSMENT AND PLAN: This is an 87-year-old female with history of palpitations and rapid atrial fibrillation. 1. Rapid atrial fibrillation, received couple dose of IV Lopressor and Cardizem in the ER. Continue home p.o. metoprolol succinate and p.o. Cardizem and placed on IV Lopressor p.r.n. Patient is on Coumadin. INR therapeutic. Monitor in the [place] [facility] floor. Follow the labs. Ordered echocardiogram. Consult Cardiology in the a.m. for further recommendation. 2. History of pericardial effusion will follow on the echocardiogram results. 3. Possible mild acute on chronic diastolic congestive heart failure. The patient is saturating 88% on room air at home. We will continue her home p.o. Lasix. Will give one dose of IV Lasix 20 mg and follow the response. 4. Chronic kidney disease stage III, creatinine 1.2. We will follow the labs. 5. Elevation of troponin, mostly demand ischemia. Follow serial enzymes and echocardiogram. Monitor. 6. History of moderate to severe pulmonary hypertension 7. history of hypertension. Continue her home medication of metoprolol, diltiazem. We will monitor the blood pressure. 8. Gastroesophageal reflux disease: On famotidine. 9. Pre Diabetes. We will follow HbA1c levels. 9. Deep venous thrombosis prophylaxis: On Coumadin. INR therapeutic. DISPOSITION: Closely monitor in tele floor. Level 1 full code. PT, OT prior to discharge. Social service to help with discharge planning. Job ID: [id number] MTDD
[2022-07-09] MEDS ORDERED: NITROGLYCERIN SL 0.4 MG/TAB TAB SL PRN (00:35)
[2022-07-09] MEDS ORDERED: FUROSEMIDE INJ 20 MG/2 ML VIAL IV ONE (00:35)
[2022-07-09] MEDS ORDERED: METOPROLOL TARTRATE 1 MG/ML VIAL IV PRN (00:35)
[2022-07-09] MEDS ORDERED: ALPRAZolam 0.25 MG TABLET PO PRN (00:35)
[2022-07-09] MEDS ORDERED: ARTIFICIAL TEARS OP PRN (01:40)
[2022-07-09 05:51] LABS: Hematocrit (blood only) 41.6 % (34.1-44.9); Hemoglobin 14.1 g/dl (12.0-16.0); Mean Corpuscular Hemoglobin 31.8 pg (25.0-34.0); Mean Corpuscular Hgb Conc 33.9 g/dL (32.0-36.0); Mean Corpuscular Volume 93.9 fL (80.0-100.0); RDW Standard Deviation 55.3 fL (36.4-46.3); Red Blood Count 4.43 M/uL (3.93-5.22); White Blood Count 6.97 K/ul (4.8-10.8)
[2022-07-09 06:16] LABS: INR 2.5 (0.9-1.1); Prothrombin Time 25.6 Seconds (9.0-12.0)
[2022-07-09 06:27] LABS: Troponin I High Sensitivity 47.2 pg/ml (0-14)
[2022-07-09 06:29] LABS: BUN Creatinine Ratio 37.5 (10-20); Calcium 9.2 mg/dl (8.5-10.1); Creatinine Clr Calc Pharmacy 31.3 ml/min; Est GFR (African American) 51.5 ml/min; Est GFR (Non-African American) 44.4 ml/min; Potassium 4.2 mmol/L (3.5-5.1)
[2022-07-09 06:44] LABS: Mean Platelet Volume 13.8 fL (9.4-12.3); Platelet Count 118 K/uL (130-400)
--- NOTE | 2022-07-09 07:13 | Electrocardiogram Report ---
Test Reason : Blood Pressure : / mmHG Vent. Rate : 122 BPM Atrial Rate : 117 BPM P-R Int : 000 ms QRS Dur : 094 ms QT Int : 360 ms P-R-T Axes : 000 126 024 degrees QTc Int : 513 ms Likely atrial flutter with aberrant conduction Right axis deviation Junctional ST depression, probably abnormal Abnormal ECG Confirmed by Srinivas Sears ([id number]) on 07/09/2022 7:13:11 AM Referred By: REFERRED SELF Confirmed By:Josue Sears
[2022-07-09 07:23] LABS: Basophils # (auto) 0.04 K/uL (0-0.2); Basophils % (auto) 0.6 %; Eosinophils # (auto) 0.15 K/uL (0-0.50); Eosinophils % (auto) 2.2 %; Immature Granulocytes # (auto) 0.02 K/uL (0.00-0.02); Immature Granulocytes % (auto) 0.3 %; Lymphocytes # (auto) 0.56 K/uL (1.2-3.4); Monocytes # (auto) 0.72 K/uL (0.24-0.82); Monocytes % (auto) 10.3 %; Neutrophils # (auto) 5.48 K/uL (1.4-6.5); Neutrophils % (auto) 78.6 %
[2022-07-09] MEDS: CHOLECALCIFEROL 400 UNITS 10 MCG TAB PO SCH (09:00)
[2022-07-09] MEDS: FAMOTIDINE 10 MG TABLET PO SCH (09:00)
[2022-07-09] MEDS: CALCIUM CARBONATE 1250MG TAB PO SCH (09:00)
[2022-07-09] MEDS: POTASSIUM CHLORIDE 10 MEQ TABCR PO SCH (09:00)
[2022-07-09] MEDS: CEROVITE ADV FORMULA TAB PO SCH (09:00)
[2022-07-09] MEDS: MULTIVITAMIN TAB PO SCH (09:00)
[2022-07-09] MEDS: FUROSEMIDE 20 MG TAB PO SCH (09:00)
[2022-07-09] MEDS: METOPROLOL SUCC 25MG EXT REL TAB PO SCH ×2 (09:00→21:19)
[2022-07-09] MEDS: SERTRALINE HCL 50 MG TABLET PO SCH (09:00)
[2022-07-09] MEDS: dilTIAZem HCL 180 MG CAPCR PO SCH (09:01)
[2022-07-09] MEDS: ACETAMINOPHEN 325 MG TAB PO PRN ×2 (12:16→21:19)
--- NOTE | 2022-07-09 12:16 | Cardiology Consultation ---
Date of Consultation July 09, 2022 Assessment & Plan (1) Atrial fibrillation with rapid ventricular response: (2) Hypoxia: (3) Hyponatremia: (4) Chronic anticoagulation: (5) CKD (chronic kidney disease) stage 3, GFR 30-59 ml/min: (6) HTN (hypertension): (7) Cor pulmonale (chronic): (8) Biatrial enlargement: (9) Tricuspid regurgitation: Plan Given the fact that she has severe biatrial enlargement I doubt that we be able to maintain sinus rhythm and her going forward. So I believe a rate control strategy would be prudent at this time. I will increase her Cardizem CD to a total of 300 mg daily and she will continue on her outpatient dose of metoprolol. Continue warfarin with a goal INR of 2-3. Follow and replete lites as necessary. Continue to monitor on telemetry. History of Present Illness Reason for Consultation: Atrial fibrillation with rapid ventricular response Requesting Physician: Dr. Pulido Attending Physician: Conrad Reynolds MD History of Present Illness Is my pleasure to see Mrs. Cueva in cardiac consultation today July 09, 2022. She is a very pleasant 87-year-old woman with a complex cardiac history. [facility] with complaints of palpitations and occasional chest discomfort. She states that she has felt her heart racing for the past week and has had occasional episodes of chest discomfort which she described as a heaviness sensation. The pain would come and go but the racing would persist. She states this is similar to previous episodes of atrial fibrillation she is had in the past. She was sent to the emergency room where she was found to be in A. fib with rapid ventricular response. She was given bolus doses of IV metoprolol and Cardizem. Her INR was therapeutic at 2.3. Currently she is feeling well at rest. Past medical history: Carotid stenosis, non-symptomatic Mitral valve disorder Gastroesophageal reflux disease without esophagitis ADVANCE DIRECTIVE INFORMATION LOC PRIM OSTEOART-SHLDER HTN, goal below 140/80 Pulmonary hypertension, moderate to severe (HCC) Paroxysmal atrial fibrillation (HCC) ARB intolerance Elevated hemoglobin (HCC) Exudative age-related macular degeneration of both eyes with active choroidal neovascularization (HCC) FRAN (renal osteodystrophy) Hx of actinic keratosis Age-related osteoporosis without current pathological fracture Prediabetes Hypertensive heart and kidney disease with chronic diastolic congestive heart failure and stage 3b chronic kidney disease (HCC) Chronic kidney disease, stage 3b (HCC) Seasonal allergic rhinitis Pericardial effusion Allergies Allergy/AdvReac Type Severity Reaction Status Date / Time Sulfa (Sulfonamide AdvReac Mild nausea Verified 05/03/22 19:40 Antibiotics) Home Medications Medication Instructions Recorded Confirmed Type acetaminophen 500 mg tablet 500 - 1,000 mg PO Q6H PRN Pain 02/10/22 05/03/22 History alprazolam 0.25 mg tablet 0.125 - 0.25 mg PO TID PRN Anxiety 02/10/22 05/03/22 History aspirin 81 mg tablet,delayed 81 mg PO .ON HOLD 02/10/22 05/03/22 History release dextran 70-hypromellose 0.1 %-0.3 2 drp ophthalmic (eye) TID PRN Dry 02/10/22 05/03/22 History % eye drops (Artificial Tears Eye(S) (dextran 70-hypromellose)) metoprolol succinate 25 mg 12.5 mg PO PM 02/10/22 05/03/22 History tablet,extended release 24 hr metoprolol succinate 25 mg 25 mg PO DAILY 02/10/22 05/03/22 History tablet,extended release 24 hr multivitamin 1 tab PO DAILY 02/10/22 05/03/22 History warfarin 2 mg tablet 2 mg PO DIRECTED 02/10/22 05/03/22 History cholecalciferol (vitamin D3) 10 10 mcg PO DAILY 05/03/22 05/03/22 History mcg (400 unit) tablet (Vitamin D3) famotidine 10 mg tablet 10 mg PO DAILY 05/03/22 05/03/22 History furosemide 20 mg tablet 20 mg PO DAILY #30 tabs 05/13/22 05/03/22 Rx potassium chloride 10 mEq 10 meq PO DAILY #14 caps 05/13/22 Rx capsule,extended release calcium carbonate 500 mg capsule 500 mg PO DAILY 07/08/22 07/08/22 History diltiazem HCl 180 mg 180 mg PO DAILY 07/08/22 07/08/22 History capsule,extended release 24 hr melatonin 1 mg tablet 2 mg PO HS PRN Insomnia 07/08/22 07/08/22 History sertraline 25 mg tablet 12.5 mg PO DAILY 07/08/22 07/08/22 History vit C 226 mg-vit E 90 mg-copper 1 cap PO BID 07/08/22 07/08/22 History 0.8 mg-zinc oxide-lutein 5 mg capsule (PreserVision Lutein) Patient History Medical History Atrial fibrillation Carotid artery stenosis, asymptomatic Chest pain Chronic anticoagulation CKD (chronic kidney disease) stage 3, GFR 30-59 ml/min Elevated troponin GERD (gastroesophageal reflux disease) HTN (hypertension) Macular degeneration Pericardial effusion Surgical History History of appendectomy History of colonoscopy History of cystoscopy History of total hysterectomy Family History Son Colorectal cancer Father Heart disease Silicosis Mother Hypertension Stroke Social History Smoking Status: Never smoker Second Hand Exposure: No; Hx Alcohol Use: No Hx Substance Use: No Preferred Language: Tajik Communication Ability: Effective 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 No acute distress. HEENT: Normocephalic, atraumatic. Pupils equal, round and reactive to light and accommodation. Extraocular muscles are intact. Anicteric sclera. Moist mucous membranes. Neck: No JVD. No bruit. Cardiovascular: irregularly irregular, unable to appreciate murmur, rub or gallop. Pulmonary: Clear to auscultation bilaterally. No rales, rhonchi, or wheezing. Abdomen: Bowel sounds x 4, soft. No rebound, guarding or tenderness. No orga nomegaly. Extremities: No clubbing, cyanosis or edema. +2 pedal pulses bilaterally. Skin: Warm and dry. Results & Data ([facility] Vital Signs (Past 12 Hours) Vital Signs Temp Pulse Pulse Resp BP Pulse Ox O2 Del Method 07/09/22 11:56 36.6 C 122 H 19 121/80 95 Nasal Cannula 07/09/22 08:41 Nasal Cannula 07/09/22 07:24 36.7 C 120 H 19 117/79 95 Nasal Cannula 07/09/22 02:42 36.8 C 102 H 23 120/78 07/09/22 01:57 121 H 07/09/22 00:46 Nasal Cannula 07/09/22 00:38 36.8 C 110 H 19 125/82 90 Room Air O2 Flow Rate 07/09/22 11:56 2 07/09/22 08:41 3 07/09/22 07:24 3 07/09/22 02:42 07/09/22 01:57 07/09/22 00:46 2 07/09/22 00:38 (1) CKD (chronic kidney disease) stage 3, GFR 30-59 ml/min Chronic kidney disease stage 3 subtype: unspecified whether 3a or 3b Qualified Code(s): N18.30 - Chronic kidney disease, stage 3 unspecified
--- NOTE | 2022-07-09 13:41 | Hospitalist Progress Note ---
Date of Service July 09, 2022 Assessment & Plan (1) Atrial fibrillation with rapid ventricular response: Plan: - presented with HR 120s and palpitations, hypoxia - s/p IV lopressor and dilt in ED with initial improvement - restarted on home medications - dilt and toprol - still with elevated rate to 120s on floors - will give another 10 IV dilt - Cardiology recs appreciated - TTE reviewed and mostly unchanged from prior - no longer with pericardia effusion - telemetry monitoring - continue coumadin - daily INR while inpatient (2) Acute hyponatremia: Plan: - appears to have resolved - could have been from mild volume overload - s/p IV lasix - monitor on morning labs (3) CKD (chronic kidney disease) stage 3, GFR 30-59 ml/min: Plan: - at baseline - avoid nephrotoxic medications (4) GERD (gastroesophageal reflux disease): Plan: - continue Pepcid (5) HTN (hypertension): Plan: - continue CCB and BB Plan DVT ppx: coumadin Code Status: Full Code Dispo: telemetry Conrad Reynolds MD [facility] Medicine Admission and Anticipated Discharge Date Admission Date: July 08, 2022 Subjective Patient with pAfib on coumadin, pHTN, HTN, carotid artery stenosis, CKD, GERD, HFpEF who presented with palpitations. Found to be in Afib with RVR. Given IV dilt and lopressor with some improvement but rates back to 120s afib RVR on admission. Cardiology consulted for further recs. Hypoxia on admission, s/p 1 dose IV lasix with improvement in oxygen saturation. Patient seen and examined. Reports was feeling palpitations on and off but does not always feel palpitations. Denied chest pain, shortness of breath, n/v/d, abdominal pain, dysuria, leg swelling. Review of Systems Review of Systems: All systems reviewed & are unremarkable except as noted in Subjective Physical Exam Physical Exam: GENERAL: The patient is old and frail, not in acute distress. HEENT: Pupils equal, round and reactive to light. Oral mucosa moist. NECK: No JVD or neck masses. CARDIOVASCULAR: S1 and S2 heard. Regular rate and rhythm. No murmur, no gallop. RESPIRATORY SYSTEM: Normal AP diameter. No accessory muscle use. No wheezing, no crackles. ABDOMEN: Soft, bowel sounds present, nontender, no distention. CENTRAL NERVOUS SYSTEM: Cranial nerves II through XII grossly intact, nonfocal. EXTREMITIES: Trace pedal edema, chronic skin changes. Results & Data Results & Data ([facility]) Vital Signs (Past 12 Hours) Vital Signs Temp Pulse Pulse Resp BP Pulse Ox O2 Del Method 07/09/22 11:56 36.6 C 122 H 19 121/80 95 Nasal Cannula 07/09/22 08:41 Nasal Cannula 07/09/22 07:24 36.7 C 120 H 19 117/79 95 Nasal Cannula 07/09/22 02:42 36.8 C 102 H 23 120/78 07/09/22 01:57 121 H O2 Flow Rate 07/09/22 11:56 2 07/09/22 08:41 3 07/09/22 07:24 3 07/09/22 02:42 07/09/22 01:57 Diagnostic Findings Laboratory Results WBC 6.97 K/ul (4.8-10.8) 07/09/22 05:20 RBC 4.43 M/uL (3.93-5.22) 07/09/22 05:20 Hgb 14.1 g/dl (12.0-16.0) 07/09/22 05:20 Hct 41.6 % (34.1-44.9) 07/09/22 05:20 MCV 93.9 fL (80.0-100.0) 07/09/22 05:20 MCH 31.8 pg (25.0-34.0) 07/09/22 05:20 MCHC 33.9 g/dL (32.0-36.0) 07/09/22 05:20 RDW Std Deviation 55.3 fL (36.4-46.3) H 07/09/22 05:20 RDW Coeff of Lonny 16.0 % (11.5-14.5) H 07/09/22 05:20 Plt Count 118 K/uL (130-400) L 07/09/22 05:20 MPV 13.8 fL (9.4-12.3) H 07/09/22 05:20 Immature Gran % (Auto) 0.3 % 07/09/22 05:20 Neut % (Auto) 78.6 % 07/09/22 05:20 Lymph % (Auto) 8.0 % 07/09/22 05:20 [place] % (Auto) 10.3 % 10/01/22 05:20 Eos % (Auto) 2.2 % 07/09/22 05:20 Baso % (Auto) 0.6 % 07/09/22 05:20 Neut # (Auto) 5.48 K/uL (1.4-6.5) 07/09/22 05:20 Lymph # (Auto) 0.56 K/uL (1.2-3.4) L 07/09/22 05:20 [place] # (Auto) 0.72 K/uL (0.24-0.82) 07/09/22 05:20 Eos # (Auto) 0.15 K/uL (0-0.50) 07/09/22 05:20 Baso # (Auto) 0.04 K/uL (0-0.2) 07/09/22 05:20 Immature Gran # (Auto) 0.02 K/uL (0.00-0.02) 07/09/22 05:20 PT 25.6 Seconds (9.0-12.0) H 07/09/22 05:20 INR 2.5 (0.9-1.1) H 07/09/22 05:20 APTT 39.0 Seconds (21.0-31.0) H 07/08/22 17:05 PTT Ratio 1.4 07/08/22 17:05 VBG pH 7.38 (7.36-7.41) 07/08/22 18:00 VBG pCO2 33 mmHg (38-50) L 07/08/22 18:00 VBG pO2 31 mmHg 07/08/22 18:00 VBG HCO3 20 mmol/L 07/08/22 18:00 VBG O2 Saturation < 60.0 % 07/08/22 18:00 VBG Base Excess -4.7 mEq/L 07/08/22 18:00 Sodium 137 mmol/L (136-145) 07/09/22 05:20 Potassium 4.2 mmol/L (3.5-5.1) 07/09/22 05:20 Chloride 106 mmol/L (98-107) 07/09/22 05:20 Carbon Dioxide 20 mmol/L (21-32) L 07/09/22 05:20 Anion Gap 11 (3-11) 07/09/22 05:20 BUN 42 mg/dl (6-23) H 07/09/22 05:20 Creatinine 1.12 mg/dl (0.6-1.2) 07/09/22 05:20 Est Cr Clr Drug Dosing 31.3 ml/min 07/09/22 05:20 Est GFR ( Amer) 51.5 ml/min 07/09/22 05:20 Est GFR (Non-Af Amer) 44.4 ml/min 07/09/22 05:20 BUN/Creatinine Ratio 37.5 (10-20) H 07/09/22 05:20 Glucose 103 mg/dl (70-99(Fasting)) H 07/09/22 05:20 Calcium 9.2 mg/dl (8.5-10.1) 07/09/22 05:20 Magnesium 2.0 mg/dl (1.7-2.4) 07/09/22 05:20 Total Bilirubin 0.8 mg/dl (0.2-1.0) 07/08/22 17:05 AST 28 U/L (13-39) 07/08/22 17:05 ALT 15 U/L (7-52) 07/08/22 17:05 Alkaline Phosphatase 209 U/L (34-104) H 07/08/22 17:05 Troponin I High Sens 49.3 pg/ml (0-14) H 07/09/22 11:01 Total Protein 7.8 gm/dl (6.0-8.3) 07/08/22 17:05 Albumin 4.2 gm/dl (3.4-5.0) 07/08/22 17:05 Globulin 3.6 gm/dl (2.5-4.0) 07/08/22 17:05 Albumin/Globulin Ratio 1.2 (0.9-2) 07/08/22 17:05 TSH 2.009 uIu/ml (0.300-4.500) 07/08/22 17:05 Urine Color Yellow 07/08/22 21:45 Urine Appearance Clear (Clear) 07/08/22 21:45 Urine pH 5.0 (4.5-7.5) 07/08/22 21:45 Ur Specific [place] 1.014 (1.000-1.030) 07/08/22 21:45 Urine Protein 1+ (Negative) H 07/08/22 21:45 Urine Glucose (UA) Negative (Negative) 07/08/22 21:45 Urine Ketones Negative (Negative) 07/08/22 21:45 Urine Blood Negative (Negative) 07/08/22 21:45 Urine Nitrite Negative (Negative) 07/08/22 21:45 Urine Bilirubin Negative (Negative) 07/08/22 21:45 Urine Urobilinogen Negative (Negative) 07/08/22 21:45 Ur Leukocyte Esterase Negative (Negative) 07/08/22 21:45 Urine WBC (Auto) 1-5 /hpf (0-5) 07/08/22 21:45 Urine RBC (Auto) 0-4 /hpf (0-4) 07/08/22 21:45 U Hyaline Cast (Auto) 1-5 /lpf (0-5) 07/08/22 21:45 U Epithel Cells (Auto) >30 /lpf (0-5) H 07/08/22 21:45 Urine Bacteria (Auto) Negative (Negative) 07/08/22 21:45 SARS-CoV-2 (PCR) NEGATIVE (Negative) 07/08/22 17:46 Influenza Type A (PCR) Negative (Neg) 07/08/22 17:46 Influenza Type B (PCR) Negative (Neg) 07/08/22 17:46 RSV (RT-PCR) Negative (Neg) 07/08/22 17:46 Impressions Chest X-Ray 07/08/22 17:00 XR chest 1V portable CLINICAL HISTORY: weakness TECHNIQUE: Single frontal radiograph of the chest was obtained. Comparison: Comparison is made to chest radiograph 05/03/2022 FINDINGS: No lines and tubes are seen. Cardiomegaly is noted. The lungs are clear. Small right pleural effusion is seen. IMPRESSION: Small right pleural effusion. Stable cardiomegaly. Previously noted left effusion is not seen on today's exam. ACT 112: Negative or not required by law. Electronically signed by: Miguel Leggett M.D. 07/08/2022 5:40 PM Medications Administered Current Inpatient Medications Acetaminophen (Acetaminophen 325 Mg Tab) 650 mg PO Q4H PRN PRN Reason: Pain or Fever Stop: 08/08/22 00:34 Last Admin: 07/09/22 12:16 Dose: 650 mg Alprazolam (Alprazolam 0.25 Mg Tablet) 0.25 mg PO TID PRN PRN Reason: Anxiety Stop: 08/08/22 00:34 Artificial Tears (Artificial Tears) 2 drops OP TID PRN PRN Reason: Dry Eye(S) Stop: 08/08/22 01:39 Calcium Carbonate (Calcium Carbonate 1250mg Tab) 1,250 mg PO DAILY ANA MARÍA Stop: 08/08/22 08:59 Last Admin: 07/09/22 09:00 Dose: 1,250 mg Diltiazem HCl (Diltiazem Hcl 180 Mg Capcr) 180 mg PO DAILY ANA MARÍA Stop: 08/08/22 08:59 Last Admin: 07/09/22 09:01 Dose: 180 mg Famotidine (Famotidine 10 Mg Tablet) 10 mg PO DAILY ANA MARÍA Stop: 08/08/22 08:59 Last Admin: 07/09/22 09:00 Dose: 10 mg Furosemide (Furosemide 20 Mg Tab) 20 mg PO DAILY ANA MARÍA Stop: 08/08/22 08:59 Last Admin: 07/09/22 09:00 Dose: 20 mg Melatonin (Melatonin 3 Mg Tab) 3 mg PO HS PRN PRN Reason: Insomnia Stop: 08/08/22 00:34 Metoprolol Succinate (Metoprolol Succ 25mg Ext Rel Tab) 25 mg PO DAILY ANA MARÍA Stop: 08/08/22 08:59 Last Admin: 07/09/22 09:00 Dose: 25 mg Metoprolol Succinate (Metoprolol Succ 25mg Ext Rel Tab) 12.5 mg PO PM ANA MARÍA Stop: 08/08/22 20:59 Metoprolol Tartrate (Metoprolol Tartrate 1 Mg/Ml Vial) 5 mg IV Q6 PRN PRN Reason: Tachycardia Stop: 08/08/22 00:34 Last Admin: 07/09/22 01:57 Dose: 5 mg Multivitamins (Multivitamin Tab) 1 tab PO DAILY ANA MARÍA Stop: 08/08/22 08:59 Last Admin: 07/09/22 09:00 Dose: 1 tab Multivitamins/Minerals (Cerovite Adv Formula Tab) 1 tab PO DAILY ANA MARÍA Stop: 08/08/22 08:59 Last Admin: 07/09/22 09:00 Dose: 1 tab Nitroglycerin (Nitroglycerin Sl 0.4 Mg/Tab Tab) 0.4 mg SL UD PRN PRN Reason: Chest Pain Stop: 08/08/22 00:34 Potassium Chloride (Potassium Chloride 10 Meq Tabcr) 10 meq PO DAILY [facility] Stop: 08/08/22 08:59 Last Admin: 07/09/22 09:00 Dose: 10 meq Sertraline HCl (Sertraline Hcl 50 Mg Tablet) 12.5 mg PO DAILY [facility] Stop: 08/08/22 08:59 Last Admin: 07/09/22 09:00 Dose: 12.5 mg Vitamin D (Cholecalciferol 400 Units 10 Mcg Tab) 400 units PO DAILY [facility] Stop: 08/08/22 08:59 Last Admin: 07/09/22 09:00 Dose: 400 units Warfarin Sodium (Warfarin Sod 2 Mg Tab) 2 mg PO [email or web address] [facility] Stop: 08/08/22 15:59 Warfarin Sodium (Warfarin Sod 1 Mg Tab) 1 mg PO [email or web address] [facility] Stop: 08/09/22 15:59 (1) CKD (chronic kidney disease) stage 3, GFR 30-59 ml/min Chronic kidney disease stage 3 subtype: unspecified whether 3a or 3b Qualified Code(s): N18.30 - Chronic kidney disease, stage 3 unspecified
[2022-07-09] MEDS: dilTIAZem HCL 120 MG CAPCR PO SCH (14:19)
[2022-07-09] MEDS: WARFARIN SOD 2 MG TAB PO SCH (16:13)
[2022-07-10 06:28] LABS: INR 2.9 (0.9-1.1); Prothrombin Time 28.7 Seconds (9.0-12.0)
[2022-07-10 07:05] LABS: BUN Creatinine Ratio 33.9 (10-20); Calcium 9.2 mg/dl (8.5-10.1); Est GFR (African American) 46.9 ml/min; Est GFR (Non-African American) 40.5 ml/min; Phosphorus 3.7 mg/dl (2.5-4.9); Potassium 3.9 mmol/L (3.5-5.1)
--- NOTE | 2022-07-10 07:21 | Electrocardiogram Report ---
Test Reason : Blood Pressure : / mmHG Vent. Rate : 083 BPM Atrial Rate : 249 BPM P-R Int : 000 ms QRS Dur : 096 ms QT Int : 406 ms P-R-T Axes : 044 110 270 degrees QTc Int : 477 ms probably Atrial flutter with variable A-V block Low voltage QRS Nonspecific ST and T wave abnormality Prolonged QT Abnormal ECG When compared with ECG of 08-JUL-2022 17:01, Nonspecific T wave abnormality now evident in Anterior leads Confirmed by Srinivas Sears ([id number] on 07/10/2022 7:20:38 AM Referred By: REFERRED SELF Confirmed By:Josue Sears
[2022-07-10] MEDS: CEROVITE ADV FORMULA TAB PO SCH (09:24)
[2022-07-10] MEDS: CHOLECALCIFEROL 400 UNITS 10 MCG TAB PO SCH (09:24)
[2022-07-10] MEDS: CALCIUM CARBONATE 1250MG TAB PO SCH (09:24)
[2022-07-10] MEDS: dilTIAZem HCL 120 MG CAPCR PO SCH (09:25)
[2022-07-10] MEDS: POTASSIUM CHLORIDE 10 MEQ TABCR PO SCH (09:25)
[2022-07-10] MEDS: FUROSEMIDE 20 MG TAB PO SCH (09:25)
[2022-07-10] MEDS: dilTIAZem HCL 180 MG CAPCR PO SCH (09:25)
[2022-07-10] MEDS: FAMOTIDINE 10 MG TABLET PO SCH (09:25)
[2022-07-10] MEDS: MULTIVITAMIN TAB PO SCH (09:25)
[2022-07-10] MEDS: SERTRALINE HCL 50 MG TABLET PO SCH (09:25)
[2022-07-10] MEDS: METOPROLOL SUCC 25MG EXT REL TAB PO SCH ×2 (09:25→19:47)
[2022-07-10] MEDS: DOCUSATE SODIUM/SENNA 50/8.6MG TAB PO SCH (11:13)
--- NOTE | 2022-07-10 11:33 | Hospitalist Progress Note ---
Date of Service July 10, 2022 Assessment & Plan (1) Atrial fibrillation with rapid ventricular response: Plan: - presented with HR 120s and palpitations, hypoxia - s/p IV lopressor and dilt in ED with initial improvement - restarted on home medications - dilt and toprol - diltiazem increaed to 300mg total daily per Cardiology - HR very labile and can range from 60s to 100s - will follow up Cardiology recs - will consider increase metoprolol pending Cardiology evaluation - Cardiology recs appreciated - TTE reviewed and mostly unchanged from prior - no longer with pericardial effusion - telemetry monitoring - continue coumadin - daily INR while inpatient (2) CKD (chronic kidney disease) stage 3, GFR 30-59 ml/min: Plan: - at baseline - avoid nephrotoxic medications (3) GERD (gastroesophageal reflux disease): Plan: - continue Pepcid (4) HTN (hypertension): Plan: - continue CCB and BB Plan DVT ppx: coumadin Code Status: Full Code Dispo: telemetry Conrad Reynolds MD [facility] Medicine Admission and Anticipated Discharge Date Admission Date: July 08, 2022 Subjective Patient with pAfib on coumadin, pHTN, HTN, carotid artery stenosis, CKD, GERD, HFpEF who presented with palpitations. Found to be in Afib with RVR. Given IV dilt and lopressor with some improvement but rates back to 120s afib RVR on admission. Cardiology consulted for further recs. Hypoxia on admission, s/p 1 dose IV lasix with improvement in oxygen saturation. Patient seen and examined. Denied chest pain, shortness of breath, palpitations, n/v/d, abdominal pain, dysuria, leg swelling. Review of Systems Review of Systems: All systems reviewed & are unremarkable except as noted in Subjective Physical Exam Physical Exam: GENERAL: The patient is old and frail, not in acute distress. HEENT: Pupils equal, round and reactive to light. Oral mucosa moist. NECK: No JVD or neck masses. CARDIOVASCULAR: S1 and S2 heard. Regular rate and rhythm. No murmur, no gallop. RESPIRATORY SYSTEM: Normal AP diameter. No accessory muscle use. No wheezing, no crackles. ABDOMEN: Soft, bowel sounds present, nontender, no distention. CENTRAL NERVOUS SYSTEM: Cranial nerves II through XII grossly intact, nonfocal. EXTREMITIES: no edema, chronic skin changes. Results & Data Results & Data ([facility]) Vital Signs (Past 12 Hours) Vital Signs Temp Pulse Resp BP Pulse Ox O2 Del Method O2 Flow Rate 07/10/22 08:20 36.5 C 105 H 16 119/81 90 Nasal Cannula 3 07/10/22 07:27 Nasal Cannula 3 07/10/22 03:54 37.0 C 60 17 120/78 90 Nasal Cannula 2 07/09/22 23:42 36.6 C 60 17 115/73 90 Nasal Cannula Diagnostic Findings Laboratory Results WBC 6.97 K/ul (4.8-10.8) 07/09/22 05:20 RBC 4.43 M/uL (3.93-5.22) 07/09/22 05:20 Hgb 14.1 g/dl (12.0-16.0) 07/09/22 05:20 Hct 41.6 % (34.1-44.9) 07/09/22 05:20 MCV 93.9 fL (80.0-100.0) 07/09/22 05:20 MCH 31.8 pg (25.0-34.0) 07/09/22 05:20 MCHC 33.9 g/dL (32.0-36.0) 07/09/22 05:20 RDW Std Deviation 55.3 fL (36.4-46.3) H 07/09/22 05:20 RDW Coeff of Lonny 16.0 % (11.5-14.5) H 07/09/22 05:20 Plt Count 118 K/uL (130-400) L 07/09/22 05:20 MPV 13.8 fL (9.4-12.3) H 07/09/22 05:20 Immature Gran % (Auto) 0.3 % 07/09/22 05:20 Neut % (Auto) 78.6 % 07/09/22 05:20 Lymph % (Auto) 8.0 % 07/09/22 05:20 [place] % (Auto) 10.3 % 07/09/22 05:20 Eos % (Auto) 2.2 % 07/09/22 05:20 Baso % (Auto) 0.6 % 07/09/22 05:20 Neut # (Auto) 5.48 K/uL (1.4-6.5) 07/09/22 05:20 Lymph # (Auto) 0.56 K/uL (1.2-3.4) L 07/09/22 05:20 [place] # (Auto) 0.72 K/uL (0.24-0.82) 07/09/22 05:20 Eos # (Auto) 0.15 K/uL (0-0.50) 07/09/22 05:20 Baso # (Auto) 0.04 K/uL (0-0.2) 07/09/22 05:20 Immature Gran # (Auto) 0.02 K/uL (0.00-0.02) 07/09/22 05:20 PT 28.7 Seconds (9.0-12.0) H 07/10/22 05:49 INR 2.9 (0.9-1.1) H 07/10/22 05:49 APTT 39.0 Seconds (21.0-31.0) H 07/08/22 17:05 PTT Ratio 1.4 07/08/22 17:05 VBG pH 7.38 (7.36-7.41) 07/08/22 18:00 VBG pCO2 33 mmHg (38-50) L 07/08/22 18:00 VBG pO2 31 mmHg 07/08/22 18:00 VBG HCO3 20 mmol/L 07/08/22 18:00 VBG O2 Saturation < 60.0 % 07/08/22 18:00 VBG Base Excess -4.7 mEq/L 07/08/22 18:00 Sodium 139 mmol/L (136-145) 07/10/22 05:49 Potassium 3.9 mmol/L (3.5-5.1) 07/10/22 05:49 Chloride 108 mmol/L (98-107) H 07/10/22 05:49 Carbon Dioxide 22 mmol/L (21-32) 07/10/22 05:49 Anion Gap 9 (3-11) 07/10/22 05:49 BUN 41 mg/dl (6-23) H 07/10/22 05:49 Creatinine 1.21 mg/dl (0.6-1.2) H 07/10/22 05:49 Est Cr Clr Drug Dosing 29.0 ml/min 07/10/22 05:49 Est GFR ( Amer) 46.9 ml/min 07/10/22 05:49 Est GFR (Non-Af Amer) 40.5 ml/min 07/10/22 05:49 BUN/Creatinine Ratio 33.9 (10-20) H 07/10/22 05:49 Glucose 100 mg/dl (70-99(Fasting)) H 07/10/22 05:49 Calcium 9.2 mg/dl (8.5-10.1) 07/10/22 05:49 Phosphorus 3.7 mg/dl (2.5-4.9) 07/10/22 05:49 Magnesium 2.0 mg/dl (1.7-2.4) 07/10/22 05:49 Total Bilirubin 0.8 mg/dl (0.2-1.0) 07/08/22 17:05 AST 28 U/L (13-39) 07/08/22 17:05 ALT 15 U/L (7-52) 07/08/22 17:05 Alkaline Phosphatase 209 U/L (34-104) H 07/08/22 17:05 Troponin I High Sens 49.3 pg/ml (0-14) H 07/09/22 11:01 Total Protein 7.8 gm/dl (6.0-8.3) 07/08/22 17:05 Albumin 4.2 gm/dl (3.4-5.0) 07/08/22 17:05 Globulin 3.6 gm/dl (2.5-4.0) 07/08/22 17:05 Albumin/Globulin Ratio 1.2 (0.9-2) 07/08/22 17:05 TSH 2.009 uIu/ml (0.300-4.500) 07/08/22 17:05 Urine Color Yellow 07/08/22 21:45 Urine Appearance Clear (Clear) 07/08/22 21:45 Urine pH 5.0 (4.5-7.5) 07/08/22 21:45 Ur Specific [place] 1.014 (1.000-1.030) 07/08/22 21:45 Urine Protein 1+ (Negative) H 07/08/22 21:45 Urine Glucose (UA) Negative (Negative) 07/08/22 21:45 Urine Ketones Negative (Negative) 07/08/22 21:45 Urine Blood Negative (Negative) 07/08/22 21:45 Urine Nitrite Negative (Negative) 07/08/22 21:45 Urine Bilirubin Negative (Negative) 07/08/22 21:45 Urine Urobilinogen Negative (Negative) 07/08/22 21:45 Ur Leukocyte Esterase Negative (Negative) 07/08/22 21:45 Urine WBC (Auto) 1-5 /hpf (0-5) 07/08/22 21:45 Urine RBC (Auto) 0-4 /hpf (0-4) 07/08/22 21:45 U Hyaline Cast (Auto) 1-5 /lpf (0-5) 07/08/22 21:45 U Epithel Cells (Auto) >30 /lpf (0-5) H 07/08/22 21:45 Urine Bacteria (Auto) Negative (Negative) 07/08/22 21:45 SARS-CoV-2 (PCR) NEGATIVE (Negative) 07/08/22 17:46 Influenza Type A (PCR) Negative (Neg) 07/08/22 17:46 Influenza Type B (PCR) Negative (Neg) 07/08/22 17:46 RSV (RT-PCR) Negative (Neg) 07/08/22 17:46 Impressions Chest X-Ray 07/08/22 17:00 XR chest 1V portable CLINICAL HISTORY: weakness TECHNIQUE: Single frontal radiograph of the chest was obtained. Comparison: Comparison is made to chest radiograph 05/03/2022 FINDINGS: No lines and tubes are seen. Cardiomegaly is noted. The lungs are clear. Small right pleural effusion is seen. IMPRESSION: Small right pleural effusion. Stable cardiomegaly. Previously noted left effusion is not seen on today's exam. ACT 112: Negative or not required by law. Electronically signed by: Miguel Leggett M.D. 07/08/2022 5:40 PM Medications Administered Current Inpatient Medications Acetaminophen (Acetaminophen 325 Mg Tab) 650 mg PO Q4H PRN PRN Reason: Pain or Fever Stop: 08/08/22 00:34 Last Admin: 07/09/22 21:19 Dose: 650 mg Alprazolam (Alprazolam 0.25 Mg Tablet) 0.25 mg PO TID PRN PRN Reason: Anxiety Stop: 08/08/22 00:34 Artificial Tears (Artificial Tears) 2 drops OP TID PRN PRN Reason: Dry Eye(S) Stop: 08/08/22 01:39 Calcium Carbonate (Calcium Carbonate 1250mg Tab) 1,250 mg PO DAILY ANA MARÍA Stop: 08/08/22 08:59 Last Admin: 07/10/22 09:24 Dose: 1,250 mg Diltiazem HCl (Diltiazem Hcl 180 Mg Capcr) 180 mg PO DAILY ANA MARÍA Stop: 08/08/22 08:59 Last Admin: 07/10/22 09:25 Dose: 180 mg Diltiazem HCl (Diltiazem Hcl 120 Mg Capcr) 120 mg PO QAM ANA MARÍA Stop: 08/08/22 14:14 Last Admin: 07/10/22 09:25 Dose: 120 mg Famotidine (Famotidine 10 Mg Tablet) 10 mg PO DAILY ANA MARÍA Stop: 08/08/22 08:59 Last Admin: 07/10/22 09:25 Dose: 10 mg Furosemide (Furosemide 20 Mg Tab) 20 mg PO DAILY ANA MARÍA Stop: 08/08/22 08:59 Last Admin: 07/10/22 09:25 Dose: 20 mg Melatonin (Melatonin 3 Mg Tab) 3 mg PO HS PRN PRN Reason: Insomnia Stop: 08/08/22 00:34 Metoprolol Succinate (Metoprolol Succ 25mg Ext Rel Tab) 25 mg PO DAILY ANA MARÍA Stop: 08/08/22 08:59 Last Admin: 07/10/22 09:25 Dose: 25 mg Metoprolol Succinate (Metoprolol Succ 25mg Ext Rel Tab) 12.5 mg PO PM ANA MARÍA Stop: 08/08/22 20:59 Last Admin: 07/09/22 21:19 Dose: 12.5 mg Metoprolol Tartrate (Metoprolol Tartrate 1 Mg/Ml Vial) 5 mg IV Q6 PRN PRN Reason: Tachycardia Stop: 08/08/22 00:34 Last Admin: 07/09/22 01:57 Dose: 5 mg Multivitamins (Multivitamin Tab) 1 tab PO DAILY ANA MARÍA Stop: 08/08/22 08:59 Last Admin: 07/10/22 09:25 Dose: 1 tab Multivitamins/Minerals (Cerovite Adv Formula Tab) 1 tab PO DAILY ANA MARÍA Stop: 08/08/22 08:59 Last Admin: 07/10/22 09:24 Dose: 1 tab Nitroglycerin (Nitroglycerin Sl 0.4 Mg/Tab Tab) 0.4 mg SL UD PRN PRN Reason: Chest Pain Stop: 08/08/22 00:34 Polyethylene Glycol (Polyethylene (Miralax) 17 Gm Pack) 17 gm PO DAILY PRN PRN Reason: Constipation Stop: 08/09/22 10:27 Potassium Chloride (Potassium Chloride 10 Meq Tabcr) 10 meq PO DAILY [facility] Stop: 08/08/22 08:59 Last Admin: 07/10/22 09:25 Dose: 10 meq Senna/Docusate Sodium (Docusate Sodium/Senna 50/8.6mg Tab) 1 tab PO QAM [facility] Stop: 08/09/22 10:59 Last Admin: 07/10/22 11:13 Dose: 1 tab Sertraline HCl (Sertraline Hcl 50 Mg Tablet) 12.5 mg PO DAILY [facility] Stop: 08/08/22 08:59 Last Admin: 07/10/22 09:25 Dose: 12.5 mg Vitamin D (Cholecalciferol 400 Units 10 Mcg Tab) 400 units PO DAILY [facility] Stop: 08/08/22 08:59 Last Admin: 07/10/22 09:24 Dose: 400 units Warfarin Sodium (Warfarin Sod 2 Mg Tab) 2 mg PO [email or web address] [facility] Stop: 08/08/22 15:59 Last Admin: 07/09/22 16:13 Dose: 2 mg Warfarin Sodium (Warfarin Sod 1 Mg Tab) 1 mg PO [id number]@[id number] [facility] Stop: 08/09/22 15:59 (1) CKD (chronic kidney disease) stage 3, GFR 30-59 ml/min Chronic kidney disease stage 3 subtype: unspecified whether 3a or 3b Qualified Code(s): N18.30 - Chronic kidney disease, stage 3 unspecified
--- NOTE | 2022-07-10 14:04 | Cardiology Progress Note ---
Date of Service July 10, 2022 Assessment & Plan (1) Atrial fibrillation with rapid ventricular response: (2) Hypoxia: (3) Hyponatremia: (4) Chronic anticoagulation: (5) CKD (chronic kidney disease) stage 3, GFR 30-59 ml/min: (6) HTN (hypertension): (7) Cor pulmonale (chronic): (8) Biatrial enlargement: (9) Tricuspid regurgitation: (10) Tachy-mason syndrome: (11) Atrial flutter: Plan Given the fact that she has severe biatrial enlargement I doubt that we be able to maintain sinus rhythm and her going forward. So I believe a rate control strategy would be prudent at this time. Patient with significant bradycardia overnight and now in atrial flutter with slow ventricular response. Concern for tachybradycardia syndrome at this point. Discussed the possibility of permanent pacemaker placement with the patient. Would like to monitor rates overnight on telemetry. Will make n.p.o. after midnight in case urgent pacemaker placement is necessitated. Hold this evening's dose of Coumadin as well with an INR of 2.9 today. Follow and replete lites as necessary. Continue to monitor on telemetry. Admission and Anticipated Discharge Date Admission Date: July 08, 2022 Subjective Patient seen and examined. Chart reviewed. Telemetry reviewed. Currently states that she feels well at rest. Review of Systems Review of Systems: All systems reviewed & are unremarkable except as noted in HPI & below Physical Exam Physical Exam: General: Awake, alert and oriented x 3. No acute distress. HEENT: Normocephalic, atraumatic. Pupils equal, round and reactive to light and accommodation. Extraocular muscles are intact. Anicteric sclera. Moist mucous membranes. Neck: No JVD. No bruit. Cardiovascular: irregularly irregular, unable to appreciate murmur, rub or gallop. Pulmonary: Clear to auscultation bilaterally. No rales, rhonchi, or wheezing. Abdomen: Bowel sounds x 4, soft. No rebound, guarding or tenderness. No organomegaly. Extremities: No clubbing, cyanosis or edema. +2 pedal pulses bilaterally. Skin: Warm and dry. Results & Data ([facility]) Vital Signs (Past 12 Hours) Vital Signs Temp Pulse Resp BP Pulse Ox O2 Del Method O2 Flow Rate 07/10/22 11:30 36.3 C L 84 16 112/73 90 Room Air 07/10/22 08:20 36.5 C 105 H 16 119/81 90 Nasal Cannula 3 07/10/22 07:27 Nasal Cannula 3 07/10/22 03:54 37.0 C 60 17 120/78 90 Nasal Cannula 2 (1) CKD (chronic kidney disease) stage 3, GFR 30-59 ml/min Chronic kidney disease stage 3 subtype: unspecified whether 3a or 3b Qualified Code(s): N18.30 - Chronic kidney disease, stage 3 unspecified
[2022-07-10] MEDS: ACETAMINOPHEN 325 MG TAB PO PRN (19:47)
[2022-07-11 07:31] LABS: BUN Creatinine Ratio 32.2 (10-20); Calcium 9.2 mg/dl (8.5-10.1); Est GFR (African American) 46.9 ml/min; Est GFR (Non-African American) 40.5 ml/min; Magnesium 1.9 mg/dl (1.7-2.4); Phosphorus 3.7 mg/dl (2.5-4.9); Potassium 4.1 mmol/L (3.5-5.1)
[2022-07-11 07:45] LABS: Estimated Average Glucose 134 mg/dl; Hemoglobin A1C 6.3 % (4.5-5.6)
[2022-07-11] MEDS: POTASSIUM CHLORIDE 10 MEQ TABCR PO SCH (08:40)
[2022-07-11] MEDS: DOCUSATE SODIUM/SENNA 50/8.6MG TAB PO SCH (08:40)
[2022-07-11] MEDS: CEROVITE ADV FORMULA TAB PO SCH (08:40)
[2022-07-11] MEDS: METOPROLOL SUCC 25MG EXT REL TAB PO SCH ×2 (08:40→19:37)
[2022-07-11] MEDS: dilTIAZem HCL 180 MG CAPCR PO SCH (08:40)
[2022-07-11] MEDS: dilTIAZem HCL 120 MG CAPCR PO SCH (08:40)
[2022-07-11] MEDS: CALCIUM CARBONATE 1250MG TAB PO SCH (08:40)
[2022-07-11] MEDS: SERTRALINE HCL 50 MG TABLET PO SCH (08:40)
[2022-07-11] MEDS: FUROSEMIDE 20 MG TAB PO SCH (08:40)
[2022-07-11] MEDS: CHOLECALCIFEROL 400 UNITS 10 MCG TAB PO SCH (08:41)
[2022-07-11] MEDS: MULTIVITAMIN TAB PO SCH (08:42)
[2022-07-11] MEDS: ACETAMINOPHEN 325 MG TAB PO PRN (11:48)
--- NOTE | 2022-07-11 12:20 | Hospitalist Progress Note ---
Date of Service July 11, 2022 Assessment & Plan (1) Atrial fibrillation with rapid ventricular response: Plan: - presented with HR 120s and palpitations, hypoxia - concern for SSS with tachycardia and bradycardia - s/p IV lopressor and dilt in ED with initial improvement - restarted on home medications - dilt and toprol - diltiazem increaed to 300mg total daily per Cardiology - HR very labile and can range from 60s to 100s - will follow up Cardiology recs - will consider increase metoprolol pending Cardiology evaluation - Cardiology recs appreciated - TTE reviewed and mostly unchanged from prior - no longer with pericardial effusion - telemetry monitoring - continue coumadin - holding for possible PPM by cardiology for SSS - daily INR while inpatient (2) CKD (chronic kidney disease) stage 3, GFR 30-59 ml/min: Plan: - at baseline - avoid nephrotoxic medications (3) GERD (gastroesophageal reflux disease): Plan: - continue Pepcid (4) HTN (hypertension): Plan: - continue CCB and BB Plan DVT ppx: coumadin Code Status: Full Code Dispo: telemetry Conrad Reynolds MD [facility] Medicine Admission and Anticipated Discharge Date Admission Date: July 08, 2022 Subjective Patient with pAfib on coumadin, pHTN, HTN, carotid artery stenosis, CKD, GERD, HFpEF who presented with palpitations. Found to be in Afib with RVR. Given IV dilt and lopressor with some improvement but rates back to 120s afib RVR on admission. Cardiology consulted for further recs. Hypoxia on admission, s/p 1 dose IV lasix with improvement in oxygen saturation. Pending possible PPM with Cardiology given concern for SSS. Patient seen and examined. Denied chest pain, shortness of breath, palpitations, n/v/d, abdominal pain, dysuria, leg swelling. Review of Systems Review of Systems: All systems reviewed & are unremarkable except as noted in Subjective Physical Exam Physical Exam: GENERAL: The patient is old and frail, not in acute distress. HEENT: Pupils equal, round and reactive to light. Oral mucosa moist. NECK: No JVD or neck masses. CARDIOVASCULAR: S1 and S2 heard. regular rate, irregular rhythm No murmur, no gallop. RESPIRATORY SYSTEM: Normal AP diameter. No accessory muscle use. No wheezing, no crackles. ABDOMEN: Soft, bowel sounds present, nontender, no distention. CENTRAL NERVOUS SYSTEM: Cranial nerves II through XII grossly intact, nonfocal. EXTREMITIES: no edema, chronic skin changes. Results & Data Results & Data ([facility]) Vital Signs (Past 12 Hours) Vital Signs Temp Pulse Pulse Resp BP Pulse Ox O2 Del Method 07/11/22 10:45 36.6 C 67 16 103/68 90 Room Air 07/11/22 08:24 81 07/11/22 08:04 36.7 C 81 16 117/70 91 Room Air 07/11/22 03:42 36.8 C 60 18 117/79 92 Room Air Diagnostic Findings Laboratory Results WBC 6.97 K/ul (4.8-10.8) 07/09/22 05:20 RBC 4.43 M/uL (3.93-5.22) 07/09/22 05:20 Hgb 14.1 g/dl (12.0-16.0) 07/09/22 05:20 Hct 41.6 % (34.1-44.9) 07/09/22 05:20 MCV 93.9 fL (80.0-100.0) 07/09/22 05:20 MCH 31.8 pg (25.0-34.0) 07/09/22 05:20 MCHC 33.9 g/dL (32.0-36.0) 07/09/22 05:20 RDW Std Deviation 55.3 fL (36.4-46.3) H 07/09/22 05:20 RDW Coeff of Lonny 16.0 % (11.5-14.5) H 07/09/22 05:20 Plt Count 118 K/uL (130-400) L 07/09/22 05:20 MPV 13.8 fL (9.4-12.3) H 07/09/22 05:20 Immature Gran % (Auto) 0.3 % 07/09/22 05:20 Neut % (Auto) 78.6 % 07/09/22 05:20 Lymph % (Auto) 8.0 % 07/09/22 05:20 [place] % (Auto) 10.3 % 07/09/22 05:20 Eos % (Auto) 2.2 % 07/09/22 05:20 Baso % (Auto) 0.6 % 07/09/22 05:20 Neut # (Auto) 5.48 K/uL (1.4-6.5) 07/09/22 05:20 Lymph # (Auto) 0.56 K/uL (1.2-3.4) L 07/09/22 05:20 [place] # (Auto) 0.72 K/uL (0.24-0.82) 07/09/22 05:20 Eos # (Auto) 0.15 K/uL (0-0.50) 07/09/22 05:20 Baso # (Auto) 0.04 K/uL (0-0.2) 07/09/22 05:20 Immature Gran # (Auto) 0.02 K/uL (0.00-0.02) 07/09/22 05:20 PT 30.0 Seconds (9.0-12.0) H 07/11/22 06:51 INR 3.0 (0.9-1.1) H 07/11/22 06:51 APTT 39.0 Seconds (21.0-31.0) H 07/08/22 17:05 PTT Ratio 1.4 07/08/22 17:05 VBG pH 7.38 (7.36-7.41) 07/08/22 18:00 VBG pCO2 33 mmHg (38-50) L 07/08/22 18:00 VBG pO2 31 mmHg 07/08/22 18:00 VBG HCO3 20 mmol/L 07/08/22 18:00 VBG O2 Saturation < 60.0 % 07/08/22 18:00 VBG Base Excess -4.7 mEq/L 07/08/22 18:00 Sodium 139 mmol/L (136-145) 07/11/22 06:51 Potassium 4.1 mmol/L (3.5-5.1) 07/11/22 06:51 Chloride 110 mmol/L (98-107) H 07/11/22 06:51 Carbon Dioxide 21 mmol/L (21-32) 07/11/22 06:51 Anion Gap 8 (3-11) 07/11/22 06:51 BUN 39 mg/dl (6-23) H 07/11/22 06:51 Creatinine 1.21 mg/dl (0.6-1.2) H 07/11/22 06:51 Est Cr Clr Drug Dosing 28.0 ml/min 07/11/22 06:51 Est GFR ( Amer) 46.9 ml/min 07/11/22 06:51 Est GFR (Non-Af Amer) 40.5 ml/min 07/11/22 06:51 BUN/Creatinine Ratio 32.2 (10-20) H 07/11/22 06:51 Glucose 96 mg/dl (70-99(Fasting)) 07/11/22 06:51 Estimat Average Glucose 134 mg/dl 07/10/22 05:49 Hemoglobin A1c 6.3 % (4.5-5.6) H 07/10/22 05:49 Calcium 9.2 mg/dl (8.5-10.1) 07/11/22 06:51 Phosphorus 3.7 mg/dl (2.5-4.9) 07/11/22 06:51 Magnesium 1.9 mg/dl (1.7-2.4) 07/11/22 06:51 Total Bilirubin 0.8 mg/dl (0.2-1.0) 07/08/22 17:05 AST 28 U/L (13-39) 07/08/22 17:05 ALT 15 U/L (7-52) 07/08/22 17:05 Alkaline Phosphatase 209 U/L (34-104) H 07/08/22 17:05 Troponin I High Sens 49.3 pg/ml (0-14) H 07/09/22 11:01 Total Protein 7.8 gm/dl (6.0-8.3) 07/08/22 17:05 Albumin 4.2 gm/dl (3.4-5.0) 07/08/22 17:05 Globulin 3.6 gm/dl (2.5-4.0) 07/08/22 17:05 Albumin/Globulin Ratio 1.2 (0.9-2) 07/08/22 17:05 TSH 2.009 uIu/ml (0.300-4.500) 07/08/22 17:05 Urine Color Yellow 07/08/22 21:45 Urine Appearance Clear (Clear) 07/08/22 21:45 Urine pH 5.0 (4.5-7.5) 07/08/22 21:45 Ur Specific [place] 1.014 (1.000-1.030) 07/08/22 21:45 Urine Protein 1+ (Negative) H 07/08/22 21:45 Urine Glucose (UA) Negative (Negative) 07/08/22 21:45 Urine Ketones Negative (Negative) 07/08/22 21:45 Urine Blood Negative (Negative) 07/08/22 21:45 Urine Nitrite Negative (Negative) 07/08/22 21:45 Urine Bilirubin Negative (Negative) 07/08/22 21:45 Urine Urobilinogen Negative (Negative) 07/08/22 21:45 Ur Leukocyte Esterase Negative (Negative) 07/08/22 21:45 Urine WBC (Auto) 1-5 /hpf (0-5) 07/08/22 21:45 Urine RBC (Auto) 0-4 /hpf (0-4) 07/08/22 21:45 U Hyaline Cast (Auto) 1-5 /lpf (0-5) 07/08/22 21:45 U Epithel Cells (Auto) >30 /lpf (0-5) H 07/08/22 21:45 Urine Bacteria (Auto) Negative (Negative) 07/08/22 21:45 SARS-CoV-2 (PCR) NEGATIVE (Negative) 07/08/22 17:46 Influenza Type A (PCR) Negative (Neg) 07/08/22 17:46 Influenza Type B (PCR) Negative (Neg) 07/08/22 17:46 RSV (RT-PCR) Negative (Neg) 07/08/22 17:46 Impressions Chest X-Ray 07/08/22 17:00 XR chest 1V portable CLINICAL HISTORY: weakness TECHNIQUE: Single frontal radiograph of the chest was obtained. Comparison: Comparison is made to chest radiograph 05/03/2022 FINDINGS: No lines and tubes are seen. Cardiomegaly is noted. The lungs are clear. Small right pleural effusion is seen. IMPRESSION: Small right pleural effusion. Stable cardiomegaly. Previously noted left eff usion is not seen on today's exam. ACT 112: Negative or not required by law. Electronically signed by: Miguel Leggett M.D. 07/08/2022 5:40 PM Medications Administered Current Inpatient Medications Acetaminophen (Acetaminophen 325 Mg Tab) 650 mg PO Q4H PRN PRN Reason: Pain or Fever Stop: 08/08/22 00:34 Last Admin: 07/11/22 11:48 Dose: 650 mg Alprazolam (Alprazolam 0.25 Mg Tablet) 0.25 mg PO TID PRN PRN Reason: Anxiety Stop: 08/08/22 00:34 Artificial Tears (Artificial Tears) 2 drops OP TID PRN PRN Reason: Dry Eye(S) Stop: 08/08/22 01:39 Calcium Carbonate (Calcium Carbonate 1250mg Tab) 1,250 mg PO DAILY ANA MARÍA Stop: 08/08/22 08:59 Last Admin: 07/11/22 08:40 Dose: 1,250 mg Diltiazem HCl (Diltiazem Hcl 180 Mg Capcr) 180 mg PO DAILY ANA MARÍA Stop: 08/08/22 08:59 Last Admin: 07/11/22 08:40 Dose: 180 mg Diltiazem HCl (Diltiazem Hcl 120 Mg Capcr) 120 mg PO QAM ANA MARÍA Stop: 08/08/22 14:14 Last Admin: 07/11/22 08:40 Dose: 120 mg Furosemide (Furosemide 20 Mg Tab) 20 mg PO DAILY ANA MARÍA Stop: 08/08/22 08:59 Last Admin: 07/11/22 08:40 Dose: 20 mg Melatonin (Melatonin 3 Mg Tab) 3 mg PO HS PRN PRN Reason: Insomnia Stop: 08/08/22 00:34 Metoprolol Succinate (Metoprolol Succ 25mg Ext Rel Tab) 25 mg PO DAILY ANA MARÍA Stop: 08/08/22 08:59 Last Admin: 07/11/22 08:40 Dose: 25 mg Metoprolol Succinate (Metoprolol Succ 25mg Ext Rel Tab) 12.5 mg PO PM ANA MARÍA Stop: 08/08/22 20:59 Last Admin: 07/10/22 19:47 Dose: 12.5 mg Metoprolol Tartrate (Metoprolol Tartrate 1 Mg/Ml Vial) 5 mg IV Q6 PRN PRN Reason: Tachycardia Stop: 08/08/22 00:34 Last Admin: 07/09/22 01:57 Dose: 5 mg Multivitamins (Multivitamin Tab) 1 tab PO DAILY ANA MARÍA Stop: 08/08/22 08:59 Last Admin: 07/11/22 08:42 Dose: 1 tab Multivitamins/Minerals (Cerovite Adv Formula Tab) 1 tab PO DAILY [facility] MARÍA Stop: 08/08/22 08:59 Last Admin: 07/11/22 08:40 Dose: 1 tab Nitroglycerin (Nitroglycerin Sl 0.4 Mg/Tab Tab) 0.4 mg SL UD PRN PRN Reason: Chest Pain Stop: 08/08/22 00:34 Polyethylene Glycol (Polyethylene (Miralax) 17 Gm Pack) 17 gm PO DAILY PRN PRN Reason: Constipation Stop: 08/09/22 10:27 Potassium Chloride (Potassium Chloride 10 Meq Tabcr) 10 meq PO DAILY [facility] Stop: 08/08/22 08:59 Last Admin: 07/11/22 08:40 Dose: 10 meq Senna/Docusate Sodium (Docusate Sodium/Senna 50/8.6mg Tab) 1 tab PO QAM [facility] Stop: 08/09/22 10:59 Last Admin: 07/11/22 08:40 Dose: 1 tab Sertraline HCl (Sertraline Hcl 50 Mg Tablet) 12.5 mg PO DAILY [facility] Stop: 08/08/22 08:59 Last Admin: 07/11/22 08:40 Dose: 12.5 mg Vitamin D (Cholecalciferol 400 Units 10 Mcg Tab) 400 units PO DAILY [facility] Stop: 08/08/22 08:59 Last Admin: 07/11/22 08:41 Dose: 400 units Warfarin Sodium (Warfarin Sod 2 Mg Tab) 2 mg PO [email or web address] [facility] Stop: 08/08/22 15:59 Last Admin: 07/09/22 16:13 Dose: 2 mg Warfarin Sodium (Warfarin Sod 1 Mg Tab) 1 mg PO [email or web address]@1600 [facility] Stop: 08/09/22 15:59 (1) CKD (chronic kidney disease) stage 3, GFR 30-59 ml/min Chronic kidney disease stage 3 subtype: unspecified whether 3a or 3b Qualified Code(s): N18.30 - Chronic kidney disease, stage 3 unspecified
--- NOTE | 2022-07-11 17:14 | Cardiology Progress Note ---
Date of Service July 11, 2022 Assessment & Plan (1) Atrial fibrillation with rapid ventricular response: (2) Hypoxia: (3) Hyponatremia: (4) Chronic anticoagulation: (5) CKD (chronic kidney disease) stage 3, GFR 30-59 ml/min: (6) HTN (hypertension): (7) Cor pulmonale (chronic): (8) Biatrial enlargement: (9) Tricuspid regurgitation: (10) Tachy-mason syndrome: (11) Atrial flutter: Plan Given the fact that she has severe biatrial enlargement I doubt that we be able to maintain sinus rhythm and her going forward. So I believe a rate control strategy would be prudent at this time. Concern for tachybradycardia syndrome at this point. Discussed the possibility of permanent pacemaker placement with the patient. Would like to monitor rates overnight on telemetry. Will make n.p.o. after midnight for permanent pacemaker placement tomorrow Hold this evening's dose of Coumadin N.p.o. after midnight Follow and replete lites as necessary. Continue to monitor on telemetry. Admission and Anticipated Discharge Date Admission Date: July 08, 2022 Subjective Patient seen and examined. Chart reviewed. Telemetry reviewed. Still with significant fluctuation in heart rates from the 50s to 120s. Review of Systems Review of Systems: All systems reviewed & are unremarkable except as noted in HPI & below Physical Exam Physical Exam: General: Awake, alert and oriented x 3. No acute distress. HEENT: Normocephalic, atraumatic. Pupils equal, round and reactive to light and accommodation. Extraocular muscles are intact. Anicteric sclera. Moist mucous membranes. Neck: No JVD. No bruit. Cardiovascular: irregularly irregular, unable to appreciate murmur, rub or gallop. Pulmonary: Clear to auscultation bilaterally. No rales, rhonchi, or wheezing. Abdomen: Bowel sounds x 4, soft. No rebound, guarding or tenderness. No organomegaly. Extremities: No clubbing, cyanosis or edema. +2 pedal pulses bilaterally. Skin: Warm and dry. Results & Data ([facility]) Vital Signs (Past 12 Hours) Vital Signs Temp Pulse Pulse Resp BP Pulse Ox O2 Del Method 07/11/22 16:00 36.4 C L 77 16 103/66 90 Room Air 07/11/22 10:45 36.6 C 67 16 103/68 90 Room Air 07/11/22 08:24 81 07/11/22 08:04 36.7 C 81 16 117/70 91 Room Air (1) CKD (chronic kidney disease) stage 3, GFR 30-59 ml/min Chronic kidney disease stage 3 subtype: unspecified whether 3a or 3b Qualified Code(s): N18.30 - Chronic kidney disease, stage 3 unspecified
[2022-07-12 05:20] LABS: Hematocrit (blood only) 40.4 % (34.1-44.9); Hemoglobin 13.7 g/dl (12.0-16.0); Mean Corpuscular Hemoglobin 31.9 pg (25.0-34.0); Mean Corpuscular Hgb Conc 33.9 g/dL (32.0-36.0); Mean Corpuscular Volume 94.2 fL (80.0-100.0); RDW Coefficient of Variation 16.3 % (11.5-14.5); RDW Standard Deviation 55.8 fL (36.4-46.3); Red Blood Count 4.29 M/uL (3.93-5.22); White Blood Count 7.12 K/ul (4.8-10.8)
[2022-07-12] MEDS: ACETAMINOPHEN 325 MG TAB PO PRN ×3 (05:30→22:18)
[2022-07-12 05:32] LABS: INR 2.4 (0.9-1.1); Prothrombin Time 24.4 Seconds (9.0-12.0)
[2022-07-12 05:45] LABS: BUN Creatinine Ratio 32.6 (10-20); Calcium 9.3 mg/dl (8.5-10.1); Creatinine Clr Calc Pharmacy 25.5 ml/min; Est GFR (African American) 42.2 ml/min; Est GFR (Non-African American) 36.4 ml/min; Magnesium 1.9 mg/dl (1.7-2.4); Phosphorus 3.8 mg/dl (2.5-4.9); Potassium 4.5 mmol/L (3.5-5.1)
[2022-07-12 06:32] LABS: Basophils # (auto) 0.06 K/uL (0-0.2); Basophils % (auto) 0.8 %; Eosinophils # (auto) 0.16 K/uL (0-0.50); Eosinophils % (auto) 2.2 %; Immature Granulocytes # (auto) 0.02 K/uL (0.00-0.02); Immature Granulocytes % (auto) 0.3 %; Lymphocytes # (auto) 0.83 K/uL (1.2-3.4); Lymphocytes % (auto) 11.7 %; Mean Platelet Volume 13.2 fL (9.4-12.3); Monocytes # (auto) 0.84 K/uL (0.24-0.82); Monocytes % (auto) 11.8 %; Neutrophils # (auto) 5.21 K/uL (1.4-6.5); Neutrophils % (auto) 73.2 %; Platelet Count 116 K/uL (130-400)
[2022-07-12] MEDS: dilTIAZem HCL 180 MG CAPCR PO SCH (08:36)
[2022-07-12] MEDS: dilTIAZem HCL 120 MG CAPCR PO SCH (08:36)
[2022-07-12] MEDS: SERTRALINE HCL 50 MG TABLET PO SCH (08:37)
[2022-07-12] MEDS: METOPROLOL SUCC 25MG EXT REL TAB PO SCH ×2 (08:37→20:30)
--- NOTE | 2022-07-12 10:22 | Pre Anesthesia Assessment ---
Date of Service July 12, 2022 Pre Sedation Assessment Vital Signs Temp Pulse Resp BP BP Pulse Ox O2 Del Method 07/12/22 09:29 96 H 18 123/72 96 Room Air 07/12/22 07:22 36.5 C 96 H 22 122/90 90 Room Air 07/12/22 04:43 36.5 C 83 18 118/80 94 Room Air 07/11/22 23:11 36.3 C L 103 H 20 130/82 94 Room Air 07/11/22 19:39 36.4 C L 64 18 131/79 92 Room Air 07/11/22 16:00 36.4 C L 77 16 103/66 90 Room Air 07/11/22 10:45 36.6 C 67 16 103/68 90 Room Air Cardiovascular + irregularly irregular Respiratory normal respiratory effort, lungs clear to auscultation Pre-Sedation Airway Assessment Smoking Status: Never smoker Hx Sleep Apnea: No Short, Thick Neck: No Thyromental Distance: > or= 3.5 Finger Breadths Oral Cavity: + WNL Mallampati Class: III ASA: ASA3 NPO Status Date of Last Intake of Fluids: 07/12/22 Time of Last Intake of Fluids: 08:00 Date of Last Intake of Solid Food: 07/11/22 Time of Last Intake of Solid Foods: 18:00 Procedure Planning Contraindications for Sedation: none Current Medications Reviewed: Yes Notes The planned sedation has been discussed with the patient. Informed Consent was obtained. I have identified the patient, determined the appropriateness of sedation and have assessed the patient immediately prior to the procedure. All medicine(s) and interventions are by my order.
--- NOTE | 2022-07-12 10:23 | History & Physical Bridge Note ---
Date of Service July 12, 2022 History & Physical Bridge Note I have examined the patient, reviewed the History & Physical and in the interval since the performance of the History & Physical I have noted the following changes of clinical significance: pt with TBS and permanent AF recommended a single chamber pacemaker; discussed the procedure and potential risks and consents signed
[2022-07-12] MEDS ORDERED: WATER, STERILE FOR INJ 10 ML VIAL ONE (10:26)
[2022-07-12] MEDS ORDERED: BUPIVACAINE 0.25% 30 ML VIAL ONE (10:26)
[2022-07-12] MEDS ORDERED: LIDOCAINE 1% LOCAL 20 ML VIAL ONE ×2 (10:26→16:42)
[2022-07-12] MEDS ORDERED: VANCOMYCIN HCL 1000MG/20ML VIAL ONE (10:26)
[2022-07-12] MEDS ORDERED: fentaNYL citrate 100 MCG/2 ML VIAL ONE (10:33)
[2022-07-12] MEDS ORDERED: MIDAZOLAM HCL 5 MG/ML 1 ML VIAL ONE (10:33)
[2022-07-12] MEDS ORDERED: ceFAZolin 330 MG/ML 1 GM VIAL ONE (10:36)
--- NOTE | 2022-07-12 12:17 | Post Anesthesia Assessment ---
Date of Service July 12, 2022 Post Sedation Assessment Vital Signs Temp Pulse Resp BP BP Pulse Ox O2 Del Method 07/12/22 09:29 96 H 18 123/72 96 Room Air 07/12/22 07:22 36.5 C 96 H 22 122/90 90 Room Air 07/12/22 04:43 36.5 C 83 18 118/80 94 Room Air 07/11/22 23:11 36.3 C L 103 H 20 130/82 94 Room Air 07/11/22 19:39 36.4 C L 64 18 131/79 92 Room Air 07/11/22 16:00 36.4 C L 77 16 103/66 90 Room Air Recovery Score Activity: Moves 4 extremities Respiration: Deep Breath/Cough Circulation: +/-20% PreAnes Value Consciousness: Fully Awake Oxygen Saturation: > 92% On Room Air Discharge Sedation Level of Care: Fast Track Phase II Post Sedation Plan On clinical assessment, the patient appears to have tolerated the sedation without complications. Patient is recovering as anticipated. Patient will continue to be monitored by nursing and may be discharged when sedation discharge criteria are met per below protocol. Upon Completions of procedure up to 15 minutes continue every 5 minute vital signs and the P.A.R. score; then discharge to a Phase I or Fast Track to Phase II per the following guidelines: * Discharge Patient to appropriate Phase II area if PAR is 8 or greater or return to pre- procedure baseline. The post - procedure orders will be as directed. * If PAR score is less than 8 or not return to pre-procedure baseline then patient will follow Phase I monitoring till PAR is reached for Phase II. The Phase I may be done in procedure room or may call to secure a Phase I area. * If naloxone or flumazenil are used for reversal, hold in Phase I for continued monitoring from when last reversal dose was given for a minimum of 60 minutes or longer pending the nurse and/or physician discretion of patient condition before discharge to Phase II. Please call the Sedation Physician to re-evaluate and complete post-note for discharge to Phase II area. Do NOT discharge from procedure sedation or Phase 1 until post- sedation evaluation note is complete by procedure /sedation MD Sedation Discharge Instructions to be given to the patient at discharge to home.
--- NOTE | 2022-07-12 12:18 | Operative Report ---
Post Operative Report Pre & Post Diagnosis tbs Operation Date: 07/12/22 11:00 <No data on this case meets the specified criteria> I identified the patient and participated in the time-out.: Yes Procedure Operation Date: 07/12/22 11:00 Actual Procedures p Pacemaker Insertion - Mago Smith DO Surgeon Mago Smith DO Drill Press Operator Numerical Control none Estimated Blood Loss 40 Findings Consistent with Post-Op Diagnosis Specimens none Description of Procedure see official report I attest to the content of the Intraoperative Record and any orders documented therein. Any exceptions are noted below.
--- NOTE | 2022-07-12 12:25 | Hospitalist Progress Note ---
Date of Service July 12, 2022 Assessment & Plan (1) SSS (sick sinus syndrome): Plan: - patient with labile HR with tachy-mason syndrome - on diltiazem 300mg total per day and metoprolol - cardiology for PPM placement - done 07/12/2022 - will follow up - monitor overnight - likely discharge 07/13/2022 if ok per Cardiology (2) Atrial fibrillation with rapid ventricular response: Plan: - presented with HR 120s and palpitations, hypoxia - concern for SSS with tachycardia and bradycardia - s/p IV lopressor and dilt in ED with initial improvement - restarted on home medications - dilt and toprol - diltiazem increaed to 300mg total daily per Cardiology - HR very labile and can range from 60s to 100s - will follow up Cardiology recs - will consider increase metoprolol pending Cardiology evaluation - Cardiology recs appreciated - TTE reviewed and mostly unchanged from prior - no longer with pericardial effusion - telemetry monitoring - continue coumadin - daily INR while inpatient - PPM placement 10/12/2021 for SSS (3) CKD (chronic kidney disease) stage 3, GFR 30-59 ml/min: Plan: - at baseline - avoid nephrotoxic medications (4) GERD (gastroesophageal reflux disease): Plan: - continue Pepcid (5) HTN (hypertension): Plan: - continue CCB and BB Plan DVT ppx: coumadin Code Status: Full Code Dispo: telemetry Conrad Reynolds MD [facility] Medicine Admission and Anticipated Discharge Date Admission Date: July 08, 2022 Subjective Patient with pAfib on coumadin, pHTN, HTN, carotid artery stenosis, CKD, GERD, HFpEF who presented with palpitations. Found to be in Afib with RVR. Given IV dilt and lopressor with some improvement but rates back to 120s afib RVR on admission. Cardiology consulted for further recs. Hypoxia on admission, s/p 1 dose IV lasix with improvement in oxygen saturation. S/p PPM placement 07/12/2022 for SSS. Patient seen and examined. Denied chest pain, shortness of breath, palpitations, n/v/d, abdominal pain, dysuria, leg swelling. Feeling anxious for PPM procedure. Review of Systems Review of Systems: All systems reviewed & are unremarkable except as noted in Subjective Physical Exam Physical Exam: GENERAL: The patient is old and frail, not in acute distress. HEENT: Pupils equal, round and reactive to light. Oral mucosa moist. NECK: No JVD or neck masses. CARDIOVASCULAR: S1 and S2 heard. regular rate, irregular rhythm No murmur, no gallop. RESPIRATORY SYSTEM: Normal AP diameter. No accessory muscle use. No wheezing, no crackles. ABDOMEN: Soft, bowel sounds present, nontender, no distention. CENTRAL NERVOUS SYSTEM: Cranial nerves II through XII grossly intact, nonfocal. EXTREMITIES: no edema, chronic skin changes. Results & Data Results & Data ([facility]) Vital Signs (Past 12 Hours) Vital Signs Temp Pulse Resp BP BP Pulse Ox O2 Del Method 07/12/22 09:29 96 H 18 123/72 96 Room Air 07/12/22 07:22 36.5 C 96 H 22 122/90 90 Room Air 07/12/22 04:43 36.5 C 83 18 118/80 94 Room Air Diagnostic Findings Laboratory Results WBC 7.12 K/ul (4.8-10.8) 07/12/22 05:03 RBC 4.29 M/uL (3.93-5.22) 07/12/22 05:03 Hgb 13.7 g/dl (12.0-16.0) 07/12/22 05:03 Hct 40.4 % (34.1-44.9) 07/12/22 05:03 MCV 94.2 fL (80.0-100.0) 07/12/22 05:03 MCH 31.9 pg (25.0-34.0) 07/12/22 05:03 MCHC 33.9 g/dL (32.0-36.0) 07/12/22 05:03 RDW Std Deviation 55.8 fL (36.4-46.3) H 07/12/22 05:03 RDW Coeff of Lonny 16.3 % (11.5-14.5) H 07/12/22 05:03 Plt Count 116 K/uL (130-400) L 07/12/22 05:03 MPV 13.2 fL (9.4-12.3) H 07/12/22 05:03 Immature Gran % (Auto) 0.3 % 07/12/22 05:03 Neut % (Auto) 73.2 % 07/12/22 05:03 Lymph % (Auto) 11.7 % 07/12/22 05:03 Curry % (Auto) 11.8 % 07/12/22 05:03 Eos % (Auto) 2.2 % 07/12/22 05:03 Baso % (Auto) 0.8 % 07/12/22 05:03 Neut # (Auto) 5.21 K/uL (1.4-6.5) 07/12/22 05:03 Lymph # (Auto) 0.83 K/uL (1.2-3.4) L 07/12/22 05:03 Curry # (Auto) 0.84 K/uL (0.24-0.82) H 07/12/22 05:03 Eos # (Auto) 0.16 K/uL (0-0.50) 07/12/22 05:03 Baso # (Auto) 0.06 K/uL (0-0.2) 07/12/22 05:03 Immature Gran # (Auto) 0.02 K/uL (0.00-0.02) 07/12/22 05:03 PT 24.4 Seconds (9.0-12.0) H 07/12/22 05:03 INR 2.4 (0.9-1.1) H 07/12/22 05:03 APTT 39.0 Seconds (21.0-31.0) H 07/08/22 17:05 PTT Ratio 1.4 07/08/22 17:05 VBG pH 7.38 (7.36-7.41) 07/08/22 18:00 VBG pCO2 33 mmHg (38-50) L 07/08/22 18:00 VBG pO2 31 mmHg 07/08/22 18:00 VBG HCO3 20 mmol/L 07/08/22 18:00 VBG O2 Saturation < 60.0 % 07/08/22 18:00 VBG Base Excess -4.7 mEq/L 07/08/22 18:00 Sodium 138 mmol/L (136-145) 07/12/22 05:03 Potassium 4.5 mmol/L (3.5-5.1) 07/12/22 05:03 Chloride 109 mmol/L (98-107) H 07/12/22 05:03 Carbon Dioxide 21 mmol/L (21-32) 07/12/22 05:03 Anion Gap 8 (3-11) 07/12/22 05:03 BUN 43 mg/dl (6-23) H 07/12/22 05:03 Creatinine 1.32 mg/dl (0.6-1.2) H 07/12/22 05:03 Est Cr Clr Drug Dosing 25.5 ml/min 07/12/22 05:03 Est GFR ( Amer) 42.2 ml/min 07/12/22 05:03 Est GFR (Non-Af Amer) 36.4 ml/min 07/12/22 05:03 BUN/Creatinine Ratio 32.6 (10-20) H 07/12/22 05:03 Glucose 105 mg/dl (70-99(Fasting)) H 07/12/22 05:03 Estimat Average Glucose 134 mg/dl 07/10/22 05:49 Hemoglobin A1c 6.3 % (4.5-5.6) H 07/10/22 05:49 Calcium 9.3 mg/dl (8.5-10.1) 07/12/22 05:03 Phosphorus 3.8 mg/dl (2.5-4.9) 07/12/22 05:03 Magnesium 1.9 mg/dl (1.7-2.4) 07/12/22 05:03 Total Bilirubin 0.8 mg/dl (0.2-1.0) 07/08/22 17:05 AST 28 U/L (13-39) 07/08/22 17:05 ALT 15 U/L (7-52) 07/08/22 17:05 Alkaline Phosphatase 209 U/L (34-104) H 07/08/22 17:05 Troponin I High Sens 49.3 pg/ml (0-14) H 07/09/22 11:01 Total Protein 7.8 gm/dl (6.0-8.3) 07/08/22 17:05 Albumin 4.2 gm/dl (3.4-5.0) 07/08/22 17:05 Globulin 3.6 gm/dl (2.5-4.0) 07/08/22 17:05 Albumin/Globulin Ratio 1.2 (0.9-2) 07/08/22 17:05 TSH 2.009 uIu/ml (0.300-4.500) 07/08/22 17:05 Urine Color Yellow 07/08/22 21:45 Urine Appearance Clear (Clear) 07/08/22 21:45 Urine pH 5.0 (4.5-7.5) 07/08/22 21:45 Ur Specific [place] 1.014 (1.000-1.030) 07/08/22 21:45 Urine Protein 1+ (Negative) H 07/08/22 21:45 Urine Glucose (UA) Negative (Negative) 07/08/22 21:45 Urine Ketones Negative (Negative) 07/08/22 21:45 Urine Blood Negative (Negative) 07/08/22 21:45 Urine Nitrite Negative (Negative) 07/08/22 21:45 Urine Bilirubin Negative (Negative) 07/08/22 21:45 Urine Urobilinogen Negative (Negative) 07/08/22 21:45 Ur Leukocyte Esterase Negative (Negative) 07/08/22 21:45 Urine WBC (Auto) 1-5 /hpf (0-5) 07/08/22 21:45 Urine RBC (Auto) 0-4 /hpf (0-4) 07/08/22 21:45 U Hyaline Cast (Auto) 1-5 /lpf (0-5) 07/08/22 21:45 U Epithel Cells (Auto) >30 /lpf (0-5) H 07/08/22 21:45 Urine Bacteria (Auto) Negative (Negative) 07/08/22 21:45 SARS-CoV-2 (PCR) NEGATIVE (Negative) 07/08/22 17:46 Influenza Type A (PCR) Negative (Neg) 07/08/22 17:46 Influenza Type B (PCR) Negative (Neg) 07/08/22 17:46 RSV (RT-PCR) Negative (Neg) 07/08/22 17:46 Impressions Chest X-Ray 07/08/22 17:00 XR chest 1V portable CLINICAL HISTORY: weakness TECHNIQUE: Single frontal radiograph of the chest was obtained. Comparison: Comparison is made to chest radiograph 05/03/2022 FINDINGS: No lines and tubes are seen. Cardiomegaly is noted. The lungs are clear. Small right pleural effusion is seen. IMPRESSION: Small right pleural effusion. Stable cardiomegaly. Previously noted left effusion is not seen on today's exam. ACT 112: Negative or not required by law. Electronically signed by: Miguel Leggett M.D. 07/08/2022 5:40 PM Medications Administered Current Inpatient Medications Acetaminophen (Acetaminophen 325 Mg Tab) 650 mg PO Q4H PRN PRN Reason: Pain or Fever Stop: 08/08/22 00:34 Last Admin: 07/12/22 05:30 Dose: 650 mg Alprazolam (Alprazolam 0.25 Mg Tablet) 0.25 mg PO TID PRN PRN Reason: Anxiety Stop: 08/08/22 00:34 Artificial Tears (Artificial Tears) 2 drops OP TID PRN PRN Reason: Dry Eye(S) Stop: 08/08/22 01:39 Calcium Carbonate (Calcium Carbonate 1250mg Tab) 1,250 mg PO DAILY [facility] Stop: 08/08/22 08:59 Last Admin: 07/11/22 08:40 Dose: 1,250 mg Diltiazem HCl (Diltiazem Hcl 180 Mg Capcr) 180 mg PO DAILY [facility] Stop: 08/08/22 08:59 Last Admin: 07/12/22 08:36 Dose: 180 mg Diltiazem HCl (Diltiazem Hcl 120 Mg Capcr) 120 mg PO QAM [facility] Stop: 08/08/22 14:14 Last Admin: 07/12/22 08:36 Dose: 120 mg Furosemide (Furosemide 20 Mg Tab) 20 mg PO DAILY [facility] Stop: 08/08/22 08:59 Last Admin: 07/11/22 08:40 Dose: 20 mg Melatonin (Melatonin 3 Mg Tab) 3 mg PO HS PRN PRN Reason: Insomnia Stop: 08/08/22 00:34 Metoprolol Succinate (Metoprolol Succ 25mg Ext Rel Tab) 25 mg PO DAILY [facility] Stop: 08/08/22 08:59 Last Admin: 07/12/22 08:37 Dose: 25 mg Metoprolol Succinate (Metoprolol Succ 25mg Ext Rel Tab) 12.5 mg PO PM [facility] Stop: 08/08/22 20:59 Last Admin: 07/11/22 19:37 Dose: 12.5 mg Metoprolol Tartrate (Metoprolol Tartrate 1 Mg/Ml Vial) 5 mg IV Q6 PRN PRN Reason: Tachycardia Stop: 08/08/22 00:34 Last Admin: 07/09/22 01:57 Dose: 5 mg Multivitamins (Multivitamin Tab) 1 tab PO DAILY [facility] Stop: 08/08/22 08:59 Last Admin: 07/11/22 08:42 Dose: 1 tab Nitroglycerin (Nitroglycerin Sl 0.4 Mg/Tab Tab) 0.4 mg SL UD PRN PRN Reason: Chest Pain Stop: 08/08/22 00:34 Polyethylene Glycol (Polyethylene (Miralax) 17 Gm Pack) 17 gm PO DAILY PRN PRN Reason: Constipation Stop: 08/09/22 10:27 Potassium Chloride (Potassium Chloride 10 Meq Tabcr) 10 meq PO DAILY [facility] Stop: 08/08/22 08:59 Last Admin: 07/11/22 08:40 Dose: 10 meq Senna/Docusate Sodium (Docusate Sodium/Senna 50/8.6mg Tab) 1 tab PO QAM [facility] Stop: 08/09/22 10:59 Last Admin: 07/11/22 08:40 Dose: 1 tab Sertraline HCl (Sertraline Hcl 50 Mg Tablet) 12.5 mg PO DAILY [facility] Stop: 08/08/22 08:59 Last Admin: 07/12/22 08:37 Dose: 12.5 mg Vitamin D (Cholecalciferol 400 Units 10 Mcg Tab) 400 units PO DAILY [facility] Stop: 08/08/22 08:59 Last Admin: 07/11/22 08:41 Dose: 400 units Warfarin Sodium (Warfarin Sod 2 Mg Tab) 2 mg PO TuThSa@1600 [facility] Stop: 08/08/22 15:59 Last Admin: 07/09/22 16:13 Dose: 2 mg Warfarin Sodium (Warfarin Sod 1 Mg Tab) 1 mg PO [id number]@1600 [facility] Stop: 08/09/22 15:59 (1) CKD (chronic kidney disease) stage 3, GFR 30-59 ml/min Chronic kidney disease stage 3 subtype: unspecified whether 3a or 3b Qualified Code(s): N18.30 - Chronic kidney disease, stage 3 unspecified
[2022-07-12] MEDS ORDERED: Nursing to Pharmacy Communication SCH (12:30)
--- NOTE | 2022-07-12 12:59 | XRay Report ---
XR chest 1V portable CLINICAL HISTORY: s/p ppm COMPARISON STUDY: Chest CT May 03, 2022. Chest radiograph July 08, 2022. FINDINGS: There is no pneumothorax following placement of a left subclavian pacer. Marked cardiomegal y is noted. Small right and trace bilateral effusions are unchanged. Bibasilar opacities, greater on the right, are unchanged. There is no evidence for overt pulmonary edema. Chronic deformity of the pr oximal left humerus. IMPRESSION: 1. No pneumothorax placement of a left subclavian pacer. 2. Marked cardiomegaly. 3. Small right and trace left pleural effusions with bibasilar opacities, unchanged. ACT 112: Negative or not required by law. Electronically signed by: Jarod Kaye M.D. 07/12/2022 12:58 PM
--- NOTE | 2022-07-12 14:17 | Cardiology Progress Note ---
Date of Service July 12, 2022 Assessment & Plan (1) Atrial fibrillation with rapid ventricular response: (2) Hypoxia: (3) Hyponatremia: (4) Chronic anticoagulation: (5) CKD (chronic kidney disease) stage 3, GFR 30-59 ml/min: (6) HTN (hypertension): (7) Cor pulmonale (chronic): (8) Biatrial enlargement: (9) Tricuspid regurgitation: (10) Tachy-mason syndrome: (11) Atrial flutter: Plan Given the fact that she has severe biatrial enlargement I doubt that we be able to maintain sinus rhythm and her going forward. So I believe a rate control strategy would be prudent at this time. s/p successful PPM placement no pneumo on cxr will interrogate device in AM hold 07/12 coumadin dose and likely restart on 07/13 now that pacer is in place, may increase metoprolol dose for any further heart rates cont current meds Admission and Anticipated Discharge Date Admission Date: July 08, 2022 Subjective Pt seen and examined. Chart reviewed. Telemetry and chest xray reviewed. Review of Systems Review of Systems: All systems reviewed & are unremarkable except as noted in HPI & below Physical Exam Physical Exam: General: Awake, alert and oriented x 3. No acute distress. HEENT: Normocephalic, atraumatic. Pupils equal, round and reactive to light and accommodation. Extraocular muscles are intact. Anicteric sclera. Moist mucous membranes. Neck: No JVD. No bruit. Cardiovascular: irregularly irregular, unable to appreciate murmur, rub or gallop. Pulmonary: Clear to auscultation bilaterally. No rales, rhonchi, or wheezing. Abdomen: Bowel sounds x 4, soft. No rebound, guarding or tenderness. No organomegaly. Extremities: No clubbing, cyanosis or edema. +2 pedal pulses bilaterally. Skin: Warm and dry. Results & Data ([facility]) Vital Signs (Past 12 Hours) Vital Signs Temp Pulse Pulse Resp BP BP Pulse Ox 07/12/22 13:20 36.5 C 60 20 120/75 120/75 96 07/12/22 12:45 60 20 133/69 94 07/12/22 12:30 64 18 119/83 92 07/12/22 09:29 96 H 18 123/72 96 07/12/22 07:22 36.5 C 96 H 22 122/90 90 07/12/22 04:43 36.5 C 83 18 118/80 94 O2 Del Method O2 Flow Rate 07/12/22 13:20 Nasal Cannula 2 07/12/22 12:45 Nasal Cannula 2 07/12/22 12:30 Nasal Cannula 2 07/12/22 09:29 Room Air 07/12/22 07:22 Room Air 07/12/22 04:43 Room Air (1) CKD (chronic kidney disease) stage 3, GFR 30-59 ml/min Chronic kidney disease stage 3 subtype: unspecified whether 3a or 3b Qualified Code(s): N18.30 - Chronic kidney disease, stage 3 unspecified
[2022-07-12] MEDS: FUROSEMIDE 20 MG TAB PO SCH (15:40)
[2022-07-12] MEDS: DOCUSATE SODIUM/SENNA 50/8.6MG TAB PO SCH (15:43)
[2022-07-12] MEDS: CHOLECALCIFEROL 400 UNITS 10 MCG TAB PO SCH (15:43)
[2022-07-12] MEDS: CALCIUM CARBONATE 1250MG TAB PO SCH (15:43)
[2022-07-12] MEDS: MULTIVITAMIN TAB PO SCH (15:43)
[2022-07-12] MEDS: POTASSIUM CHLORIDE 10 MEQ TABCR PO SCH (15:43)
[2022-07-12] MEDS: CEROVITE ADV FORMULA TAB PO SCH (15:47)
--- NOTE | 2022-07-12 16:23 | Electrocardiogram Report ---
Test Reason : Blood Pressure : / mmHG Vent. Rate : 089 BPM Atrial Rate : 129 BPM P-R Int : 000 ms QRS Dur : 094 ms QT Int : 332 ms P-R-T Axes : 167 086 196 degrees QTc Int : 403 ms Poor data quality, interpretation may be adversely affected Atrial flutter low voltage Nonspecific ST and T wave abnormality Abnormal ECG When compared with ECG of 10-JUL-2022 06:25, QT has shortened Confirmed by Srinivas Sears ([id number]) on 07/12/2022 4:23:14 PM Referred By: REFERRED SELF Confirmed By:Josue Sears
[2022-07-12] MEDS ORDERED: LIDOCAINE 1% LOCAL 20 ML VIAL INJ STA (16:39)
[2022-07-12] MEDS ORDERED: MoRPHine SULFATE 2 MG/ML CARP IV STA ×2 (16:54→17:45)
[2022-07-12] MEDS ORDERED: MoRPHine SULFATE 2 MG/ML CARP ONE (16:56)
--- NOTE | 2022-07-12 17:06 | XRay Report ---
XR chest 1V portable CLINICAL HISTORY: shortness of breath COMPARISON STUDY: Chest radiograph July 12, 2022 at 12:47 PM. FINDINGS: There has been interval development of a large left pneumothorax. There is partial left osei g collapse. No right pneumothorax is present. Left subclavian pacer is in place. Small right and trac e left pleural effusions are noted. Persistent right basilar opacity is noted. There is marked cardio megaly. There is pulmonary vascular congestion within the right lung. Old proximal left humeral defor mity is noted. IMPRESSION: 1. Interval development of a large left pneumothorax. Findings conveyed to Dr. Terrell at time of dict ation. 2. Cardiomegaly. Pleural vascular congestion within the right lung. 3. Small right and trace left pleural effusions. ACT 112: Negative or not required by law. Electronically signed by: Jarod Kaye M.D. 07/12/2022 5:05 PM
--- NOTE | 2022-07-12 17:11 | XRay Report ---
XR chest 1V portable HISTORY: 87 years-old Female s/p chest tube left acute left-sided pneumothorax COMPARISON: Chest radiograph of same day at 4:24 PM TECHNIQUE: AP view of the chest FINDINGS: Cardiac silhouette is enlarged. Left subclavian pacer. Status post placement of a left-sided chest tu be with distal tip overlying the left lung apex. There is reexpansion of the left lung. Residual pneu mothorax is not definitively seen. Interstitial coarsening with bibasilar densities redemonstrated. C hronic proximal left humeral deformity. IMPRESSION: Status post placement of a left-sided chest tube with distal tip overlying the left lung apex. There is reexpansion of the left lung without definite residual pneumothorax identified. ACT 112: Negative or not required by law. The above report was generated using voice recognition software. It may contain grammatical, syntax o r spelling errors. Electronically signed by: Jovani Chin M.D. 07/12/2022 5:09 PM
--- NOTE | 2022-07-12 17:18 | Procedure Note ---
Procedure Note Date of Service July 12, 2022 Note Procedure: Pigtail chest tube insertion Research Worker Kitchen: Dr. Aruna Padron Indication: Left-sided tension pneumothorax Consent: Signed by patient and verified with timeout prior to procedure Anesthesia: 1% lidocaine without epinephrine local Procedure: Emergent consent was applied given patient's saturation going into the 70s. Patient was placed in a seated position. Appropriate site above the diaphragm on the left midaxillary line fourth intercostal space for chest tube insertion was selected. The skin was prepped and draped in normal sterile fashion. Lidocaine was used for local analgesia. Air was aspirated via the finder needle. A small skin imelda was made with the scalpel and the catheter over the needle apparatus was advanced over the rib into the pleural space. With the help of guidewire and Seldinger technique, 14 [place] pigtail catheter was inserted and connected to Pleur-evac. Initial air leak was appreciated with each breath. After putting to suction, it resolved in less than 20 seconds. Chest x-ray to follow The patient tolerated the procedure without obvious complication Complications: None Blood loss: Less than 2 cc. Coding CPT Codes Pulmonary/Thoracic - Pulmonary and Thoracic: 61288 Tube thoracostomy ([id number]) [facility] [place] Procedure Codes (Charges) Pulmonary/Thoracic Procedure 1: Pulmonary and Thoracic: 54081 Tube thoracostomy
--- NOTE | 2022-07-12 17:37 | Pulmonary Consultation ---
Date of Consultation July 12, 2022 Assessment & Plan (1) Iatrogenic pneumothorax: (2) Tension pneumothorax: (3) Acute respiratory failure with hypoxia: (4) Pulmonary hypertension: (5) Cor pulmonale (chronic): Plan --Pneumothorax Likely secondary to placement of left-sided PPM S/p emergent chest tube placement 07/12/2022 Continue with chest tube to suction -20 -- Acute respiratory failure with hypoxia Continue with O2 supplementation to keep O2 saturation between 90-92% --Pulmonary hypertension Type II Management as per cardiology Plan: Pain medication for the pain around the chest tube Continue with chest tube to suction -20 continuous Chest x-ray in the morning Please note the above document was generated using voice recognition software. It may contain grammatical, syntax or spelling errors.Any formal questions or concerns about the content, text or information contained within the body of this dictation should be directly addressed to the provider for clarification. History of Present Illness Attending Physician: Conrad Reynolds MD History of Present Illness 87-year-old female was admitted to the hospital for A. fib with RVR Past medical history: A. fib on Coumadin, moderate to severe pulmonary hypertension, hypertension, coronary artery disease, CKD, GERD, diastolic CHF During the course of the hospitalization patient was deemed to have tachybradycardia syndrome. Patient underwent permanent pacemaker placement to day. Postprocedure patient was found to have pneumothorax which is developing into tension and saturation was going into the 70s. I was urgently called for chest tube placement At the time of examination patient had gotten morphine. She was on nonrebreather Saturation ranging between 72-78%. She was not able to answer too many questions as she was drowsy. Did complain of chest pressure but no chest pain. No headache. She was following simple commands Allergies Allergy/AdvReac Type Severity Reaction Status Date / Time Sulfa (Sulfonamide AdvReac Mild nausea Verified 05/03/22 19:40 Antibiotics) Home Medications Medication Instructions Recorded Confirmed Type acetaminophen 500 mg tablet 500 - 1,000 mg PO Q6H PRN Pain 02/10/22 05/03/22 History alprazolam 0.25 mg tablet 0.125 - 0.25 mg PO TID PRN Anxiety 02/10/22 05/03/22 History aspirin 81 mg tablet,delayed 81 mg PO .ON HOLD 02/10/22 05/03/22 History release dextran 70-hypromellose 0.1 %-0.3 2 drp ophthalmic (eye) TID PRN Dry 02/10/22 05/03/22 History % eye drops (Artificial Tears Eye(S) (dextran 70-hypromellose)) metoprolol succinate 25 mg 12.5 mg PO PM 02/10/22 05/03/22 History tablet,extended release 24 hr metoprolol succinate 25 mg 25 mg PO DAILY 02/10/22 05/03/22 History tablet,extended release 24 hr multivitamin 1 tab PO DAILY 02/10/22 05/03/22 History warfarin 2 mg tablet 2 mg PO DIRECTED 02/10/22 05/03/22 History cholecalciferol (vitamin D3) 10 10 mcg PO DAILY 05/03/22 05/03/22 History mcg (400 unit) tablet (Vitamin D3) famotidine 10 mg tablet 10 mg PO DAILY 05/03/22 05/03/22 History furosemide 20 mg tablet 20 mg PO DAILY #30 tabs 05/13/22 05/03/22 Rx potassium chloride 10 mEq 10 meq PO DAILY #14 caps 05/13/22 Rx capsule,extended release calcium carbonate 500 mg capsule 500 mg PO DAILY 07/08/22 07/08/22 History diltiazem HCl 180 mg 180 mg PO DAILY 07/08/22 07/08/22 History capsule,extended release 24 hr melatonin 1 mg tablet 2 mg PO HS PRN Insomnia 07/08/22 07/08/22 History sertraline 25 mg tablet 12.5 mg PO DAILY 07/08/22 07/08/22 History vit C 226 mg-vit E 90 mg-copper 1 cap PO BID 07/08/22 07/08/22 History 0.8 mg-zinc oxide-lutein 5 mg capsule (PreserVision Lutein) Patient History Medical History Atrial fibrillation Carotid artery stenosis, asymptomatic Chest pain Chronic anticoagulation CKD (chronic kidney disease) stage 3, GFR 30-59 ml/min Elevated troponin GERD (gastroesophageal reflux disease) HTN (hypertension) Macular degeneration Pericardial effusion Surgical History History of appendectomy History of colonoscopy History of cystoscopy History of total hysterectomy Family History Son Colorectal cancer Father Heart disease Silicosis Mother Hypertension Stroke Social History Smoking Status: Never smoker Second Hand Exposure: No; Hx Alcohol Use: No Hx Substance Use: No Preferred Language: Romanian Communication Ability: Effective Media Services Director Required: No Beliefs That Will Affect Care: None marital status: / Current Living Situation: Alone Current Living Situation Comment: house, 1 floor How many Children do You have: 5 Other Information That Helps Us Care for You: No Feels Safe at Home: Yes Safety Concerns: Feels Safe At This Time Assistive Devices: None Review of Systems Review of Systems: All systems reviewed & are unremarkable except as noted in HPI & below Physical Exam Physical Exam: Constitutional: No acute distress, frail-appearing HEENT: EOMI, PERRLA, arcus senilis bilaterally Respiratory system: Decreased air entry on the left side, no wheeze, rhonchi, positive crackles bilateral lower lobes CVS: S1-S2 positive, positive left-sided PPM Abdomen: Soft, nontender, nondistended, positive bowel sounds x4 Extremities: +2 pulses bilaterally radialis/ dorsalis pedis, no cyanosis, +1 pitting edema bilateral lower extremity Neuro: Awake alert oriented x3 Psych: Normal mood and affect G/U: Positive Sam Skin: no rashes, warm and dry Lymphatic: no cervical or axillary lymphadenopathy Results & Data Results & Data ([facility]) Vital Signs (Past 12 Hours) Vital Signs Temp Pulse Pulse Resp BP BP Pulse Ox 07/12/22 16:00 36.3 C L 83 30 H 120/71 86 L 07/12/22 13:20 36.5 C 60 20 120/75 120/75 96 07/12/22 12:45 60 20 133/69 94 07/12/22 12:30 64 18 119/83 92 07/12/22 09:29 96 H 18 123/72 96 07/12/22 07:22 36.5 C 96 H 22 122/90 90 O2 Del Method O2 Flow Rate 07/12/22 16:00 Oxymask 5.0 07/12/22 13:20 Nasal Cannula 2 07/12/22 12:45 Nasal Cannula 2 07/12/22 12:30 Nasal Cannula 2 07/12/22 09:29 Room Air 07/12/22 07:22 Room Air Laboratory Results 07/12/22 05:03 07/12/22 05:03 PG Care Time/CCT Total # of Minutes Spent Total Time Spent with Patient: Total time spent is greater than 50% in coordination of care (as documented) at patient's floor/unit and/or counseling patient: Coding Level of Care Code 06199 Initial Inpt Care Lvl 3 Diagnoses Iatrogenic pneumothorax J95.811 Tension pneumothorax J93.0 Acute respiratory failure with hypoxia J96.01 Pulmonary hypertension I27.20 Cor pulmonale (chronic) I27.81
--- NOTE | 2022-07-12 17:51 | Communication Note ---
Date of Service: July 12, 2022 Called by nurse about patient in respiratory distress. At bedside, patient on nonrebreather mask with sats in 70s. CXR done and found to have large left sided pneumothorax. BP stable in 120s/70s, HR 110s, satting 70s on 15L NRB. Called Dr. Padron in ICU who came to bedside. Chest tube placed and set to suction with improvement in respiratory distress and saturations in the mid 90s. CXR after chest tube placement demonstrated good chest tube placement with no residual pneumothorax noted. Family and patient updated.
[2022-07-12] MEDS: MoRPHine SULFATE 2 MG/ML CARP IV PRN (20:30)
[2022-07-12] MEDS: HYDROmorphone INJ 0.5 MG/0.5 ML SYR IV PRN (23:30)
[2022-07-13 06:17] LABS: INR 2.4 (0.9-1.1); Prothrombin Time 24.3 Seconds (9.0-12.0)
[2022-07-13 06:38] LABS: Albumin Globulin Ratio 1.6 (0.9-2); Albumin Level 3.7 gm/dl (3.4-5.0); BUN Creatinine Ratio 31.7 (10-20); Bilirubin,Total 0.8 mg/dl (0.2-1.0); Calcium 9.1 mg/dl (8.5-10.1); Creatinine Clr Calc Pharmacy 27.2 ml/min; Est GFR (Non-African American) 39.7 ml/min; Globulin 2.3 gm/dl (2.5-4.0); Magnesium 1.9 mg/dl (1.7-2.4); Phosphorus 5.3 mg/dl (2.5-4.9); Potassium 4.4 mmol/L (3.5-5.1)
--- NOTE | 2022-07-13 07:28 | Ultrasound Report ---
ULTRASOUND RIGHT UPPER QUADRANT ABDOMEN CLINICAL HISTORY: Cirrhosis. COMPARISON STUDY: Abdominal CT dated 05/03/2022. TECHNIQUE: Real-time, grayscale, and color flow sonography of the right upper quadrant of the abdomen was performed. Images are reviewed in the transverse and longitudinal planes. FINDINGS: Liver: The liver is cirrhotic in morphology and heterogeneous in echotexture. There is nodularity of the hepatic surface contour. There is no intrahepatic biliary ductal dilatation. The main portal vein is patent with bidirectional flow. The IVC and hepatic veins are dilated suggesting cardiac dysfunct ion. Gallbladder: The gallbladder is distended and contains sludge. No shadowing gallstones are identified . There is nonspecific gallbladder wall thickening which measures up to 3 mm. There is trace perichol ecystic ascites. A sonographic Wagner's sign is reportedly absent. The common bile duct measures up t o 0.6 cm in diameter. Pancreas: Visualized portions of the pancreatic head and body are normal in appearance. The splenic v ein is patent. Right kidney: Survey images of the right kidney demonstrate cortical atrophy. Echotexture there is no rmal. There is no hydronephrosis. Right renal cysts measure up to 1.1 cm. Ascites: There is a small volume of perihepatic ascites. Pleural spaces: A right pleural effusion is noted. IMPRESSION: 1. The liver is cirrhotic in morphology and heterogeneous in echotexture. 2. The gallbladder is distended and contains minimal sludge. Mild gallbladder wall thickening is nons pecific and likely related to adjacent hepatocellular disease. No shadowing gallstones are identified and there is no definitive sonographic evidence of acute cholecystitis. 3. Dilatation of the IVC and hepatic veins suggests cardiac dysfunction. 4. The main portal vein is patent with bidirectional flow. 5. Right pleural effusion. 6. Small volume abdominal ascites ACT 112: Negative or not required by law. Electronically signed by: Serjio Henning M.D. 07/13/2022 7:26 AM
--- NOTE | 2022-07-13 08:00 | Pulmonology Progress Note ---
Date of Service July 13, 2022 Assessment & Plan (1) Iatrogenic pneumothorax: (2) Tension pneumothorax: (3) Acute respiratory failure with hypoxia: (4) Pulmonary hypertension: (5) Cor pulmonale (chronic): Plan --Pneumothorax Likely secondary to placement of left-sided PPM S/p emergent chest tube placement 07/12/2022 -- Acute respiratory failure with hypoxia Continue with O2 supplementation to keep O2 saturation between 90-92% --Pulmonary hypertension Type II Management as per cardiology Plan: Chest x-ray from today does not show any clear signs of pneumonia I will change the chest tube to waterseal, will repeat chest x-ray tomorrow in the morning Case was discussed with RN Please note the above document was generated using voice recognition software. It may contain grammatical, syntax or spelling errors.Any formal questions or concerns about the content, text or information contained within the body of this dictation should be directly addressed to the provider for clarification. Admission and Anticipated Discharge Date Admission Date: July 08, 2022 Subjective Patient seen and examined at bedside. No acute distress, no adverse events overnight Does complain of discomfort at the site of the chest tube. Denies any issues with shortness of breath Does get a little bit discomfort when she takes deep breath and on the left side. No nausea vomiting Fair appetite No headache or blurry vision. Review of Systems Review of Systems: All systems reviewed & are unremarkable except as noted in Subjective Physical Exam Physical Exam: Constitutional: No acute distress, frail-appearing HEENT: EOMI, PERRLA, arcus senilis bilaterally Respiratory system: Decreased air entry on the left side, no wheeze, rhonchi, positive crackles bilateral lower lobes CVS: S1-S2 positive, no murmurs or gallops, positive left-sided PPM Abdomen: Soft, nontender, nondistended, positive bowel sounds x4 Extremities: +2 pulses bilaterally radialis/ dorsalis pedis, no cyanosis, +1 pitting edema right lower extremity, +2 pitting edema left lower extremity Neuro: Awake alert oriented x3 Psych: Normal mood and affect G/U: Positive Sam Skin: no rashes, warm and dry Lymphatic: no cervical or axillary lymphadenopathy Results & Data Results & Data ([facility]) Vital Signs (Past 12 Hours) Vital Signs Temp Pulse Resp BP Pulse Ox O2 Del Method O2 Flow Rate 07/13/22 03:36 36.6 C 65 18 118/67 92 Nasal Cannula 2.5 07/12/22 23:07 36.6 C 71 18 108/62 91 Nasal Cannula 2.5 07/12/22 20:14 Nasal Cannula 2 Laboratory Results 07/12/22 05:03 07/13/22 05:44 PG Care Time/CCT Total # of Minutes Spent Total Time Spent with Patient: Total time spent is greater than 50% in coordination of care (as documented) at patient's floor/unit and/or counseling patient: Coding Level of Care Code 37617 Subseq Hosp Care Lvl 2 Diagnoses Iatrogenic pneumothorax J95.811 Tension pneumothorax J93.0 Acute respiratory failure with hypoxia J96.01 Pulmonary hypertension I27.20 Cor pulmonale (chronic) I27.81
--- NOTE | 2022-07-13 08:02 | XRay Report ---
XR chest 1V portable HISTORY: 87 years-old Female f/u follow-up study in a patient with a left-sided chest tube COMPARISON: Chest radiograph 07/12/2022 TECHNIQUE: Portable AP view of the chest FINDINGS: Cardiomegaly with left subclavian pacer. Chest tube projects over the left upper lung appears to be i n stable positioning. No definite residual pneumothorax identified. Small pleural effusions with prog ressive right basilar opacities. No overt pulmonary edema. Degenerative changes of the shoulders and spine. Chronic left proximal humeral deformity. IMPRESSION: Stable positioning of the left-sided chest tube. No pneumothorax identified. ACT 112: Negative or not required by law. The above report was generated using voice recognition software. It may contain grammatical, syntax o r spelling errors. Electronically signed by: Jovani Chin M.D. 07/13/2022 8:01 AM
[2022-07-13] MEDS: METOPROLOL SUCC 25MG EXT REL TAB PO SCH ×2 (09:06→20:01)
[2022-07-13] MEDS: dilTIAZem HCL 180 MG CAPCR PO SCH (09:06)
[2022-07-13] MEDS: POTASSIUM CHLORIDE 10 MEQ TABCR PO SCH (09:06)
[2022-07-13] MEDS: CALCIUM CARBONATE 1250MG TAB PO SCH (09:06)
[2022-07-13] MEDS: SERTRALINE HCL 50 MG TABLET PO SCH (09:06)
[2022-07-13] MEDS: CHOLECALCIFEROL 400 UNITS 10 MCG TAB PO SCH (09:06)
[2022-07-13] MEDS: DOCUSATE SODIUM/SENNA 50/8.6MG TAB PO SCH (09:06)
[2022-07-13] MEDS: MULTIVITAMIN TAB PO SCH (09:06)
[2022-07-13] MEDS: dilTIAZem HCL 120 MG CAPCR PO SCH (09:06)
[2022-07-13] MEDS: FUROSEMIDE 20 MG TAB PO SCH (10:14)
--- NOTE | 2022-07-13 13:02 | Hospitalist Progress Note ---
Date of Service July 13, 2022 Assessment & Plan (1) SSS (sick sinus syndrome): Plan: patient with labile HR with tachy-mason syndrome s/p PPM placement on 07/12/22 cardiology on board Continue diltiazem 300mg and metoprolol Hr stable (2) Atrial fibrillation with rapid ventricular response: Plan: Presented with HR 120s and palpitations, hypoxia concern for SSS with tachycardia and bradycardia received IV lopressor and dilt in ED with initial improvement cardiology on board Continue cardizem 300mg and metoprolol as per cardiology Coumadin was on hold, will resume if hgb stable ( INR 2.5 today) TTE reviewed and mostly unchanged from prior - no longer with pericardial effusion Continue monitor in tele (3) Tension pneumothorax: Plan: CXR showed Interval development of a large left pneumothorax. S/P urgent chest tube placement by pulm Dr. Padron on 07/12/22 CXR done today showed Stable positioning of the left-sided chest tube. No pneumothorax identified. Clinically improved (4) CKD (chronic kidney disease) stage 3, GFR 30-59 ml/min: Plan: - at baseline - avoid nephrotoxic medications (5) GERD (gastroesophageal reflux disease): Plan: - continue Pepcid (6) HTN (hypertension): Plan: - continue CCB and BB Plan DVT ppx: coumadin Code Status: Full Code Dispo: telemetry Admission and Anticipated Discharge Date Admission Date: July 08, 2022 Subjective Pt was seen and examined for follow up of pneumothorax Lying in bed with no acute distress Pt said that her breathing improves She said that she does have some mild chest wall tenderness with deep breathing denies any SOB, palpitation or fever Review of Systems Review of Systems: All systems reviewed & are unremarkable except as noted in Subjective Physical Exam Physical Exam: General- No acute distress Head- atraumatic Eyes- PERRL, EOMI, ENT- oropharynx clear Neck- supple, no JVD Lungs- +decrease BS in L side Heart- regular rhythm; no murmur Abdomen- normal bowel sounds, soft, nontender Extremities- no calf tenderness, +edema Neuro- alert, oriented x 3; PERRL, EOMI; no facial palsy; no dysarthria Skin- warm & dry Results & Data Results & Data ([facility]) Vital Signs (Past 12 Hours) Vital Signs Temp Pulse Resp BP Pulse Ox O2 Del Method O2 Flow Rate 07/13/22 08:00 36.9 C 68 18 116/67 94 Nasal Cannula 3 07/13/22 11:08 36.9 C 67 18 119/74 97 Nasal Cannula 3 07/13/22 03:36 36.6 C 65 18 118/67 92 Nasal Cannula 2.5 (1) CKD (chronic kidney disease) stage 3, GFR 30-59 ml/min Chronic kidney disease stage 3 subtype: unspecified whether 3a or 3b Qualified Code(s): N18.30 - Chronic kidney disease, stage 3 unspecified
[2022-07-13] MEDS: MoRPHine SULFATE 2 MG/ML CARP IV PRN ×2 (13:32→17:46)
--- NOTE | 2022-07-13 16:39 | Cardiology Progress Note ---
Date of Service July 13, 2022 Assessment & Plan (1) Atrial fibrillation with rapid ventricular response: (2) Hypoxia: (3) Hyponatremia: (4) Chronic anticoagulation: (5) CKD (chronic kidney disease) stage 3, GFR 30-59 ml/min: (6) HTN (hypertension): (7) Cor pulmonale (chronic): (8) Biatrial enlargement: (9) Tricuspid regurgitation: (10) Tachy-mason syndrome: (11) Atrial flutter: Plan Given the fact that she has severe biatrial enlargement I doubt that we be able to maintain sinus rhythm and her going forward. So I believe a rate control strategy would be prudent at this time. s/p successful PPM placement no pneumo on cxr initially will interrogate device in AM subsequent pneumo discovered on repeat cxr 07/12 s/p chest tube placement will defer management to pulm/critical care cont current meds Admission and Anticipated Discharge Date Admission Date: July 08, 2022 Subjective Pt seen and examined. Chart reviewed. Telemetry reviewed. Review of Systems Review of Systems: All systems reviewed & are unremarkable except as noted in HPI & below Physical Exam Physical Exam: General: Awake, alert and oriented x 3. No acute distress. HEENT: Normocephalic, atraumatic. Pupils equal, round and reactive to light and accommodation. Extraocular muscles are intact. Anicteric sclera. Moist mucous membranes. Neck: No JVD. No bruit. Cardiovascular: irregularly irregular, unable to appreciate murmur, rub or gallop. Pulmonary: Clear to auscultation bilaterally. No rales, rhonchi, or wheezing. Abdomen: Bowel sounds x 4, soft. No rebound, guarding or tenderness. No organomegaly. Extremities: No clubbing, cyanosis or edema. +2 pedal pulses bilaterally. Skin: Warm and dry. Results & Data ([facility]) Vital Signs (Past 12 Hours) Vital Signs Temp Pulse Resp BP Pulse Ox O2 Del Method O2 Flow Rate 07/13/22 16:25 Nasal Cannula 3 07/13/22 08:00 36.9 C 68 18 116/67 94 Nasal Cannula 3 07/13/22 11:08 36.9 C 67 18 119/74 97 Nasal Cannula 3 (1) CKD (chronic kidney disease) stage 3, GFR 30-59 ml/min Chronic kidney disease stage 3 subtype: unspecified whether 3a or 3b Qualified Code(s): N18.30 - Chronic kidney disease, stage 3 unspecified
[2022-07-13 17:05] LABS: Hematocrit (blood only) 41.3 % (34.1-44.9); Hemoglobin 13.4 g/dl (12.0-16.0); Mean Corpuscular Hgb Conc 32.4 g/dL (32.0-36.0); Mean Corpuscular Volume 98.6 fL (80.0-100.0); RDW Coefficient of Variation 16.6 % (11.5-14.5); RDW Standard Deviation 60.5 fL (36.4-46.3); Red Blood Count 4.19 M/uL (3.93-5.22); White Blood Count 8.36 K/ul (4.8-10.8)
[2022-07-13 18:11] LABS: Mean Platelet Volume 14.3 fL (9.4-12.3); Platelet Count 107 K/uL (130-400)
[2022-07-13] MEDS ORDERED: WARFARIN SOD 1 MG TAB PO STA (20:20)
[2022-07-13] MEDS ORDERED: MAGNESIUM SULFATE / D5W 1 GM/100 ML BAG IV ONE (20:29)
[2022-07-13 20:50] LABS: HCO3 ABG 20 mmol/L (19-24); Oxygen Saturation ABG 90.3 % (90-95); PCO2 ABG 28 mmHg (35-46); PO2 ABG 60 mmHg (80-95); pH ABG 7.47 (7.35-7.45)
--- NOTE | 2022-07-13 20:51 | XRay Report ---
XR chest 1V portable HISTORY: Hypoxia. COMPARISON: Chest 07/13/2022. FINDINGS: A left-sided chest tube again terminates within the left upper lung zone. This remains unch anged. No definite pneumothorax. Small bilateral pleural effusions and bibasilar densities persist. T he heart remains moderately enlarged. Old fracture deformity within the proximal left humerus is agai n noted. There is a left-sided single lead pacemaker. No evidence for pulmonary edema. Rotated study. IMPRESSION: Stable position of the left-sided chest tube. No definite pneumothorax. ACT 112: Negative or not required by law. Electronically signed by: Harlan Ferrara M.D. 07/13/2022 8:50 PM
[2022-07-13 21:03] LABS: Allen Test Pos (Pos)
[2022-07-13] MEDS ORDERED: ALBUMIN 25% 12.5 GM/50 ML VIAL IV ONE (21:45)
[2022-07-13] MEDS ORDERED: FUROSEMIDE INJ 20 MG/2 ML VIAL IV ONE (21:45)
--- NOTE | 2022-07-13 21:46 | Operative Report (OR) ---
DATE OF PROCEDURE: 07/12/2022. PREOPERATIVE DIAGNOSES: Tachybrady syndrome and permanent atrial fibrillation. POSTOPERATIVE DIAGNOSES: Tachybrady syndrome and permanent atrial fibrillation. PROCEDURE: Single chamber rate responsive permanent pacemaker under fluoroscopic guidance along with peripheral venogram. SURGEON: Mago Smith DO. PESTICIDE CONTROL INSPECTOR: None. ANESTHESIA: Monitored conscious sedation administered under my supervision by Divine Baugh. Start time 11:05. End time 12:19. A total of 2 mg of Versed, 50 mcg of fentanyl. INTRAVENOUS FLUIDS: 65 mL. ANTIBIOTICS: 1 g of Ancef. CONTRAST: 20 mL. URINE OUTPUT: Not applicable. SPECIMENS: None. FINDINGS: See below. DRAINS: None. COMPLICATIONS: Presumed pneumothorax. CONDITION: Stable. INDICATIONS: This is an 87-year-old female with a past medical history for chronic kidney disease stage III, hyponatremia, hypertension, cor pulmonale with severe pulmonary hypertension and tricuspid regurgitation, coronary artery stenosis, gastroesophageal reflux disease and prediabetes. She was admitted to [facility] and found to be in AFib with RVR and has evidence of tachybrady syndrome, so she was recommended a pacemaker prior to discharge. CONSENT: Consent was obtained prior to the patient going into the electrophysiology lab. The patient was informed of the risks, benefits, and alternatives to the procedure. Risks include, but not limited to, sudden cardiac , cardiac arrhythmias, cerebrovascular accident, myocardial infarction, injury to the blood vessels, chamber of the heart and lung, bleeding and infection. The patient understood these risks and agreed to the procedure as planned. Informed consent was obtained. DESCRIPTION OF PROCEDURE: The patient was brought into the electrophysiology lab in a fasting state. She was connected to continuous cardiac monitoring. A time-out was performed to ensure patient identity and procedure correctly. She was prepped and draped over the left infraclavicular space in normal surgical standard fashion. Monitored conscious sedation was given throughout the procedure for the patient's comfort level. She received prophylactic antibiotics prior to incision. 10 mL of 1% lidocaine-bupivacaine mixture were given in the left deltopectoral groove. An incision was made in the left upper groove. Blunt dissection was performed down to the pectoralis muscle and then a pacemaker pocket was created using blunt dissection over the pectoralis muscle within the pectoralis fascia, then a peripheral venogram was performed to identify the axillary vein. Of note, patient's body size is extremely underweight and I did use a micropuncture kit needle to try to get access, but my suspicion that I would cause a pneumothorax was high given how skinny she is. But I did ultimately get venous access and the micropuncture wire went through nicely. The micropuncture sheath glided over the wire without any problems. The dilator and guidewire were removed and then the guidewire for the 7-Turkish sheath was inserted through the micropuncture sheath and then that sheath was swapped out for the 7-Turkish sheath. Then, the dilator and guidewire were removed and the His C315 sheath was advanced through the 7-Turkish sheath over a Glidewire into the right ventricle. The Glidewire and dilator removed. Then, the bundle lead was advanced through the His C315 sheath and intracardiac electrogram His bundle recordings was attempted. However, given her AFib, I was really having a hard time finding the His, but I had an idea of where the His bundle was, based on my A:V ratios. I then marked where I thought this was, on my fluoroscopy screens when the camera was in SILVERIO 30, came down about 2 cm from this in a line that would extend out to the apex and started coming on pacing to see how my paced complex looked. I had a good decent W formed pattern paced complex in V1, so then I moved the camera to SETSWANA 30, started giving a series of clockwise turns. I think at one point I ended up micropuncturing through, so I did reposition it one time, but ultimately I had developed a nice R prime with an impedance drop and when I gave contrast through the His C315 sheath, I was well into the septum. I then slit the His C315 sheath under fluoroscopic guidance, then peeled away the 7-Turkish sheath and I fixated the lead to the pectoralis muscle using 0 silk suture. The pocket was then flushed with copious amounts of vancomycin and saline wash and inspected for hemostasis. Pulse generator was then attached to the leads making sure the pins were in appropriate position, passed set screws, and set screws were all tightened. The pulse generator was then placed in a pocket, making sure the leads were lying flat beneath the device and then a TYRX pouch was placed on top of it. Then, the incision was closed in a 3-layer fashion using 2-0 Vicryl interrupted suture, followed by 3-0 Vicryl interrupted suture, followed by 4-0 Monocryl running stitch. Dermabond was applied followed by Telfa and Tegaderm dressing. EQUIPMENT: 1. The pulse generator is a Medtronic Veronica XT SR MRI SureScan [id number], serial number [id number]. 2. Left bundle lead, Medtronic 3830-69 cm, serial number [id number]. INTRAOPERATIVE FINDINGS: 1. R waves 8.2 millivolts, impedance 730 ohms, threshold 0.6 volts at 0.5 milliseconds. 2. Left bundle lead, R waves 10.8 millivolts, impedance 684 ohms, threshold 0.5 volts at 0.4 milliseconds. FINAL PARAMETERS: VVI 60/130. Left bundle amplitude 3.5 volts, pulse width 0.4 milliseconds, sensitivity 0.9 millivolts. IMPRESSION: Successful single chamber rate responsive permanent pacemaker under fluoroscopic guidance along with peripheral venogram secondary to tachybrady syndrome. PLAN: Chest x-ray now as I am concerned about pneumothorax and then if that is negative, I would still probably do one again in 3 hours. She cannot lift the left elbow or left shoulder for 1 month. She cannot lift more than 10 pounds with left arm for 2 weeks. She is to keep the dressing on and dry until her wound check next week. We will defer AV meghna blockers to primary cardiology. She can restart her anticoagulation. Job ID: [id number]
[2022-07-13] MEDS: MELATONIN 3 MG TAB PO PRN (22:49)
[2022-07-14] MEDS: MoRPHine SULFATE 2 MG/ML CARP IV PRN ×2 (01:37→05:46)
[2022-07-14 06:30] LABS: INR 2.1 (0.9-1.1); Prothrombin Time 21.4 Seconds (9.0-12.0)
[2022-07-14] MEDS: OLANZapine 10 MG/2.1 ML SDV IM PRN (06:33)
[2022-07-14 06:57] LABS: Albumin Globulin Ratio 1.7 (0.9-2); Albumin Level 3.7 gm/dl (3.4-5.0); BUN Creatinine Ratio 35.5 (10-20); Creatinine Clr Calc Pharmacy 26.5 ml/min; Est GFR (African American) 45.5 ml/min; Est GFR (Non-African American) 39.3 ml/min; Globulin 2.2 gm/dl (2.5-4.0); Potassium 3.7 mmol/L (3.5-5.1); Total Protein 5.9 gm/dl (6.0-8.3)
[2022-07-14] MEDS: HYDROmorphone INJ 0.5 MG/0.5 ML SYR IV PRN (09:06)
[2022-07-14] MEDS: CALCIUM CARBONATE 1250MG TAB PO SCH (09:44)
[2022-07-14] MEDS: dilTIAZem HCL 120 MG CAPCR PO SCH (09:44)
[2022-07-14] MEDS: POTASSIUM CHLORIDE 10 MEQ TABCR PO SCH (09:44)
[2022-07-14] MEDS: SERTRALINE HCL 50 MG TABLET PO SCH (09:44)
[2022-07-14] MEDS: METOPROLOL SUCC 25MG EXT REL TAB PO SCH ×2 (09:44→20:15)
[2022-07-14] MEDS: FUROSEMIDE 20 MG TAB PO SCH (09:44)
[2022-07-14] MEDS: CHOLECALCIFEROL 400 UNITS 10 MCG TAB PO SCH (09:45)
[2022-07-14] MEDS: dilTIAZem HCL 180 MG CAPCR PO SCH (09:45)
[2022-07-14] MEDS: MULTIVITAMIN TAB PO SCH (09:45)
[2022-07-14] MEDS: DOCUSATE SODIUM/SENNA 50/8.6MG TAB PO SCH (09:47)
--- NOTE | 2022-07-14 10:43 | XRay Report ---
XR chest 1V portable CLINICAL HISTORY: f/u COMPARISON STUDY: Chest radiograph July 13, 2022 at 8:24 PM. FINDINGS: Left pleural catheter remains in place. No pneumothorax is identified. A moderate right ple ural effusion has increased in size. Right basilar opacity is noted. There is a small left pleural ef fusion with left basilar opacity. Cardiomegaly is unchanged. Left subclavian pacer is in place. Pulmo nary vascular congestion is unchanged. Chronic deformity of the proximal left humerus. IMPRESSION: 1. Left pleural catheter in place. No pneumothorax identified. 2. Increase in size of a moderate right pleural effusion. Small left pleural effusion. ACT 112: Negative or not required by law. Electronically signed by: Jarod Kaye M.D. 07/14/2022 10:42 AM
--- NOTE | 2022-07-14 10:47 | Pulmonology Progress Note ---
Date of Service July 14, 2022 Assessment & Plan (1) Iatrogenic pneumothorax: (2) Tension pneumothorax: (3) Acute respiratory failure with hypoxia: (4) Pulmonary hypertension: (5) Cor pulmonale (chronic): Plan --Pneumothorax Likely secondary to placement of left-sided PPM S/p emergent chest tube placement 07/12/2022 -- Acute respiratory failure with hypoxia Continue with O2 supplementation to keep O2 saturation between 90-92% --Pulmonary hypertension Type II Management as per cardiology Plan: Chest x-ray from today does not show any signs of pneumothorax As the patient was complaining of chest pain and we were not able to ascertain if it was worse from the morning, repeat stat chest x-ray was done while the tube was clamped and that also did not show any signs of pneumothorax. I will repeat a chest x-ray done around 1 PM while the chest tube is clamped. If there is no pneumothorax at the 1 PM chest x-ray I will discontinue the chest tube Case was discussed with RN who was at bedside Please note the above document was generated using voice recognition software. It may contain grammatical, syntax or spelling errors.Any formal questions or concerns about the content, text or information contained within the body of this dictation should be directly addressed to the provider for clarification. Admission and Anticipated Discharge Date Admission Date: July 08, 2022 Subjective Patient seen and examined at bedside. No acute distress Overnight patient had delirium so she was on one-to-one. She was saturating 97% on 6 L. I was able to go down to 3 L and she was still saturating 94%. She was complaining of pain around the chest tube site. On asking whether the pain is worse since the morning she was not able to give a clear answer. Review of Systems Review of Systems: All systems reviewed & are unremarkable except as noted in Subjective Physical Exam Physical Exam: Constitutional: No acute distress, frail-appearing HEENT: EOMI, PERRLA, arcus senilis bilaterally Respiratory system: Decreased air entry on the left side, no wheeze, rhonchi, positive crackles bilateral lower lobes CVS: S1-S2 positive, positive 2 out of 6 systolic murmur appreciated at the apex, positive left-sided PPM Abdomen: Soft, nontender, nondistended, positive bowel sounds x4 Extremities: +2 pulses bilaterally radialis/ dorsalis pedis, no cyanosis, +1 pitting edema right lower extremity, +2 pitting edema left lower extremity Neuro: Awake alert oriented to self and place Psych: Normal mood and affect G/U: Positive Sam Skin: no rashes, warm and dry Lymphatic: no cervical or axillary lymphadenopathy Results & Data Results & Data ([facility]) Vital Signs (Past 12 Hours) Vital Signs Temp Pulse Resp BP Pulse Ox O2 Del Method O2 Flow Rate 07/14/22 09:42 78 110/67 07/14/22 07:07 108 H 20 133/98 98 Nasal Cannula 6 07/14/22 03:29 36.5 C 82 16 109/71 91 Nasal Cannula 6 07/13/22 23:56 36.5 C 84 16 123/68 91 Nasal Cannula 6 07/13/22 23:42 Nasal Cannula 6 Laboratory Results 07/13/22 05:45 07/14/22 05:24 PG Care Time/CCT Total # of Minutes Spent Total Time Spent with Patient: Total time spent is greater than 50% in coordination of care (as documented) at patient's floor/unit and/or counseling patient: [place] [address] Subseq Hosp Care Lvl 2 Patient Type Established Diagnoses Iatrogenic pneumothorax J95.811 Tension pneumothorax J93.0 Acute respiratory failure with hypoxia J96.01 Pulmonary hypertension I27.20 Cor pulmonale (chronic) I27.81
--- NOTE | 2022-07-14 11:32 | XRay Report ---
XR chest 1V portable CLINICAL HISTORY: f/u CT clamped COMPARISON STUDY: Chest radiograph July 14, 2022 at 6:45 AM. FINDINGS: Left pleural catheter is in place. No pneumothorax is identified. Left subclavian pacer is noted. Cardiomegaly is unchanged. Bilateral pleural effusions, right larger left, are again noted wit h bibasilar opacities. IMPRESSION: Left pleural catheter in place. No pneumothorax. ACT 112: Negative or not required by law. Electronically signed by: Jarod Kaye M.D. 07/14/2022 11:31 AM
--- NOTE | 2022-07-14 13:05 | XRay Report ---
XR chest 1V portable HISTORY: Worsening chest pain. COMPARISON: Chest 07/14/2022. FINDINGS: Left-sided chest tube remains unchanged in position. No pneumothorax. Small bilateral pleur al effusions and bibasilar densities persist. The heart remains enlarged. Is left-sided pacemaker aga in noted. Chronic posttraumatic changes within the proximal left humerus remain unchanged. IMPRESSION: 1. Left-sided chest tube remains unchanged in position. No pneumothorax. 2. No change in the small bilateral pleural effusions and bibasilar densities. ACT 112: Negative or not required by law. Electronically signed by: Harlan Ferrara M.D. 07/14/2022 1:03 PM
--- NOTE | 2022-07-14 15:42 | Procedure Note ---
Procedure Note Date of Service July 14, 2022 Note Procedure: Pigtail chest tube removal Manager Social Services: Dr. Aruna Padron Indication: Reinflation of the left lung Consent: Verbal consent was applied Anesthesia: 1% lidocaine without epinephrine local Procedure: Under sterile conditions and aseptic measures, left-sided pigtail catheter was removed on examination of the patient. It was found to be intact Vaseline gauze was applied to the opening and dressed with 4 x 4 and silk tape. The patient tolerated the procedure without obvious complication Complications: None Blood loss: None Recommendation: Chest x-ray to be done in 1 and half-2 hours to make sure there is no pneumot horax Please note the above document was generated using voice recognition software. It may contain grammatical, syntax or spelling errors.Any formal questions or concerns about the content, text or information contained within the body of this dictation should be directly addressed to the provider for clarification. Coding CPT Codes Pulmonary/Thoracic - Pulmonary and Thoracic: 88434 Remove lung catheter ([id number]) [facility] [place] Procedure Codes (Charges) Pulmonary/Thoracic Procedure 1: Pulmonary and Thoracic: 91023 Remove lung catheter
--- NOTE | 2022-07-14 16:33 | Cardiology Progress Note ---
Date of Service July 14, 2022 Assessment & Plan (1) Atrial fibrillation with rapid ventricular response: (2) Hypoxia: (3) Hyponatremia: (4) Chronic anticoagulation: (5) CKD (chronic kidney disease) stage 3, GFR 30-59 ml/min: (6) HTN (hypertension): (7) Cor pulmonale (chronic): (8) Biatrial enlargement: (9) Tricuspid regurgitation: (10) Tachy-mason syndrome: (11) Atrial flutter: Plan Given the fact that she has severe biatrial enlargement I doubt that we be able to maintain sinus rhythm and her going forward. So I believe a rate control strategy would be prudent at this time. s/p successful PPM placement Chest tube removed today by pulmonary cont current meds No further cardiac test intervention necessary at this time. Admission and Anticipated Discharge Date Admission Date: July 08, 2022 Subjective Patient seen and examined. Chart reviewed. Telemetry reviewed. Patient is now significantly lethargic, difficult to arouse and confused with a nursing one-to-one in place. Review of Systems Review of Systems: Unobtainable due to reduced consciousness Physical Exam Physical Exam: General: Awake, alert and oriented x 3. No acute distress. HEENT: Normocephalic, atraumatic. Pupils equal, round and reactive to light and accommodation. Extraocular muscles are intact. Anicteric sclera. Moist mucous membranes. Neck: No JVD. No bruit. Cardiovascular: irregularly irregular, unable to appreciate murmur, rub or gallop. Pulmonary: Clear to auscultation bilaterally. No rales, rhonchi, or wheezing. Abdomen: Bowel sounds x 4, soft. No rebound, guarding or tenderness. No organomegaly. Extremities: No clubbing, cyanosis or edema. +2 pedal pulses bilaterally. Skin: Warm and dry. Results & Data ([facility]) Vital Signs (Past 12 Hours) Vital Signs Temp Pulse Pulse Resp BP Pulse Ox O2 Del Method 07/14/22 16:00 67 07/14/22 15:24 36.7 C 82 22 121/69 91 Oxymask 07/14/22 08:00 Nasal Cannula 07/14/22 08:00 114 H 07/14/22 09:42 78 110/67 07/14/22 07:07 108 H 20 133/98 98 Nasal Cannula O2 Flow Rate 07/14/22 16:00 07/14/22 15:24 5 07/14/22 08:00 3 07/14/22 08:00 07/14/22 09:42 07/14/22 07:07 6 (1) CKD (chronic kidney disease) stage 3, GFR 30-59 ml/min Chronic kidney disease stage 3 subtype: unspecified whether 3a or 3b Qualified Code(s): N18.30 - Chronic kidney disease, stage 3 unspecified
--- NOTE | 2022-07-14 17:29 | XRay Report ---
XR chest 1V portable HISTORY: s/p chest tube removal COMPARISON: Chest 07/14/2022. FINDINGS: Slightly rotated study. Interval removal of the left-sided chest tube. No pneumothorax. The left-sided single lead pacemaker. The heart remains enlarged. Small bilateral pleural effusions and bibasilar densities persist. Old posttraumatic changes within the proximal left humerus. IMPRESSION: 1. Interval removal of the left-sided chest tube. No pneumothorax. 2. Cardiomegaly and bilateral pleural effusions persist. ACT 112: Negative or not required by law. Electronically signed by: Harlan Ferrara M.D. 07/14/2022 5:28 PM
[2022-07-14] MEDS: WARFARIN SOD 2 MG TAB PO SCH (17:32)
[2022-07-14] MEDS: MELATONIN 3 MG TAB PO PRN (20:19)
--- NOTE | 2022-07-14 22:37 | Hospitalist Progress Note ---
Date of Service July 14, 2022 Assessment & Plan (1) SSS (sick sinus syndrome): Plan: patient with labile HR with tachy-mason syndrome s/p PPM placement on 07/12/22 cardiology on board Continue diltiazem 300mg and metoprolol Hr stable (2) Atrial fibrillation with rapid ventricular response: Plan: Presented with HR 120s and palpitations, hypoxia concern for SSS with tachycardia and bradycardia received IV lopressor and dilt in ED with initial improvement cardiology on board Continue cardizem 300mg and metoprolol as per cardiology TTE reviewed and mostly unchanged from prior - no longer with pericardial effusion Continue coumain with INR 2.1 Continue monitor in tele (3) Tension pneumothorax: Plan: CXR showed Interval development of a large left pneumothorax. S/P urgent chest tube placement by pulm Dr. Padron on 07/12/22 CXR done today showed Stable positioning of the left-sided chest tube. No pneumothorax identified. Pulm plan to removed chest tude today Clinically improved (4) CKD (chronic kidney disease) stage 3, GFR 30-59 ml/min: Plan: - at baseline - avoid nephrotoxic medications (5) GERD (gastroesophageal reflux disease): Plan: - continue Pepcid (6) HTN (hypertension): Plan: - continue CCB and BB Plan DVT ppx: coumadin Code Status: Full Code Disposition PT/OT eval Might need short rehab since pt lives alone Admission and Anticipated Discharge Date Admission Date: July 08, 2022 Subjective Pt was seen and examined for follow up of pneumothorax Lying in bed with no acute distress with 1 to 1 sitter Pt was confused last night and she was trying to pull out the chest tube She very sleeping because she received Zyprexa around 6:30 am Review of Systems Review of Systems: All systems reviewed & are unremarkable except as noted in Subjective Physical Exam Physical Exam: General- No acute distress Head- atraumatic Eyes- PERRL, EOMI, ENT- oropharynx clear Neck- supple, no JVD Lungs- +decrease BS in L side Heart- regular rhythm; no murmur Abdomen- normal bowel sounds, soft, nontender Extremities- no calf tenderness, +edema Neuro- alert, oriented x 3; PERRL, EOMI; no facial palsy; no dysarthria Skin- warm & dry Results & Data Results & Data ([facility]) Vital Signs (Past 12 Hours) Vital Signs Temp Pulse Pulse Resp BP Pulse Ox O2 Del Method 07/14/22 21:00 Nasal Cannula 07/14/22 19:19 36.5 C 104 H 20 120/76 90 Nasal Cannula 07/14/22 16:00 67 07/14/22 15:24 36.7 C 82 22 121/69 91 Oxymask O2 Flow Rate 07/14/22 21:00 6 07/14/22 19:19 07/14/22 16:00 07/14/22 15:24 5 (1) CKD (chronic kidney disease) stage 3, GFR 30-59 ml/min Chronic kidney disease stage 3 subtype: unspecified whether 3a or 3b Qualified Code(s): N18.30 - Chronic kidney disease, stage 3 unspecified
[2022-07-15] MEDS ORDERED: NITROGLYCERIN SL 0.4 MG/TAB TAB SL STA (04:53)
[2022-07-15 05:07] LABS: Hematocrit (blood only) 40.5 % (34.1-44.9); Hemoglobin 13.7 g/dl (12.0-16.0); Mean Corpuscular Hemoglobin 31.8 pg (25.0-34.0); Mean Corpuscular Hgb Conc 33.8 g/dL (32.0-36.0); RDW Standard Deviation 55.6 fL (36.4-46.3); Red Blood Count 4.31 M/uL (3.93-5.22)
[2022-07-15 05:16] LABS: Mean Platelet Volume 13.3 fL (9.4-12.3); Platelet Count 117 K/uL (130-400)
[2022-07-15] MEDS: ACETAMINOPHEN 325 MG TAB PO PRN ×2 (05:19→16:59)
[2022-07-15 05:24] LABS: INR 1.7 (0.9-1.1); Partial Thromboplastin Ratio 1.5; Partial Thromboplastin Time 40.7 Seconds (21.0-31.0); Prothrombin Time 17.7 Seconds (9.0-12.0)
[2022-07-15 05:33] LABS: BUN Creatinine Ratio 32.3 (10-20); Calcium 9.4 mg/dl (8.5-10.1); Creatinine Clr Calc Pharmacy 25.3 ml/min; Est GFR (Non-African American) 37.1 ml/min
[2022-07-15 06:09] LABS: Troponin I High Sensitivity 107.5 pg/ml (0-14)
--- NOTE | 2022-07-15 06:17 | Communication Note ---
Date of Service: July 15, 2022 Patient with chest pain complaints this AM. Chest pain improved with nitroglycerin as per RN. EKG as per my interpretation:Rate 80, junctional rhythm, T wave abnormalities inferior and lateral leads, PVCs Troponin 107.5 INR 1.7 AP NSTEMI Follow troponin N.p.o. for now until patient seen by Cardiology in anticipation of ischemic work-up (patient son agreeable if warranted) Hold Coumadin until patient seen by cardiology. Aspirin for CAD prevention IV heparin while INR subtherapeutic while Coumadin on hold
[2022-07-15] MEDS ORDERED: Heparin IV Adult Wt-Based Low-Dose *NO* Bolus Protocol IV SCH (06:29)
[2022-07-15] MEDS ORDERED: HEPARIN SODIUM/DEXTROSE 25,000 UNITS/500 ML BAG IV SCH (06:30)
[2022-07-15] MEDS ORDERED: MAGNESIUM SULFATE / D5W 1 GM/100 ML BAG IV ONE (06:56)
[2022-07-15] MEDS: ASPIRIN 81 MG ECTAB PO SCH (07:53)
--- NOTE | 2022-07-15 08:05 | Pulmonology Progress Note ---
Date of Service July 15, 2022 Assessment & Plan (1) Iatrogenic pneumothorax: (2) Tension pneumothorax: (3) Acute respiratory failure with hypoxia: (4) Pulmonary hypertension: (5) Cor pulmonale (chronic): Plan --Pneumothorax Likely secondary to placement of left-sided PPM S/p emergent chest tube placement 07/12/2022, removed 07/14/2022 Recurrent pneumothorax 07/15/2022, new chest tube placed in on 07/15/2022 -- Acute respiratory failure with hypoxia Continue with O2 supplementation to keep O2 saturation between 90-92% --Pulmonary hypertension Type II Management as per cardiology Plan: Unfortunately patient had another recurrence of pneumothorax on the same left side Moderate in size, no improvement with nonrebreather on the repeat chest x-ray We will put another chest tube in. Case was discussed with RN and Dr. John Please note the above document was generated using voice recognition software. It may contain grammatical, syntax or spelling errors.Any formal questions or concerns about the content, text or information contained within the body of this dictation should be directly addressed to the provider for clarification. Admission and Anticipated Discharge Date Admission Date: July 08, 2022 Subjective Patient seen and examined at bedside. Complain of pain on the left side She was on nonrebreather She was more alert today compared to yesterday. Answering all questions appropriately Did complain of shortness of breath No nausea or vomiting Review of Systems Review of Systems: All systems reviewed & are unremarkable except as noted in Subjective Physical Exam Physical Exam: Constitutional: No acute distress, frail-appearing HEENT: EOMI, PERRLA, arcus senilis bilaterally Respiratory system: Decreased air entry on the left side, no wheeze, no rhonchi, positive crackles bilateral lower lobes CVS: S1-S2 positive, positive 2 out of 6 systolic murmur appreciated at the apex, positive left-sided PPM Abdomen: Soft, nontender, nondistended, positive bowel sounds x4 Extremities: +2 pulses bilaterally radialis/ dorsalis pedis, no cyanosis, +1 pitting edema right lower extremity, +2 pitting edema left lower extremity Neuro: Awake alert oriented to self Psych: Normal mood and affect G/U: Positive Sam Skin: no rashes, warm and dry Lymphatic: no cervical or axillary lymphadenopathy Results & Data Results & Data ([facility]) Vital Signs (Past 12 Hours) Vital Signs Temp Pulse Resp BP Pulse Ox O2 Del Method O2 Flow Rate 07/15/22 03:00 36.6 C 77 20 114/69 90 Nasal Cannula 7 07/14/22 23:00 36.5 C 85 20 119/70 93 Nasal Cannula 6 07/14/22 21:00 Nasal Cannula 6 Laboratory Results 07/15/22 04:47 07/15/22 04:52 PG Care Time/CCT Total # of Minutes Spent Total Time Spent with Patient: Total time spent is greater than 50% in coordination of care (as documented) at patient's floor/unit and/or counseling patient: Coding Level of Care Code 48198 Subseq Hosp Care Lvl 3 Diagnoses Iatrogenic pneumothorax J95.811 Tension pneumothorax J93.0 Acute respiratory failure with hypoxia J96.01 Pulmonary hypertension I27.20 Cor pulmonale (chronic) I27.81
[2022-07-15] MEDS: POTASSIUM CHLORIDE 10 MEQ TABCR PO SCH (10:08)
[2022-07-15] MEDS: SERTRALINE HCL 50 MG TABLET PO SCH (10:08)
[2022-07-15] MEDS: FUROSEMIDE 20 MG TAB PO SCH (10:08)
[2022-07-15] MEDS: DOCUSATE SODIUM/SENNA 50/8.6MG TAB PO SCH (10:09)
[2022-07-15] MEDS: dilTIAZem HCL 120 MG CAPCR PO SCH (10:09)
[2022-07-15] MEDS: dilTIAZem HCL 180 MG CAPCR PO SCH (10:09)
[2022-07-15] MEDS: METOPROLOL SUCC 25MG EXT REL TAB PO SCH ×2 (10:10→20:58)
[2022-07-15] MEDS: MULTIVITAMIN TAB PO SCH (10:10)
[2022-07-15] MEDS: CHOLECALCIFEROL 400 UNITS 10 MCG TAB PO SCH (10:10)
[2022-07-15] MEDS: CALCIUM CARBONATE 1250MG TAB PO SCH (10:10)
--- NOTE | 2022-07-15 11:20 | XRay Report ---
SINGLE VIEW CHEST CLINICAL HISTORY: Follow-up pneumothorax. FINDINGS: An AP, portable, upright chest radiograph is compared to study dated 07/14/2022. Correlation is made with chest CT dated 05/03/2022. A single-lead cardiac pacemaker is unchanged in position and partially obscures the left upper chest. The heart is markedly enlarged. The pulmonary vasculature is noncongested. There are small pleural effusions with dependent consolidation. There is a moderate to large recurrent left apical pneumothorax with approximately 6.5 cm of pleural separation. No pneumot horax is seen on the right. The skeletal structures are osteopenic. There is chronic deformity of the left proximal humerus. IMPRESSION: 1. There is a moderate to large recurrent left apical pneumothorax. 2. Cardiomegaly and cardiac pacemaker without radiographic evidence of congestive failure. 3. Layering pleural effusions with dependent consolidation. ACT 112: Negative or not required by law. Electronically signed by: Serjio Henning M.D. 07/15/2022 11:19 AM
[2022-07-15] MEDS ORDERED: MoRPHine SULFATE 2 MG/ML CARP ONE (11:21)
--- NOTE | 2022-07-15 11:22 | XRay Report ---
SINGLE VIEW CHEST CLINICAL HISTORY: Follow-up pneumothorax. FINDINGS: An AP, portable, upright chest radiograph is compared to study performed earlier the same d ay 07/15/2022. Correlation is made with chest CT dated 05/03/2022. The examination is degraded by amy ble technique and patient rotation. A single-lead cardiac pacemaker is unchanged in position and part ially obscures the left upper chest. The heart is markedly enlarged. The pulmonary vasculature is non congested. There are small pleural effusions with dependent consolidation. A moderate to large left a pical pneumothorax is unchanged. Today's earlier examination. There is approximately 6.5 cm of pleura l separation. No pneumothorax is seen on the right. The skeletal structures are osteopenic. There is chronic deformity of the left proximal humerus. IMPRESSION: 1. There is a moderate to large persistent left apical pneumothorax. 2. Cardiomegaly and cardiac pacemaker without radiographic evidence of congestive failure. 3. Layering pleural effusions with dependent consolidation. ACT 112: Negative or not required by law. Electronically signed by: Serjio Henning M.D. 07/15/2022 11:21 AM
[2022-07-15] MEDS: MoRPHine SULFATE 2 MG/ML CARP IV STA ×2 (11:53→11:54)
[2022-07-15] MEDS ORDERED: MoRPHine SULFATE 2 MG/ML CARP IV STA (11:53)
--- NOTE | 2022-07-15 12:00 | Procedure Note ---
Procedure Note Date of Service July 15, 2022 Note Procedure: Pigtail chest tube insertion Key Maker: Dr. Aruna Padron Indication: Left-sided pneumothorax Consent: Verbally obtained from patient and verified with timeout prior to procedure Anesthesia: 1% lidocaine without epinephrine local Procedure: Consent was verified and timeout performed. Appropriate imaging studies were reviewed prior to the procedure. Patient was placed in a seated position. Appropriate site above the diaphragm on the left midaxillary line third intercostal space for chest tube insertion was selected. The skin was prepped and draped in normal sterile fashion. Lidocaine was used for local analgesia. Air was aspirated via the finder needle. A small skin imelda was made with the scalpel and the catheter over the needle apparatus was advanced over the rib into the pleural space. With the help of guidewire and Seldinger technique, 14 [place] pigtail catheter was inserted and connected to Pleur-evac. No continuous air leak appreciated after that. Chest x-ray to follow The patient tolerated the procedure without obvious complication Complications: None Blood loss: Less than none Coding CPT Codes Pulmonary/Thoracic - Pulmonary and Thoracic: 22619 Tube thoracostomy ([id number]) [facility] [place] Procedure Codes ([place]arges) Pulmonary/Thoracic Procedure 1: Pulmonary and Thoracic: 58721 Tube thoracostomy
--- NOTE | 2022-07-15 12:34 | XRay Report ---
SINGLE VIEW CHEST CLINICAL HISTORY: Chest tube placement. Pneumothorax. FINDINGS: An AP, portable, upright chest radiograph is compared to studies performed earlier the same day 07/15/2022. Correlation is made with chest CT dated 05/03/2022. The examination is degraded by por table technique and patient rotation. A single-lead cardiac pacemaker is unchanged in position and pa rtially obscures the left upper chest. The heart is markedly enlarged. The pulmonary vasculature is n oncongested. There are small pleural effusions with dependent consolidation. A left-sided chest tube has been placed. The tip projects over the left apex. No residual pneumothorax is identified. The ske letal structures are osteopenic. There is chronic deformity of the left proximal humerus. IMPRESSION: 1. A left-sided chest tube has been placed. No residual pneumothorax is seen. 2. Cardiomegaly and cardiac pacemaker without radiographic evidence of congestive failure. 3. Layering pleural effusions with dependent consolidation. ACT 112: Negative or not required by law. Electronically signed by: Serjio Henning M.D. 07/15/2022 12:32 PM
--- NOTE | 2022-07-15 12:36 | Cardiology Progress Note ---
Date of Service July 15, 2022 Assessment & Plan (1) Atrial fibrillation with rapid ventricular response: (2) Hypoxia: (3) Hyponatremia: (4) Chronic anticoagulation: (5) CKD (chronic kidney disease) stage 3, GFR 30-59 ml/min: (6) HTN (hypertension): (7) Cor pulmonale (chronic): (8) Biatrial enlargement: (9) Tricuspid regurgitation: (10) Tachy-mason syndrome: (11) Atrial flutter: Plan Given the fact that she has severe biatrial enlargement I doubt that we be able to maintain sinus rhythm and her going forward. So I believe a rate control strategy would be prudent at this time. s/p successful PPM placement Chest tube placed today by pulmonary for recurrent pneumothorax cont current meds No further cardiac test intervention necessary at this time. elevated troponin, likely demand ischemia due to hypoxia Admission and Anticipated Discharge Date Admission Date: July 08, 2022 Subjective Pt seen and examined. Chart reviewed. Telemetry reviewed. Case discussed with pulmonary medicine at bedside. Review of Systems Review of Systems: Unobtainable due to reduced consciousness Physical Exam Physical Exam: General: Awake but lethargic HEENT: Normocephalic, atraumatic. Pupils equal, round and reactive to light and accommodation. Extraocular muscles are intact. Anicteric sclera. Moist mucous membranes. Neck: No JVD. No bruit. Cardiovascular: irregularly irregular, unable to appreciate murmur, rub or gallop. Pulmonary: Clear to auscultation bilaterally. No rales, rhonchi, or wheezing. Abdomen: Bowel sounds x 4, soft. No rebound, guarding or tenderness. No organomegaly. Extremities: No clubbing, cyanosis or edema. +2 pedal pulses bilaterally. Skin: Warm and dry. Results & Data ([facility]) Vital Signs (Past 12 Hours) Vital Signs Temp Pulse Resp BP Pulse Ox O2 Del Method O2 Flow Rate 07/15/22 11:47 118/65 93 Non-rebreather 15 07/15/22 11:15 36.6 C 87 33 H 115/61 97 Non-rebreather 15 07/15/22 07:00 37.0 C 79 18 109/49 L 90 Nasal Cannula 6 07/15/22 03:00 36.6 C 77 20 114/69 90 Nasal Cannula 7 (1) CKD (chronic kidney disease) stage 3, GFR 30-59 ml/min Chronic kidney disease stage 3 subtype: unspecified whether 3a or 3b Qualified Code(s): N18.30 - Chronic kidney disease, stage 3 unspecified
[2022-07-15 13:32] LABS: Partial Thromboplastin Ratio 1.6
[2022-07-15] MEDS: traMADol HCL 50 MG TABLET PO PRN (13:43)
--- NOTE | 2022-07-15 13:51 | Electrocardiogram Report ---
Test Reason : Blood Pressure : / mmHG Vent. Rate : 082 BPM Atrial Rate : 267 BPM P-R Int : 000 ms QRS Dur : 084 ms QT Int : 360 ms P-R-T Axes : 000 075 -77 degrees QTc Int : 420 ms Atrial fibrillation with aberrant conduction abd demand ventricular pacing Indeterminate axis Cannot rule out Anteroseptal infarct , age undetermined Nonspecific ST abnormality Abnormal ECG Confirmed by Srinivas Sears ([id number]) on 07/15/2022 1:50:47 PM Referred By: REFERRED SELF Confirmed By:Josue Sears
[2022-07-15] MEDS: MoRPHine SULFATE 2 MG/ML CARP IV PRN (14:34)
[2022-07-15] MEDS ORDERED: WARFARIN SOD 0.5 MG TAB PO STA (18:05)
[2022-07-15 21:09] LABS: Base Excess ABG -2.1 mEq/L (-9-1.8); HCO3 ABG 21 mmol/L (19-24); Oxygen Saturation ABG 95.2 % (90-95); PCO2 ABG 29 mmHg (35-46); PO2 ABG 70 mmHg (80-95); pH ABG 7.46 (7.35-7.45)
[2022-07-15 21:14] LABS: Allen Test Pos (Pos)
--- NOTE | 2022-07-15 21:37 | Communication Note ---
Date of Service: July 15, 2022 Made aware by RN of increasing supplemental O2 needed. O2 sats 90s on 15 L. Patient with moist cough symptoms as per RN. 1. Stable positioning of the left-sided chest tube. No pneumothorax identified. 2. Cardiomegaly with slightly improved pulmonary edema. 2. Right greater than left layering pleural effusions with bibasilar consolidation again noted. ABG pH 7.46, PCO2 29, PO2 70, O2 sats 95% on 15 L AP Worsening hypoxemic respiratory failure Underlying pulmonary hypertension Multifactorial: Pulmonary congestion HCAP, possible aspiration given patient lethargy Supplemental O2 Diuretic Rx Ertapenem; Solu-Medrol 1 dose given worsening hypoxemia from pneumonia Patient's son (Mr. Kendrick Bradford) updated of developments over the phone. CODE STATUS de-escalated to DNR after discussion with family members. Continue with medical management.. Will relay to AM provider.
--- NOTE | 2022-07-15 22:03 | Hospitalist Progress Note ---
Date of Service July 15, 2022 Assessment & Plan (1) SSS (sick sinus syndrome): Plan: patient with labile HR with tachy-mason syndrome s/p PPM placement on 07/12/22 cardiology on board Continue diltiazem 300mg and metoprolol HR stable (2) Tension pneumothorax: Plan: CXR showed Interval development of a large left pneumothorax. S/P urgent chest tube placement by pulm Dr. Padron on 07/12/22 Chest tube removed yesterday CXR done today showed moderate to large recurrent left apical pneumothorax. Case discussed with pulm that jackson to insert chest tube Will place on Nonrebreather Continue monitor closely (3) Elevated troponin: Plan: Mostly due to demand ischemia from hypoxia Troponin peaked to 107, then trending down 91 Case discussed with cardiology that recommended to discontinue IV heparin drip Continue aspirin and metoprolol Continue monitor closely (4) Atrial fibrillation with rapid ventricular response: Plan: Presented with HR 120s and palpitations, hypoxia concern for SSS with tachycardia and bradycardia received IV lopressor and dilt in ED with initial improvement cardiology on board Continue cardizem 300mg and metoprolol as per cardiology TTE reviewed and mostly unchanged from prior - no longer with pericardial effusi on Continue coumain with INR 1.7 Continue monitor in tele (5) CKD (chronic kidney disease) stage 3, GFR 30-59 ml/min: Plan: -creatinine 1.3, at baseline - avoid nephrotoxic medications - Monitor BMP (6) GERD (gastroesophageal reflux disease): Plan: - continue Pepcid (7) HTN (hypertension): Plan: - continue CCB and BB Plan DVT ppx: coumadin, INR 1.7 Code Status: Full Code Disposition PT/OT eval Will need short course of rehab since pt lives alone Admission and Anticipated Discharge Date Admission Date: July 08, 2022 Subjective Pt was seen and examined for pneumothorax and pacemaker placement Lying in bed with acute respiratory distress CXR this morning showed pneumothorax Pulmonary suggested to place pt on non rebreather and plan to put a chest tube Review of Systems Review of Systems: All systems reviewed & are unremarkable except as noted in Subjective Physical Exam Physical Exam: General- No acute distress Head- atraumatic Eyes- PERRL, EOMI, ENT- oropharynx clear Neck- supple, no JVD Lungs- +decrease BS in L side Heart- regular rhythm; no murmur Abdomen- normal bowel sounds, soft, nontender Extremities- no calf tenderness, +edema Neuro- alert, oriented x 3; PERRL, EOMI; no facial palsy; no dysarthria Skin- warm & dry Results & Data Results & Data ([facility]) Vital Signs (Past 12 Hours) Vital Signs Temp Pulse Resp BP Pulse Ox O2 Del Method O2 Flow Rate 07/15/22 18:53 36.7 C 87 19 108/63 96 Oxymask 15 07/15/22 15:52 Oxymask 15 07/15/22 15:30 36.8 C 78 18 100/68 97 Non-rebreather 15 07/15/22 11:47 118/65 93 Non-rebreather 15 07/15/22 11:15 36.6 C 87 33 H 115/61 97 Non-rebreather 15 (1) CKD (chronic kidney disease) stage 3, GFR 30-59 ml/min Chronic kidney disease stage 3 subtype: unspecified whether 3a or 3b Qualified Code(s): N18.30 - Chronic kidney disease, stage 3 unspecified
--- NOTE | 2022-07-15 22:38 | XRay Report ---
XR chest 1V portable HISTORY: 87 years-old Female low o2 acute hypoxia COMPARISON: Chest radiograph of same day at 12:08 PM TECHNIQUE: AP view of the chest FINDINGS: A left-sided chest tube is in stable positioning. No pneumothorax identified. Right greater left laye ring pleural effusions with bibasilar opacities. Cardiomegaly. Pulmonary vascular congestion with sli ghtly improved interstitial coarsening. Left subclavian pacer. Degenerative changes of the shoulders and spine. Chronic left proximal humeral deformity. IMPRESSION: 1. Stable positioning of the left-sided chest tube. No pneumothorax identified. 2. Cardiomegaly with slightly improved pulmonary edema. 2. Right greater than left layering pleural effusions with bibasilar consolidation again noted. ACT 112: Negative or not required by law. The above report was generated using voice recognition software. It may contain grammatical, syntax o r spelling errors. Electronically signed by: Jovani Chin M.D. 07/15/2022 10:37 PM
[2022-07-15] MEDS ORDERED: ALBUMIN 25% 12.5 GM/50 ML VIAL IV ONE (22:40)
[2022-07-15] MEDS ORDERED: FUROSEMIDE INJ 20 MG/2 ML VIAL IV ONE (22:40)
[2022-07-15] MEDS ORDERED: IPRATROPIUM BROMIDE NEB SOLN 0.02% 2.5 ML VIAL INH STA (22:41)
[2022-07-15] MEDS ORDERED: LEVALBUTEROL 1.25MG/0.5ML NEB INH STA (22:41)
[2022-07-15] MEDS ORDERED: XOPENEX/ATROVENT 1.25mg/0.5MG NEB COMBO NEB STA (22:41)
[2022-07-15] MEDS ORDERED: ERTAPENEM SODIUM 1,000 MG in SYRINGE 0 ML IV SCH (22:45)
[2022-07-15] MEDS ORDERED: methylPREDNISolone 20 MG in SYRINGE 0 ML IV STA (23:02)
[2022-07-15] MEDS ORDERED: ERTAPENEM SODIUM 500 MG in SYRINGE 0 ML IV SCH (23:15)
[2022-07-16 06:03] LABS: Creatinine Clr Calc Pharmacy 28.4 ml/min; Est GFR (African American) 45.1 ml/min; Est GFR (Non-African American) 38.9 ml/min
--- NOTE | 2022-07-16 07:59 | XRay Report ---
XR chest 1V portable HISTORY: 87 years-old Female f/u acute shortness of breath COMPARISON: Chest radiograph 07/15/2022 TECHNIQUE: AP view of the chest FINDINGS: A left-sided chest tube is again noted projecting over the left upper lung.. Equivocal left apical re sidual pneumothorax. Right greater left layering pleural effusions with bibasilar opacities, mildly p rogressed. Cardiomegaly. Pulmonary vascular congestion with stable to mildly worsened interstitial co arsening. Left subclavian pacer. Degenerative changes of the shoulders and spine. Chronic left proxim al humeral deformity. IMPRESSION: 1. Stable positioning of the left-sided chest tube with equivocal left apical pneumothorax. 2. Cardiomegaly with mildly progressed pulmonary edema. 3. Right greater than left layering pleural effusions with bibasilar consolidation again noted. ACT 112: Negative or not required by law. The above report was generated using voice recognition software. It may contain grammatical, syntax o r spelling errors. Electronically signed by: Jovani Chin M.D. 07/16/2022 7:58 AM
[2022-07-16] MEDS: MoRPHine SULFATE 2 MG/ML CARP IV PRN (08:35)
[2022-07-16] MEDS: dilTIAZem HCL 180 MG CAPCR PO SCH (08:40)
[2022-07-16] MEDS: POTASSIUM CHLORIDE 10 MEQ TABCR PO SCH (08:40)
[2022-07-16] MEDS: DOCUSATE SODIUM/SENNA 50/8.6MG TAB PO SCH (08:40)
[2022-07-16] MEDS: CALCIUM CARBONATE 1250MG TAB PO SCH (08:40)
[2022-07-16] MEDS: MULTIVITAMIN TAB PO SCH (08:40)
[2022-07-16] MEDS: CHOLECALCIFEROL 400 UNITS 10 MCG TAB PO SCH (08:40)
[2022-07-16] MEDS: FUROSEMIDE 20 MG TAB PO SCH (08:40)
[2022-07-16] MEDS: ASPIRIN 81 MG ECTAB PO SCH (08:40)
[2022-07-16] MEDS: dilTIAZem HCL 120 MG CAPCR PO SCH (08:41)
[2022-07-16] MEDS: SERTRALINE HCL 50 MG TABLET PO SCH (08:41)
[2022-07-16] MEDS: METOPROLOL SUCC 25MG EXT REL TAB PO SCH ×2 (08:41→22:53)
[2022-07-16] MEDS: traMADol HCL 50 MG TABLET PO PRN ×3 (10:14→22:55)
--- NOTE | 2022-07-16 10:55 | Pulmonology Progress Note ---
Date of Service July 16, 2022 Assessment & Plan (1) Iatrogenic pneumothorax: (2) Tension pneumothorax: (3) Acute respiratory failure with hypoxia: (4) Pulmonary hypertension: (5) Cor pulmonale (chronic): (6) Pleural effusion: Plan --Pneumothorax Likely secondary to placement of left-sided PPM S/p emergent chest tube placement 07/12/2022, removed 07/14/2022 Recurrent pneumothorax 07/15/2022, new chest tube placed in on 07/15/2022 -- Acute respiratory failure with hypoxia Likely from underlying cardiac issue Continue with O2 supplementation to keep O2 saturation between 90-92% --Pleural effusion Bilateral, more on the right side Chronic from underlying cardiac issues No plan for any intervention --Pulmonary hypertension Type II Management as per cardiology Plan: In/out: -1.3 L Chest x-ray from today does not show any signs of pneumothorax Patient's hypoxia is most likely from cardiac issues rather than pneumothorax Would recommend to continue with diuretics to keep the patient negative balance She might benefit from BiPAP but given the history of pneumothorax we will try to avoid it unless absolutely necessary Continue with chest tube to -20 suction Case was discussed with Dr. Man Please note the above document was generated using voice recognition software. It may contain grammatical, syntax or spelling errors.Any formal questions or concerns about the content, text or information contained within the body of this dictation should be directly addressed to the provider for clarification. Admission and Anticipated Discharge Date Admission Date: July 08, 2022 Subjective Patient seen and examined at bedside. No acute distress She was saturating 90-91% on 10 L oxygen mask She did complain of chest pain which was generalized all within the chest tube site. Denies any nausea vomiting Poor appetite Review of Systems Review of Systems: All systems reviewed & are unremarkable except as noted in Subjective Physical Exam Physical Exam: Constitutional: No acute distress, frail-appearing HEENT: EOMI, PERRLA, arcus senilis bilaterally Respiratory system: Decreased air entry on the left side, no wheeze, no rhonchi, positive crackles bilateral lower lobes CVS: S1-S2 positive, positive 2 out of 6 systolic murmur appreciated at the apex, positive left-sided PPM Abdomen: Soft, nontender, nondistended, positive bowel sounds x4 Extremities: +2 pulses bilaterally radialis/ dorsalis pedis, no cyanosis, +1 pitting edema right lower extremity, +2 pitting edema left lower extremity Neuro: Awake alert oriented to self Psych: Unable to assess G/U: Positive Sam Skin: no rashes, warm and dry Lymphatic: no cervical or axillary lymphadenopathy Results & Data Results & Data ([facility]) Vital Signs (Past 12 Hours) Vital Signs Temp Pulse Resp BP Pulse Ox O2 Del Method O2 Flow Rate 07/16/22 07:46 Oxymask 10 07/16/22 07:18 36.8 C 82 20 120/74 92 Oxymask 15 07/16/22 03:20 36.8 C 97 H 19 113/81 91 Oxymask 15 07/15/22 23:17 109 H 24 92 Oxymask 15 07/15/22 22:59 36.0 C L 84 18 110/63 92 Oxymask 15 Laboratory Results 07/15/22 04:47 07/16/22 04:52 PG Care Time/CCT Total # of Minutes Spent Total Time Spent with Patient: Total time spent is greater than 50% in coordination of care (as documented) at patient's floor/unit and/or counseling patient: Coding Level of Care Code 32397 Subseq Hosp Care Lvl 2 Diagnoses Iatrogenic pneumothorax J95.811 Tension pneumothorax J93.0 Acute respiratory failure with hypoxia J96.01 Pulmonary hypertension I27.20 Cor pulmonale (chronic) I27.81 Pleural effusion J90
--- NOTE | 2022-07-16 10:59 | Hospitalist Progress Note ---
Date of Service July 16, 2022 Assessment & Plan (1) Hypoxia: Plan: Multifactorial in setting of tension PTX, splinting from pain with likely atelectasis, possible fluid overload which isn't clear at this point. Will switch PO Lasix to IV at this point with goal net output -1.2L. Sam in place for accurate I/Os. (2) Postprocedural pneumothorax: Plan: CXR showed Interval development of a large left pneumothorax. S/P urgent chest tube placement by pulm Dr. Padron on 07/12/22 Chest tube removed 07/14 with repeat development of tension PTX Pigtail catheter reinserted on left chest 07/15 in am and she remained on NRB oxygen overnight Currently in alot of pain which appears to be related to chest tube only, but it is difficult to ascertain this declines talking further to forumulate a plan. She had some morphine this morning and later declined Tramadol. Will readdress with her later today. Cont PRN pain meds. (3) SSS (sick sinus syndrome): Plan: patient with labile HR with tachy-mason syndrome s/p PPM placement on 07/12/22, c/b L sided tension PTX, s/p chest tube x 2 Will cont chest tube through Monday per pulm. cardiology on board Continue diltiazem 300mg and metoprolol HR stable and she continues in afib. Restart warfarin now, which is on hold. (4) Elevated troponin: Plan: 2/2 demand ischemia from hypoxia Troponin peaked to 107, then trending down 91 Case discussed with cardiology that recommended to discontinue IV heparin drip Continue aspirin and metoprolol (5) Atrial fibrillation with rapid ventricular response: Plan: Presented with HR 120s and palpitations, hypoxia concern for SSS with tachycardia and bradycardia received IV lopressor and dilt in ED with initial improvement cardiology on board Continue cardizem 300mg and metoprolol as per cardiology TTE reviewed and mostly unchanged from prior - no longer with pericardial effusion Restart coumadin, currently held, trend INR Continue monitor in tele (6) CKD (chronic kidney disease) stage 3, GFR 30-59 ml/min: Plan: -creatinine 1.3, at baseline - avoid nephrotoxic medications if able. Will be giving diuresis for fluid seen on CXR overnight - Monitor BMP daily (7) GERD (gastroesophageal reflux disease): Plan: - continue Pepcid per home regimen. (8) HTN (hypertension): Plan: -chronic, at goal. 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 Disposition PT/OT eval -current plan is for rehab, patient lives alone. Patricia Man DO [facility] Hospitalist Admission and Anticipated Discharge Date Admission Date: July 08, 2022 Subjective 87-year-old female with history of paroxysmal atrial fibrillation anticoagulated on Coumadin along with severe pulmonary hypertension presents with palpitations for 1 week. Found to be in A. fib with RVR. Was admitted to medicine and continued on rate control strategy. She takes both Toprol and diltiazem at home and Cardizem was increased. She had some significant bradycardia and permanent place maker was recommended. This was placed on 07/12 with a post operative complication of pneumothorax. Pulm placed a chest tube on 07/12 for left-sided tension pneumothorax. This was removed on 07/14, however, unfortunately a repeat pneumothorax was seen in the morning of 07/15. A repeat pigtail chest tube was placed at that time. Overnight she was more short of breath on nonrebreather and a chest x-ray revealed increased edema. She was given ertapenem for possible pneumonia however has been afebrile. After discussion with pulmonology this will be stopped. Diuresis will be continued. She did receive Lasix 20 mg IV overnight. She is currently refusing exam. She has had waxing and waning delirium according to primary RN who had her yesterday. She cannot articulate a solid understanding of what has happened and why while in the hospital, but she can respond to questions appropriately and is oriented to person place time (year). She is tearful and appears overwhelmed and has asked me to stop talking and leave the room. She then asked me if her family would have anything to do with decision-making and when I answered the question, she became tearful again and it was not clear what was said. Bedside nursing service director mentioned patient had significant chest wall pain with rolling her off and on bedpan this morning. Patient did make reference that she does not want to ever be in as much pain as she was in this morning again. RN informed me she is now refusing medications including pain medications at this time. Physical Exam Physical Exam: CONSTITUTIONAL: thin, frail vitals as above, generally NAD, breathing comfortably but tearful EYES: normal conjunctivae, no scleral icterus ENT: external ear and nose normal, MMM NECK: trachea midline, RESPIRATORY: declined exam CARDIOVASCULAR: declined exam CHEST: PM to left anterior chest wall-covered wtih dressing-c/d/i; left chest wall pigtail catheter-covered wtih dressing c/d/i; wounds not examined as patient declined. GASTROINTESTINAL: declined exam MUSCULOSKELETAL: declined SKIN: declined NEUROLOGIC: normal cognition, normal speech PSYCHIATRIC: alert cooperative and oriented to person, place and time. Tearful. Unable to clearly articulate her needs and cannot articulate clearly what the care plan is and why. Results & Data Results & Data ([facility]) Vital Signs (Past 12 Hours) Vital Signs Temp Pulse Resp BP Pulse Ox O2 Del Method O2 Flow Rate 07/16/22 07:46 Oxymask 10 07/16/22 07:18 36.8 C 82 20 120/74 92 Oxymask 15 07/16/22 03:20 36.8 C 97 H 19 113/81 91 Oxymask 15 07/15/22 23:17 109 H 24 92 Oxymask 15 07/15/22 22:59 36.0 C L 84 18 110/63 92 Oxymask 15 Laboratory Results [facility] 07/16/22 04:52 Creatinine 1.25 H Diagnostic Findings Chest X-Ray 07/16/22 07:00 XR chest 1V portable HISTORY: 87 years-old Female f/u acute shortness of breath COMPARISON: Chest radiograph 07/15/2022 TECHNIQUE: AP view of the chest FINDINGS: A left-sided chest tube is again noted projecting over the left upper lung.. Equivocal left apical residual pneumothorax. Right greater left layering pleural effusions with bibasilar opacities, mildly progressed. Cardiomegaly. Pulmonary vascular congestion with stable to mildly worsened interstitial coarsening. Left subclavian pacer. Degenerative changes of the shoulders and spine. Chronic left proximal humeral deformity. IMPRESSION: 1. Stable positioning of the left-sided chest tube with equivocal left apical pneumothorax. 2. Cardiomegaly with mildly progressed pulmonary edema. 3. Right greater than left layering pleural effusions with bibasilar consolidation again noted. ACT 112: Negative or not required by law. The above report was generated using voice recognition software. It may contain grammatical, syntax or spelling errors. Electronically signed by: Jovani Chin M.D. 07/16/2022 7:58 AM Medications Administered Current Inpatient Medications Acetaminophen (Acetaminophen 325 Mg Tab) 650 mg PO Q4H PRN PRN Reason: Pain or Fever Stop: 08/08/22 00:34 Last Admin: 07/15/22 16:59 Dose: 650 mg Artificial Tears (Artificial Tears) 2 drops OP TID PRN PRN Reason: Dry Eye(S) Stop: 08/08/22 01:39 Aspirin (Aspirin 81 Mg Ectab) 81 mg PO QAM [facility] Stop: 08/14/22 06:29 Last Admin: 07/16/22 08:40 Dose: 81 mg Calcium Carbonate (Calcium Carbonate 1250mg Tab) 1,250 mg PO DAILY [facility] Stop: 08/08/22 08:59 Last Admin: 07/16/22 08:40 Dose: 1,250 mg Diltiazem HCl (Diltiazem Hcl 180 Mg Capcr) 180 mg PO DAILY [facility] Stop: 08/08/22 08:59 Last Admin: 07/16/22 08:40 Dose: 180 mg Diltiazem HCl (Diltiazem Hcl 120 Mg Capcr) 120 mg PO QAM [facility] Stop: 08/08/22 14:14 Last Admin: 07/16/22 08:41 Dose: 120 mg Furosemide (Furosemide 20 Mg Tab) 20 mg PO DAILY [facility] Stop: 08/08/22 08:59 Last Admin: 07/16/22 08:40 Dose: 20 mg Ertapenem 500 mg/ Syringe 5 mls @ 2 mls/min IV Q24H ANA MARÍA; Protocol Stop: 07/22/22 23:14 Last Admin: 07/15/22 23:53 Dose: 2 mls/min Melatonin (Melatonin 3 Mg Tab) 3 mg PO HS PRN PRN Reason: Insomnia Stop: 08/08/22 00:34 Last Admin: 07/14/22 20:19 Dose: 3 mg Metoprolol Succinate (Metoprolol Succ 25mg Ext Rel Tab) 25 mg PO DAILY [facility] Stop: 08/08/22 08:59 Last Admin: 07/16/22 08:41 Dose: 25 mg Metoprolol Succinate (Metoprolol Succ 25mg Ext Rel Tab) 12.5 mg PO PM ANA MARÍA Stop: 08/08/22 20:59 Last Admin: 07/15/22 20:58 Dose: 12.5 mg Metoprolol Tartrate (Metoprolol Tartrate 1 Mg/Ml Vial) 5 mg IV Q6 PRN PRN Reason: Tachycardia Stop: 08/08/22 00:34 Last Admin: 07/09/22 01:57 Dose: 5 mg Morphine Sulfate (Morphine Sulfate 2 Mg/Ml Carp) 1 mg IV Q6H PRN PRN Reason: Pain Stop: 07/29/22 13:52 Last Admin: 07/16/22 08:35 Dose: 1 mg Multivitamins (Multivitamin Tab) 1 tab PO DAILY [facility] Stop: 08/08/22 08:59 Last Admin: 07/16/22 08:40 Dose: 1 tab Nitroglycerin (Nitroglycerin Sl 0.4 Mg/Tab Tab) 0.4 mg SL UD PRN PRN Reason: Chest Pain Stop: 08/08/22 00:34 Olanzapine (Olanzapine 10 Mg/2.1 Ml Sdv) 2.5 mg IM Q4H PRN PRN Reason: Anxiety/Agitation Stop: 08/13/22 06:23 Last Admin: 07/14/22 06:33 Dose: 2.5 mg Polyethylene Glycol (Polyethylene (Miralax) 17 Gm Pack) 17 gm PO DAILY PRN PRN Reason: Constipation Stop: 08/09/22 10:27 Potassium Chloride (Potassium Chloride 10 Meq Tabcr) 10 meq PO DAILY [facility] Stop: 08/08/22 08:59 Last Admin: 07/16/22 08:40 Dose: 10 meq Senna/Docusate Sodium (Docusate Sodium/Senna 50/8.6mg Tab) 1 tab PO QAM [facility]A Stop: 08/09/22 10:59 Last Admin: 07/16/22 08:40 Dose: 1 tab Sertraline HCl (Sertraline Hcl 50 Mg Tablet) 12.5 mg PO DAILY [facility]A Stop: 08/08/22 08:59 Last Admin: 07/16/22 08:41 Dose: 12.5 mg Tramadol HCl (Tramadol Hcl 50 Mg Tablet) 25 mg PO Q4H PRN PRN Reason: Pain Stop: 08/14/22 04:53 Last Admin: 07/15/22 13:43 Dose: 25 mg Vitamin D (Cholecalciferol 400 Units 10 Mcg Tab) 400 units PO DAILY [facility] Stop: 08/08/22 08:59 Last Admin: 07/16/22 08:40 Dose: 400 units Warfarin Sodium (Warfarin Sod 2 Mg Tab) 2 mg PO TuThSa@1600 [facility] Stop: 08/08/22 15:59 Last Admin: 07/14/22 17:32 Dose: 2 mg Warfarin Sodium (Warfarin Sod 1 Mg Tab) 1 mg PO SuMoWeFr@1600 [facility] Stop: 08/09/22 15:59 (1) CKD (chronic kidney disease) stage 3, GFR 30-59 ml/min Chronic kidney disease stage 3 subtype: unspecified whether 3a or 3b Qualified Code(s): N18.30 - Chronic kidney disease, stage 3 unspecified
[2022-07-16] MEDS: FUROSEMIDE INJ 20 MG/2 ML VIAL IV SCH (14:25)
[2022-07-16 15:56] LABS: INR 2.9 (0.9-1.1); Prothrombin Time 29.2 Seconds (9.0-12.0)
[2022-07-16] MEDS: WARFARIN SOD 2 MG TAB PO SCH (16:34)
[2022-07-17 06:02] LABS: Hematocrit (blood only) 40.9 % (34.1-44.9); Hemoglobin 14.1 g/dl (12.0-16.0); Mean Corpuscular Hemoglobin 31.5 pg (25.0-34.0); Mean Corpuscular Hgb Conc 34.5 g/dL (32.0-36.0); Mean Corpuscular Volume 91.5 fL (80.0-100.0); Mean Platelet Volume 12.7 fL (9.4-12.3); Platelet Count 157 K/uL (130-400); RDW Coefficient of Variation 15.9 % (11.5-14.5); RDW Standard Deviation 53.2 fL (36.4-46.3); Red Blood Count 4.47 M/uL (3.93-5.22); White Blood Count 13.65 K/ul (4.8-10.8)
[2022-07-17 06:31] LABS: BUN Creatinine Ratio 39.1 (10-20); Calcium 9.5 mg/dl (8.5-10.1); Est GFR (African American) 43.8 ml/min; Est GFR (Non-African American) 37.8 ml/min; INR 3.7 (0.9-1.1); Potassium 4.3 mmol/L (3.5-5.1); Prothrombin Time 36.6 Seconds (9.0-12.0)
--- NOTE | 2022-07-17 07:08 | XRay Report ---
XR chest 1V portable CLINICAL HISTORY: f/u COMPARISON STUDY: Chest radiograph July 16, 2022. FINDINGS: A left pneumothorax has increased in size since prior exam. Pleural separation measures 1.8 cm. The left pleural catheter has been partially withdrawn. Cardiomegaly is noted. Bilateral pleural effusions, right larger than left, are present. There are associated bibasilar opacities. Interstiti al pulmonary edema is noted. Chronic proximal left humeral deformity. IMPRESSION: 1. Increase in size of a small left pneumothorax. Left pleural catheter partially withdrawn. 2. Persistent bilateral pleural effusions with bibasilar opacities and interstitial pulmonary edema. ACT 112: Negative or not required by law. Electronically signed by: Jarod Kaye M.D. 07/17/2022 7:07 AM
[2022-07-17] MEDS: traMADol HCL 50 MG TABLET PO PRN (08:27)
[2022-07-17] MEDS: ASPIRIN 81 MG ECTAB PO SCH (08:27)
[2022-07-17] MEDS: DOCUSATE SODIUM/SENNA 50/8.6MG TAB PO SCH (08:28)
[2022-07-17] MEDS: FUROSEMIDE INJ 20 MG/2 ML VIAL IV SCH (08:28)
[2022-07-17] MEDS: CHOLECALCIFEROL 400 UNITS 10 MCG TAB PO SCH (08:28)
[2022-07-17] MEDS: POTASSIUM CHLORIDE 10 MEQ TABCR PO SCH (08:28)
[2022-07-17] MEDS: CALCIUM CARBONATE 1250MG TAB PO SCH (08:28)
[2022-07-17] MEDS: SERTRALINE HCL 50 MG TABLET PO SCH (08:29)
[2022-07-17] MEDS: dilTIAZem HCL 120 MG CAPCR PO SCH (08:29)
[2022-07-17] MEDS: MULTIVITAMIN TAB PO SCH (08:29)
[2022-07-17] MEDS: dilTIAZem HCL 180 MG CAPCR PO SCH (08:29)
[2022-07-17] MEDS: METOPROLOL SUCC 25MG EXT REL TAB PO SCH ×2 (08:30→20:45)
--- NOTE | 2022-07-17 08:59 | XRay Report ---
XR chest 1V portable HISTORY: 87 years-old Female Chest tube manipulation, worsening pneumothorax. Acute shortness of danish ath COMPARISON: Chest radiograph 07/17/2022 TECHNIQUE: AP view of the chest FINDINGS: Increased size of the left-sided pneumothorax, now with pleural separation of 2.6 cm, previously 1.8 cm. Chest tube projects over the lateral left midlung. Left subclavian pacer. Cardiac silhouette is e nlarged. Layering pleural effusions with bibasilar consolidation. Pulmonary vascular congestion with interstitial coarsening. Degenerative changes of the shoulders and spine. Chronic left proximal humer al deformity. IMPRESSION: 1. Mildly increased size of the left pneumothorax with stable positioning of the left-sided chest tub e. 2. Cardiomegaly with pulmonary edema, persistent layering pleural effusions with bibasilar consolidat ion. ACT 112: Negative or not required by law. The above report was generated using voice recognition software. It may contain grammatical, syntax o r spelling errors. Electronically signed by: Jovani Chin M.D. 07/17/2022 8:57 AM
--- NOTE | 2022-07-17 09:19 | Pulmonology Progress Note ---
Date of Service July 17, 2022 Assessment & Plan (1) Iatrogenic pneumothorax: (2) Tension pneumothorax: (3) Acute respiratory failure with hypoxia: (4) Pulmonary hypertension: (5) Cor pulmonale (chronic): (6) Pleural effusion: Plan --Pneumothorax Likely secondary to placement of left-sided PPM S/p emergent chest tube placement 07/12/2022, removed 07/14/2022 Recurrent pneumothorax 07/15/2022, new chest tube placed in on 07/15/2022 -- Acute respiratory failure with hypoxia Likely from underlying cardiac issue Continue with O2 supplementation to keep O2 saturation between 90-92% --Pleural effusion Bilateral, more on the right side Chronic from underlying cardiac issues No plan for any intervention --Pulmonary hypertension Type II Management as per cardiology Plan: Chest x-ray from today shows small left apical pneumothorax. Chest tube still in place, it has been retracted compared to yesterday. I did flush with sterile water to make sure the tube is not clogged. There is no persistent bubbling appreciated. I will increase the suction to -40 Case was discussed with RN Please note the above document was generated using voice recognition software. It may contain grammatical, syntax or spelling errors.Any formal questions or concerns about the content, text or information contained within the body of this dictation should be directly addressed to the provider for clarification. Admission and Anticipated Discharge Date Admission Date: July 08, 2022 Subjective Patient seen and examined at bedside. No acute distress, no adverse events overnight. Did complain of mild chest discomfort at the site of the chest tube. Was saturating 91-92% on nonrebreather. Denies any headache No abdominal pain. Review of Systems Review of Systems: All systems reviewed & are unremarkable except as noted in Subjective Physical Exam Physical Exam: Constitutional: No acute distress, frail-appearing HEENT: EOMI, PERRLA, arcus senilis bilaterally Respiratory system: Decreased air entry on the left side, no wheeze, no rhonchi, positive crackles bilateral lower lobes CVS: S1-S2 positive, positive 2 out of 6 systolic murmur appreciated at the apex, positive left-sided PPM Abdomen: Soft, nontender, nondistended, positive bowel sounds x4 Extremities: +2 pulses bilaterally radialis/ dorsalis pedis, no cyanosis, +1 pitting edema bilateral lower extremity Neuro: Awake alert oriented to self Psych: Unable to assess G/U: Positive Sam Skin: no rashes, warm and dry Lymphatic: no cervical or axillary lymphadenopathy Results & Data Results & Data ([facility]) Vital Signs (Past 12 Hours) Vital Signs Temp Pulse Resp BP Pulse Ox O2 Del Method O2 Flow Rate 07/17/22 07:30 36.8 C 76 21 119/76 88 L Nasal Cannula 15 07/17/22 02:57 36.7 C 77 20 112/71 87 L High Flow Nasal Cannula 10 07/16/22 22:46 36.3 C L 72 18 119/75 89 L High Flow Nasal Cannula 10 07/16/22 22:18 Nasal Cannula Laboratory Results 07/17/22 05:51 07/17/22 05:51 PG Care Time/CCT Total # of Minutes Spent Total Time Spent with Patient: Total time spent is greater than 50% in coordination of care (as documented) at patient's floor/unit and/or counseling patient: Coding Level of Care Code 19312 Subseq Hosp Care Lvl 2 Diagnoses Iatrogenic pneumothorax J95.811 Tension pneumothorax J93.0 Acute respiratory failure with hypoxia J96.01 Pulmonary hypertension I27.20 Cor pulmonale (chronic) I27.81 Pleural effusion J90
[2022-07-17] MEDS ORDERED: ALBUTEROL 0.5% NEB SOLN 2.5 MG/0.5 ML VIAL NEB STA (12:24)
[2022-07-17] MEDS: ACETYLCYSTEINE 10% INHAL SOLN 4 ML **DISPENSED BY RESP. INH SCH ×2 (12:34→20:04)
[2022-07-17] MEDS: MoRPHine SULFATE 2 MG/ML CARP IV PRN (14:00)
[2022-07-17] MEDS ORDERED: FUROSEMIDE INJ 20 MG/2 ML VIAL IV ONE ×2 (14:45→17:17)
[2022-07-17 15:12] LABS: Base Excess ABG 1.1 mEq/L (-9-1.8); HCO3 ABG 23 mmol/L (19-24); Oxygen Saturation ABG 85.6 % (90-95); PCO2 ABG 27 mmHg (35-46); PO2 ABG 52 mmHg (80-95)
[2022-07-17 15:40] LABS: Allen Test Pos (Pos)
[2022-07-17 15:42] LABS: pH ABG 7.53 (7.35-7.45)
--- NOTE | 2022-07-17 16:11 | XRay Report ---
XR chest 1V portable HISTORY: 87 years-old Female f/u left sided pneumo left-sided pneumothorax COMPARISON: Chest radiograph of same day at 8:40 AM TECHNIQUE: AP view of the chest FINDINGS: Left-sided pneumothorax, now with pleural separation of 2.9 cm, previously 2.6 cm chest tube projects over the lateral left midlung. Left subclavian pacer. Cardiac silhouette is enlarged. Layering pleur al effusions with bibasilar consolidation. Pulmonary vascular congestion with interstitial coarsening . Degenerative changes of the shoulders and spine. Chronic left proximal humeral deformity. IMPRESSION: 1. No significant change of the small left-sided pneumothorax with stable positioning of the left-jerald ed chest tube. 2. Cardiomegaly with pulmonary edema, persistent layering pleural effusions with bibasilar consolidat ion. ACT 112: Negative or not required by law. The above report was generated using voice recognition software. It may contain grammatical, syntax o r spelling errors. Electronically signed by: Jovani Chin M.D. 07/17/2022 4:10 PM
[2022-07-17 16:14] LABS: Anion Gap 8.9 (3-11)
--- NOTE | 2022-07-17 18:06 | Hospitalist Progress Note ---
Date of Service July 17, 2022 Assessment & Plan (1) Acute respiratory failure with hypoxia: (2) Postprocedural pneumothorax: Plan: CXR showed Interval development of a large left pneumothorax. S/P urgent chest tube placement by pulm Dr. Padron on 07/12/22 Chest tube removed 07/14 with repeat development of tension PTX Pigtail catheter reinserted on left chest 07/15 She has been required more oxygen supplement and Oxygen sat continues declined CXR no significant change of the small left-sided pneumothorax with stable positioning of the left-sided chest tube. Cardiomegaly with pulmonary edema, persistent layering pleural effusions with bibasilar consolidation. Lasix 20mg given this morning with additional 20mg IVx2 given Case discussed with Pulm and cardiology ABG today with pH 7.53/ pCO2 27 pO2 52 Spoke to daughter that family does not want any intubation in the event respiratory continue worsening. If patient worsening and struggle to breath, we will call daughter that we can keep the pt comfortable Will check procalcitonin now, if elevates will start on abx Continue monitor closely (3) SSS (sick sinus syndrome): Plan: patient with labile HR with tachy-mason syndrome s/p PPM placement on 07/12/22, c/b L sided tension PTX, s/p chest tube x 2 Will cont chest tube through Monday per pulm. cardiology on board Continue diltiazem 300mg and metoprolol HR stable and she continues in afib. Will hold coumadin since INR 3.7 today (4) Elevated troponin: Plan: 2/2 demand ischemia from hypoxia Troponin peaked to 107, then trending down 91 Case discussed with cardiology that recommended to discontinue IV heparin drip Continue aspirin and metoprolol (5) Atrial fibrillation with rapid ventricular response: Plan: Presented with HR 120s and palpitations, hypoxia concern for SSS with tachycardia and bradycardia received IV lopressor and dilt in ED with initial improvement cardiology on board Continue cardizem 300mg and metoprolol as per cardiology TTE reviewed and mostly unchanged from prior - no longer with pericardial effusion Coumadin on hold due to INR elevate Continue monitor in tele (6) CKD (chronic kidney disease) stage 3, GFR 30-59 ml/min: Plan: - Creatinine 1.3, at baseline - Discussed with daughter about the additional lasix given due to the pulm edema and hypoxia - Daughter understand the additional lasix can cause the creatinine to increase - Continue monitor BMP while on IV lasix (7) GERD (gastroesophageal reflux disease): Plan: - continue Pepcid per home regimen. (8) HTN (hypertension): Plan: -chronic, at goal. Continue CCB and BB (9) Pulmonary hypertension: Plan: chronic, severe (10) DVT prophylaxis: Plan: DVT ppx: coumadin with INR 3.7 today Code Status: DNR/DNI Disposition PT/OT eval -current plan is for rehab, patient lives alone. Admission and Anticipated Discharge Date Admission Date: July 08, 2022 Subjective Pt was seen and examined for follow up respiratory failure Lying in bed with acute respiratory distress with son at bedside Pt continues required high flow oxygen supplement, but her oxygen sat has been dropping Provided update to son at bedside and answered all the questions I also called her daughter Francoise over the phone to update her about her condition since pt is not doing well Family does not want any intubation in the event respiratory continue worsening. If patient worsening and struggle to breath, we will call daughter that we can keep the pt comfortable Review of Systems Review of Systems: All systems reviewed & are unremarkable except as noted in Subjective Physical Exam Physical Exam: General- acute distress Head- atraumatic Eyes- PERRL, EOMI, ENT- oropharynx clear Neck- supple, no JVD Lungs- +decrease BS in L side, L side chest tube Heart- regular rhythm; no murmur Abdomen- normal bowel sounds, soft, nontender Extremities- no calf tenderness, +edema Neuro- alert, oriented x 3; PERRL, EOMI; no facial palsy; no dysarthria Skin- warm & dry Results & Data Results & Data ([facility]) Vital Signs (Past 12 Hours) Vital Signs Temp Pulse Pulse Resp BP Pulse Ox O2 Del Method 07/17/22 15:24 36.8 C 79 22 116/76 84 L Oxymask, High Flow Nasal Cannula 07/17/22 08:00 79 07/17/22 08:00 Oxymask 07/17/22 12:54 78 20 88 L High Flow Nasal Cannula 07/17/22 12:37 78 20 88 L Nasal Cannula 07/17/22 11:30 36.7 C 78 24 110/65 89 L 07/17/22 07:30 36.8 C 76 21 119/76 88 L Nasal Cannula O2 Flow Rate FiO2 07/17/22 15:24 40 07/17/22 08:00 07/17/22 08:00 12 07/17/22 12:54 40 100 07/17/22 12:37 15 07/17/22 11:30 15 07/17/22 07:30 15 (1) CKD (chronic kidney disease) stage 3, GFR 30-59 ml/min Chronic kidney disease stage 3 subtype: unspecified whether 3a or 3b Qualified Code(s): N18.30 - Chronic kidney disease, stage 3 unspecified
[2022-07-17] MEDS: OLANZapine 10 MG/2.1 ML SDV IM PRN (18:43)
[2022-07-17] MEDS ORDERED: ALBUTEROL 0.083% NEBU SOLN 3 ML VIAL ONE (19:12)
[2022-07-17] MEDS: MELATONIN 3 MG TAB PO PRN (20:45)
[2022-07-17] MEDS: CEFEPIME 1,000 MG in SYRINGE 0 ML IV SCH (21:39)
[2022-07-18] MEDS: traMADol HCL 50 MG TABLET PO PRN (00:48)
[2022-07-18] MEDS: POLYETHYLENE (MIRALAX) 17 GM PACK PO PRN (04:37)
[2022-07-18] MEDS: ACETYLCYSTEINE 10% INHAL SOLN 4 ML **DISPENSED BY RESP. INH SCH ×2 (06:54→20:19)
[2022-07-18] MEDS: dilTIAZem HCL 120 MG CAPCR PO SCH (08:06)
[2022-07-18] MEDS: METOPROLOL SUCC 25MG EXT REL TAB PO SCH ×2 (08:06→21:06)
[2022-07-18] MEDS: CHOLECALCIFEROL 400 UNITS 10 MCG TAB PO SCH (08:06)
[2022-07-18] MEDS: POTASSIUM CHLORIDE 10 MEQ TABCR PO SCH (08:06)
[2022-07-18] MEDS: SERTRALINE HCL 50 MG TABLET PO SCH (08:06)
[2022-07-18] MEDS: MULTIVITAMIN TAB PO SCH (08:07)
[2022-07-18] MEDS: CALCIUM CARBONATE 1250MG TAB PO SCH (08:07)
[2022-07-18] MEDS: ASPIRIN 81 MG ECTAB PO SCH (08:07)
[2022-07-18] MEDS: DOCUSATE SODIUM/SENNA 50/8.6MG TAB PO SCH (08:07)
[2022-07-18] MEDS: dilTIAZem HCL 180 MG CAPCR PO SCH (08:07)
[2022-07-18] MEDS: CEFEPIME 1,000 MG in SYRINGE 0 ML IV SCH ×2 (08:15→21:07)
--- NOTE | 2022-07-18 08:46 | XRay Report ---
XR chest 1V portable HISTORY: Follow up left sided pneumothorax. COMPARISON: Chest 07/17/2022. FINDINGS: Left-sided chest tube is unchanged in position. Small left hydropneumothorax has decreased in size. This measures a maximal pleural gap of 7 mm. No right-sided pneumothorax. Cardiomegaly and a small right pleural effusion remain unchanged. Left-sided single lead pacemaker. Bibasilar densities persist and favor atelectasis from the pleural effusions. IMPRESSION: 1. Decrease in size in the small left-sided pneumothorax. 2. Cardiomegaly and small bilateral pleural effusions persist. 3. The left-sided chest tube is unchanged in position. ACT 112: Negative or not required by law. Electronically signed by: Harlan Ferrara M.D. 07/18/2022 8:45 AM
[2022-07-18 09:41] LABS: Est GFR (African American) 37.7 ml/min; Est GFR (Non-African American) 32.5 ml/min
--- NOTE | 2022-07-18 11:38 | Pulmonology Progress Note ---
Date of Service July 18, 2022 Assessment & Plan (1) Iatrogenic pneumothorax: (2) Tension pneumothorax: (3) Acute respiratory failure with hypoxia: (4) Pulmonary hypertension: (5) Cor pulmonale (chronic): (6) Pleural effusion: Plan Impression: 87-year-old female with cardiomyopathy, atrial fibrillation status post pacemaker implantation with resultant postprocedural pneumothorax which recurred after removal of the chest tube and significant hypoxemic respiratory failure. Recommendations: 1. Postprocedural pneumothorax: Minimal pneumothorax on chest x-ray this morning with no evidence of titling on the suction canister and no significant air leak with cough or respirations. We will clamp the tube and perform follow- up chest x-ray in 4 to 6 hours 2. Hypoxemic respiratory failure: hours. Multifactorial. Suspect VQ mismatch and shunting physiology. Unclear if the patient has PFO/ASD contributing to right to left shunting. Questions were answered to the best of my ability. Patient expressed understanding and is in agreement with the plan as outlined. Prognosis guarded could consider echo with bubble study, however I am unclear how that would affect management at this point time as the patient is not a candidate for closure if this were identified. 3. Secondary pulmonary hypertension: Patient has severe tricuspid regurgitation without any coaptation of the valves. Do not think she is a candidate for valvuloplasty. This is likely contributing to her hypoxemic respiratory failure. Pulmonary vasodilators are unlikely to offer her any significant benefit with significant annular dilatation due to right ventricular dilatation. Agree with primary service discussion regarding palliative measures. Do not think intubation mechanical ventilation would offer this patient a long-term clinical benefit. If her pneumothorax should recur or more aggressive interventions were to be required, recommend transfer of the patient to tertiary care Center with experts in pulmonary hypertension. Discussed with nursing at bedside as well as with patient. Questions were answered to the best of my ability. Patient expressed understanding and is in agreement with the plan as outlined Admission and Anticipated Discharge Date Admission Date: July 08, 2022 Subjective Patient seen and examined. EMR reviewed. 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 The patient continues to have respiratory difficulties. She is maintained on high flow oxygen. Her chest tube remains in place with decreased size of the apical pneumothorax on today's film. She is not really coughing or bringing up much in the way of phlegm. She denies chest pain or palpitations. Review of Systems Review of Systems: All systems reviewed & are unremarkable except as noted in Subjective Physical Exam Constitutional: + thin and + frail appearing Neck: trachea midline, no thyromegaly Respiratory: + uses accessory muscles and + tachypneic Auscultation: no crackles and no wheezes Cardiovascular: RRR, no murmur, no edema Gastrointestinal (Abdomen): normal bowel sounds, soft, nontender, no hepatosplenomegaly Musculoskeletal: Extremities: extremities normal to inspection Skin: no rashes, warm and dry Neurologic: Nonfocal exam Lymphatic: no cervical lymphadenopathy Results & Data Results & Data ([facility]) Vital Signs (Past 12 Hours) Vital Signs Temp Pulse Pulse Resp BP Pulse Ox O2 Del Method 07/18/22 11:16 36.5 C 77 22 115/71 91 High Flow Nasal Cannula 07/18/22 08:00 93 H 07/18/22 08:00 High Flow Nasal Cannula 07/18/22 07:12 36.8 C 71 25 H 107/64 86 L High Flow Nasal Cannula 07/18/22 06:58 88 18 86 L High Flow Nasal Cannula 07/18/22 06:55 88 18 87 L High Flow Nasal Cannula 07/18/22 03:30 62 22 89 L High Flow Nasal Cannula, Non-rebreather 07/18/22 03:29 36.7 C 95 H 22 112/63 89 L High Flow Nasal Cannula 07/17/22 23:40 36.4 C L 86 24 109/60 89 L High Flow Nasal Cannula, Non-rebreather O2 Flow Rate FiO2 07/18/22 11:16 40 07/18/22 08:00 07/18/22 08:00 40 100 07/18/22 07:12 40 100 07/18/22 06:58 40 100 07/18/22 06:55 40 100 07/18/22 03:30 40 100 07/18/22 03:29 40 100 07/17/22 23:40 40 100 Laboratory Results 07/17/22 05:51 07/18/22 09:03 Diagnostic Findings Chest x-ray from this morning was reviewed. Small apical pneumothorax identified. Profound cardiomegaly again appreciated with probable small bilateral pleural effusions. PG Care Time/CCT Total # of Minutes Spent Total Time Spent with Patient: Total time spent is greater than 50% in coordination of care (as documented) at patient's floor/unit and/or counseling patient: Coding Level of Care Code 71763 Subseq Hosp Care Lvl 3 Diagnoses Iatrogenic pneumothorax J95.811 Tension pneumothorax J93.0 Acute respiratory failure with hypoxia J96.01 Pulmonary hypertension I27.20 Cor pulmonale (chronic) I27.81 Pleural effusion J90
[2022-07-18] MEDS: MoRPHine SULFATE 2 MG/ML CARP IV PRN (16:16)
--- NOTE | 2022-07-18 16:28 | XRay Report ---
XR chest 1V portable HISTORY: Follow up w/ chest tube clamped COMPARISON: Chest 07/18/2022. FINDINGS: Left chest tube is unchanged in position. Interval development of a large pneumothorax with a apical pleural gap of 7 cm. No significant midline shift. Cardiomegaly, bilateral pleural effusion s, bibasilar densities persist. No right-sided pneumothorax. Old posttraumatic changes within the lef t humerus again noted. There is a left-sided single lead pacemaker. IMPRESSION: 1. Interval development of a large left pneumothorax. No significant midline shift. 2. The left chest tube is unchanged in position. 3. Cardiomegaly and bilateral pleural effusions/densities persist. 4. These findings were discussed with Dr. Singh at 4:30 PM on 07/18/2022. ACT 112: Negative or not required by law. Electronically signed by: Harlan Ferrara M.D. 07/18/2022 4:55 PM
--- NOTE | 2022-07-18 20:47 | Hospitalist Progress Note ---
Date of Service July 18, 2022 Assessment & Plan (1) Acute respiratory failure with hypoxia: (2) Postprocedural pneumothorax: Plan: CXR showed Interval development of a large left pneumothorax. S/P urgent chest tube placement by pulm Dr. Padron on 07/12/22 Chest tube removed 07/14 with repeat development of tension PTX Pigtail catheter reinserted on left chest 07/15 She has been required more oxygen supplement and Oxygen sat continues declined CXR no significant change of the small left-sided pneumothorax with stable positioning of the left-sided chest tube. Cardiomegaly with pulmonary edema, persistent layering pleural effusions with bibasilar consolidation. Lasix 20mg given this morning with additional 20mg IVx2 given Case discussed with Pulm and cardiology ABG today with pH 7.53/ pCO2 27 pO2 52 Spoke to daughter that family does not want any intubation in the event respiratory continue worsening. If patient worsening and struggle to breath, we will call daughter that we can keep the pt comfortable Procalcitonin mildly elevated, started on Unasyn Continue monitor closely (3) SSS (sick sinus syndrome): Plan: patient with labile HR with tachy-mason syndrome s/p PPM placement on 07/12/22, c/b L sided tension PTX, s/p chest tube x 2 Will cont chest tube through Monday per pulm. cardiology on board Continue diltiazem 300mg and metoprolol HR stable and she continues in afib. Coumadin on hold since INR 3.7 today (4) Elevated troponin: Plan: 2/2 demand ischemia from hypoxia Troponin peaked to 107, then trending down 91 Case discussed with cardiology that recommended to discontinue IV heparin drip Continue aspirin and metoprolol (5) Atrial fibrillation with rapid ventricular response: Plan: Presented with HR 120s and palpitations, hypoxia concern for SSS with tachycardia and bradycardia received IV lopressor and dilt in ED with initial improvement cardiology on board Continue cardizem 300mg and metoprolol as per cardiology TTE reviewed and mostly unchanged from prior - no longer with pericardial effusion Coumadin on hold due to INR elevate Continue monitor in tele (6) CKD (chronic kidney disease) stage 3, GFR 30-59 ml/min: Plan: - Creatinine 1.3, at baseline - Discussed with daughter about the additional lasix given due to the pulm edema and hypoxia - Daughter understand the additional lasix can cause the creatinine to increase - Continue monitor BMP while on IV lasix (7) GERD (gastroesophageal reflux disease): Plan: - continue Pepcid per home regimen. (8) HTN (hypertension): Plan: -chronic, at goal. Continue CCB and BB (9) Pulmonary hypertension: Plan: chronic, severe (10) DVT prophylaxis: Plan: DVT ppx: coumadin with INR 3.7 today Code Status: DNR/DNI Disposition PT/OT eval -current plan is for rehab, patient lives alone. Admission and Anticipated Discharge Date Admission Date: July 08, 2022 Subjective Pt was seen and examined for follow up respiratory failure Lying in bed with acute respiratory distress Pt continues required high flow oxygen supplement She said that she continues to have sob Review of Systems Review of Systems: All systems reviewed & are unremarkable except as noted in Subjective Physical Exam Physical Exam: General- acute distress Head- atraumatic Eyes- PERRL, EOMI, ENT- oropharynx clear Neck- supple, no JVD Lungs- +decrease BS in L side, L side chest tube Heart- regular rhythm; no murmur Abdomen- normal bowel sounds, soft, nontender Extremities- no calf tenderness, +edema Neuro- alert, oriented x 3; PERRL, EOMI; no facial palsy; no dysarthria Skin- warm & dry Results & Data Results & Data ([facility]) Vital Signs (Past 12 Hours) Vital Signs Temp Pulse Pulse Resp BP Pulse Ox O2 Del Method 07/18/22 20:00 36.9 C 92 H 24 89 L High Flow Nasal Cannula 07/18/22 20:19 78 20 87 L High Flow Nasal Cannula 07/18/22 16:00 84 07/18/22 15:00 High Flow Nasal Cannula 07/18/22 15:45 36.8 C 70 26 H 122/82 85 L High Flow Nasal Cannula 07/18/22 11:48 89 18 86 L High Flow Nasal Cannula 07/18/22 11:16 36.5 C 77 22 115/71 91 High Flow Nasal Cannula O2 Flow Rate FiO2 07/18/22 20:00 40 100 07/18/22 20:19 40 100 07/18/22 16:00 07/18/22 15:00 40 100 07/18/22 15:45 40 100 07/18/22 11:48 40 100 07/18/22 11:16 40 (1) CKD (chronic kidney disease) stage 3, GFR 30-59 ml/min Chronic kidney disease stage 3 subtype: unspecified whether 3a or 3b Qualified Code(s): N18.30 - Chronic kidney disease, stage 3 unspecified
[2022-07-18] MEDS: ACETAMINOPHEN 325 MG TAB PO PRN (21:12)
[2022-07-19] MEDS: POLYETHYLENE (MIRALAX) 17 GM PACK PO PRN (04:03)
[2022-07-19] MEDS: ACETAMINOPHEN 325 MG TAB PO PRN ×3 (04:05→21:13)
[2022-07-19 06:28] LABS: Hematocrit (blood only) 38.2 % (34.1-44.9); Hemoglobin 13.2 g/dl (12.0-16.0); Mean Corpuscular Hemoglobin 31.6 pg (25.0-34.0); Mean Corpuscular Hgb Conc 34.6 g/dL (32.0-36.0); Mean Corpuscular Volume 91.4 fL (80.0-100.0); RDW Coefficient of Variation 15.5 % (11.5-14.5); RDW Standard Deviation 51.5 fL (36.4-46.3); Red Blood Count 4.18 M/uL (3.93-5.22); White Blood Count 11.84 K/ul (4.8-10.8)
[2022-07-19 06:31] LABS: Mean Platelet Volume 13.2 fL (9.4-12.3); Platelet Count 136 K/uL (130-400)
[2022-07-19 06:51] LABS: Calcium 9.2 mg/dl (8.5-10.1); Creatinine Clr Calc Pharmacy 29.7 ml/min; Est GFR (African American) 49.9 ml/min
[2022-07-19 06:55] LABS: INR 3.4 (0.9-1.1); Prothrombin Time 33.8 Seconds (9.0-12.0)
--- NOTE | 2022-07-19 08:03 | XRay Report ---
XR chest 1V portable HISTORY: 87 years-old Female f/u follow-up study in a patient with left-sided chest tube COMPARISON: Chest radiograph 07/18/2022 TECHNIQUE: AP view of the chest FINDINGS: A left-sided chest tube appears to be in stable positioning. Left subclavian pacer. Tiny residual lef t-sided pneumothorax with lateral pleural separation of 3 mm. Enlargement of the cardiac silhouette. Pulmonary vascular congestion with interstitial coarsening. Layering pleural effusions with bibasilar consolidation is similar to prior. Degenerative changes of the shoulders and spine with chronic left proximal humeral deformity. IMPRESSION: 1. Stable positioning of the left-sided chest tube. Small left-sided pneumothorax has decreased in si ze from prior. 2. Cardiomegaly with pulmonary edema. 2. Layering pleural effusions with bibasilar consolidation redemonstrated. ACT 112: Negative or not required by law. The above report was generated using voice recognition software. It may contain grammatical, syntax o r spelling errors. Electronically signed by: Jovani Chin M.D. 07/19/2022 8:02 AM
[2022-07-19] MEDS: SERTRALINE HCL 50 MG TABLET PO SCH (08:30)
[2022-07-19] MEDS: METOPROLOL SUCC 25MG EXT REL TAB PO SCH ×2 (08:30→21:13)
[2022-07-19] MEDS: DOCUSATE SODIUM/SENNA 50/8.6MG TAB PO SCH (08:31)
[2022-07-19] MEDS: POTASSIUM CHLORIDE 10 MEQ TABCR PO SCH (08:31)
[2022-07-19] MEDS: dilTIAZem HCL 120 MG CAPCR PO SCH (08:31)
[2022-07-19] MEDS: dilTIAZem HCL 180 MG CAPCR PO SCH (08:31)
[2022-07-19] MEDS: MULTIVITAMIN TAB PO SCH (08:31)
[2022-07-19] MEDS: ASPIRIN 81 MG ECTAB PO SCH (08:31)
[2022-07-19] MEDS: CALCIUM CARBONATE 1250MG TAB PO SCH (08:31)
[2022-07-19] MEDS: CHOLECALCIFEROL 400 UNITS 10 MCG TAB PO SCH (08:31)
[2022-07-19] MEDS: CEFEPIME 1,000 MG in SYRINGE 0 ML IV SCH (08:32)
[2022-07-19] MEDS: ACETYLCYSTEINE 10% INHAL SOLN 4 ML **DISPENSED BY RESP. INH SCH (08:37)
[2022-07-19] MEDS ORDERED: FUROSEMIDE INJ 20 MG/2 ML VIAL IV ONE (09:30)
--- NOTE | 2022-07-19 11:30 | Pulmonology Progress Note ---
Date of Service July 19, 2022 Assessment & Plan (1) Iatrogenic pneumothorax: (2) Tension pneumothorax: (3) Acute respiratory failure with hypoxia: (4) Pulmonary hypertension: (5) Cor pulmonale (chronic): (6) Pleural effusion: Plan Impression: 87-year-old female with cardiomyopathy, atrial fibrillation status post pacemaker implantation with resultant postprocedural pneumothorax which recurred after removal of the chest tube and significant hypoxemic respiratory failure. Clamping of the chest tube yesterday resulted in reaccumulation of the pneumothorax necessitating return back to suction. This morning the x-ray looks better Recommendations: 1. Postprocedural pneumothorax: Minimal pneumothorax on chest x-ray this morning we will place the tube to waterseal and repeat chest x-ray in the a.m. If the lung stays up, may consider clamping trial tomorrow 2. Hypoxemic respiratory failure: Multifactorial. Suspect VQ mismatch and shunting physiology. Unclear if the patient has PFO/ASD contributing to right to left shunting. Could consider echo with bubble study, however I am unclear how that would affect management at this point time as the patient is not a candidate for closure if this were identified. 3. Secondary pulmonary hypertension: Patient has severe tricuspid regurgitation without any coaptation of the valves. Do not think she is a cand idate for valvuloplasty. This is likely contributing to or the primary cause of her hypoxemic respiratory failure. Pulmonary vasodilators are unlikely to offer her any significant benefit with significant annular dilatation due to right ventricular dilatation. Unfortunately I do not think this is a modifiable situation. Agree with decision to not pursue escalation of care or intubation. Given the patient's now delirium and failure to progress, palliative care consultation would be appropriate. If her pneumothorax should recur or more aggressive interventions were to be required, recommend transfer of the patient to tertiary care Center with experts in pulmonary hypertension. Discussed with nursing at bedside as well as with patient. Admission and Anticipated Discharge Date Admission Date: July 08, 2022 Subjective Patient is exhibiting agitated delirium this morning. She states she wants to get up and go shopping. She remains tachypneic. She had no other acute events overnight Review of Systems Review of Systems: Unobtainable due to mental health condition Physical Exam Constitutional: + thin and + frail appearing Neck: trachea midline, no thyromegaly Respiratory: + uses accessory muscles and + tachypneic Auscultation: no crackles and no wheezes Cardiovascular: RRR, no murmur, no edema Chest (Breasts): Additional Comments: No air leak on the chest tube. Gastrointestinal (Abdomen): normal bowel sounds, soft, nontender, no hepatosplenomegaly Musculoskeletal: Extremities: extremities normal to inspection Skin: no rashes, warm and dry Lymphatic: no cervical lymphadenopathy Results & Data Results & Data ([facility]) Vital Signs (Past 12 Hours) Vital Signs Temp Pulse Pulse Resp BP Pulse Ox O2 Del Method 07/19/22 11:21 73 26 H 90 High Flow Nasal Cannula 07/19/22 11:11 36.7 C 76 27 H 123/70 91 High Flow Nasal Cannula 07/19/22 08:00 82 07/19/22 08:00 High Flow Nasal Cannula 07/19/22 07:05 77 22 90 High Flow Nasal Cannula 07/19/22 07:48 36.7 C 70 25 H 111/75 89 L High Flow Nasal Cannula 07/19/22 04:00 36.8 C 82 22 110/65 93 High Flow Nasal Cannula 07/19/22 03:05 74 20 91 High Flow Nasal Cannula O2 Flow Rate FiO2 07/19/22 11:21 40 100 07/19/22 11:11 40 100 07/19/22 08:00 07/19/22 08:00 40 100 07/19/22 07:05 40 100 07/19/22 07:48 40 100 07/19/22 04:00 40 100 07/19/22 03:05 40 100 Laboratory Results 07/19/22 05:55 07/19/22 05:55 Diagnostic Findings Chest x-ray this morning independently reviewed. Trivial pneumothorax PG Care Time/CCT Total # of Minutes Spent Total Time Spent with Patient: Total time spent is greater than 50% in coordination of care (as documented) at patient's floor/unit and/or counseling patient: Coding Level of Care Code 18982 Subseq Hosp Care Lvl 2 Diagnoses Iatrogenic pneumothorax J95.811 Tension pneumothorax J93.0 Acute respiratory failure with hypoxia J96.01 Pulmonary hypertension I27.20 Cor pulmonale (chronic) I27.81 Pleural effusion J90
[2022-07-19] MEDS: MoRPHine SULFATE 2 MG/ML CARP IV PRN (14:40)
[2022-07-19] MEDS ORDERED: LORazepam 0.5 MG in SYRINGE 0 ML IV ONE (16:35)
[2022-07-19] MEDS: MELATONIN 3 MG TAB PO PRN (21:13)
--- NOTE | 2022-07-19 23:48 | Hospitalist Progress Note ---
Date of Service July 19, 2022 Assessment & Plan (1) Acute respiratory failure with hypoxia: (2) Postprocedural pneumothorax: Plan: CXR showed Interval development of a large left pneumothorax. S/P urgent chest tube placement by pulm Dr. Padron on 07/12/22 Chest tube removed 07/14 with repeat development of tension PTX Pigtail catheter reinserted on left chest 07/15 She has been required more oxygen supplement and Oxygen sat continues declined CXR no significant change of the small left-sided pneumothorax with stable positioning of the left-sided chest tube. Cardiomegaly with pulmonary edema, persistent layering pleural effusions with bibasilar consolidation. Lasix 20mg given this morning with additional 20mg IVx2 given Case discussed with Pulm and cardiology ABG today with pH 7.53/ pCO2 27 pO2 52 Spoke to daughter that family does not want any intubation in the event respiratory continue worsening. If patient worsening and struggle to breath, we will call daughter that we can keep the pt comfortable Will check procalcitonin now, if elevates will start on abx Continue monitor closely 07/19/12 Clamping of the chest tube yesterday resulted in reaccumulation of the pneumothorax necessitating return back to suction CXR yesterday showed Interval development of a large left pneumothorax. No significant midline shift. CXR today showed small left-sided pneumothorax has decreased in size from prior. Cardiomegaly with pulmonary edema. (3) SSS (sick sinus syndrome): Plan: patient with labile HR with tachy-mason syndrome s/p PPM placement on 07/12/22, c/b L sided tension PTX, s/p chest tube x 2 Will cont chest tube through Monday per pulm. cardiology on board Continue diltiazem 300mg and metoprolol HR stable and she continues in afib. Will hold coumadin since INR 3.7 today (4) Elevated troponin: Plan: 2/2 demand ischemia from hypoxia Troponin peaked to 107, then trending down 91 Case discussed with cardiology that recommended to discontinue IV heparin drip Continue aspirin and metoprolol (5) Atrial fibrillation with rapid ventricular response: Plan: Presented with HR 120s and palpitations, hypoxia concern for SSS with tachycardia and bradycardia received IV lopressor and dilt in ED with initial improvement cardiology on board Continue cardizem 300mg and metoprolol as per cardiology TTE reviewed and mostly unchanged from prior - no longer with pericardial effusion Will resume coumadin Continue monitor in tele (6) CKD (chronic kidney disease) stage 3, GFR 30-59 ml/min: Plan: - Creatinine 1.3, at baseline - Discussed with daughter about the additional lasix given due to the pulm edema and hypoxia - Daughter understand the additional lasix can cause the creatinine to increase - Continue monitor BMP while on IV lasix (7) GERD (gastroesophageal reflux disease): Plan: - continue Pepcid per home regimen. (8) HTN (hypertension): Plan: -chronic, at goal. Continue CCB and BB (9) Pulmonary hypertension: Plan: chronic, severe (10) DVT prophylaxis: Plan: DVT ppx: coumadin with INR 3.7 today Code Status: DNR/DNI Disposition PT/OT eval -current plan is for rehab, patient lives alone. Admission and Anticipated Discharge Date Admission Date: July 08, 2022 Subjective Pt was seen and examined for follow up respiratory failure Lying in bed with acute respiratory distress Pt continues required high flow oxygen supplement She is confused and was asking to live to go shopping her oxygen sat slightly improved today Review of Systems Review of Systems: All systems reviewed & are unremarkable except as noted in Subjective Physical Exam Physical Exam: General- acute distress Head- atraumatic Eyes- PERRL, EOMI, ENT- oropharynx clear Neck- supple, no JVD Lungs- +decrease BS in L side, L side chest tube Heart- regular rhythm; no murmur Abdomen- normal bowel sounds, soft, nontender Extremities- no calf tenderness, +edema Neuro- alert, oriented x 3; PERRL, EOMI; no facial palsy; no dysarthria Skin- warm & dry Results & Data Results & Data ([facility]) Vital Signs (Past 12 Hours) Vital Signs Temp Pulse Pulse Pulse Resp BP Pulse Ox 07/19/22 23:33 75 22 89 L 07/19/22 22:36 36.8 C 70 26 H 133/83 90 07/19/22 19:37 80 24 89 L 07/19/22 19:52 07/19/22 19:40 37.0 C 75 30 H 115/73 90 07/19/22 16:00 83 07/19/22 15:22 78 28 H 90 07/19/22 15:10 36.5 C 78 18 132/82 84 L O2 Del Method O2 Flow Rate FiO2 07/19/22 23:33 High Flow Nasal Cannula 40 100 07/19/22 22:36 High Flow Nasal Cannula 40 100 07/19/22 19:37 High Flow Nasal Cannula 40 100 07/19/22 19:52 High Flow Nasal Cannula 100 07/19/22 19:40 High Flow Nasal Cannula 40 100 07/19/22 16:00 07/19/22 15:22 High Flow Nasal Cannula 40 100 07/19/22 15:10 High Flow Nasal Cannula 40 100 (1) CKD (chronic kidney disease) stage 3, GFR 30-59 ml/min Chronic kidney disease stage 3 subtype: unspecified whether 3a or 3b Qu alified Code(s): N18.30 - Chronic kidney disease, stage 3 unspecified
[2022-07-20] MEDS ORDERED: bisacodyL 10 MG SUPP PR STA (04:01)
[2022-07-20] MEDS ORDERED: LACTULOSE SYRUP 30 GM/45 ML UDP PO STA (04:09)
[2022-07-20] MEDS: ACETAMINOPHEN 325 MG TAB PO PRN (04:25)
[2022-07-20 06:26] LABS: Hematocrit (blood only) 42.6 % (34.1-44.9); Hemoglobin 14.5 g/dl (12.0-16.0); Mean Corpuscular Hemoglobin 31.6 pg (25.0-34.0); Mean Corpuscular Volume 92.8 fL (80.0-100.0); Mean Platelet Volume 12.6 fL (9.4-12.3); Platelet Count 191 K/uL (130-400); RDW Coefficient of Variation 15.2 % (11.5-14.5); Red Blood Count 4.59 M/uL (3.93-5.22); White Blood Count 13.05 K/ul (4.8-10.8)
[2022-07-20 06:46] LABS: INR 2.7 (0.9-1.1); Prothrombin Time 27.1 Seconds (9.0-12.0)
[2022-07-20] MEDS: CALCIUM CARBONATE 1250MG TAB PO SCH (08:51)
[2022-07-20] MEDS: METOPROLOL SUCC 25MG EXT REL TAB PO SCH ×2 (08:51→21:38)
[2022-07-20] MEDS: POTASSIUM CHLORIDE 10 MEQ TABCR PO SCH (08:51)
[2022-07-20] MEDS: CHOLECALCIFEROL 400 UNITS 10 MCG TAB PO SCH (08:51)
[2022-07-20] MEDS: DOCUSATE SODIUM/SENNA 50/8.6MG TAB PO SCH (08:52)
[2022-07-20] MEDS: SERTRALINE HCL 50 MG TABLET PO SCH (08:52)
[2022-07-20] MEDS: MULTIVITAMIN TAB PO SCH (08:52)
[2022-07-20] MEDS: dilTIAZem HCL 180 MG CAPCR PO SCH (08:52)
[2022-07-20] MEDS: ASPIRIN 81 MG ECTAB PO SCH (08:52)
[2022-07-20] MEDS: dilTIAZem HCL 120 MG CAPCR PO SCH (08:52)
[2022-07-20] MEDS: traMADol HCL 50 MG TABLET PO PRN (10:04)
--- NOTE | 2022-07-20 11:05 | XRay Report ---
XR chest 1V portable HISTORY: 87 years-old Female chest tube status post placement of a left-sided chest tube COMPARISON: Chest radiograph 07/19/2022 TECHNIQUE: Portable AP view of the chest FINDINGS: Left-sided chest tube projects over the lateral left midlung. Tiny residual left-sided pneumothorax. Left subclavian pacer. Cardiomegaly. Pulmonary vascular congestion with slightly decreased pulmonary edema. Right greater left pleural effusions with bibasilar consolidation again noted. Chronic left pr oximal humeral deformity again noted. IMPRESSION: 1. Left-sided pleural catheter in place. Tiny residual left-sided pneumothorax. 2. Cardiomegaly and pulmonary vascular congestion with mildly decreased pulmonary edema. 3. Layering pleural effusions with bibasilar opacities redemonstrated. ACT 112: Negative or not required by law. The above report was generated using voice recognition software. It may contain grammatical, syntax o r spelling errors. Electronically signed by: Jovani Chin M.D. 07/20/2022 11:03 AM
--- NOTE | 2022-07-20 12:29 | Pulmonology Progress Note ---
Date of Service July 20, 2022 Assessment & Plan (1) Iatrogenic pneumothorax: (2) Tension pneumothorax: (3) Acute respiratory failure with hypoxia: (4) Pulmonary hypertension: (5) Cor pulmonale (chronic): (6) Pleural effusion: Plan Impression: 87-year-old female with cardiomyopathy, atrial fibrillation status post pacemaker implantation with resultant postprocedural pneumothorax which recurred after removal of the chest tube and significant hypoxemic respiratory failure. Chest tube is been placed to waterseal for 24 hours with no evidence of reaccumulation of the pneumothorax. The tube was clamped by myself on rounds. She continues to demonstrate significant hypoxemic respiratory failure. Recommendations: 1. Postprocedural pneumothorax: Chest tube clamped. We will repeat chest x-ray in the a.m.. If the lung remains up, we will discontinue the chest tube. 2. Hypoxemic respiratory failure: Multifactorial. Suspect VQ mismatch and shunting physiology. Unclear if the patient has PFO/ASD contributing to right to left shunting. Could consider echo with bubble study, however I am unclear how that would affect management at this point time as the patient is not a candidate for closure if this were identified. X-ray does demonstrate small pleural effusions with pulmonary vascular congestion. Aggressive attempts at diuresis should be undertaken and will be deferred to the patient's primary provider. 3. Secondary pulmonary hypertension: Patient has severe tricuspid regurgitation without any coaptation of the valves. Do not think she is a cand idate for valvuloplasty. This is likely contributing to or the primary cause of her hypoxemic respiratory failure. Pulmonary vasodilators are unlikely to offer her any significant benefit with significant annular dilatation due to right ventricular dilatation. Unfortunately I do not think this is a modifiable situation. Unfortunately, I am not sure that many of the patient's underlying medical conditions are readily reversible. Her valvular heart disease is secondary to her dilated cardiomyopathy and medical management is unlikely to significantly impact this. Unclear what expectations the patient and family have however there may not be readily achievable. Once the chest tube is removed, the patient can be referred to LTAC to see whether or not her oxygen requirement can be weaned. She cannot go home with this type of an oxygen requirement and suspect she likely requires almost [id number] nursing care. Strongly recommend engagement of palliative care to define goals of therapy and set realistic expectations. Discussed with nursing at bedside as well as with patient. Admission and Anticipated Discharge Date Admission Date: July 08, 2022 Subjective Patient seen and examined. EMR reviewed. Patient remains slightly delirious. She denies any respiratory issues but she is maxed out on high flow oxygen with oxygen saturations that are borderline 90%. She does not report cough or chest pain. Review of Systems Review of Systems: Unobtainable due to cognitive status Physical Exam Constitutional: + thin and + frail appearing Neck: trachea midline, no thyromegaly Respiratory: + uses accessory muscles and + tachypneic Auscultation: no crackles and no wheezes Cardiovascular: Rate/Rhythm: regular rate and + tachycardic Heart Sounds: normal S1, normal S2 and + murmur Extremities: + edema Gastrointestinal (Abdomen): normal bowel sounds, soft, nontender, no hepatosplenomegaly Musculoskeletal: Extremities: extremities normal to inspection Skin: no rashes, warm and dry Lymphatic: no cervical lymphadenopathy Results & Data Results & Data ([facility]) Vital Signs (Past 12 Hours) Vital Signs Temp Pulse Pulse Resp BP Pulse Ox O2 Del Method 07/20/22 11:54 36.9 C 114 H 24 102/72 96 High Flow Nasal Cannula 07/20/22 11:30 83 26 H 89 L High Flow Nasal Cannula 07/20/22 08:00 88 07/20/22 08:37 High Flow Nasal Cannula 07/20/22 08:14 36.4 C L 65 22 99/62 L 94 High Flow Nasal Cannula 07/20/22 07:02 78 24 89 L High Flow Nasal Cannula 07/20/22 04:00 36.9 C 104 H 24 128/66 93 High Flow Nasal Cannula 07/20/22 03:35 62 20 95 High Flow Nasal Cannula O2 Flow Rate FiO2 07/20/22 11:54 40 100 07/20/22 11:30 40 100 07/20/22 08:00 07/20/22 08:37 40 100 07/20/22 08:14 40 100 07/20/22 07:02 40 100 07/20/22 04:00 40 100 07/20/22 03:35 40 100 Laboratory Results 07/20/22 05:57 07/19/22 05:55 Diagnostic Findings Chest x-ray today demonstrated no significant pneumothorax. Pulmonary vascular congestion again identified. PG Care Time/CCT Total # of Minutes Spent Total Time Spent with Patient: Total time spent is greater than 50% in coordination of care (as documented) at patient's floor/unit and/or counseling patient: Coding Level of Care Code 22850 Subseq Hosp Care Lvl 2 Diagnoses Iatrogenic pneumothorax J95.811 Tension pneumothorax J93.0 Acute respiratory failure with hypoxia J96.01 Pulmonary hypertension I27.20 Cor pulmonale (chronic) I27.81 Pleural effusion J90
[2022-07-20] MEDS ORDERED: FUROSEMIDE 40 MG/4 ML VIAL IV ONE (14:12)
[2022-07-20] MEDS ORDERED: ACETAMINOPHEN 1,000 MG/100 ML VIAL IV PRN (14:13)
[2022-07-20] MEDS: WARFARIN SOD 1 MG TAB PO SCH (15:39)
--- NOTE | 2022-07-20 17:06 | Hospitalist Progress Note ---
Date of Service July 20, 2022 Assessment & Plan (1) Acute respiratory failure with hypoxia: (2) Postprocedural pneumothorax: Plan: CXR showed Interval development of a large left pneumothorax. S/P urgent chest tube placement by pulm Dr. Padron on 07/12/22 Chest tube removed 07/14 with repeat development of tension PTX Pigtail catheter reinserted on left chest 07/15 She has been required more oxygen supplement and Oxygen sat continues declined CXR no significant change of the small left-sided pneumothorax with stable positioning of the left-sided chest tube. Cardiomegaly with pulmonary edema, persistent layering pleural effusions with bibasilar consolidation. Lasix 20mg given this morning with additional 20mg IVx2 given Case discussed with Pulm and cardiology ABG today with pH 7.53/ pCO2 27 pO2 52 Spoke to daughter that family does not want any intubation in the event respiratory continue worsening. If patient worsening and struggle to breath, we will call daughter that we can keep the pt comfortable Will check procalcitonin now, if elevates will start on abx Continue monitor closely 07/20/12 Clamping of the chest tube yesterday resulted in reaccumulation of the pneumothorax necessitating return back to suction CXR showed left-sided pleural catheter in place. Tiny residual left-sided pneumothorax. Cardiomegaly and pulmonary vascular congestion with mildly decreased pulmonary edema. Lasix 40mg IV x1 given High flow oxygen discontinued a per family because pt is not able to tolerate and get agitated Family does not want to place pt back on the high flow oxygen since pt does not tolerate it and she gets agitated Family understood the risks of stopping the high flow oxygen such as worsening hypoxia and Daughter said that once the chest tube removes that the family does not wants it to be placed again if develops hypoxia again Dr. Singh was notified about not put put the chest tube back once it removes Daughter said that if patient declines or becomes uncomfortable to call her that they can make patient comfortable (3) SSS (sick sinus syndrome): Plan: patient with labile HR with tachy-mason syndrome s/p PPM placement on 07/12/22, c/b L sided tension PTX, s/p chest tube x 2 Will cont chest tube through Monday per pulm. cardiology on board Continue diltiazem 300mg and metoprolol HR stable and she continues in afib. Will hold coumadin since INR 2.7 today (4) Elevated troponin: Plan: 2/2 demand ischemia from hypoxia Troponin peaked to 107, then trending down 91 Case discussed with cardiology that recommended to discontinue IV heparin drip Continue aspirin and metoprolol (5) Atrial fibrillation with rapid ventricular response: Plan: Presented with HR 120s and palpitations, hypoxia concern for SSS with tachycardia and bradycardia received IV lopressor and dilt in ED with initial improvement cardiology on board Continue cardizem 300mg and metoprolol as per cardiology TTE reviewed and mostly unchanged from prior - no longer with pericardial effusion Continue coumadin Continue monitor in tele (6) CKD (chronic kidney disease) stage 3, GFR 30-59 ml/min: Plan: - Creatinine 1.15, at baseline - Discussed with daughter about the additional lasix given due to the pulm edema and hypoxia - Daughter understand the additional lasix can cause the creatinine to increase - Continue monitor BMP while on IV lasix (7) GERD (gastroesophageal reflux disease): Plan: - continue Pepcid per home regimen. (8) HTN (hypertension): Plan: -chronic, at goal. Continue CCB and BB (9) Pulmonary hypertension: Plan: chronic, severe (10) DVT prophylaxis: Plan: DVT ppx: coumadin with INR 2.7 today Code Status: DNR/DNI Disposition PT/OT eval -current plan is for rehab, patient lives alone. If pt continues to decline, family will transition to comfort care Admission and Anticipated Discharge Date Admission Date: July 08, 2022 Subjective Pt was seen and examined for follow up respiratory failure Lying in bed with acute respiratory distress with son at bedside Pt continues required high flow oxygen supplement She is agitated and she does not want to keep the high flow oxygen on Son called the sister over the phone, and son placed her on speaker I spoke to daughter in length and answered all her questions Family does not want to place pt back on the high flow oxygen since pt does not tolerate it and she gets agitated Family understood the risks of stopping the high flow oxygen such as worsening hypoxia and Daughter said that once the chest tube removes that the family does not wants it to be placed again if develops hypoxia again Daughter said that the family will have a zoom meeting tonight Daughter said that if patient declines or becomes uncomfortable to call her that they can make patient comfortable Review of Systems Review of Systems: All systems reviewed & are unremarkable except as noted in Subjective Physical Exam Physical Exam: General- acute distress Head- atraumatic Eyes- PERRL, EOMI, ENT- oropharynx clear Neck- supple, no JVD Lungs- +decrease BS in L side, L side chest tube Heart- regular rhythm; no murmur Abdomen- normal bowel sounds, soft, nontender Extremities- no calf tenderness, +edema Neuro- alert, oriented x 3; PERRL, EOMI; no facial palsy; no dysarthria Skin- warm & dry Results & Data Results & Data ([facility]) Vital Signs (Past 12 Hours) Vital Signs Temp Pulse Pulse Resp BP Pulse Ox O2 Del Method 07/20/22 15:34 36.6 C 69 22 107/68 87 L Room Air 07/20/22 11:54 36.9 C 114 H 24 102/72 96 High Flow Nasal Cannula 07/20/22 11:30 83 26 H 89 L High Flow Nasal Cannula 07/20/22 08:00 88 07/20/22 08:37 High Flow Nasal Cannula 07/20/22 08:14 36.4 C L 65 22 99/62 L 94 High Flow Nasal Cannula 07/20/22 07:02 78 24 89 L High Flow Nasal Cannula O2 Flow Rate FiO2 07/20/22 15:34 07/20/22 11:54 40 100 07/20/22 11:30 40 100 07/20/22 08:00 07/20/22 08:37 40 100 07/20/22 08:14 40 100 07/20/22 07:02 40 100 (1) CKD (chronic kidney disease) stage 3, GFR 30-59 ml/min Chronic kidney disease stage 3 subtype: unspecified whether 3a or 3b Qualified Code(s): N18.30 - Chronic kidney disease, stage 3 unspecified
[2022-07-21 06:00] LABS: Hemoglobin 14.5 g/dl (12.0-16.0); Mean Corpuscular Hemoglobin 31.5 pg (25.0-34.0); Mean Corpuscular Hgb Conc 34.5 g/dL (32.0-36.0); Mean Corpuscular Volume 91.3 fL (80.0-100.0); RDW Coefficient of Variation 15.5 % (11.5-14.5); RDW Standard Deviation 50.9 fL (36.4-46.3); White Blood Count 15.02 K/ul (4.8-10.8)
[2022-07-21 06:18] LABS: INR 2.4 (0.9-1.1); Prothrombin Time 24.6 Seconds (9.0-12.0)
[2022-07-21 06:26] LABS: Calcium 9.1 mg/dl (8.5-10.1); Creatinine Clr Calc Pharmacy 30.6 ml/min; Est GFR (African American) 53.2 ml/min; Est GFR (Non-African American) 45.9 ml/min; Potassium 4.1 mmol/L (3.5-5.1)
[2022-07-21 06:41] LABS: Mean Platelet Volume 13.1 fL (9.4-12.3); Platelet Count 171 K/uL (130-400)
[2022-07-21] MEDS: ASPIRIN 81 MG ECTAB PO SCH (08:33)
[2022-07-21] MEDS: CALCIUM CARBONATE 1250MG TAB PO SCH (08:34)
[2022-07-21] MEDS: CHOLECALCIFEROL 400 UNITS 10 MCG TAB PO SCH (08:34)
[2022-07-21] MEDS: dilTIAZem HCL 120 MG CAPCR PO SCH (08:35)
[2022-07-21] MEDS: METOPROLOL SUCC 25MG EXT REL TAB PO SCH ×2 (08:35→20:39)
[2022-07-21] MEDS: dilTIAZem HCL 180 MG CAPCR PO SCH (08:35)
[2022-07-21] MEDS: POTASSIUM CHLORIDE 10 MEQ TABCR PO SCH (08:36)
[2022-07-21] MEDS: DOCUSATE SODIUM/SENNA 50/8.6MG TAB PO SCH (08:36)
[2022-07-21] MEDS: SERTRALINE HCL 50 MG TABLET PO SCH (08:36)
[2022-07-21] MEDS: MULTIVITAMIN TAB PO SCH (08:36)
--- NOTE | 2022-07-21 11:08 | XRay Report ---
XR chest 1V portable CLINICAL HISTORY: Chest tube COMPARISON STUDY: Chest radiograph July 20, 2022. FINDINGS: Left subclavian pacer is in place. Cardiomegaly is unchanged. A right pleural effusion with right basilar opacity is noted. Left basilar opacity is unchanged. Probable trace left pneumothorax, decreased since prior exam. Left pleural catheter is in place. Pulmonary vascular congestion is more evident within the right lung. IMPRESSION: Left pleural catheter in place. Suspected trace left apical pneumothorax, slightly decrea sed since prior exam. ACT 112: Negative or not required by law. Electronically signed by: Jarod Kaye M.D. 07/21/2022 11:06 AM
--- NOTE | 2022-07-21 13:40 | Hospitalist Progress Note ---
Date of Service July 21, 2022 Assessment & Plan (1) Acute respiratory failure with hypoxia: (2) Postprocedural pneumothorax: Plan: CXR showed Interval development of a large left pneumothorax. S/P urgent chest tube placement by pulm Dr. Padron on 07/12/22 Chest tube removed 07/14 with repeat development of tension PTX Pigtail catheter reinserted on left chest 07/15 She has been required more oxygen supplement and Oxygen sat continues declined CXR no significant change of the small left-sided pneumothorax with stable positioning of the left-sided chest tube. Cardiomegaly with pulmonary edema, persistent layering pleural effusions with bibasilar consolidation. Lasix 20mg given this morning with additional 20mg IVx2 given Case discussed with Pulm and cardiology ABG today with pH 7.53/ pCO2 27 pO2 52 Spoke to daughter that family does not want any intubation in the event respiratory continue worsening. If patient worsening and struggle to breath, we will call daughter that we can keep the pt comfortable Will check procalcitonin now, if elevates will start on abx Continue monitor closely 07/20/12 Clamping of the chest tube resulted in reaccumulation of the pneumothorax necessitating return back to suction CXR showed left-sided pleural catheter in place. Tiny residual left-sided pneumothorax. Cardiomegaly and pulmonary vascular congestion with mildly decreased pulmonary edema. Lasix 40mg IV x1 given High flow oxygen discontinued a per family because pt is not able to tolerate and get agitated Family does not want to place pt back on the high flow oxygen since pt does not tolerate it and she gets agitated Family understood the risks of stopping the high flow oxygen such as worsening hypoxia and Daughter said that once the chest tube removes that the family does not wants it to be placed again if develops hypoxia again Dr. Singh was notified about not put put the chest tube back once it removes Daughter said that if patient declines or becomes uncomfortable to call her that they can make patient comfortable 07/21: she is doing well clinically. Chest tube has been clamped for 24 hours with no residual PTX. Plan for removal of this today and CXR in am. Cont supplemental oxygen to keep oxygen saturation >90% (3) SSS (sick sinus syndrome): Plan: patient with labile HR with tachy-mason syndrome s/p PPM placement on 07/12/22, c/b L sided tension PTX, s/p chest tube x 2 cardiology on board Continue diltiazem and metoprolol Activity restrictions post procedure. (4) Elevated troponin: Plan: 2/2 demand ischemia from hypoxia Troponin peaked to 107, then trending down 91 Case discussed with cardiology that recommended to discontinue IV heparin drip Continue aspirin and metoprolol (5) Atrial fibrillation with rapid ventricular response: Plan: Presented with HR 120s and palpitations, hypoxia concern for SSS with tachycardia and bradycardia received IV lopressor and diltiazem in ED with initial improvement cardiology on board Continued HR control with cardizem and metoprolol as per cardiology TTE reviewed and mostly unchanged from prior - no longer with pericardial effusion Continue coumadin-INR therapeutic. Continue monitor in tele (6) CKD (chronic kidney disease) stage 3, GFR 30-59 ml/min: Plan: - Creatinine at baseline now but recently was elevated. - Additional lasix given due to the pulm edema and hypoxia - Daughter understand the additional lasix can cause the creatinine to increase -lasix was held. Will plan to restart oral lasix now per home regimen. (7) GERD (gastroesophageal reflux disease): Plan: - continue Pepcid per home regimen. (8) HTN (hypertension): Plan: -chronic, at goal. Continue CCB and BB (9) Pulmonary hypertension: Plan: chronic, severe (10) DVT prophylaxis: Plan: DVT ppx: coumadin Code Status: DNR/DNI Disposition PT/OT eval -current plan is for rehab, patient lives alone. If pt continues to decline, family will transition to comfort care. This was confirmed with patient and family who is at bedside today. Family and patient are on board with SNF Patricia Man DO [facility] Hospitalist Admission and Anticipated Discharge Date Admission Date: July 08, 2022 Subjective 87-year-old patient's status post pacemaker with iatrogenic potential pneumothorax. Patient is still requiring 2 L/min of nasal cannula supplementation She is in no acute respiratory distress and denies any shortness of breath She denies any pain with chest tube still in place, plans to remove today She denies any additional symptoms of chest pain, cough or other issues. She is tolerating p.o. The most pain she reports is when she moves around. She has not gotten up and out of bed yet. Son and daughter are both at bedside and reviewed the plans. Discussed SNF which they are already aware of. Review of Systems Review of Systems: All systems reviewed negative except as indicated above. Physical Exam Physical Exam: CONSTITUTIONAL: thin, frail vitals as above, generally NAD EYES: normal conjunctivae, no scleral icterus ENT: external ear and nose normal, MMM NECK: trachea midline, RESPIRATORY: Clear to auscultation throughout except some coarse rhonchi in left lower chest near pigtail entrance CARDIOVASCULAR: +murmur, S1/2 heard, no edema CHEST: PM to left anterior chest wall; left chest wall pigtail catheter-covered wtih dressing c/d/i GASTROINTESTINAL: Soft nontender nondistended. MUSCULOSKELETAL: 5 out of 5 throughout. She can sit up independently. Moves all extremities with ease. SKIN: Warm and dry. NEUROLOGIC: normal cognition, normal speech PSYCHIATRIC: alert cooperative and oriented to person, place and time. Results & Data Results & Data ([facility]) Vital Signs (Past 12 Hours) Vital Signs Temp Pulse Pulse Resp BP Pulse Ox O2 Del Method 07/21/22 11:56 36.7 C 60 18 108/71 89 L Nasal Cannula 07/21/22 07:00 100 H 07/21/22 08:00 Nasal Cannula 07/21/22 08:11 36.4 C L 133 H 22 101/75 93 Nasal Cannula 07/21/22 03:04 36.4 C L 99 H 22 118/78 94 Nasal Cannula O2 Flow Rate 07/21/22 11:56 2 07/21/22 07:00 07/21/22 08:00 4 07/21/22 08:11 2 07/21/22 03:04 2 Laboratory Results Short CBC 07/21/22 Range/Units 05:34 WBC 15.02 H (4.8-10.8) K/ul Hgb 14.5 (12.0-16.0) g/dl Hct 42.0 (34.1-44.9) % Plt Count 171 (130-400) K/uL BMP 07/21/22 05:34 Sodium 137 Potassium 4.1 Chloride 104 Carbon Dioxide 22 BUN 48 H Creatinine 1.09 Glucose 97 Calcium 9.1 Diagnostic Findings Chest X-Ray 07/21/22 07:00 XR chest 1V portable CLINICAL HISTORY: Chest tube COMPARISON STUDY: Chest radiograph July 20, 2022. FINDINGS: Left subclavian pacer is in place. Cardiomegaly is unchanged. A right pleural effusion with right basilar opacity is noted. Left basilar opacity is unchanged. Probable trace left pneumothorax, decreased since prior exam. Left pleural catheter is in place. Pulmonary vascular congestion is more evident within the right lung. IMPRESSION: Left pleural catheter in place. Suspected trace left apical pneumothorax, slightly decreased since prior exam. ACT 112: Negative or not required by law. Electronically signed by: Jarod Kaye M.D. 07/21/2022 11:06 AM Medications Administered Current Inpatient Medications Acetaminophen (Acetaminophen 325 Mg Tab) 650 mg PO Q4H PRN PRN Reason: Pain or Fever Stop: 08/08/22 00:34 Last Admin: 07/20/22 04:25 Dose: 650 mg Artificial Tears (Artificial Tears) 2 drops OP TID PRN PRN Reason: Dry Eye(S) Stop: 08/08/22 01:39 Last Admin: 07/18/22 21:09 Dose: 2 drops Aspirin (Aspirin 81 Mg Ectab) 81 mg PO QAM [facility] Stop: 08/14/22 06:29 Last Admin: 07/21/22 08:33 Dose: 81 mg Calcium Carbonate (Calcium Carbonate 1250mg Tab) 1,250 mg PO DAILY ANA MARÍA Stop: 08/08/22 08:59 Last Admin: 07/21/22 08:34 Dose: 1,250 mg Diltiazem HCl (Diltiazem Hcl 180 Mg Capcr) 180 mg PO DAILY ANA MARÍA Stop: 08/08/22 08:59 Last Admin: 07/21/22 08:35 Dose: 180 mg Diltiazem HCl (Diltiazem Hcl 120 Mg Capcr) 120 mg PO QAM ANA MARÍA Stop: 08/08/22 14:14 Last Admin: 07/21/22 08:35 Dose: 120 mg Furosemide (Furosemide 20 Mg Tab) 20 mg PO DAILY ANA MARÍA Stop: 08/08/22 08:59 Last Admin: 07/16/22 08:40 Dose: 20 mg Furosemide (Furosemide Inj 20 Mg/2 Ml Vial) 20 mg IV DAILY ANA MARÍA Stop: 08/15/22 11:29 Last Admin: 07/17/22 08:28 Dose: 20 mg Acetaminophen (Ofirmev) 1,000 mg in 100 mls @ 400 mls/hr IV Q8H PRN PRN Reason: Pain Stop: 07/23/22 14:12 Last Infusion: 07/20/22 15:23 Dose: Infused Melatonin (Melatonin 3 Mg Tab) 3 mg PO HS PRN PRN Reason: Insomnia Stop: 08/08/22 00:34 Last Admin: 07/19/22 21:13 Dose: 3 mg Metoprolol Succinate (Metoprolol Succ 25mg Ext Rel Tab) 25 mg PO DAILY ANA MARÍA Stop: 08/08/22 08:59 Last Admin: 07/21/22 08:35 Dose: 25 mg Metoprolol Succinate (Metoprolol Succ 25mg Ext Rel Tab) 12.5 mg PO PM ANA MARÍA Stop: 08/08/22 20:59 Last Admin: 07/20/22 21:38 Dose: 12.5 mg Metoprolol Tartrate (Metoprolol Tartrate 1 Mg/Ml Vial) 5 mg IV Q6 PRN PRN Reason: Tachycardia Stop: 08/08/22 00:34 Last Admin: 07/09/22 01:57 Dose: 5 mg Morphine Sulfate (Morphine Sulfate 2 Mg/Ml Carp) 1 mg IV Q6H PRN PRN Reason: Pain Stop: 07/29/22 13:52 Last Admin: 07/19/22 14:40 Dose: 1 mg Multivitamins (Multivitamin Tab) 1 tab PO DAILY ANA MARÍA Stop: 08/08/22 08:59 Last Admin: 07/21/22 08:36 Dose: 1 tab Nitroglycerin (Nitroglycerin Sl 0.4 Mg/Tab Tab) 0.4 mg SL UD PRN PRN Reason: Chest Pain Stop: 08/08/22 00:34 Olanzapine (Olanzapine 10 Mg/2.1 Ml Sdv) 2.5 mg IM Q4H PRN PRN Reason: Anxiety/Agitation Stop: 08/13/22 06:23 Last Admin: 07/17/22 18:43 Dose: 2.5 mg Polyethylene Glycol (Polyethylene (Miralax) 17 Gm Pack) 17 gm PO DAILY PRN PRN Reason: Constipation Stop: 08/09/22 10:27 Last Admin: 07/19/22 04:03 Dose: 17 gm Potassium Chloride (Potassium Chloride 10 Meq Tabcr) 10 meq PO DAILY ANA MARÍA Stop: 08/08/22 08:59 Last Admin: 07/21/22 08:36 Dose: 10 meq Senna/Docusate Sodium (Docusate Sodium/Senna 50/8.6mg Tab) 1 tab PO QAM [facility] Stop: 08/09/22 10:59 Last Admin: 07/21/22 08:36 Dose: Not Given Sertraline HCl (Sertraline Hcl 50 Mg Tablet) 12.5 mg PO DAILY [facility] Stop: 08/08/22 08:59 Last Admin: 07/21/22 08:36 Dose: 12.5 mg Tramadol HCl (Tramadol Hcl 50 Mg Tablet) 25 mg PO Q4H PRN PRN Reason: Pain Stop: 08/14/22 04:53 Last Admin: 07/20/22 10:04 Dose: 25 mg Vitamin D (Cholecalciferol 400 Units 10 Mcg Tab) 400 units PO DAILY [facility] Stop: 08/08/22 08:59 Last Admin: 07/21/22 08:34 Dose: 400 units Warfarin Sodium (Warfarin Sod 2 Mg Tab) 2 mg PO [id number] [facility] Stop: 08/08/22 15:59 Last Admin: 07/16/22 16:34 Dose: 2 mg Warfarin Sodium (Warfarin Sod 1 Mg Tab) 1 mg PO [id number] [facility] Stop: 08/09/22 15:59 Last Admin: 07/20/22 15:39 Dose: 1 mg (1) CKD (chronic kidney disease) stage 3, GFR 30-59 ml/min Chronic kidney disease stage 3 subtype: unspecified whether 3a or 3b Qualified Code(s): N18.30 - Chronic kidney disease, stage 3 unspecified
--- NOTE | 2022-07-21 14:42 | Pulmonology Progress Note ---
Date of Service July 21, 2022 Assessment & Plan (1) Iatrogenic pneumothorax: (2) Tension pneumothorax: (3) Acute respiratory failure with hypoxia: (4) Pulmonary hypertension: (5) Cor pulmonale (chronic): (6) Pleural effusion: Plan Attending: Dr. Singh Impression: 87-year-old female with severe cardiomyopathy, atrial fibrillation status post pacemaker implantation with resultant postprocedural pneumothorax which recurred after removal of the chest tube and significant hypoxemic respiratory failure. Chest tube is been placed to waterseal for 48 hours with no evidence of reaccumulation of the pneumothorax. The tube was clamped yesterday by Dr. Singh. She continues to display confusion and emotional lability associated with delirium Recommendations: 1. Postprocedural pneumothorax: Chest tube clamped yesterday. Repeat chest x- ray this morning with no reaccumulation of pneumothorax. After discussion with the family, we will remove the chest tube. Chest x-ray in the morning. 2. Hypoxemic respiratory failure: Multifactorial. Suspect VQ mismatch and shunting physiology. Unclear if the patient has PFO/ASD contributing to right to left shunting. Could consider echo with bubble study, however I am unclear how that would affect management at this point time as the patient is not a candidate for closure if this were identified. X-ray does demonstrate small pleural effusions with pulmonary vascular congestion. Aggressive attempts at diuresis should be undertaken and will be deferred to the patient's primary provider. No indication at this time for thoracentesis. Continue supplemental oxygen to maintain SaO2 greater than 90%. 3. Secondary pulmonary hypertension: Patient has severe tricuspid regurgitation without any coaptation of the valves. Most likely not a candidate for valvuloplasty. Discussed this extensively with family and reviewed CT scan as well as chest x-ray. This is likely contributing to or the primary cause of her hypoxemic respiratory failure. Pulmonary vasodilators are unlikely to offer her any significant benefit with significant annular dilatation due to right ventricular dilatation. This certainly does not fall under the purview of pulmonary etiology and would defer to cardiology for further discussion and management. At this time, had lengthy discussion with patient and family regarding goals of care. Continue DNR/DNI. We will further discuss hospice versus home health versus placement tomorrow. We will also continue to discuss palliative care as the goal. Discussed earlier in the day with Dr. Singh. Pulmonary will continue to follow tomorrow. Admission and Anticipated Discharge Date Admission Date: July 08, 2022 Subjective Attending: Dr. Singh Patient seen and examined in room 461 bed 2. She is awake and alert but very disoriented. She asked me to contact her nurse in the [facility] to get an update on her condition. When asked if she knows where she is, she reports that she is in a place similar to her home. She denies any pain from the chest tube insertion site. She has no awareness of the Sam catheter is in. She denies any chest pain or tightness. She denies any shortness of breath. Patient has no acute complaints 60-minute discussion with daughter Francoise Wilkerson and son Kendrick Wilkerson regarding care plan. Discussion about cardiomegaly. Discussion about chest tube secondary to iatrogenic pneumothorax. At this point they will continue to have the patient remain DNR/DNI. In the event that there is a recurrence pneumothorax after this chest tube is removed, patient and family unsure if they would want a third pigtail catheter placed. Patient is very confused and not competent to make decision. Family is present and agree. Continue with current plan. We will plan on removing chest tube today with follow-up chest x-ray in the morning. Review of Systems Review of Systems: A total of 10 systems was reviewed and is negative other than as listed in the HPI Physical Exam Physical Exam: GENERAL : No acute distress. Pleasant but admits to being confused and not knowing where she is or why she is here. EYES: No icterus, gaze conjugate NOSE: No evidence of epistaxis MOUTH: No lesions or candidiasis NECK: Supple LUNGS: Fine crackles at the bases. No bronchospasm appreciated. Good aeration to bilateral bases. HEART: Regular, rate controlled. Dressing dry and intact over newly placed pacemaker ABDOMEN: Soft, NT, ND, BS Present EXTREMITIES: No LE edema, pedal pulses intact NEURO: Awake and alert but disoriented and confused Results & Data Results & Data ([facility]) Vital Signs (Past 12 Hours) Vital Signs Temp Pulse Pulse Resp BP Pulse Ox O2 Del Method 07/21/22 11:56 36.7 C 60 18 108/71 89 L Nasal Cannula 07/21/22 07:00 100 H 07/21/22 08:00 Nasal Cannula 07/21/22 08:11 36.4 C L 133 H 22 101/75 93 Nasal Cannula 07/21/22 03:04 36.4 C L 99 H 22 118/78 94 Nasal Cannula O2 Flow Rate 07/21/22 11:56 2 07/21/22 07:00 07/21/22 08:00 4 07/21/22 08:11 2 07/21/22 03:04 2 Critical Care Results & Data Vital Signs (Past 12 Hours) Vital Signs Temp Pulse Pulse Resp BP Pulse Ox O2 Del Method 07/21/22 11:56 36.7 C 60 18 108/71 89 L Nasal Cannula 07/21/22 07:00 100 H 07/21/22 08:00 Nasal Cannula 07/21/22 08:11 36.4 C L 133 H 22 101/75 93 Nasal Cannula 07/21/22 03:04 36.4 C L 99 H 22 118/78 94 Nasal Cannula O2 Flow Rate 07/21/22 11:56 2 07/21/22 07:00 07/21/22 08:00 4 07/21/22 08:11 2 07/21/22 03:04 2 Lab & Micro Results (Past 24 Hours) RBC 4.60 M/uL (3.93-5.22) 07/21/22 WBC 15.02 K/ul (4.8-10.8) H 07/21/22 Hgb 14.5 g/dl (12.0-16.0) 07/21/22 Hct 42.0 % (34.1-44.9) 07/21/22 MCV 91.3 fL (80.0-100.0) 07/21/22 MCH 31.5 pg (25.0-34.0) 07/21/22 MCHC 34.5 g/dL (32.0-36.0) 07/21/22 RDW Standard Deviation 50.9 fL (36.4-46.3) H 07/21/22 RDW Coefficient of Variation 15.5 % (11.5-14.5) H 07/21/22 Plt Count 171 K/uL (130-400) 07/21/22 MPV 13.1 fL (9.4-12.3) H 07/21/22 Na 137 mmol/L (136-145) 07/21/22 K 4.1 mmol/L (3.5-5.1) 07/21/22 Cl 104 mmol/L (98-107) 07/21/22 CO2 22 mmol/L (21-32) 07/21/22 Anion Gap 11 (3-11) 07/21/22 BUN 48 mg/dl (6-23) H 07/21/22 Creatinine 1.09 mg/dl (0.6-1.2) 07/21/22 Estimated GFR ( Amer) 53.2 ml/min 07/21/22 Estimated GFR (Non-Af Amer) 45.9 ml/min 07/21/22 BUN/Creatinine Ratio 44.0 (10-20) H 07/21/22 Glu 97 mg/dl (70-99(Fasting)) 07/21/22 Ca 9.1 mg/dl (8.5-10.1) 07/21/22 Calcium Level 9.1 mg/dl (8.5-10.1) 07/21/22 05:34 Prothromb Time International Ratio 2.4 (0.9-1.1) H 07/21/22 05 :34 Diagnostic Findings (Past 24 Hours) Chest X-Ray 07/21/22 07:00 XR chest 1V portable CLINICAL HISTORY: Chest tube COMPARISON STUDY: Chest radiograph July 20, 2022. FINDINGS: Left subclavian pacer is in place. Cardiomegaly is unchanged. A right pleural effusion with right basilar opacity is noted. Left basilar opacity is unchanged. Probable trace left pneumothorax, decreased since prior exam. Left pleural catheter is in place. Pulmonary vascular congestion is more evident within the right lung. IMPRESSION: Left pleural catheter in place. Suspected trace left apical pneumothorax, slightly decreased since prior exam. ACT 112: Negative or not required by law. Electronically signed by: Jarod Kaye M.D. 07/21/2022 11:06 AM I & O Totals 24 Hours 07/20/22 07/21/22 07/22/22 06:59 06:59 06:59 Intake Total 475 / 475 250 / 250 120 / 120 Output Total 701 / 701 1106 / 1106 201 / 201 Balance -226 / -226 -856 / -856 -81 / -81 Cumulative 07/08/22 16:46 thru 07/21/22 14:39 Intake Total 7912.7 Output Total 90047 Balance -3663.3 RT Ventilator Mngmt (Last Documented) Ventilator Ordered Settings Respiratory Rate 18 07/21/22 11:56 Fraction of Inspired Oxygen 100 07/20/22 11:54 Ventilator - PT Measurements Respiratory Rate 18 PG Care Time/CCT Total # of Minutes Spent Total Time Spent with Patient: Total time spent is greater than 50% in coordination of care (as documented) at patient's floor/unit and/or counseling patient: 90 minutes Coding Level of Care Code 43891 Subseq Hosp Care Lvl 3 (25 - SIGNIFICANT, SEPARATELY IDENTIFIABLE ) Diagnoses Iatrogenic pneumothorax J95.811 Tension pneumothorax J93.0 Acute respiratory failure with hypoxia J96.01 Pulmonary hypertension I27.20 Cor pulmonale (chronic) I27.81 Pleural effusion J90 Time Spent (min) 90 Comment 50 minutes with patient over 2 visits. 40 minutes with family
--- NOTE | 2022-07-21 16:34 | Procedure Note ---
Procedure Note Date of Service July 21, 2022 Note Date: 07/21/2022 Time: 16:00 Procedure: Removal of left-sided pigtail catheter Consent: No formal consent required. Lengthy discussion with patient daughter and son who understand risk of removing chest tube and possible need for r einsertion Narrative: Discussion with Dr. Singh this morning regarding management of chest tube placed for recurrent pneumothorax. Chest tube has been clamped for 24 hours. Chest tube was unclamped and there is no evidence of air leak. Minimal drainage overnight into the chest tube of approximately 20 mL. Chest x-ray reviewed this morning there is no recurrence of pneumothorax. Long discussion with family about risk versus benefit of removing chest tube and whether or not we place a recurrent chest tube the patient had recurrent pneumothorax tomorrow. At this time they agree to removal with follow-up chest x-ray in the morning with further discussion about care plan. Patient was placed in supine position on bed with slight right lateral recumbent position. Dressing was taken down and there is no evidence of leakage of pleural fluid or blood. Aidan pigtail catheter was in place and secured with a SkaterFix securement system. There is no evidence of suturing to secure the pigtail catheter. It was verified that this was not a tunneled catheter. Dressing was taken down completely and patient was instructed to breathe in and out. On second exhalation chest tube was removed without any evidence of resistance. Chest tube was examined and was intact with no damage or foreign bodies noted. A 4 x 4 gauze was folded and securely placed over the insertion site and secured with a Tegaderm. There is no evidence of drainage or bleeding through the 4 x 4. Tegaderm was examined and was fully adherent to skin surrounding insertion site. Patient tolerated the procedure well with no pain or variation in vital signs. Will obtain chest x-ray in the morning and follow-up with patient and family. Coding
[2022-07-21] MEDS: WARFARIN SOD 2 MG TAB PO SCH (17:53)
[2022-07-22 06:15] LABS: Mean Corpuscular Hgb Conc 34.1 g/dL (32.0-36.0); Mean Corpuscular Volume 93.8 fL (80.0-100.0); Mean Platelet Volume 12.2 fL (9.4-12.3); Platelet Count 190 K/uL (130-400); RDW Coefficient of Variation 15.9 % (11.5-14.5); RDW Standard Deviation 53.6 fL (36.4-46.3); Red Blood Count 4.37 M/uL (3.93-5.22); White Blood Count 11.32 K/ul (4.8-10.8)
[2022-07-22 06:23] LABS: INR 2.6 (0.9-1.1); Prothrombin Time 26.6 Seconds (9.0-12.0)
[2022-07-22 06:36] LABS: BUN Creatinine Ratio 40.6 (10-20); Calcium 9.1 mg/dl (8.5-10.1); Creatinine Clr Calc Pharmacy 30.7 ml/min; Est GFR (African American) 55.1 ml/min; Est GFR (Non-African American) 47.5 ml/min
--- NOTE | 2022-07-22 07:48 | XRay Report ---
XR chest 1V portable CLINICAL HISTORY: Left pneumothorax COMPARISON STUDY: Chest radiograph July 21, 2022. FINDINGS: The left pleural catheter has been removed. Possible trace left apical pneumothorax is unch anged since prior exam. Bilateral pleural effusions are again noted with bibasilar opacities. Cardiom egaly is unchanged. There is mild interstitial pulmonary edema. A left subclavian pacer is in place. IMPRESSION: 1. Interval removal of the left pleural catheter. No significant change in a possible trace left apic al pneumothorax. 2. Persistent bilateral pleural effusions with bibasilar opacities. Cardiomegaly with interstitial pu lmonary edema. ACT 112: Negative or not required by law. Electronically signed by: Jarod Kaye M.D. 07/22/2022 7:47 AM
--- NOTE | 2022-07-22 08:04 | Pulmonology Progress Note ---
Date of Service July 22, 2022 Assessment & Plan (1) Iatrogenic pneumothorax: (2) Tension pneumothorax: (3) Acute respiratory failure with hypoxia: (4) Pulmonary hypertension: (5) Cor pulmonale (chronic): (6) Pleural effusion: Plan Attending: Dr. Singh Impression: 87-year-old female with severe cardiomyopathy, atrial fibrillation status post pacemaker implantation with resultant postprocedural pneumothorax which recurred after removal of the chest tube and significant hypoxemic respiratory failure. Chest tube removed 07/21/2022 with no evidence of recurrence this morning. Her oxygen requirement significantly improved. Recommendations: 1. Postprocedural pneumothorax: Resolved. No indication for repeat imaging in the absence of clinical symptoms. 2. Hypoxemic respiratory failure: Multifactorial. Significantly better today. Continue attempts at negative fluid balance as tolerated by kidney function and hemodynamics. 3. Secondary pulmonary hypertension: Patient has severe tricuspid regurgitation without any coaptation of the valves. This is secondary to her massive chamber enlargement. No indication for additional evaluation at this point time. 4. Disposition per hospitalist service. Will likely need some form of rehab and may need supplemental oxygen at discharge. Pulmonary will sign off at this point time. Feel free to contact us with additional questions or concerns. Admission and Anticipated Discharge Date Admission Date: July 08, 2022 Subjective Patient seen and examined. MAR reviewed. No acute events overnight. She appears more comfortable this morning. Her oxygen requirement is significantly decreased over the last 24 hours. She does not offer any new respiratory complaints. Pigtail catheter discontinued yesterday. Follow-up chest x-ray is today demonstrated no evidence of recurrence of pneumothorax. Review of Systems Review of Systems: All systems reviewed & are unremarkable except as noted in Subjective Physical Exam Constitutional: + thin and + frail appearing Neck: trachea midline, no thyromegaly Respiratory: Auscultation: no crackles and no wheezes Cardiovascular: RRR, no murmur, no edema Rate/Rhythm: regular rate Heart Sounds: normal S1, normal S2 and + murmur Extremities: + edema Gastrointestinal (Abdomen): normal bowel sounds, soft, nontender, no hepatosplenomegaly Musculoskeletal: Extremities: extremities normal to inspection Skin: no rashes, warm and dry Lymphatic: no cervical lymphadenopathy Results & Data Results & Data ([facility]) Vital Signs (Past 12 Hours) Vital Signs Temp Pulse Pulse Resp BP Pulse Ox O2 Del Method 07/22/22 07:40 36.5 C 81 17 118/83 94 Nasal Cannula 07/22/22 03:21 36.5 C 79 20 112/86 91 Nasal Cannula 07/21/22 23:57 36.7 C 79 20 103/70 90 Nasal Cannula 07/21/22 23:58 82 O2 Flow Rate 07/22/22 07:40 2 07/22/22 03:21 2.0 07/21/22 23:57 2.0 07/21/22 23:58 Laboratory Results 07/22/22 05:41 07/22/22 05:41 Diagnostic Findings Chest x-ray today was reviewed. No evidence of recurrence of pneumothorax st atus post removal of chest tube. Cardiomegaly again noted with right pleural effusion. Cardiomegaly and pulmonary vascular prominence noted PG Care Time/CCT Total # of Minutes Spent Total Time Spent with Patient: Total time spent is greater than 50% in coordination of care (as documented) at patient's floor/unit and/or counseling patient: Coding Level of Care Code 11489 Subseq Hosp Care Lvl 2 Diagnoses Iatrogenic pneumothorax J95.811 Tension pneumothorax J93.0 Acute respiratory failure with hypoxia J96.01 Pulmonary hypertension I27.20 Cor pulmonale (chronic) I27.81 Pleural effusion J90
[2022-07-22] MEDS: DOCUSATE SODIUM/SENNA 50/8.6MG TAB PO SCH (09:17)
[2022-07-22] MEDS: METOPROLOL SUCC 25MG EXT REL TAB PO SCH ×2 (09:19→20:26)
[2022-07-22] MEDS: SERTRALINE HCL 50 MG TABLET PO SCH (09:19)
[2022-07-22] MEDS: POTASSIUM CHLORIDE 10 MEQ TABCR PO SCH (09:19)
[2022-07-22] MEDS: dilTIAZem HCL 180 MG CAPCR PO SCH (09:20)
[2022-07-22] MEDS: dilTIAZem HCL 120 MG CAPCR PO SCH (09:20)
[2022-07-22] MEDS: CHOLECALCIFEROL 400 UNITS 10 MCG TAB PO SCH (09:20)
[2022-07-22] MEDS: MULTIVITAMIN TAB PO SCH (09:20)
[2022-07-22] MEDS: CALCIUM CARBONATE 1250MG TAB PO SCH (09:20)
[2022-07-22] MEDS: ASPIRIN 81 MG ECTAB PO SCH (09:20)
--- NOTE | 2022-07-22 09:51 | Hospitalist Progress Note ---
Date of Service July 22, 2022 Assessment & Plan (1) Acute respiratory failure with hypoxia: Plan: improved after treatment of PTX. Chest tube out, continues on 2LPM via NC. (2) Postprocedural pneumothorax: Plan: CXR showed Interval development of a large left pneumothorax. S/P urgent chest tube placement by pulm Dr. Padron on 07/12/22 Chest tube removed 07/14 with repeat development of tension PTX Pigtail catheter reinserted on left chest 07/15 She has been required more oxygen supplement and Oxygen sat continues declined CXR no significant change of the small left-sided pneumothorax with stable positioning of the left-sided chest tube. Cardiomegaly with pulmonary edema, persistent layering pleural effusions with bibasilar consolidation. Lasix 20mg given this morning with additional 20mg IVx2 given Case discussed with Pulm and cardiology ABG today with pH 7.53/ pCO2 27 pO2 52 Spoke to daughter that family does not want any intubation in the event resp iratory continue worsening. If patient worsening and struggle to breath, we will call daughter that we can keep the pt comfortable Will check procalcitonin now, if elevates will start on abx Continue monitor closely 07/20/12 Clamping of the chest tube resulted in reaccumulation of the pneumothorax necessitating return back to suction CXR showed left-sided pleural catheter in place. Tiny residual left-sided pneumothorax. Cardiomegaly and pulmonary vascular congestion with mildly decreased pulmonary edema. Lasix 40mg IV x1 given High flow oxygen discontinued a per family because pt is not able to tolerate and get agitated Family does not want to place pt back on the high flow oxygen since pt does not tolerate it and she gets agitated Family understood the risks of stopping the high flow oxygen such as worsening hypoxia and Daughter said that once the chest tube removes that the family does not wants it to be placed again if develops hypoxia again Dr. Singh was notified about not put put the chest tube back once it removes Daughter said that if patient declines or becomes uncomfortable to call her that they can make patient comfortable 07/21: she is doing well clinically. Chest tube has been clamped for 24 hours with no residual PTX. Plan for removal of this today and CXR in am. Cont supplemental oxygen to keep oxygen saturation >90% 07/22: trace to no apical PTX on CXR this am after removal of chest tube yesterday afternoon. She is doing well overall and is symptom -free. Cont to monitor closely and start more aggressive activity in the room. (3) SSS (sick sinus syndrome): Plan: patient with labile HR with tachy-mason syndrome s/p PPM placement on 07/12/22, c/b L sided tension PTX, s/p chest tube x 2 Continue diltiazem and metoprolol Activity restrictions post procedure. Wound check and PM device check one week post-op coming up soon. (4) Elevated troponin: Plan: 2/2 demand ischemia from hypoxia Troponin peaked to 107, then trending down 91 Case discussed with cardiology that recommended to discontinue IV heparin drip Continue aspirin and metoprolol No further workup. (5) Atrial fibrillation with rapid ventricular response: Plan: Presented with HR 120s and palpitations, hypoxia concern for SSS with tachycardia and bradycardia received IV lopressor and diltiazem in ED with initial improvement cardiology on board Continued HR control with cardizem and metoprolol as per cardiology TTE reviewed and mostly unchanged from prior - no longer with pericardial effusion Continue coumadin-INR therapeutic. Continue monitor in tele (6) CKD (chronic kidney disease) stage 3, GFR 30-59 ml/min: Plan: - Creatinine at baseline now but recently was elevated. - Additional lasix given due to the pulm edema and hypoxia - Daughter understand the additional lasix can cause the creatinine to increase -lasix was held. Will plan to restart oral lasix now per home regimen. (7) GERD (gastroesophageal reflux disease): Plan: - continue Pepcid per home regimen. (8) HTN (hypertension): Plan: -chronic, at goal. Continue CCB and BB (9) Pulmonary hypertension: Plan: chronic, severe (10) DVT prophylaxis: Plan: DVT ppx: coumadin Code Status: DNR/DNI Disposition PT/OT eval -current plan is for rehab, patient lives alone. If pt continues to decline, family will transition to comfort care. Currently she is doing well. Patricia Man DO [facility] Hospitalist Admission and Anticipated Discharge Date Admission Date: July 08, 2022 Subjective 87-year-old patient's status post pacemaker with iatrogenic tension pneumothorax. Patient is still requiring 2 L/min of nasal cannula supplementation She is in no acute respiratory distress and denies any shortness of breath DEnies chest pain Doing well after chest tube removed and CXR this am without recurrence of PTX. She is confused because she states concern for not seeing her kids yesterda y--there were three of them here visiting with her actually. Review of Systems Review of Systems: All systems reviewed negative except as indicated above. Physical Exam Physical Exam: CONSTITUTIONAL: thin, frail vitals as above, generally NAD EYES: normal conjunctivae, no scleral icterus ENT: external ear and nose normal, MMM NECK: trachea midline, RESPIRATORY: Clear to auscultation , no crackles, wheezes or rales. CARDIOVASCULAR: +murmur, S1/2 heard, no edema CHEST: PM to left anterior chest wall, wound is covered with dressing-c/d/i GASTROINTESTINAL: Soft nontender nondistended. MUSCULOSKELETAL: 5 out of 5 throughout. She can sit up independently. Moves all extremities with ease. SKIN: Warm and dry. NEUROLOGIC: normal cognition, normal speech PSYCHIATRIC: alert cooperative and oriented to person, place and time. Results & Data Results & Data ([facility]) Vital Signs (Past 12 Hours) Vital Signs Temp Pulse Pulse Resp BP Pulse Ox O2 Del Method 07/22/22 07:40 36.5 C 81 17 118/83 94 Nasal Cannula 07/22/22 03:21 36.5 C 79 20 112/86 91 Nasal Cannula 07/21/22 23:57 36.7 C 79 20 103/70 90 Nasal Cannula 07/21/22 23:58 82 O2 Flow Rate 07/22/22 07:40 2 07/22/22 03:21 2.0 07/21/22 23:57 2.0 07/21/22 23:58 Laboratory Results Short CBC 07/22/22 Range/Units 05:41 WBC 11.32 H (4.8-10.8) K/ul Hgb 14.0 (12.0-16.0) g/dl Hct 41.0 (34.1-44.9) % Plt Count 190 (130-400) K/uL BMP 07/22/22 05:41 Sodium 137 Potassium 4.0 Chloride 104 Carbon Dioxide 26 BUN 43 H Creatinine 1.06 Glucose 90 Calcium 9.1 Diagnostic Findings Chest X-Ray 07/22/22 07:00 XR chest 1V portable CLINICAL HISTORY: Left pneumothorax COMPARISON STUDY: Chest radiograph July 21, 2022. FINDINGS: The left pleural catheter has been removed. Possible trace left apical pneumothorax is unchanged since prior exam. Bilateral pleural effusions are again noted with bibasilar opacities. Cardiomegaly is unchanged. There is mild interstitial pulmonary edema. A left subclavian pacer is in place. IMPRESSION: 1. Interval removal of the left pleural catheter. No significant change in a possible trace left apical pneumothorax. 2. Persistent bilateral pleural effusions with bibasilar opacities. Cardiomegaly with interstitial pulmonary edema. ACT 112: Negative or not required by law. Electronically signed by: Jarod Kaye M.D. 07/22/2022 7:47 AM Medications Administered Current Inpatient Medications Acetaminophen (Acetaminophen 325 Mg Tab) 650 mg PO Q4H PRN PRN Reason: Pain or Fever Stop: 08/08/22 00:34 Last Admin: 07/20/22 04:25 Dose: 650 mg Artificial Tears (Artificial Tears) 2 drops OP TID PRN PRN Reason: Dry Eye(S) Stop: 08/08/22 01:39 Last Admin: 07/18/22 21:09 Dose: 2 drops Aspirin (Aspirin 81 Mg Ectab) 81 mg PO QAM [facility] Stop: 08/14/22 06:29 Last Admin: 07/22/22 09:20 Dose: 81 mg Calcium Carbonate (Calcium Carbonate 1250mg Tab) 1,250 mg PO DAILY [facility] Stop: 08/08/22 08:59 Last Admin: 07/22/22 09:20 Dose: 1,250 mg Diltiazem HCl (Diltiazem Hcl 180 Mg Capcr) 180 mg PO DAILY [facility] Stop: 08/08/22 08:59 Last Admin: 07/22/22 09:20 Dose: 180 mg Diltiazem HCl (Diltiazem Hcl 120 Mg Capcr) 120 mg PO QAM [facility] Stop: 08/08/22 14:14 Last Admin: 07/22/22 09:20 Dose: 120 mg Furosemide (Furosemide 20 Mg Tab) 20 mg PO DAILY [facility] Stop: 08/08/22 08:59 Last Admin: 07/16/22 08:40 Dose: 20 mg Furosemide (Furosemide Inj 20 Mg/2 Ml Vial) 20 mg IV DAILY [facility] Stop: 08/15/22 11:29 Last Admin: 07/17/22 08:28 Dose: 20 mg Acetaminophen (Ofirmev) 1,000 mg in 100 mls @ 400 mls/hr IV Q8H PRN PRN Reason: Pain Stop: 07/23/22 14:12 Last Infusion: 07/20/22 15:23 Dose: Infused Melatonin (Melatonin 3 Mg Tab) 3 mg PO HS PRN PRN Reason: Insomnia Stop: 08/08/22 00:34 Last Admin: 07/19/22 21:13 Dose: 3 mg Metoprolol Succinate (Metoprolol Succ 25mg Ext Rel Tab) 25 mg PO DAILY [facility] Stop: 08/08/22 08:59 Last Admin: 07/22/22 09:19 Dose: 25 mg Metoprolol Succinate (Metoprolol Succ 25mg Ext Rel Tab) 12.5 mg PO PM [facility] Stop: 08/08/22 20:59 Last Admin: 07/21/22 20:39 Dose: 12.5 mg Metoprolol Tartrate (Metoprolol Tartrate 1 Mg/Ml Vial) 5 mg IV Q6 PRN PRN Reason: Tachycardia Stop: 08/08/22 00:34 Last Admin: 07/09/22 01:57 Dose: 5 mg Morphine Sulfate (Morphine Sulfate 2 Mg/Ml Carp) 1 mg IV Q6H PRN PRN Reason: Pain Stop: 07/29/22 13:52 Last Admin: 07/19/22 14:40 Dose: 1 mg Multivitamins (Multivitamin Tab) 1 tab PO DAILY [facility] Stop: 08/08/22 08:59 Last Admin: 07/22/22 09:20 Dose: 1 tab Nitroglycerin (Nitroglycerin Sl 0.4 Mg/Tab Tab) 0.4 mg SL UD PRN PRN Reason: Chest Pain Stop: 08/08/22 00:34 Olanzapine (Olanzapine 10 Mg/2.1 Ml Sdv) 2.5 mg IM Q4H PRN PRN Reason: Anxiety/Agitation Stop: 08/13/22 06:23 Last Admin: 07/17/22 18:43 Dose: 2.5 mg Polyethylene Glycol (Polyethylene (Miralax) 17 Gm Pack) 17 gm PO DAILY PRN PRN Reason: Constipation Stop: 08/09/22 10:27 Last Admin: 07/19/22 04:03 Dose: 17 gm Potassium Chloride (Potassium Chloride 10 Meq Tabcr) 10 meq PO DAILY [facility] Stop: 08/08/22 08:59 Last Admin: 07/22/22 09:19 Dose: 10 meq Senna/Docusate Sodium (Docusate Sodium/Senna 50/8.6mg Tab) 1 tab PO QAM [facility] Stop: 08/09/22 10:59 Last Admin: 07/22/22 09:17 Dose: Not Given Sertraline HCl (Sertraline Hcl 50 Mg Tablet) 12.5 mg PO DAILY [facility] Stop: 08/08/22 08:59 Last Admin: 07/22/22 09:19 Dose: 12.5 mg Tramadol HCl (Tramadol Hcl 50 Mg Tablet) 25 mg PO Q4H PRN PRN Reason: Pain Stop: 08/14/22 04:53 Last Admin: 07/20/22 10:04 Dose: 25 mg Vitamin D (Cholecalciferol 400 Units 10 Mcg Tab) 400 units PO DAILY [facility] Stop: 08/08/22 08:59 Last Admin: 07/22/22 09:20 Dose: 400 units Warfarin Sodium (Warfarin Sod 2 Mg Tab) 2 mg PO TuThSa@1600 [facility] Stop: 08/08/22 15:59 Last Admin: 07/21/22 17:53 Dose: 2 mg Warfarin Sodium (Warfarin Sod 1 Mg Tab) 1 mg PO SuMoWeFr@1600 [facility] Stop: 08/09/22 15:59 Last Admin: 07/20/22 15:39 Dose: 1 mg (1) CKD (chronic kidney disease) stage 3, GFR 30-59 ml/min Chronic kidney disease stage 3 subtype: unspecified whether 3a or 3b Qualified Code(s): N18.30 - Chronic kidney disease, stage 3 unspecified
[2022-07-22] MEDS: WARFARIN SOD 1 MG TAB PO SCH (16:20)
[2022-07-23] MEDS: guaiFENesin SUGAR FREE 200 MG/10 ML UDC PO PRN (04:43)
[2022-07-23] MEDS: dilTIAZem HCL 120 MG CAPCR PO SCH (08:59)
[2022-07-23] MEDS: FUROSEMIDE 20 MG TAB PO SCH (08:59)
[2022-07-23] MEDS: CHOLECALCIFEROL 400 UNITS 10 MCG TAB PO SCH (08:59)
[2022-07-23] MEDS: CALCIUM CARBONATE 1250MG TAB PO SCH (08:59)
[2022-07-23] MEDS: MULTIVITAMIN TAB PO SCH (09:00)
[2022-07-23] MEDS: dilTIAZem HCL 180 MG CAPCR PO SCH (09:00)
[2022-07-23] MEDS: SERTRALINE HCL 50 MG TABLET PO SCH (09:00)
[2022-07-23] MEDS: POTASSIUM CHLORIDE 10 MEQ TABCR PO SCH (09:01)
[2022-07-23] MEDS: DOCUSATE SODIUM/SENNA 50/8.6MG TAB PO SCH (09:01)
[2022-07-23] MEDS: ASPIRIN 81 MG ECTAB PO SCH (09:01)
[2022-07-23] MEDS: METOPROLOL SUCC 25MG EXT REL TAB PO SCH ×2 (09:01→20:21)
--- NOTE | 2022-07-23 10:05 | Hospitalist Progress Note ---
Date of Service July 23, 2022 Assessment & Plan (1) Acute respiratory failure with hypoxia: Plan: improved after treatment of PTX. Chest tube out on 07/21, continues on 2LPM via NC. (2) Postprocedural pneumothorax: Plan: CXR showed Interval development of a large left pneumothorax. S/P urgent chest tube placement by pulm Dr. Padron on 07/12/22 Chest tube removed 07/14 with repeat development of tension PTX Pigtail catheter reinserted on left chest 07/15 She has been required more oxygen supplement and Oxygen sat continues declined CXR no significant change of the small left-sided pneumothorax with stable positioning of the left-sided chest tube. Cardiomegaly with pulmonary edema, persistent layering pleural effusions with bibasilar consolidation. Lasix 20mg given this morning with additional 20mg IVx2 given Case discussed with Pulm and cardiology ABG today with pH 7.53/ pCO2 27 pO2 52 Spoke to daughter that family does not want any intubation in the event respiratory continue worsening. If patient worsening and struggle to breath, we will call daughter that we can keep the pt comfortable Will check procalcitonin now, if elevates will start on abx Continue monitor closely 07/20/12 Clamping of the chest tube resulted in reaccumulation of the pneumothorax necessitating return back to suction CXR showed left-sided pleural catheter in place. Tiny residual left-sided pneumothorax. Cardiomegaly and pulmonary vascular congestion with mildly decreased pulmonary edema. Lasix 40mg IV x1 given High flow oxygen discontinued a per family because pt is not able to tolerate and get agitated Family does not want to place pt back on the high flow oxygen since pt does not tolerate it and she gets agitated Family understood the risks of stopping the high flow oxygen such as worsening hypoxia and Daughter said that once the chest tube removes that the family does not wants it to be placed again if develops hypoxia again Dr. Singh was notified about not put put the chest tube back once it removes Daughter said that if patient declines or becomes uncomfortable to call her that they can make patient comfortable 07/21: she is doing well clinically. Chest tube has been clamped for 24 hours with no residual PTX. Plan for removal of this today and CXR in am. Cont supplemental oxygen to keep oxygen saturation >90% 07/22: trace to no apical PTX on CXR this am after removal of chest tube yesterday afternoon. She is doing well overall and is symptom -free. Cont to monitor closely and start more aggressive activity in the room. 07/23: Lungs are clear to auscultation throughout and there is no respiratory distress. Continue to provide oxygen supplementation and mobilize patient as tolerated. She has underlying secondary pulmonary hypertension with severe tricuspid regurgitation. (3) SSS (sick sinus syndrome): Plan: patient with labile HR with tachy-mason syndrome s/p PPM placement on 07/12/22, c/b L sided tension PTX, s/p chest tube x 2 Continue diltiazem and metoprolol Activity restrictions post procedure including no lifting of left elbow left shoulder for 1 month. She is not able to lift more than 10 pounds with her left arm for 2 weeks. She is to keep the dressing on and dry until her next wound check. Wound check and PM device check one week post-op coming up soon. (4) Elevated troponin: Plan: 2/2 demand ischemia from hypoxia Troponin peaked to 107, then trending down 91 Case discussed with cardiology that recommended to discontinue IV heparin drip Continue aspirin and metoprolol No further workup. (5) Atrial fibrillation with rapid ventricular response: Plan: Presented with HR 120s and palpitations, hypoxia concern for SSS with tachycardia and bradycardia received IV lopressor and diltiazem in ED with initial improvement cardiology on board Continued HR control with cardizem and metoprolol as per cardiology TTE reviewed and mostly unchanged from prior - no longer with pericardial effusion Continue coumadin-INR therapeutic. persistent atrial fibrillation on telemetry overnight with rate controlled (6) CKD (chronic kidney disease) stage 3, GFR 30-59 ml/min: Plan: - Creatinine at baseline now but recently was elevated. - Additional lasix was given due to the pulm edema and hypoxia which is improved -her creat is at baseline and she continues on home lasix daily (7) GERD (gastroesophageal reflux disease): Plan: - continue Pepcid per home regimen. (8) HTN (hypertension): Plan: -chronic, at goal. Continue CCB and BB and furosemide (9) Pulmonary hypertension: Plan: chronic, severe (10) DVT prophylaxis: Plan: DVT ppx: coumadin Code Status: DNR/DNI Disposition PT/OT eval -current plan is for rehab, patient lives alone. If pt continues to decline, family will transition to comfort care. Currently she is doing well. Patricia Man DO [facility] Hospitalist Admission and Anticipated Discharge Date Admission Date: July 08, 2022 Subjective 87-year-old patient's status post pacemaker with iatrogenic tension pneumothorax. Patient remains on 2.5 L/min of nasal cannula supplementation She is in no acute respiratory distress and denies any shortness of breath Denies any pain She is appearing depressed and slightly upset because she does not know where her kids are she also is requesting some clothing that fits her. She is answering orientation questions correctly. Telemetry review reveals persistent atrial fibrillation with controlled heart rate overnight in the high 70s early 80s. Review of Systems Review of Systems: All systems reviewed negative except as indicated above. Physical Exam Physical Exam: CONSTITUTIONAL: thin, frail vitals as above, generally NAD EYES: normal conjunctivae, no scleral icterus ENT: external ear and nose normal, MMM NECK: trachea midline, RESPIRATORY: Clear to auscultation , no crackles, wheezes or rales. CARDIOVASCULAR: +murmur, S1/2 heard, no edema CHEST: PM to left anterior chest wall, wound is covered with dressing-c/d/i GASTROINTESTINAL: Soft nontender nondistended. MUSCULOSKELETAL: 5 out of 5 throughout. She can sit up independently. Moves all extremities with ease. SKIN: Warm and dry. NEUROLOGIC: normal cognition, normal speech PSYCHIATRIC: alert cooperative and oriented to person, place and time. Results & Data Results & Data ([facility]) Vital Signs (Past 12 Hours) Vital Signs Temp Pulse Pulse Resp BP Pulse Ox O2 Del Method 07/23/22 09:13 Nasal Cannula 07/23/22 07:21 36.5 C 78 16 144/84 H 93 Nasal Cannula 07/23/22 03:52 36.6 C 80 20 111/74 93 Nasal Cannula 07/22/22 22:35 78 07/23/22 00:38 36.6 C 74 22 103/66 90 Nasal Cannula O2 Flow Rate 07/23/22 09:13 2.5 07/23/22 07:21 07/23/22 03:52 2.5 07/22/22 22:35 07/23/22 00:38 2.5 Medications Administered Current Inpatient Medications Acetaminophen (Acetaminophen 325 Mg Tab) 650 mg PO Q4H PRN PRN Reason: Pain or Fever Stop: 08/08/22 00:34 Last Admin: 07/20/22 04:25 Dose: 650 mg Artificial Tears (Artificial Tears) 2 drops OP TID PRN PRN Reason: Dry Eye(S) Stop: 08/08/22 01:39 Last Admin: 07/18/22 21:09 Dose: 2 drops Aspirin (Aspirin 81 Mg Ectab) 81 mg PO QAM [facility] Stop: 08/14/22 06:29 Last Admin: 07/23/22 09:01 Dose: 81 mg Calcium Carbonate (Calcium Carbonate 1250mg Tab) 1,250 mg PO DAILY [facility] Stop: 08/08/22 08:59 Last Admin: 07/23/22 08:59 Dose: 1,250 mg Diltiazem HCl (Diltiazem Hcl 180 Mg Capcr) 180 mg PO DAILY [facility] Stop: 08/08/22 08:59 Last Admin: 07/23/22 09:00 Dose: 180 mg Diltiazem HCl (Diltiazem Hcl 120 Mg Capcr) 120 mg PO QAM [facility] Stop: 08/08/22 14:14 Last Admin: 07/23/22 08:59 Dose: 120 mg Furosemide (Furosemide 20 Mg Tab) 20 mg PO DAILY [facility] Stop: 08/08/22 08:59 Last Admin: 07/23/22 08:59 Dose: 20 mg Guaifenesin (Guaifenesin Sugar Free 200 Mg/10 Ml Udc) 200 mg PO Q6H PRN PRN Reason: Cough Stop: 08/22/22 04:01 Last Admin: 07/23/22 04:43 Dose: 200 mg Acetaminophen (Ofirmev) 1,000 mg in 100 mls @ 400 mls/hr IV Q8H PRN PRN Reason: Pain Stop: 07/23/22 14:12 Last Infusion: 07/20/22 15:23 Dose: Infused Melatonin (Melatonin 3 Mg Tab) 3 mg PO HS PRN PRN Reason: Insomnia Stop: 08/08/22 00:34 Last Admin: 07/19/22 21:13 Dose: 3 mg Metoprolol Succinate (Metoprolol Succ 25mg Ext Rel Tab) 25 mg PO DAILY [facility] Stop: 08/08/22 08:59 Last Admin: 07/23/22 09:01 Dose: 25 mg Metoprolol Succinate (Metoprolol Succ 25mg Ext Rel Tab) 12.5 mg PO PM [facility] Stop: 08/08/22 20:59 Last Admin: 07/22/22 20:26 Dose: 12.5 mg Metoprolol Tartrate (Metoprolol Tartrate 1 Mg/Ml Vial) 5 mg IV Q6 PRN PRN Reason: Tachycardia Stop: 08/08/22 00:34 Last Admin: 07/09/22 01:57 Dose: 5 mg Morphine Sulfate (Morphine Sulfate 2 Mg/Ml Carp) 1 mg IV Q6H PRN PRN Reason: Pain Stop: 07/29/22 13:52 Last Admin: 07/19/22 14:40 Dose: 1 mg Multivitamins (Multivitamin Tab) 1 tab PO DAILY [facility] Stop: 08/08/22 08:59 Last Admin: 07/23/22 09:00 Dose: 1 tab Nitroglycerin (Nitroglycerin Sl 0.4 Mg/Tab Tab) 0.4 mg SL UD PRN PRN Reason: Chest Pain Stop: 08/08/22 00:34 Olanzapine (Olanzapine 10 Mg/2.1 Ml Sdv) 2.5 mg IM Q4H PRN PRN Reason: Anxiety/Agitation Stop: 08/13/22 06:23 Last Admin: 07/17/22 18:43 Dose: 2.5 mg Polyethylene Glycol (Polyethylene (Miralax) 17 Gm Pack) 17 gm PO DAILY PRN PRN Reason: Constipation Stop: 08/09/22 10:27 Last Admin: 07/19/22 04:03 Dose: 17 gm Potassium Chloride (Potassium Chloride 10 Meq Tabcr) 10 meq PO DAILY [facility] Stop: 08/08/22 08:59 Last Admin: 07/23/22 09:01 Dose: 10 meq Senna/Docusate Sodium (Docusate Sodium/Senna 50/8.6mg Tab) 1 tab PO QAM [facility] Stop: 08/09/22 10:59 Last Admin: 07/23/22 09:01 Dose: 1 tab Sertraline HCl (Sertraline Hcl 50 Mg Tablet) 12.5 mg PO DAILY [facility] Stop: 08/08/22 08:59 Last Admin: 07/23/22 09:00 Dose: 12.5 mg Tramadol HCl (Tramadol Hcl 50 Mg Tablet) 25 mg PO Q4H PRN PRN Reason: Pain Stop: 08/14/22 04:53 Last Admin: 07/20/22 10:04 Dose: 25 mg Vitamin D (Cholecalciferol 400 Units 10 Mcg Tab) 400 units PO DAILY [facility] Stop: 08/08/22 08:59 Last Admin: 07/23/22 08:59 Dose: 400 units Warfarin Sodium (Warfarin Sod 2 Mg Tab) 2 mg PO TuThSa@1600 [facility] Stop: 08/08/22 15:59 Last Admin: 07/21/22 17:53 Dose: 2 mg Warfarin Sodium (Warfarin Sod 1 Mg Tab) 1 mg PO SuMoWeFr@1600 [facility] Stop: 08/09/22 15:59 Last Admin: 07/22/22 16:20 Dose: 1 mg (1) CKD (chronic kidney disease) stage 3, GFR 30-59 ml/min Chronic kidney disease stage 3 subtype: unspecified whether 3a or 3b Qualified Code(s): N18.30 - Chronic kidney disease, stage 3 unspecified
--- NOTE | 2022-07-23 11:50 | Cardiology Progress Note ---
Date of Service July 23, 2022 Assessment & Plan (1) Tachy-mason syndrome: (2) Tension pneumothorax: (3) Right heart failure: Plan: (1) Tachy-mason syndrome: Patient with symptomatic atrial fibrillation, tachycardia-bradycardia syndrome, for which he underwent single-chamber permanent pacemaker 07/12/2022 with subsequent tension pneumothorax. Initially had chest tube, and after removal pneumothorax recurred. Second chest tube removed on 07/21/2022. Follow-up x- ray with stable findings. Continue high-dose diltiazem, 300 mg daily, metoprolol 25 mg am, 12.5 mg pm. Continue coumadin for stroke prophylaxis. (2) Tension pneumothorax: -Pulmonary input noted and appreciated. -Continue to observe. (3) Right heart failure: Severe tricuspid regurgitation on echocardiogram (present prior to pacemaker) Continue furosemide 20 mg daily. Remain on telemetry for now. Increase mobility as tolerated. Discussed by phone with Dr Man. Admission and Anticipated Discharge Date Admission Date: July 08, 2022 Subjective Patient seen in cardiology reassessment. Oxygen saturation relatively stable on supplemental oxygen 2.5 L /m. Denies chest pain. Rate controlled atrial fibrillation in the 70s observed on telemetry with demand ventricular pacing. Physical Exam Constitutional: + ill appearing (Chronically ill in appearance, without acute distress, cachectic) Respiratory: Mildly reduced breath sounds at the left apex, otherwise clear to auscultation bilaterally Cardiovascular: Irregular rhythm, 2/6 systolic murmur Gastrointestinal (Abdomen): normal bowel sounds, soft, nontender, no hepatosplenomegaly Neurologic: PERRL, EOMI, accommodation nl, no face palsy, no dysarthria Results & Data ([facility]) Vital Signs (Past 12 Hours) Vital Signs Temp Pulse Resp BP Pulse Ox O2 Del Method O2 Flow Rate 07/23/22 09:13 Nasal Cannula 2.5 07/23/22 07:21 36.5 C 78 16 144/84 H 93 Nasal Cannula 07/23/22 03:52 36.6 C 80 20 111/74 93 Nasal Cannula 2.5 07/23/22 00:38 36.6 C 74 22 103/66 90 Nasal Cannula 2.5 Diagnostic Findings INR 07/22/2022: 2.6
[2022-07-23] MEDS: WARFARIN SOD 2 MG TAB PO SCH (17:18)
[2022-07-23] MEDS: CLOTRIMAZOLE 10 MG TROCHE BUCCAL SCH (20:21)
[2022-07-24] MEDS: CLOTRIMAZOLE 10 MG TROCHE BUCCAL SCH ×5 (01:21→21:51)
[2022-07-24 05:54] LABS: Hematocrit (blood only) 39.2 % (34.1-44.9); Hemoglobin 13.5 g/dl (12.0-16.0); Mean Corpuscular Hemoglobin 31.9 pg (25.0-34.0); Mean Corpuscular Hgb Conc 34.4 g/dL (32.0-36.0); Mean Corpuscular Volume 92.7 fL (80.0-100.0); Mean Platelet Volume 12.4 fL (9.4-12.3); Platelet Count 199 K/uL (130-400); RDW Standard Deviation 53.9 fL (36.4-46.3); Red Blood Count 4.23 M/uL (3.93-5.22); White Blood Count 9.42 K/ul (4.8-10.8)
[2022-07-24 06:08] LABS: INR 2.6 (0.9-1.1); Prothrombin Time 26.6 Seconds (9.0-12.0)
[2022-07-24 06:12] LABS: BUN Creatinine Ratio 42.4 (10-20); Creatinine Clr Calc Pharmacy 32.4 ml/min; Est GFR (African American) 59.8 ml/min; Est GFR (Non-African American) 51.6 ml/min; Potassium 3.7 mmol/L (3.5-5.1)
[2022-07-24] MEDS: ASPIRIN 81 MG ECTAB PO SCH (08:10)
[2022-07-24] MEDS: dilTIAZem HCL 120 MG CAPCR PO SCH (08:10)
[2022-07-24] MEDS: dilTIAZem HCL 180 MG CAPCR PO SCH (08:10)
[2022-07-24] MEDS: CALCIUM CARBONATE 1250MG TAB PO SCH (08:10)
[2022-07-24] MEDS: FUROSEMIDE 20 MG TAB PO SCH (08:10)
[2022-07-24] MEDS: CHOLECALCIFEROL 400 UNITS 10 MCG TAB PO SCH (08:10)
[2022-07-24] MEDS: METOPROLOL SUCC 25MG EXT REL TAB PO SCH ×2 (08:11→21:52)
[2022-07-24] MEDS: DOCUSATE SODIUM/SENNA 50/8.6MG TAB PO SCH (08:11)
[2022-07-24] MEDS: POTASSIUM CHLORIDE 10 MEQ TABCR PO SCH (08:11)
[2022-07-24] MEDS: SERTRALINE HCL 50 MG TABLET PO SCH (08:11)
[2022-07-24] MEDS: MULTIVITAMIN TAB PO SCH (08:11)
--- NOTE | 2022-07-24 10:29 | Cardiology Progress Note ---
Date of Service July 24, 2022 Assessment & Plan (1) Tachy-mason syndrome: (2) Tension pneumothorax: (3) Right heart failure: Plan: (1) Tachy-mason syndrome: Patient with symptomatic atrial fibrillation, tachycardia-bradycardia syndrome, for which he underwent single-chamber permanent pacemaker 07/12/2022 with subsequent tension pneumothorax. Initially had chest tube, and after removal pneumothorax recurred. Second chest tube removed on 07/21/2022. Follow-up x- ray with stable findings. On high-dose diltiazem, 300 mg daily, metoprolol 25 mg am, 12.5 mg pm. For ease of administration, will change diltiazem CD to 240 mg ONE time per day starting 07/25/22. Continue coumadin for stroke prophylaxis, INR today 07/24/22 =2.6 (2) Tension pneumothorax: -Pulmonary input noted and appreciated. -Continue to observe. (3) Right heart failure: Severe tricuspid regurgitation on echocardiogram (present prior to pacemaker) Continue furosemide 20 mg daily. Remain on telemetry for now. Increase mobility as tolerated. Admission and Anticipated Discharge Date Admission Date: July 08, 2022 Subjective Patient seen in cardiology follow up. She denies shortness of breath. She is in better spirits this am, an enjoyed a visit with her family yesterday. Telemetry reveals rate controlled atrial fibrillation in the 70s. Physical Exam Constitutional: + ill appearing (Chronically ill in appearance, without acute distress, cachectic) Respiratory: mildly reduced BS a the left apex , otherwise lung clear. Cardiovascular: irregular rhythm, 2/6 SM , no edema Gastrointestinal (Abdomen): normal bowel sounds, soft, nontender, no hepatosplenomegaly Neurologic: PERRL, EOMI, accommodation nl, no face palsy, no dysarthria Results & Data ([facility]) Vital Signs (Past 12 Hours) Vital Signs Temp Pulse Pulse Resp BP Pulse Ox O2 Del Method 07/24/22 08:00 Nasal Cannula 07/24/22 07:34 36.7 C 86 22 120/82 92 Nasal Cannula 07/24/22 03:36 36.8 C 75 18 104/67 90 Nasal Cannula 07/23/22 22:40 75 07/23/22 23:14 36.9 C 79 20 114/69 91 Nasal Cannula O2 Flow Rate 07/24/22 08:00 2 07/24/22 07:34 3 10/16/22 03:36 2.5 07/23/22 22:40 07/23/22 23:14 2.5 Diagnostic Findings Coagulation 07/24/22 Range/Units 05:22 PT 26.6 H (9.0-12.0) Seconds CBC 07/24/22 Range/Units 05:22 WBC 9.42 (4.8-10.8) K/ul RBC 4.23 (3.93-5.22) M/uL Hgb 13.5 (12.0-16.0) g/dl Hct 39.2 (34.1-44.9) % Plt Count 199 (130-400) K/uL Comprehensive Metabolic Panel 07/24/22 Range/Units 05:22 Sodium 139 (136-145) mmol/L Potassium 3.7 (3.5-5.1) mmol/L Chloride 107 (98-107) mmol/L Carbon Dioxide 25 (21-32) mmol/L BUN 42 H (6-23) mg/dl Creatinine 0.99 (0.6-1.2) mg/dl Glucose 92 (70-99(Fasting)) mg/dl Calcium 9.0 (8.5-10.1) mg/dl Intake and Output 07/23/22 07/24/22 07/24/22 22:59 06:59 14:59 Intake Total 220 / 220 Balance 220 / 220 Intake: Oral 220 / 220 Other: # Unmeasured Voids 1 Weight 50.3 kg Weight Measurement Method Built in [facility]
--- NOTE | 2022-07-24 11:46 | Hospitalist Progress Note ---
Date of Service July 24, 2022 Assessment & Plan (1) Acute respiratory failure with hypoxia: Plan: improved after treatment of PTX. Chest tube out on 07/21, continue supplemental oxygen. (2) Postprocedural pneumothorax: Plan: CXR showed Interval development of a large left pneumothorax. S/P urgent chest tube placement by pulm Dr. Padron on 07/12/22 Chest tube removed 07/14 with repeat development of tension PTX Pigtail catheter reinserted on left chest 07/15 She has been required more oxygen supplement and Oxygen sat continues declined CXR no significant change of the small left-sided pneumothorax with stable positioning of the left-sided chest tube. Cardiomegaly with pulmonary edema, persistent layering pleural effusions with bibasilar consolidation. Lasix 20mg given this morning with additional 20mg IVx2 given Case discussed with Pulm and cardiology ABG today with pH 7.53/ pCO2 27 pO2 52 Spoke to daughter that family does not want any intubation in the event respiratory continue worsening. If patient worsening and struggle to breath, we will call daughter that we can keep the pt comfortable Will check procalcitonin now, if elevates will start on abx Continue monitor closely 07/20/12 Clamping of the chest tube resulted in reaccumulation of the pneumothorax necessitating return back to suction CXR showed left-sided pleural catheter in place. Tiny residual left-sided pneumothorax. Cardiomegaly and pulmonary vascular congestion with mildly decreased pulmonary edema. Lasix 40mg IV x1 given High flow oxygen discontinued a per family because pt is not able to tolerate and get agitated Family does not want to place pt back on the high flow oxygen since pt does not tolerate it and she gets agitated Family understood the risks of stopping the high flow oxygen such as worsening hypoxia and Daughter said that once the chest tube removes that the family does not wants it to be placed again if develops hypoxia again Dr. Singh was notified about not put put the chest tube back once it removes Daughter said that if patient declines or becomes uncomfortable to call her that they can make patient comfortable 07/21: she is doing well clinically. Chest tube has been clamped for 24 hours with no residual PTX. Plan for removal of this today and CXR in am. Cont supplemental oxygen to keep oxygen saturation >90% 07/22: trace to no apical PTX on CXR this am after removal of chest tube yesterday afternoon. She is doing well overall and is symptom -free. Cont to monitor closely and start more aggressive activity in the room. 07/23: Lungs are clear to auscultation throughout and there is no respiratory distress. Continue to provide oxygen supplementation and mobilize patient as tolerated. She has underlying secondary pulmonary hypertension with severe tricuspid regurgitation. 07/24: No changes. Continue supplemental oxygen. Slightly increased from 2.5 to 5 L/min this morning. If this is unable to be reduced back to 2 to 2.5 L/min may consider chest x-ray. (3) SSS (sick sinus syndrome): Plan: patient with labile HR with tachy-mason syndrome s/p PPM placement on 07/12/22, c/b L sided tension PTX, s/p chest tube x 2 Continue diltiazem and metoprolol Activity restrictions post procedure including no lifting of left elbow left shoulder for 1 month. She is not able to lift more than 10 pounds with her left arm for 2 weeks. She is to keep the dressing on and dry until her next wound check. Wound check and PM device check one week post-op coming up soon. Defer to cardiology. (4) Elevated troponin: Plan: 2/2 demand ischemia from hypoxia Troponin peaked to 107, then trending down 91 Case discussed with cardiology that recommended to discontinue IV heparin drip Continue aspirin and metoprolol No further workup. (5) Atrial fibrillation with rapid ventricular response: Plan: Presented with HR 120s and palpitations, hypoxia concern for SSS with tachycardia and bradycardia received IV lopressor and diltiazem in ED with initial improvement cardiology on board Continued HR control with cardizem and metoprolol as per cardiology TTE reviewed and mostly unchanged from prior - no longer with pericardial effusion Continue coumadin-INR therapeutic. persistent atrial fibrillation on telemetry overnight with rate controlled (6) Right heart failure: Plan: Chronic, appears euvolemic. Continue Lasix per daily regimen. (7) Pulmonary hypertension: Plan: chronic, severe. This is in the setting of severe TR (8) HTN (hypertension): Plan: -chronic, at goal. Continue CCB and BB and furosemide (9) CKD (chronic kidney disease) stage 3, GFR 30-59 ml/min: Plan: - Creatinine at baseline now but recently was elevated. - Additional lasix was given due to the pulm edema and hypoxia which is improved -her creat is at baseline and she continues on home lasix daily (10) GERD (gastroesophageal reflux disease): Plan: - continue Pepcid per home regimen. (11) Severe protein-calorie malnutrition: Plan: cachectic on appearance. She has been steadily losing weight since admission. Nutrition following. Increase caloric intake as tolerated. May also need to address depressive symptoms. (12) DVT prophylaxis: Plan: DVT ppx: coumadin Code Status: DNR/DNI Disposition PT/OT eval -current plan is for rehab, patient lives alone. If pt continues to decline, family will transition to comfort care. Currently she is doing well. Patricia Man DO [place] Hospitalist Admission and Anticipated Discharge Date Admission Date: July 08, 2022 Subjective 87-year-old patient's status post pacemaker with iatrogenic tension pneumothorax. Patient was a little more short of breath this morning and oxygen supplementation is up to 5 L/min at rest. She is in no acute respiratory distress and denies any shortness of breath Denies any pain She is answering orientation questions correctly but still has some intermittent confusion. As an example, we discussed that she should get out of bed more with assistance. 5 minutes later she asked me if she had to have someone with her to walk around. No evidence of delirium. Telemetry review reveals persistent atrial fibrillation with controlled heart rate overnight Review of Systems Review of Systems: All systems reviewed negative except as indicated above. Physical Exam Physical Exam: CONSTITUTIONAL: cachectic, frail vitals as above, generally NAD EYES: normal conjunctivae, no scleral icterus ENT: external ear and nose normal, MMM NECK: trachea midline, RESPIRATORY: Clear to auscultation , no crackles, wheezes or rales. CARDIOVASCULAR: +murmur, S1/2 heard, no edema CHEST: PM to left anterior chest wall, wound is covered with dressing-c/d/i GASTROINTESTINAL: Soft nontender nondistended. MUSCULOSKELETAL: 5 out of 5 throughout. She can sit up independently. Moves all extremities with ease. SKIN: Warm and dry. NEUROLOGIC: normal cognition, normal speech PSYCHIATRIC: alert cooperative and oriented to person, place and time. Results & Data Results & Data ([facility]) Vital Signs (Past 12 Hours) Vital Signs Temp Pulse Pulse Resp BP Pulse Ox O2 Del Method 07/24/22 07:00 75 10/16/22 08:00 Nasal Cannula 07/24/22 07:34 36.7 C 86 22 120/82 92 Nasal Cannula 07/24/22 03:36 36.8 C 75 18 104/67 90 Nasal Cannula O2 Flow Rate 07/24/22 07:00 07/24/22 08:00 2 07/24/22 07:34 3 07/24/22 03:36 2.5 Laboratory Results Short CBC 07/24/22 Range/Units 05:22 WBC 9.42 (4.8-10.8) K/ul Hgb 13.5 (12.0-16.0) g/dl Hct 39.2 (34.1-44.9) % Plt Count 199 (130-400) K/uL BMP 07/24/22 05:22 Sodium 139 Potassium 3.7 Chloride 107 Carbon Dioxide 25 BUN 42 H Creatinine 0.99 Glucose 92 Calcium 9.0 Medications Administered Current Inpatient Medications Acetaminophen (Acetaminophen 325 Mg Tab) 650 mg PO Q4H PRN PRN Reason: Pain or Fever Stop: 08/08/22 00:34 Last Admin: 07/20/22 04:25 Dose: 650 mg Artificial Tears (Artificial Tears) 2 drops OP TID PRN PRN Reason: Dry Eye(S) Stop: 08/08/22 01:39 Last Admin: 07/18/22 21:09 Dose: 2 drops Aspirin (Aspirin 81 Mg Ectab) 81 mg PO QAM [facility] Stop: 08/14/22 06:29 Last Admin: 07/24/22 08:10 Dose: 81 mg Calcium Carbonate (Calcium Carbonate 1250mg Tab) 1,250 mg PO DAILY [facility] Stop: 08/08/22 08:59 Last Admin: 07/24/22 08:10 Dose: 1,250 mg Clotrimazole (Clotrimazole 10 Mg Jeannie) 10 mg BUCCAL [id number] [facility] Stop: 08/02/22 18:59 Last Admin: 07/24/22 11:31 Dose: 10 mg Diltiazem HCl (Diltiazem Hcl 240 Mg Capcr) 240 mg PO QAM [facility] Stop: 08/24/22 08:59 Furosemide (Furosemide 20 Mg Tab) 20 mg PO DAILY [facility] Stop: 08/08/22 08:59 Last Admin: 07/24/22 08:10 Dose: 20 mg Guaifenesin (Guaifenesin Sugar Free 200 Mg/10 Ml Udc) 200 mg PO Q6H PRN PRN Reason: Cough Stop: 08/22/22 04:01 Last Admin: 07/23/22 04:43 Dose: 200 mg Melatonin (Melatonin 3 Mg Tab) 3 mg PO HS PRN PRN Reason: Insomnia Stop: 08/08/22 00:34 Last Admin: 07/19/22 21:13 Dose: 3 mg Metoprolol Succinate (Metoprolol Succ 25mg Ext Rel Tab) 25 mg PO DAILY ANA MARÍA Stop: 08/08/22 08:59 Last Admin: 07/24/22 08:11 Dose: 25 mg Metoprolol Succinate (Metoprolol Succ 25mg Ext Rel Tab) 12.5 mg PO PM ANA MARÍA Stop: 08/08/22 20:59 Last Admin: 07/23/22 20:21 Dose: 12.5 mg Metoprolol Tartrate (Metoprolol Tartrate 1 Mg/Ml Vial) 5 mg IV Q6 PRN PRN Reason: Tachycardia Stop: 08/08/22 00:34 Last Admin: 07/09/22 01:57 Dose: 5 mg Morphine Sulfate (Morphine Sulfate 2 Mg/Ml Carp) 1 mg IV Q6H PRN PRN Reason: Pain Stop: 07/29/22 13:52 Last Admin: 07/19/22 14:40 Dose: 1 mg Multivitamins (Multivitamin Tab) 1 tab PO DAILY ANA MARÍA Stop: 08/08/22 08:59 Last Admin: 07/24/22 08:11 Dose: 1 tab Nitroglycerin (Nitroglycerin Sl 0.4 Mg/Tab Tab) 0.4 mg SL UD PRN PRN Reason: Chest Pain Stop: 08/08/22 00:34 Olanzapine (Olanzapine 10 Mg/2.1 Ml Sdv) 2.5 mg IM Q4H PRN PRN Reason: Anxiety/Agitation Stop: 08/13/22 06:23 Last Admin: 07/17/22 18:43 Dose: 2.5 mg Polyethylene Glycol (Polyethylene (Miralax) 17 Gm Pack) 17 gm PO DAILY PRN PRN Reason: Constipation Stop: 08/09/22 10:27 Last Admin: 07/19/22 04:03 Dose: 17 gm Potassium Chloride (Potassium Chloride 10 Meq Tabcr) 10 meq PO DAILY ANA MARÍA Stop: 08/08/22 08:59 Last Admin: 07/24/22 08:11 Dose: 10 meq Senna/Docusate Sodium (Docusate Sodium/Senna 50/8.6mg Tab) 1 tab PO QAM [facility] Stop: 08/09/22 10:59 Last Admin: 07/24/22 08:11 Dose: Not Given Sertraline HCl (Sertraline Hcl 50 Mg Tablet) 12.5 mg PO DAILY [facility] Stop: 08/08/22 08:59 Last Admin: 07/24/22 08:11 Dose: 12.5 mg Tramadol HCl (Tramadol Hcl 50 Mg Tablet) 25 mg PO Q4H PRN PRN Reason: Pain Stop: 08/14/22 04:53 Last Admin: 07/20/22 10:04 Dose: 25 mg Vitamin D (Cholecalciferol 400 Units 10 Mcg Tab) 400 units PO DAILY [facility] Stop: 08/08/22 08:59 Last Admin: 07/24/22 08:10 Dose: 400 units Warfarin Sodium (Warfarin Sod 2 Mg Tab) 2 mg PO [id number]@1600 [facility] Stop: 08/08/22 15:59 Last Admin: 07/23/22 17:18 Dose: 2 mg Warfarin Sodium (Warfarin Sod 1 Mg Tab) 1 mg PO [id number]@1600 [facility] Stop: 08/09/22 15:59 Last Admin: 07/22/22 16:20 Dose: 1 mg (1) CKD (chronic kidney disease) stage 3, GFR 30-59 ml/min Chronic kidney disease stage 3 subtype: unspecified whether 3a or 3b Qualified Code(s): N18.30 - Chronic kidney disease, stage 3 unspecified
[2022-07-24] MEDS: WARFARIN SOD 1 MG TAB PO SCH (15:17)
[2022-07-24] MEDS: guaiFENesin SUGAR FREE 200 MG/10 ML UDC PO PRN (17:47)
[2022-07-25] MEDS: CLOTRIMAZOLE 10 MG TROCHE BUCCAL SCH ×6 (00:11→23:34)
[2022-07-25] MEDS: guaiFENesin SUGAR FREE 200 MG/10 ML UDC PO PRN (05:42)
--- NOTE | 2022-07-25 09:23 | XRay Report ---
XR chest 1V portable HISTORY: 87 years-old Female hypoxia acute hypoxia COMPARISON: Chest radiograph 07/22/2022 TECHNIQUE: AP view of the chest FINDINGS: Left subclavian pacer. Cardiomegaly without overt pulmonary edema. The previously noted trace left ap ical pneumothorax is not definitively seen. Right greater than left layering pleural effusions redemo nstrated along with persistent bibasilar consolidation. Bones of the chest appear unchanged. Chronic left proximal humeral deformity. IMPRESSION: 1. The previously described trace left apical pneumothorax is not identified on today's study. 2. Right greater than left layering pleural effusions with bibasilar consolidation redemonstrated. 3. Cardiomegaly without overt pulmonary edema. ACT 112: Negative or not required by law. The above report was generated using voice recognition software. It may contain grammatical, syntax o r spelling errors. Electronically signed by: Jovani Chin M.D. 07/25/2022 9:22 AM
[2022-07-25] MEDS: CHOLECALCIFEROL 400 UNITS 10 MCG TAB PO SCH (09:43)
[2022-07-25] MEDS: dilTIAZem HCL 240 MG CAPCR PO SCH (09:43)
[2022-07-25] MEDS: ASPIRIN 81 MG ECTAB PO SCH (09:43)
[2022-07-25] MEDS: CALCIUM CARBONATE 1250MG TAB PO SCH (09:43)
[2022-07-25] MEDS: FUROSEMIDE 20 MG TAB PO SCH (09:44)
[2022-07-25] MEDS: DOCUSATE SODIUM/SENNA 50/8.6MG TAB PO SCH (09:44)
[2022-07-25] MEDS: MULTIVITAMIN TAB PO SCH (09:44)
[2022-07-25] MEDS: SERTRALINE HCL 50 MG TABLET PO SCH (09:44)
[2022-07-25] MEDS: POTASSIUM CHLORIDE 10 MEQ TABCR PO SCH (09:44)
[2022-07-25] MEDS: METOPROLOL SUCC 25MG EXT REL TAB PO SCH ×2 (09:44→20:35)
--- NOTE | 2022-07-25 11:00 | Cardiology Progress Note ---
Date of Service July 25, 2022 Assessment & Plan (1) Tachy-mason syndrome: (2) Tension pneumothorax: (3) Right heart failure: Plan: (1) Tachy-mason syndrome: Patient with symptomatic atrial fibrillation, tachycardia-bradycardia syndrome, for which he underwent single-chamber permanent pacemaker 07/12/2022 with subsequent tension pneumothorax. Initially had chest tube, and after removal pneumothorax recurred. Second chest tube removed on 07/21/2022. Follow-up x- ray with stable findings. Continue metoprolol 25 mg am, 12.5 mg pm. For ease of administration, changed diltiazem CD to 240 mg ONE time per day starting 07/25/22. Continue coumadin for stroke prophylaxis. (2) Tension pneumothorax: -Pulmonary input noted and appreciated. -Continue to observe. (3) Right heart failure: Severe tricuspid regurgitation on echocardiogram (present prior to pacemaker) Continue furosemide 20 mg daily. Remain on telemetry for now. Increase mobility as tolerated. Admission and Anticipated Discharge Date Admission Date: July 08, 2022 Subjective Patient seen in follow up. No acute complaints. Rate controlled AF in the 70s noted. Physical Exam Constitutional: + ill appearing (Chronically ill in appearance, without acute distress, cachectic) Cardiovascular: Rate/Rhythm: + irregularly irregular Heart Sounds: + murmur (1/6 SM ) Extremities: no edema Chest (Breasts): Additional Comments: left infraclavicular pocket is clean dry and intact. Incision is healing well. No erythema. Gastrointestinal (Abdomen): normal bowel sounds, soft, nontender, no hepat osplenomegaly Neurologic: PERRL, EOMI, accommodation nl, no face palsy, no dysarthria Results & Data ([facility]) Vital Signs (Past 12 Hours) Vital Signs Temp Pulse Resp BP Pulse Ox O2 Del Method O2 Flow Rate 07/25/22 07:49 37.0 C 97 H 18 137/86 95 Nasal Cannula 4 07/25/22 03:36 36.7 C 81 22 121/68 94 Nasal Cannula 4.0
[2022-07-25] MEDS: traMADol HCL 50 MG TABLET PO PRN (15:54)
[2022-07-25] MEDS: WARFARIN SOD 1 MG TAB PO SCH (15:55)
--- NOTE | 2022-07-25 18:13 | Hospitalist Progress Note ---
Date of Service July 25, 2022 Assessment & Plan (1) Acute respiratory failure with hypoxia: Plan: improved after treatment of PTX. Chest tube out on 07/21, continue supplemental oxygen. (2) Postprocedural pneumothorax: Plan: CXR showed Interval development of a large left pneumothorax. S/P urgent chest tube placement by pulm Dr. Padron on 07/12/22 Chest tube removed 07/14 with repeat development of tension PTX Pigtail catheter reinserted on left chest 07/15 She has been required more oxygen supplement and Oxygen sat continues declined CXR no significant change of the small left-sided pneumothorax with stable positioning of the left-sided chest tube. Cardiomegaly with pulmonary edema, persistent layering pleural effusions with bibasilar consolidation. Lasix 20mg given this morning with additional 20mg IVx2 given Case discussed with Pulm and cardiology ABG today with pH 7.53/ pCO2 27 pO2 52 Spoke to daughter that family does not want any intubation in the event respiratory continue worsening. If patient worsening and struggle to breath, we will call daughter that we can keep the pt comfortable Will check procalcitonin now, if elevates will start on abx Continue monitor closely 07/20/12 Clamping of the chest tube resulted in reaccumulation of the pneumothorax necessitating return back to suction CXR showed left-sided pleural catheter in place. Tiny residual left-sided pneumothorax. Cardiomegaly and pulmonary vascular congestion with mildly decreased pulmonary edema. Lasix 40mg IV x1 given High flow oxygen discontinued a per family because pt is not able to tolerate and get agitated Family does not want to place pt back on the high flow oxygen since pt does not tolerate it and she gets agitated Family understood the risks of stopping the high flow oxygen such as worsening hypoxia and Daughter said that once the chest tube removes that the family does not wants it to be placed again if develops hypoxia again Dr. Singh was notified about not put put the chest tube back once it removes Daughter said that if patient declines or becomes uncomfortable to call her that they can make patient comfortable 07/21: she is doing well clinically. Chest tube has been clamped for 24 hours with no residual PTX. Plan for removal of this today and CXR in am. Cont supplemental oxygen to keep oxygen saturation >90% 07/22: trace to no apical PTX on CXR this am after removal of chest tube yesterday afternoon. She is doing well overall and is symptom -free. Cont to monitor closely and start more aggressive activity in the room. 07/23: Lungs are clear to auscultation throughout and there is no respiratory distress. Continue to provide oxygen supplementation and mobilize patient as tolerated. She has underlying secondary pulmonary hypertension with severe tricuspid regurgitation. 07/24: No changes. Continue supplemental oxygen. Slightly increased from 2.5 to 5 L/min this morning. If this is unable to be reduced back to 2 to 2.5 L/min may consider chest x-ray. 07/25: CXR this am with pleural effusions and bilateral consolidation most likely consistent with atelectasis. Cont oxygen supplementation and mobilization (3) SSS (sick sinus syndrome): Plan: patient with labile HR with tachy-mason syndrome s/p PPM placement on 07/12/22, c/b L sided tension PTX, s/p chest tube x 2 Continue diltiazem and metoprolol Activity restrictions post procedure including no lifting of left elbow left shoulder for 1 month. She is not able to lift more than 10 pounds with her left arm for 2 weeks. She is to keep the dressing on and dry until her next wound check. Wound check and PM device check one week post-op coming up soon. Defer to cardiology. (4) Elevated troponin: Plan: 2/2 demand ischemia from hypoxia Troponin peaked to 107, then trending down 91 Case discussed with cardiology that recommended to discontinue IV heparin drip Continue aspirin and metoprolol No further workup. (5) Atrial fibrillation with rapid ventricular response: Plan: Presented with HR 120s and palpitations, hypoxia concern for SSS with tachycardia and bradycardia received IV lopressor and diltiazem in ED with initial improvement cardiology on board Continued HR control with cardizem and metoprolol as per cardiology TTE reviewed and mostly unchanged from prior - no longer with pericardial effusion Continue coumadin-INR therapeutic. persistent atrial fibrillation on telemetry overnight with rate controlled (6) Right heart failure: Plan: Chronic, appears euvolemic. Continue Lasix per daily regimen. (7) Pulmonary hypertension: Plan: chronic, severe. This is in the setting of severe TR (8) HTN (hypertension): Plan: -chronic, at goal. Continue CCB and BB and furosemide (9) CKD (chronic kidney disease) stage 3, GFR 30-59 ml/min: Plan: - Creatinine at baseline now but recently was elevated. - Additional lasix was given due to the pulm edema and hypoxia which is improved -her creat is at baseline and she continues on home lasix daily (10) GERD (gastroesophageal reflux disease): Plan: - continue Pepcid per home regimen. (11) Severe protein-calorie malnutrition: Plan: cachectic on appearance. She has been steadily losing weight since admission. Nutrition following. Increase caloric intake as tolerated. May also need to address depressive symptoms. (12) DVT prophylaxis: Plan: DVT ppx: coumadin Code Status: DNR/DNI Disposition PT/OT eval -current plan is for rehab,awaiting placement Patricia Man DO [facility] Admission and Anticipated Discharge Date Admission Date: July 08, 2022 Subjective 87-year-old patient's status post pacemaker with iatrogenic tension pneumothorax. She denies any issues today Case management reported a call of concern from patient's daughter regarding the potential for skin breakdown on her back. Evaluated her back and sacral area closely today There is no evidence of skin breakdown but there is a reddish tint to the skin in the superior intergluteal fold area. She denies any pain or difficulty breathing she does have some coughing when she moves around Has been working with therapy per [employer]. Review of Systems Review of Systems: All systems reviewed negative except as indicated above. Physical Exam Physical Exam: CONSTITUTIONAL: cachectic, frail vitals as above, generally NAD EYES: normal conjunctivae, no scleral icterus ENT: external ear and nose normal, MMM NECK: trachea midline, RESPIRATORY: Clear to auscultation , no crackles, wheezes or rales. CARDIOVASCULAR: +murmur, S1/2 heard, no edema CHEST: PM to left anterior chest wall, wound is covered with dressing-c/d/i GASTROINTESTINAL: Soft nontender nondistended. MUSCULOSKELETAL: 5 out of 5 throughout. She can sit up independently. Moves all extremities with ease. SKIN: Warm and dry. NEUROLOGIC: normal cognition, normal speech PSYCHIATRIC: alert cooperative and oriented to person, place and time. Results & Data Results & Data ([facility]) Vital Signs (Past 12 Hours) Vital Signs Temp Pulse Resp BP Pulse Ox O2 Del Method O2 Flow Rate 07/25/22 15:46 36.6 C 90 16 131/77 96 Nasal Cannula 4 07/25/22 13:39 94 07/25/22 11:56 36.7 C 81 17 121/57 L 97 Nasal Cannula 4 07/25/22 07:49 37.0 C 97 H 18 137/86 95 Nasal Cannula 4 Diagnostic Findings Chest X-Ray 07/25/22 07:00 XR chest 1V portable HISTORY: 87 years-old Female hypoxia acute hypoxia COMPARISON: Chest radiograph 07/22/2022 TECHNIQUE: AP view of the chest FINDINGS: Left subclavian pacer. Cardiomegaly without overt pulmonary edema. The previously noted trace left apical pneumothorax is not definitively seen. Right greater than left layering pleural effusions redemonstrated along with persistent bibasilar consolidation. Bones of the chest appear unchanged. Chronic left proximal humeral deformity. IMPRESSION: 1. The previously described trace left apical pneumothorax is not identified on today's study. 2. Right greater than left layering pleural effusions with bibasilar consolidation redemonstrated. 3. Cardiomegaly without overt pulmonary edema. ACT 112: Negative or not required by law. The above report was generated using voice recognition software. It may contain grammatical, syntax or spelling errors. Electronically signed by: Jovani Chin M.D. 07/25/2022 9:22 AM Medications Administered Current Inpatient Medications Acetaminophen (Acetaminophen 325 Mg Tab) 650 mg PO Q4H PRN PRN Reason: Pain or Fever Stop: 08/08/22 00:34 Last Admin: 07/20/22 04:25 Dose: 650 mg Artificial Tears (Artificial Tears) 2 drops OP TID PRN PRN Reason: Dry Eye(S) Stop: 08/08/22 01:39 Last Admin: 07/18/22 21:09 Dose: 2 drops Aspirin (Aspirin 81 Mg Ectab) 81 mg PO QAM [facility] Stop: 08/14/22 06:29 Last Admin: 07/25/22 09:43 Dose: 81 mg Calcium Carbonate (Calcium Carbonate 1250mg Tab) 1,250 mg PO DAILY [facility] Stop: 08/08/22 08:59 Last Admin: 07/25/22 09:43 Dose: 1,250 mg Clotrimazole (Clotrimazole 10 Mg Jeannie) 10 mg BUCCAL [id number] [facility] Stop: 08/02/22 18:59 Last Admin: 07/25/22 14:12 Dose: 10 mg Diltiazem HCl (Diltiazem Hcl 240 Mg Capcr) 240 mg PO QAM [facility] Stop: 08/24/22 08:59 Last Admin: 07/25/22 09:43 Dose: 240 mg Furosemide (Furosemide 20 Mg Tab) 20 mg PO DAILY [facility] Stop: 08/08/22 08:59 Last Admin: 07/25/22 09:44 Dose: 20 mg Guaifenesin (Guaifenesin Sugar Free 200 Mg/10 Ml Udc) 200 mg PO Q6H PRN PRN Reason: Cough Stop: 08/22/22 04:01 Last Admin: 07/25/22 05:42 Dose: 200 mg Melatonin (Melatonin 3 Mg Tab) 3 mg PO HS PRN PRN Reason: Insomnia Stop: 08/08/22 00:34 Last Admin: 07/19/22 21:13 Dose: 3 mg Metoprolol Succinate (Metoprolol Succ 25mg Ext Rel Tab) 25 mg PO DAILY [facility] Stop: 08/08/22 08:59 Last Admin: 07/25/22 09:44 Dose: 25 mg Metoprolol Succinate (Metoprolol Succ 25mg Ext Rel Tab) 12.5 mg PO PM [facility] Stop: 08/08/22 20:59 Last Admin: 07/24/22 21:52 Dose: 12.5 mg Metoprolol Tartrate (Metoprolol Tartrate 1 Mg/Ml Vial) 5 mg IV Q6 PRN PRN Reason: Tachycardia Stop: 08/08/22 00:34 Last Admin: 07/09/22 01:57 Dose: 5 mg Morphine Sulfate (Morphine Sulfate 2 Mg/Ml Carp) 1 mg IV Q6H PRN PRN Reason: Pain Stop: 07/29/22 13:52 Last Admin: 07/19/22 14:40 Dose: 1 mg Multivitamins (Multivitamin Tab) 1 tab PO DAILY [facility] Stop: 08/08/22 08:59 Last Admin: 07/25/22 09:44 Dose: 1 tab Nitroglycerin (Nitroglycerin Sl 0.4 Mg/Tab Tab) 0.4 mg SL UD PRN PRN Reason: Chest Pain Stop: 08/08/22 00:34 Olanzapine (Olanzapine 10 Mg/2.1 Ml Sdv) 2.5 mg IM Q4H PRN PRN Reason: Anxiety/Agitation Stop: 08/13/22 06:23 Last Admin: 07/17/22 18:43 Dose: 2.5 mg Polyethylene Glycol (Polyethylene (Miralax) 17 Gm Pack) 17 gm PO DAILY PRN PRN Reason: Constipation Stop: 08/09/22 10:27 Last Admin: 07/19/22 04:03 Dose: 17 gm Potassium Chloride (Potassium Chloride 10 Meq Tabcr) 10 meq PO DAILY [facility] Stop: 08/08/22 08:59 Last Admin: 07/25/22 09:44 Dose: 10 meq Senna/Docusate Sodium (Docusate Sodium/Senna 50/8.6mg Tab) 1 tab PO QAM [facility] Stop: 08/09/22 10:59 Last Admin: 07/25/22 09:44 Dose: 1 tab Sertraline HCl (Sertraline Hcl 50 Mg Tablet) 12.5 mg PO DAILY [facility] Stop: 08/08/22 08:59 Last Admin: 07/25/22 09:44 Dose: 12.5 mg Tramadol HCl (Tramadol Hcl 50 Mg Tablet) 25 mg PO Q4H PRN PRN Reason: Pain Stop: 08/14/22 04:53 Last Admin: 07/25/22 15:54 Dose: 25 mg Vitamin D (Cholecalciferol 400 Units 10 Mcg Tab) 400 units PO DAILY [facility] Stop: 08/08/22 08:59 Last Admin: 07/25/22 09:43 Dose: 400 units Warfarin Sodium (Warfarin Sod 2 Mg Tab) 2 mg PO [id number]@1600 [facility] Stop: 08/08/22 15:59 Last Admin: 07/23/22 17:18 Dose: 2 mg Warfarin Sodium (Warfarin Sod 1 Mg Tab) 1 mg PO [id number]@1600 [facility] Stop: 08/09/22 15:59 Last Admin: 07/25/22 15:55 Dose: 1 mg (1) CKD (chronic kidney disease) stage 3, GFR 30-59 ml/min Chronic kidney disease stage 3 subtype: unspecified whether 3a or 3b Qualified Code(s): N18.30 - Chronic kidney disease, stage 3 unspecified
[2022-07-26 06:43] LABS: INR 2.7 (0.9-1.1); Prothrombin Time 27.4 Seconds (9.0-12.0)
[2022-07-26] MEDS: CLOTRIMAZOLE 10 MG TROCHE BUCCAL SCH ×5 (08:03→23:07)
[2022-07-26] MEDS: CHOLECALCIFEROL 400 UNITS 10 MCG TAB PO SCH (08:04)
[2022-07-26] MEDS: ASPIRIN 81 MG ECTAB PO SCH (08:04)
[2022-07-26] MEDS: MULTIVITAMIN TAB PO SCH (08:04)
[2022-07-26] MEDS: FUROSEMIDE 20 MG TAB PO SCH (08:04)
[2022-07-26] MEDS: METOPROLOL SUCC 25MG EXT REL TAB PO SCH ×2 (08:04→19:42)
[2022-07-26] MEDS: POTASSIUM CHLORIDE 10 MEQ TABCR PO SCH (08:04)
[2022-07-26] MEDS: SERTRALINE HCL 50 MG TABLET PO SCH (08:04)
[2022-07-26] MEDS: CALCIUM CARBONATE 1250MG TAB PO SCH (08:04)
[2022-07-26] MEDS: DOCUSATE SODIUM/SENNA 50/8.6MG TAB PO SCH (08:05)
[2022-07-26] MEDS: dilTIAZem HCL 240 MG CAPCR PO SCH (08:05)
--- NOTE | 2022-07-26 10:06 | Cardiology Progress Note ---
Date of Service July 26, 2022 Assessment & Plan (1) Tachy-mason syndrome: (2) Tension pneumothorax: (3) Right heart failure: Plan: (1) Tachy-mason syndrome: Patient with symptomatic atrial fibrillation, tachycardia-bradycardia syndrome, for which he underwent single-chamber permanent pacemaker 07/12/2022 with subsequent tension pneumothorax. Initially had chest tube, and after removal pneumothorax recurred. Second chest tube removed on 07/21/2022. Follow-up x- ray with stable findings. Continue metoprolol 25 mg am, 12.5 mg pm. For ease of administration, changed diltiazem CD to 240 mg ONE time per day starting 07/25/22. Continue coumadin for stroke prophylaxis, INR 2.7 today, 07/26/22. (2) Tension pneumothorax: -Pulmonary input noted and appreciated. -Continue to observe. (3) Right heart failure: Severe tricuspid regurgitation on echocardiogram (present prior to pacemaker) Continue furosemide 20 mg daily. Remain on telemetry for now. Increase mobility as tolerated. Admission and Anticipated Discharge Date Admission Date: July 08, 2022 Subjective Pt seen in cardiology follow up. Notes having slept better last night. Feels breathing is OK . Cough noted. Pulse on 92% on oxygen 4 l/m. AFib noted on telemetry. Ventricular rates acceptable 80-100 bpm. Physical Exam Constitutional: + ill appearing (Chronically ill in appearance, without acute distress, cachectic) Cardiovascular: Rate/Rhythm: + irregularly irregular Heart Sounds: + murmur (1/6 SM ) Extremities: no edema Gastrointestinal (Abdomen): normal bowel sounds, soft, nontender, no hepatosplenomegaly Neurologic: PERRL, EOMI, accommodation nl, no face palsy, no dysarthria Results & Data ([facility]) Vital Signs (Past 12 Hours) Vital Signs Temp Pulse Pulse Pulse Resp BP BP 07/26/22 08:07 36.4 C L 74 20 113/66 07/26/22 03:47 36.8 C 73 18 112/71 07/25/22 22:12 76 07/25/22 23:29 36.4 C L 72 16 116/71 Pulse Ox O2 Del Method O2 Flow Rate 07/26/22 08:07 92 Nasal Cannula 4 07/26/22 03:47 90 Nasal Cannula 4 07/25/22 22:12 07/25/22 23:29 94 Nasal Cannula 4
--- NOTE | 2022-07-26 13:47 | Hospitalist Progress Note ---
Date of Service July 26, 2022 Assessment & Plan (1) Acute respiratory failure with hypoxia: Plan: improved after treatment of PTX. Chest tube out on 07/21, continue supplemental oxygen. (2) Postprocedural pneumothorax: Plan: CXR showed Interval development of a large left pneumothorax. S/P urgent chest tube placement by pulm Dr. Padron on 07/12/22 Chest tube removed 07/14 with repeat development of tension PTX Pigtail catheter reinserted on left chest 07/15 She has been required more oxygen supplement and Oxygen sat continues declined CXR no significant change of the small left-sided pneumothorax with stable positioning of the left-sided chest tube. Cardiomegaly with pulmonary edema, persistent layering pleural effusions with bibasilar consolidation. Lasix 20mg given this morning with additional 20mg IVx2 given Case discussed with Pulm and cardiology ABG today with pH 7.53/ pCO2 27 pO2 52 Spoke to daughter that family does not want any intubation in the event respiratory continue worsening. If patient worsening and struggle to breath, we will call daughter that we can keep the pt comfortable Will check procalcitonin now, if elevates will start on abx Continue monitor closely 07/20/12 Clamping of the chest tube resulted in reaccumulation of the pneumothorax necessitating return back to suction CXR showed left-sided pleural catheter in place. Tiny residual left-sided pneumothorax. Cardiomegaly and pulmonary vascular congestion with mildly decreased pulmonary edema. Lasix 40mg IV x1 given High flow oxygen discontinued a per family because pt is not able to tolerate and get agitated Family does not want to place pt back on the high flow oxygen since pt does not tolerate it and she gets agitated Family understood the risks of stopping the high flow oxygen such as worsening hypoxia and Daughter said that once the chest tube removes that the family does not wants it to be placed again if develops hypoxia again Dr. Singh was notified about not put put the chest tube back once it removes Daughter said that if patient declines or becomes uncomfortable to call her that they can make patient comfortable 07/21: she is doing well clinically. Chest tube has been clamped for 24 hours with no residual PTX. Plan for removal of this today and CXR in am. Cont supplemental oxygen to keep oxygen saturation >90% 07/22: trace to no apical PTX on CXR this am after removal of chest tube yesterday afternoon. She is doing well overall and is symptom -free. Cont to monitor closely and start more aggressive activity in the room. 07/23: Lungs are clear to auscultation throughout and there is no respiratory distress. Continue to provide oxygen supplementation and mobilize patient as tolerated. She has underlying secondary pulmonary hypertension with severe tricuspid regurgitation. 07/24: No changes. Continue supplemental oxygen. Slightly increased from 2.5 to 5 L/min this morning. If this is unable to be reduced back to 2 to 2.5 L/min may consider chest x-ray. 07/25: CXR this am with pleural effusions and bilateral consolidation most likely consistent with atelectasis. Cont oxygen supplementation and mobilization 07/26: no changes, awaiting placement. (3) SSS (sick sinus syndrome): Plan: patient with labile HR with tachy-mason syndrome s/p PPM placement on 07/12/22, c/b L sided tension PTX, s/p chest tube x 2 Continue diltiazem and metoprolol Activity restrictions post procedure including no lifting of left elbow left shoulder for 1 month. She is not able to lift more than 10 pounds with her left arm for 2 weeks. (4) Elevated troponin: Plan: 2/2 demand ischemia from hypoxia Troponin peaked to 107, then trending down 91 Case discussed with cardiology that recommended to discontinue IV heparin drip Continue aspirin and metoprolol No further workup. (5) Atrial fibrillation with rapid ventricular response: Plan: Presented with HR 120s and palpitations, hypoxia concern for SSS with tachycardia and bradycardia received IV lopressor and diltiazem in ED with initial improvement cardiology on board Continued HR control with cardizem and metoprolol as per cardiology TTE reviewed and mostly unchanged from prior - no longer with pericardial effusion Continue coumadin-INR therapeutic. persistent atrial fibrillation on telemetry overnight with rate controlled (6) Right heart failure: Plan: Chronic, appears euvolemic. Continue Lasix per daily regimen. (7) Pulmonary hypertension: Plan: chronic, severe. This is in the setting of severe TR (8) HTN (hypertension): Plan: -chronic, at goal. Continue CCB and BB and furosemide (9) CKD (chronic kidney disease) stage 3, GFR 30-59 ml/min: Plan: - Creatinine at baseline now but recently was elevated. - Additional lasix was given due to the pulm edema and hypoxia which is improved -her creat is at baseline and she continues on home lasix daily (10) GERD (gastroesophageal reflux disease): Plan: - continue Pepcid per home regimen. (11) Severe protein-calorie malnutrition: Plan: cachectic on appearance. She has been steadily losing weight since admission. Nutrition following. Increase caloric intake as tolerated. (12) DVT prophylaxis: Plan: DVT ppx: coumadin Code Status: DNR/DNI Disposition PT/OT eval -current plan is for rehab,awaiting placement [facility]tic[facility]ated Discharge Date Admission Date: July 08, 2022 Subjective 87-year-old patient's status post pacemaker with iatrogenic tension pneumothorax. She denies any issues today Denies SOB Denies pain Review of Systems Review of Systems: All systems reviewed negative except as indicated above. Physical Exam Physical Exam: CONSTITUTIONAL: cachectic, frail vitals as above, generally NAD EYES: normal conjunctivae, no scleral icterus ENT: external ear and nose normal, MMM NECK: trachea midline, RESPIRATORY: Clear to auscultation , no crackles, wheezes or rales. CARDIOVASCULAR: +murmur, S1/2 heard, no edema CHEST: PM to left anterior chest wall, wound is covered with dressing-c/d/i GASTROINTESTINAL: Soft nontender nondistended. MUSCULOSKELETAL: 5 out of 5 throughout. She can sit up independently. Moves all extremities with ease. SKIN: Warm and dry. NEUROLOGIC: normal cognition, normal speech PSYCHIATRIC: alert cooperative and oriented to person, place and time. Results & Data Results & Data ([facility]) Vital Signs (Past 12 Hours) Vital Signs Temp Pulse Pulse Resp BP BP Pulse Ox 07/26/22 11:47 36.5 C 78 20 135/85 95 07/26/22 08:00 72 07/26/22 08:00 07/26/22 08:07 36.4 C L 74 20 113/66 92 07/26/22 03:47 36.8 C 73 18 112/71 90 O2 Del Method O2 Flow Rate 07/26/22 11:47 Room Air 07/26/22 08:00 07/26/22 08:00 Nasal Cannula 5 07/26/22 08:07 Nasal Cannula 4 07/26/22 03:47 Nasal Cannula 4 Medications Administered Current Inpatient Medications Acetaminophen (Acetaminophen 325 Mg Tab) 650 mg PO Q4H PRN PRN Reason: Pain or Fever Stop: 08/08/22 00:34 Last Admin: 07/20/22 04:25 Dose: 650 mg Artificial Tears (Artificial Tears) 2 drops OP TID PRN PRN Reason: Dry Eye(S) Stop: 08/08/22 01:39 Last Admin: 07/18/22 21:09 Dose: 2 drops Aspirin (Aspirin 81 Mg Ectab) 81 mg PO QAM [facility] Stop: 08/14/22 06:29 Last Admin: 07/26/22 08:04 Dose: 81 mg Calcium Carbonate (Calcium Carbonate 1250mg Tab) 1,250 mg PO DAILY [facility] Stop: 08/08/22 08:59 Last Admin: 07/26/22 08:04 Dose: 1,250 mg Clotrimazole (Clotrimazole 10 Mg Jeannie) 10 mg BUCCAL [id number] [facility] Stop: 08/02/22 18:59 Last Admin: 07/26/22 11:45 Dose: 10 mg Diltiazem HCl (Diltiazem Hcl 240 Mg Capcr) 240 mg PO QAM [facility] Stop: 08/24/22 08:59 Last Admin: 07/26/22 08:05 Dose: 240 mg Furosemide (Furosemide 20 Mg Tab) 20 mg PO DAILY [facility] Stop: 08/08/22 08:59 Last Admin: 07/26/22 08:04 Dose: 20 mg Guaifenesin (Guaifenesin Sugar Free 200 Mg/10 Ml Udc) 200 mg PO Q6H PRN PRN Reason: Cough Stop: 08/22/22 04:01 Last Admin: 07/25/22 05:42 Dose: 200 mg Melatonin (Melatonin 3 Mg Tab) 3 mg PO HS PRN PRN Reason: Insomnia Stop: 08/08/22 00:34 Last Admin: 07/19/22 21:13 Dose: 3 mg Metoprolol Succinate (Metoprolol Succ 25mg Ext Rel Tab) 25 mg PO DAILY [facility] Stop: 08/08/22 08:59 Last Admin: 07/26/22 08:04 Dose: 25 mg Metoprolol Succinate (Metoprolol Succ 25mg Ext Rel Tab) 12.5 mg PO PM [facility] Stop: 08/08/22 20:59 Last Admin: 07/25/22 20:35 Dose: Not Given Metoprolol Tartrate (Metoprolol Tartrate 1 Mg/Ml Vial) 5 mg IV Q6 PRN PRN Reason: Tachycardia Stop: 08/08/22 00:34 Last Admin: 07/09/22 01:57 Dose: 5 mg Morphine Sulfate (Morphine Sulfate 2 Mg/Ml Carp) 1 mg IV Q6H PRN PRN Reason: Pain Stop: 07/29/22 13:52 Last Admin: 07/19/22 14:40 Dose: 1 mg Multivitamins (Multivitamin Tab) 1 tab PO DAILY [facility] Stop: 08/08/22 08:59 Last Admin: 07/26/22 08:04 Dose: 1 tab Nitroglycerin (Nitroglycerin Sl 0.4 Mg/Tab Tab) 0.4 mg SL UD PRN PRN Reason: Chest Pain Stop: 08/08/22 00:34 Olanzapine (Olanzapine 10 Mg/2.1 Ml Sdv) 2.5 mg IM Q4H PRN PRN Reason: Anxiety/Agitation Stop: 08/13/22 06:23 Last Admin: 07/17/22 18:43 Dose: 2.5 mg Polyethylene Glycol (Polyethylene (Miralax) 17 Gm Pack) 17 gm PO DAILY PRN PRN Reason: Constipation Stop: 08/09/22 10:27 Last Admin: 07/19/22 04:03 Dose: 17 gm Potassium Chloride (Potassium Chloride 10 Meq Tabcr) 10 meq PO DAILY [facility] Stop: 08/08/22 08:59 Last Admin: 07/26/22 08:04 Dose: 10 meq Senna/Docusate Sodium (Docusate Sodium/Senna 50/8.6mg Tab) 1 tab PO QAM [facility] Stop: 08/09/22 10:59 Last Admin: 07/26/22 08:05 Dose: 1 tab Sertraline HCl (Sertraline Hcl 50 Mg Tablet) 12.5 mg PO DAILY [facility] Stop: 08/08/22 08:59 Last Admin: 07/26/22 08:04 Dose: 12.5 mg Tramadol HCl (Tramadol Hcl 50 Mg Tablet) 25 mg PO Q4H PRN PRN Reason: Pain Stop: 08/14/22 04:53 Last Admin: 07/25/22 15:54 Dose: 25 mg Vitamin D (Cholecalciferol 400 Units 10 Mcg Tab) 400 units PO DAILY [facility] Stop: 08/08/22 08:59 Last Admin: 07/26/22 08:04 Dose: 400 units Warfarin Sodium (Warfarin Sod 2 Mg Tab) 2 mg PO TuThSa@1600 [facility] Stop: 08/08/22 15:59 Last Admin: 07/23/22 17:18 Dose: 2 mg Warfarin Sodium (Warfarin Sod 1 Mg Tab) 1 mg PO [id number]@1600 [facility] Stop: 08/09/22 15:59 Last Admin: 07/25/22 15:55 Dose: 1 mg (1) CKD (chronic kidney disease) stage 3, GFR 30-59 ml/min Chronic kidney disease stage 3 subtype: unspecified whether 3a or 3b Qualified Code(s): N18.30 - Chronic kidney disease, stage 3 unspecified
[2022-07-26] MEDS: WARFARIN SOD 2 MG TAB PO SCH (15:28)
[2022-07-27] MEDS: MULTIVITAMIN TAB PO SCH (09:41)
[2022-07-27] MEDS: DOCUSATE SODIUM/SENNA 50/8.6MG TAB PO SCH (09:42)
[2022-07-27] MEDS: SERTRALINE HCL 50 MG TABLET PO SCH (09:42)
[2022-07-27] MEDS: FUROSEMIDE 20 MG TAB PO SCH (09:42)
[2022-07-27] MEDS: CHOLECALCIFEROL 400 UNITS 10 MCG TAB PO SCH (09:42)
[2022-07-27] MEDS: CLOTRIMAZOLE 10 MG TROCHE BUCCAL SCH ×4 (09:42→19:33)
[2022-07-27] MEDS: dilTIAZem HCL 240 MG CAPCR PO SCH (09:42)
[2022-07-27] MEDS: ASPIRIN 81 MG ECTAB PO SCH (09:42)
[2022-07-27] MEDS: METOPROLOL SUCC 25MG EXT REL TAB PO SCH ×2 (09:43→21:25)
[2022-07-27] MEDS: CALCIUM CARBONATE 1250MG TAB PO SCH (09:43)
[2022-07-27] MEDS: POTASSIUM CHLORIDE 10 MEQ TABCR PO SCH (09:43)
[2022-07-27] MEDS ORDERED: COVID19 BIVALENT Vaccine (Booster ONLY--Pfizer) 30mcg/0.3mL IM ONE (15:18)
[2022-07-27] MEDS: WARFARIN SOD 1 MG TAB PO SCH (16:13)
[2022-07-27] MEDS: traMADol HCL 50 MG TABLET PO PRN (17:19)
--- NOTE | 2022-07-27 19:23 | Hospitalist Progress Note ---
Date of Service July 27, 2022 Assessment & Plan (1) Acute respiratory failure with hypoxia: Plan: improved after treatment of PTX. Chest tube out on 07/21, continue supplemental oxygen. (2) Postprocedural pneumothorax: Plan: Post procedure pneumothorax CXR showed Interval development of a large left pneumothorax. S/P urgent chest tube placement by pulm Dr. Padron on 07/12/22 Chest tube removed 07/14 with repeat development of tension Pneumothorax Pigtail catheter reinserted on left chest 07/15 Appreciate pulmonology, cardiology input 07/20/22:Clamping of the chest tube resulted in reaccumulation of the pneumothorax necessitating return back to suction IV diuretics received Chest tube removed on 1013 Continue supplemental oxygen as needed Waiting for placement (3) SSS (sick sinus syndrome): Plan: Patient with labile HR with tachy-mason syndrome s/p PPM placement on 07/12/22, c/b L sided tension PTX, s/p chest tube x 2 Continue diltiazem and metoprolol Activity restrictions post procedure including no lifting of left elbow left shoulder for 1 month. She is not able to lift more than 10 pounds with her left arm for 2 weeks. (4) Elevated troponin: Plan: Secondary to demand ischemia from hypoxia Continue aspirin and metoprolol (5) Atrial fibrillation with rapid ventricular response: Plan: Afib RVR SSS Appreciate Cardiology Input Continue Cardizem and metoprolol as per cardiology TTE reviewed and mostly unchanged from prior - no longer with pericardial effusion Continue coumadin-INR therapeutic. (6) Right heart failure: Plan: Chronic, appears euvolemic. Continue Lasix per daily regimen. (7) Pulmonary hypertension: Plan: chronic, severe. In the setting of severe TR (8) HTN (hypertension): Plan: -chronic Continue current meds (9) CKD (chronic kidney disease) stage 3, GFR 30-59 ml/min: Plan: Cr at baseline monitor (10) GERD (gastroesophageal reflux disease): Plan: - continue Pepcid (11) Severe protein-calorie malnutrition: Plan: cachectic on appearance. Nutrition following Increase caloric intake as tolerated. BMI 18.7 (12) DVT prophylaxis: Plan: DVT px: Coumadin Code Status: DNR/DNI Disposition SNF Admission and Anticipated Discharge Date Admission Date: July 08, 2022 Subjective Patient is seen and examined at bedside Offers no complaints Waiting for placement Patient upset due to prolonged hospitalized course Discussed with patient's family at bedside Review of Systems Review of Systems: All systems reviewed & are unremarkable except as noted in Subjective Physical Exam Physical Exam: Physical Exam: Vitals signs as noted above General Appearance: Thin, frail, chronically appearing, no apparent distress Head: normocephalic, Atraumatic Eyes: normal inspection, EOMI Neck: supple, Trachea midline Respiratory/Chest: Normal breath sounds, CTA, No accessory muscle use Cardiovascular: S1, S2, + murmur Abdomen/GI:Soft, Non tender, Bowel sounds present Extremities/Musculoskeletal:normal inspection, + edema Neurologic/Psych:AAOX3, grossly no focal neurological deficits Skin: normal color, warm Results & Data Results & Data ([facility]) Vital Signs (Past 12 Hours) Vital Signs Temp Pulse Resp BP Pulse Ox O2 Del Method O2 Flow Rate 07/27/22 16:29 36.8 C 73 20 125/78 94 Nasal Cannula 4 07/27/22 12:17 36.6 C 89 18 137/83 96 Nasal Cannula 4 07/27/22 07:29 36.4 C L 76 22 115/69 96 Nasal Cannula 4 (1) CKD (chronic kidney disease) stage 3, GFR 30-59 ml/min Chronic kidney disease stage 3 subtype: unspecified whether 3a or 3b Qualified Code(s): N18.30 - Chronic kidney disease, stage 3 unspecified
[2022-07-28] MEDS: CLOTRIMAZOLE 10 MG TROCHE BUCCAL SCH ×3 (00:11→10:36)
[2022-07-28] MEDS: FUROSEMIDE 20 MG TAB PO SCH (07:30)
[2022-07-28] MEDS: ASPIRIN 81 MG ECTAB PO SCH (07:31)
[2022-07-28] MEDS: SERTRALINE HCL 50 MG TABLET PO SCH (07:31)
[2022-07-28] MEDS: METOPROLOL SUCC 25MG EXT REL TAB PO SCH (07:32)
[2022-07-28] MEDS: CALCIUM CARBONATE 1250MG TAB PO SCH (07:32)
[2022-07-28] MEDS: DOCUSATE SODIUM/SENNA 50/8.6MG TAB PO SCH (07:32)
[2022-07-28] MEDS: POTASSIUM CHLORIDE 10 MEQ TABCR PO SCH (07:32)
[2022-07-28] MEDS: MULTIVITAMIN TAB PO SCH (07:32)
[2022-07-28] MEDS: CHOLECALCIFEROL 400 UNITS 10 MCG TAB PO SCH (07:32)
[2022-07-28] MEDS: dilTIAZem HCL 240 MG CAPCR PO SCH (07:37)
[2022-07-28 07:46] LABS: INR 2.4 (0.9-1.1); Prothrombin Time 24.5 Seconds (9.0-12.0)
--- NOTE | 2022-07-28 12:31 | Hospitalist Progress Note ---
Date of Service July 28, 2022 Assessment & Plan (1) Acute respiratory failure with hypoxia: Plan: improved after treatment of PTX. Chest tube out on 07/21, continue supplemental oxygen. (2) Postprocedural pneumothorax: Plan: Post procedure pneumothorax CXR showed Interval development of a large left pneumothorax. S/P urgent chest tube placement by pulm Dr. Padron on 07/12/22 Chest tube removed 07/14 with repeat development of tension Pneumothorax Pigtail catheter reinserted on left chest 07/15 Appreciate pulmonology, cardiology input 07/20/22:Clamping of the chest tube resulted in reaccumulation of the pneumothorax necessitating return back to suction IV diuretics received Chest tube removed on 07/22 Continue supplemental oxygen as needed Plan to discharge to SNF today (3) SSS (sick sinus syndrome): Plan: Patient with labile HR with tachy-mason syndrome s/p PPM placement on 07/12/22, c/b L sided tension PTX, s/p chest tube x 2 Continue diltiazem and metoprolol Activity restrictions post procedure including no lifting of left elbow left shoulder for 1 month. She is not able to lift more than 10 pounds with her left arm for 2 weeks. (4) Elevated troponin: Plan: Secondary to demand ischemia from hypoxia Continue aspirin and metoprolol (5) Atrial fibrillation with rapid ventricular response: Plan: Afib RVR SSS Appreciate Cardiology Input Continue Cardizem and metoprolol as per cardiology TTE reviewed and mostly unchanged from prior - no longer with pericardial effusion Continue coumadin-INR therapeutic. (6) Right heart failure: Plan: Chronic, appears euvolemic. Continue Lasix per daily regimen. (7) Pulmonary hypertension: Plan: chronic, severe. In the setting of severe TR (8) HTN (hypertension): Plan: -chronic Continue current meds (9) CKD (chronic kidney disease) stage 3, GFR 30-59 ml/min: Plan: Cr at baseline monitor (10) GERD (gastroesophageal reflux disease): Plan: - continue Pepcid (11) Severe protein-calorie malnutrition: Plan: cachectic on appearance. Nutrition following Increase caloric intake as tolerated. BMI 18.7 (12) DVT prophylaxis: Plan: DVT px: Coumadin Code Status: DNR/DNI Disposition SNF Admission and Anticipated Discharge Date Admission Date: July 08, 2022 Subjective Patient is seen and examined at bedside Sitting in chair comfortably No new complaints Denies any chest pain, dyspnea, dizziness, nausea, abd pain Plan to discharge to [facility] today Review of Systems Review of Systems: All systems reviewed & are unremarkable except as noted in Subjective Physical Exam Physical Exam: Physical Exam: Vitals signs as noted above General Appearance: Thin, frail, chronically appearing, no apparent distress Head: normocephalic, Atraumatic Eyes: normal inspection, EOMI Neck: supple, Trachea midline Respiratory/Chest: Normal breath sounds, CTA, No accessory muscle use Cardiovascular: S1, S2, + murmur Abdomen/GI:Soft, Non tender, Bowel sounds present Extremities/Musculoskeletal:normal inspection, + edema Neurologic/Psych:AAOX3, grossly no focal neurological deficits Skin: normal color, warm Results & Data Results & Data ([facility]) Vital Signs (Past 12 Hours) Vital Signs Temp Pulse Pulse Pulse Resp BP BP 07/28/22 12:04 36.6 C 72 76 19 112/72 110/72 07/28/22 11:30 36.6 C 76 19 110/72 07/28/22 08:00 78 07/28/22 08:00 07/28/22 07:02 36.6 C 71 19 128/76 07/28/22 03:02 36.5 C 71 19 112/72 07/28/22 01:00 72 Pulse Ox O2 Del Method O2 Flow Rate 07/28/22 12:04 95 07/28/22 11:30 95 Nasal Cannula 4 07/28/22 08:00 07/28/22 08:00 Nasal Cannula 4 07/28/22 07:02 96 Nasal Cannula 4 07/28/22 03:02 93 Nasal Cannula 07/28/22 01:00 (1) CKD (chronic kidney disease) stage 3, GFR 30-59 ml/min Chronic kidney disease stage 3 subtype: unspecified whether 3a or 3b Qualified Code(s): N18.30 - Chronic kidney disease, stage 3 unspecified
--- NOTE | 2022-07-28 12:44 | Discharge Summary ---
Date of Service July 28, 2022 Admission HPI Per Admitting Provider CHIEF COMPLAINT: Palpitations, rapid AFib. HISTORY OF PRESENT ILLNESS: An 87-year-old female with past medical history significant for paroxysmal atrial fibrillation, anticoagulated on Coumadin, moderate to severe pulmonary hypertension, prediabetes, exudative age-related macular degeneration, hypertension, asymptomatic carotid artery stenosis, chronic kidney disease stage IIIB, GERD, chronic diastolic CHF, history of pericardial effusion, history of renal osteodystrophy, ARB intolerance presents with palpitations. The palpitations going on for about a week, on and off. She had chest pain, but currently, she does not have any chest pain. Per the home visiting nurse, the patient was saturating only 88% on room air and was decided to come to the hospital. She was recently in the hospital, discharged on 05/16/2022. At that time, she was discharged on colchicine and ibuprofen for pericardial effusion, completed the course. The patient has currently received couple of doses of IV Lopressor and a dose of Cardizem. Her heart rate are in the 90s currently. Denies any headache. No blurred visions, no earache, no runny nose, no sore throat, no cough, no fevers. Appetite is not that great. No difficulty swallowing. No chest pain or shortness of breath, no nausea, no abdominal pain. Normal bowel and bladder movements. Her swelling in the legs is better. Admission Exam Per Admitting Provider PHYSICAL EXAMINATION: GENERAL: The patient is old and frail, not in acute distress. VITAL SIGNS: Temperature 36.5, pulse 66, respiratory rate 18, blood pressure 116/67, oxygen 98% on room air. HEENT: Pupils equal, round and reactive to light. Oral mucosa moist. NECK: No JVD or neck masses. CARDIOVASCULAR: S1 and S2 heard. Regular rate and rhythm. No murmur, no gallop. RESPIRATORY SYSTEM: Normal AP diameter. No accessory muscle use. No wheezing, no crackles. ABDOMEN: Soft, bowel sounds present, nontender, no distention. CENTRAL NERVOUS SYSTEM: Cranial nerves II through XII grossly intact, nonfocal. EXTREMITIES: Trace pedal edema, chronic skin changes. Principal Diagnosis Acute respiratory failure with hypoxia Post procedure pneumothorax Sick sinus syndrome Atrial fibrillation with rapid ventricular response Severe protein-calorie malnutrition Discharge Data Allergies Allergy/AdvReac Type Severity Reaction Status Date / Time Sulfa (Sulfonamide AdvReac Mild nausea Verified 05/03/22 19:40 Antibiotics) Consultations 07/08/22 20:36 ED Decision to Admit Stat 07/09/22 08:00 Consult Cardiology Routine 07/12/22 17:51 Consult Pulmonology Routine Procedures Performed Operation Date: 07/12/22 11:00 Actual Procedures p Lead LV (No Priopr Implant) - Mago Smith DO s Venogram, Unilateral - Mago Smith DO Ordered Studies 07/12/22 07:30 EP Lab Images for PACS ONCE 07/12/22 15:50 US liver Routine Laboratory Results WBC 9.42 K/ul (4.8-10.8) 07/24/22 05:22 RBC 4.23 M/uL (3.93-5.22) 07/24/22 05:22 Hgb 13.5 g/dl (12.0-16.0) 07/24/22 05:22 Hct 39.2 % (34.1-44.9) 07/24/22 05:22 MCV 92.7 fL (80.0-100.0) 07/24/22 05:22 MCH 31.9 pg (25.0-34.0) 07/24/22 05:22 MCHC 34.4 g/dL (32.0-36.0) 07/24/22 05:22 RDW Std Deviation 53.9 fL (36.4-46.3) H 07/24/22 05:22 RDW Coeff of Lonny 16.0 % (11.5-14.5) H 07/24/22 05:22 Plt Count 199 K/uL (130-400) 07/24/22 05:22 MPV 12.4 fL (9.4-12.3) H 07/24/22 05:22 Immature Gran % (Auto) 0.3 % 07/12/22 05:03 Neut % (Auto) 73.2 % 07/12/22 05:03 Lymph % (Auto) 11.7 % 07/12/22 05:03 Cocke % (Auto) 11.8 % 07/12/22 05:03 Eos % (Auto) 2.2 % 07/12/22 05:03 Baso % (Auto) 0.8 % 07/12/22 05:03 Neut # (Auto) 5.21 K/uL (1.4-6.5) 07/12/22 05:03 Lymph # (Auto) 0.83 K/uL (1.2-3.4) L 07/12/22 05:03 Cocke # (Auto) 0.84 K/uL (0.24-0.82) H 07/12/22 05:03 Eos # (Auto) 0.16 K/uL (0-0.50) 07/12/22 05:03 Baso # (Auto) 0.06 K/uL (0-0.2) 07/12/22 05:03 Immature Gran # (Auto) 0.02 K/uL (0.00-0.02) 07/12/22 05:03 PT 24.5 Seconds (9.0-12.0) H 07/28/22 07:05 INR 2.4 (0.9-1.1) H 07/28/22 07:05 APTT 43.0 Seconds (21.0-31.0) H 07/15/22 12:57 PTT Ratio 1.6 07/15/22 12:57 ABG pH 7.53 (7.35-7.45) H* 07/17/22 14:56 ABG pCO2 27 mmHg (35-46) L 07/17/22 14:56 ABG pO2 52 mmHg (80-95) L 07/17/22 14:56 ABG HCO3 23 mmol/L (19-24) 07/17/22 14:56 ABG O2 Saturation 85.6 % (90-95) L 07/17/22 14:56 ABG Base Excess 1.1 mEq/L (-9-1.8) 07/17/22 14:56 Zak Test Pos (Pos) 07/17/22 14:56 VBG pH 7.38 (7.36-7.41) 07/08/22 18:00 VBG pCO2 33 mmHg (38-50) L 07/08/22 18:00 VBG pO2 31 mmHg 07/08/22 18:00 VBG HCO3 20 mmol/L 07/08/22 18:00 VBG O2 Saturation < 60.0 % 07/08/22 18:00 VBG Base Excess -4.7 mEq/L 07/08/22 18:00 Oxygen Given 40 L 07/17/22 14:56 Sodium 139 mmol/L (136-145) 07/24/22 05:22 Potassium 3.7 mmol/L (3.5-5.1) 07/24/22 05:22 Chloride 107 mmol/L (98-107) 07/24/22 05:22 Carbon Dioxide 25 mmol/L (21-32) 07/24/22 05:22 Anion Gap 7 (3-11) 07/24/22 05:22 BUN 42 mg/dl (6-23) H 07/24/22 05:22 Creatinine 0.99 mg/dl (0.6-1.2) 07/24/22 05:22 Est Cr Clr Drug Dosing 32.4 ml/min 07/24/22 05:22 Est GFR ( Amer) 59.8 ml/min 07/24/22 05:22 Est GFR (Non-Af Amer) 51.6 ml/min 07/24/22 05:22 BUN/Creatinine Ratio 42.4 (10-20) H 07/24/22 05:22 Glucose 92 mg/dl (70-99(Fasting)) 07/24/22 05:22 Estimat Average Glucose 134 mg/dl 07/10/22 05:49 Hemoglobin A1c 6.3 % (4.5-5.6) H 07/10/22 05:49 Calcium 9.0 mg/dl (8.5-10.1) 07/24/22 05:22 Phosphorus 5.3 mg/dl (2.5-4.9) H 07/13/22 05:44 Magnesium 2.1 mg/dl (1.7-2.4) 07/15/22 04:52 Total Bilirubin 1.0 mg/dl (0.2-1.0) 07/14/22 05:24 AST 19 U/L (13-39) 07/14/22 05:24 ALT 7 U/L (7-52) 07/14/22 05:24 Alkaline Phosphatase 161 U/L (34-104) H 07/14/22 05:24 Troponin I High Sens 91.2 pg/ml (0-14) H* D 07/15/22 08:56 Total Protein 5.9 gm/dl (6.0-8.3) L 07/14/22 05:24 Albumin 3.7 gm/dl (3.4-5.0) 07/14/22 05:24 Globulin 2.2 gm/dl (2.5-4.0) L 07/14/22 05:24 Albumin/Globulin Ratio 1.7 (0.9-2) 07/14/22 05:24 Procalcitonin 0.63 ng/ml (0-0.5) H 07/17/22 18:38 TSH 2.009 uIu/ml (0.300-4.500) 07/08/22 17:05 Urine Color Yellow 07/08/22 21:45 Urine Appearance Clear (Clear) 07/08/22 21:45 Urine pH 5.0 (4.5-7.5) 07/08/22 21:45 Ur Specific [place] 1.014 (1.000-1.030) 07/08/22 21:45 Urine Protein 1+ (Negative) H 07/08/22 21:45 Urine Glucose (UA) Negative (Negative) 07/08/22 21:45 Urine Ketones Negative (Negative) 07/08/22 21:45 Urine Blood Negative (Negative) 07/08/22 21:45 Urine Nitrite Negative (Negative) 07/08/22 21:45 Urine Bilirubin Negative (Negative) 07/08/22 21:45 Urine Urobilinogen Negative (Negative) 07/08/22 21:45 Ur Leukocyte Esterase Negative (Negative) 07/08/22 21:45 Urine WBC (Auto) 1-5 /hpf (0-5) 07/08/22 21:45 Urine RBC (Auto) 0-4 /hpf (0-4) 07/08/22 21:45 U Hyaline Cast (Auto) 1-5 /lpf (0-5) 07/08/22 21:45 U Epithel Cells (Auto) >30 /lpf (0-5) H 07/08/22 21:45 Urine Bacteria (Auto) Negative (Negative) 07/08/22 21:45 SARS-CoV-2 (PCR) NEGATIVE (Negative) 07/08/22 17:46 Influenza Type A (PCR) Negative (Neg) 07/08/22 17:46 Influenza Type B (PCR) Negative (Neg) 07/08/22 17:46 RSV (RT-PCR) Negative (Neg) 07/08/22 17:46 SARS-CoV-2, RNA, NAAT NEGATIVE (NEGATIVE) 07/28/22 09:55 Impressions Liver Ultrasound 07/12/22 15:50 ULTRASOUND RIGHT UPPER QUADRANT ABDOMEN CLINICAL HISTORY: Cirrhosis. COMPARISON STUDY: Abdominal CT dated 05/03/2022. TECHNIQUE: Real-time, grayscale, and color flow sonography of the right upper quadrant of the abdomen was performed. Images are reviewed in the transverse and longitudinal planes. FINDINGS: Liver: The liver is cirrhotic in morphology and heterogeneous in echotexture. There is nodularity of the hepatic surface contour. There is no intrahepatic biliary ductal dilatation. The main portal vein is patent with bidirectional flow. The IVC and hepatic veins are dilated suggesting cardiac dysfunction. Gallbladder: The gallbladder is distended and contains sludge. No shadowing gallstones are identified. There is nonspecific gallbladder wall thickening which measures up to 3 mm. There is trace pericholecystic ascites. A sonographic Wagner's sign is reportedly absent. The common bile duct measures up to 0.6 cm in diameter. Pancreas: Visualized portions of the pancreatic head and body are normal in appearance. The splenic vein is patent. Right kidney: Survey images of the right kidney demonstrate cortical atrophy. Echotexture there is normal. There is no hydronephrosis. Right renal cysts measure up to 1.1 cm. Ascites: There is a small volume of perihepatic ascites. Pleural spaces: A right pleural effusion is noted. IMPRESSION: 1. The liver is cirrhotic in morphology and heterogeneous in echotexture. 2. The gallbladder is distended and contains minimal sludge. Mild gallbladder wall thickening is nonspecific and likely related to adjacent hepatocellular disease. No shadowing gallstones are identified and there is no definitive sonographic evidence of acute cholecystitis. 3. Dilatation of the IVC and hepatic veins suggests cardiac dysfunction. 4. The main portal vein is patent with bidirectional flow. 5. Right pleural effusion. 6. Small volume abdominal ascites ACT 112: Negative or not required by law. Electronically signed by: Serjio Henning M.D. 07/13/2022 7:26 AM Chest X-Ray 07/25/22 07:00 XR chest 1V portable HISTORY: 87 years-old Female hypoxia acute hypoxia COMPARISON: Chest radiograph 07/22/2022 TECHNIQUE: AP view of the chest FINDINGS: Left subclavian pacer. Cardiomegaly without overt pulmonary edema. The previously noted trace left apical pneumothorax is not definitively seen. Right greater than left layering pleural effusions redemonstrated along with persistent bibasilar consolidation. Bones of the chest appear unchanged. Chronic left proximal humeral deformity. IMPRESSION: 1. The previously described trace left apical pneumothorax is not identified on today's study. 2. Right greater than left layering pleural effusions with bibasilar consolidation redemonstrated. 3. Cardiomegaly without overt pulmonary edema. ACT 112: Negative or not required by law. The above report was generated using voice recognition software. It may contain grammatical, syntax or spelling errors. Electronically signed by: Jovani Chin M.D. 07/25/2022 9:22 AM Hospital Course (1) Acute respiratory failure with hypoxia: improved after treatment of PTX. Chest tube out on 07/21, continue supplemental oxygen. (2) Postprocedural pneumothorax: Post procedure pneumothorax CXR showed Interval development of a large left pneumothorax. S/P urgent chest tube placement by pulm Dr. Padron on 07/12/22 Chest tube removed 07/14 with repeat development of tension Pneumothorax Pigtail catheter reinserted on left chest 07/15 Appreciate pulmonology, cardiology input 07/20/22:Clamping of the chest tube resulted in reaccumulation of the pneumothorax necessitating return back to suction IV diuretics received Chest tube removed on 07/22 Continue supplemental oxygen as needed Plan to discharge to SNF today (3) SSS (sick sinus syndrome): Patient with labile HR with tachy-mason syndrome s/p PPM placement on 07/12/22, c/b L sided tension PTX, s/p chest tube x 2 Continue diltiazem and metoprolol Activity restrictions post procedure including no lifting of left elbow left shoulder for 1 month. She is not able to lift more than 10 pounds with her left arm for 2 weeks. (4) Elevated troponin: Secondary to demand ischemia from hypoxia Continue aspirin and metoprolol (5) Atrial fibrillation with rapid ventricular response: Afib RVR SSS Appreciate Cardiology Input Continue Cardizem and metoprolol as per cardiology TTE reviewed and mostly unchanged from prior - no longer with pericardial effusion Continue coumadin-INR therapeutic. (6) Right heart failure: Chronic, appears euvolemic. Continue Lasix per daily regimen. (7) Pulmonary hypertension: chronic, severe. In the setting of severe TR (8) HTN (hypertension): -chronic Continue current meds (9) CKD (chronic kidney disease) stage 3, GFR 30-59 ml/min: Cr at baseline monitor (10) GERD (gastroesophageal reflux disease): - continue Pepcid (11) Severe protein-calorie malnutrition: cachectic on appearance. Nutrition following Increase caloric intake as tolerated. BMI 18.7 (12) DVT prophylaxis: DVT px: Coumadin Code Status: DNR/DNI Disposition SNF Total Time Total Time Spent Total Time Spent (In Minutes): 45 minutes Discharge Plan Discharge Items Patient Disposition: Transfer [facility] Fac Reason For Visit: RAPID AFIB Discharge Diagnosis: Acute respiratory failure with hypoxia Post procedure pneumothorax Sick sinus syndrome Atrial fibrillation with rapid ventricular response Severe protein-calorie malnutrition Activity: As commented below Activity Comment: do not raise left elbow over left shoulder for 1 month Lifting: No more than 10 pounds Lifting Comment: do not lift more than 10 pounds with left arm for 2 weeks Bathing: Keep incision dry Bathing Comment: keep dressing on & dry until wound check next week Exercise/Sports: Gradually increase as tolerated Non-emergency contact: Primary Care Provider and Workday Consultant Call non-emergency contact if: you have any medication questions, your symptoms worsen, your pain is concerning for you, you have a fever, your wound has increased redness, your wound has increased drainage and your wound pain has increased Follow-up/Referrals: Dena Fermin MD [Primary Care Provider] - Diet: Carb Consistent or DM2 and Heart Healthy Diet Texture: Easy to Chew Norbert Attending Provider Instructions: Follow-up with your primary care physician in 1 week Follow-up with your washhouse worker in 1 week as advised for pacemaker device check and wound check as advised by your washhouse worker Seek immediate medical attention if your symptoms reoccur or worsen Please take all medications as instructed on discharge list below. Please call if you have any questions or problems. You can reach a [facility] hospitalist on duty at [facility] 24 hours a day by calling [phone] Luiz Plumbing Inspector Provider Instructions: Device and wound check next week at [facility] ACTIVITY RECOMMENDATIONS: * Do not raise affected arm over head for 2 weeks. SPECIAL CARE INSTRUCTIONS: * If bleeding occurs, apply direct pressure to area for 5 minutes. * Call your doctor if you have severe pain, fever, drainage or bleeding at site. * Keep dressing on and dry for 48 hours then remove. * Keep any scheduled doctor's appointment. * Implant Card - hand held device with website information given. SKIN IRRITATION: * You may experience some redness and/or swelling in the area where radiation was administered. If any skin irritation occurs, please contact your family phys ician. FOLLOW UP VISIT: Keep any scheduled doctor appointments. Pending Studies at Discharge: No Stand-Alone Forms: My [facility] Skilled Items Patient informed of condition?: Yes DNR: Yes Discharge Level of Care: Skilled Communicable Disease: No Discharge Prognosis: Stable Lines: None Urinary Catheter: No Medications and DC Order Prescriptions: New diltiazem HCl 240 mg Capsule,Extended Release 24hr 240 mg PO QAM Qty: 30 1RF sennosides-docusate sodium [Senokot-S] 8.6-50 mg Tablet 1 tab PO QAM PRN (Reason: constipation) Qty: 30 0RF Continued sertraline 25 mg tablet 12.5 mg PO DAILY calcium carbonate 500 mg Capsule 500 mg PO DAILY melatonin 1 mg Tablet 2 mg PO HS PRN (Reason: Insomnia) PreserVision Lutein 226-90-0.8-5 mg Capsule 1 cap PO BID multivitamin Tablet 1 tab PO DAILY aspirin 81 mg Tablet,Delayed Release (Dr/Ec) 81 mg PO .ON HOLD acetaminophen 500 mg Tablet 500 - 1,000 mg PO Q6H PRN (Reason: Pain) alprazolam 0.25 mg Tablet 0.125 - 0.25 mg PO TID PRN (Reason: Anxiety) warfarin 2 mg tablet 2 mg PO DIRECTED Rx Instructions: WARFARIN 2MG ON MON, AND MONDAY AND WARFARIN 1MG ON MON, MON, MON AND MONDAY. metoprolol succinate 25 mg Tablet Extended Release 24 Hr 25 mg PO DAILY metoprolol succinate 25 mg tablet extended release 24 hr 12.5 mg PO PM Artificial Tears([id number]) 0.1-0.3 % drops 2 drp OPHTHALMIC (EYE) TID PRN (Reason: Dry Eye(S)) famotidine 10 mg Tablet 10 mg PO DAILY cholecalciferol (vitamin D3) [Vitamin D3] 10 mcg (400 unit) Tablet 10 mcg PO DAILY furosemide 20 mg Tablet 20 mg PO DAILY Qty: 30 0RF potassium chloride 10 mEq capsule, extended release 10 meq PO DAILY Qty: 14 0RF Discontinued diltiazem HCl 180 mg capsule,extended release 24hr 180 mg PO DAILY Discharge Orders: Discharge Order (Routine); Ordered 07/28/22 Ordered By: August Finnegan/Other Patient Handouts: A1C Admission Data Admit Date/Time: 07/08/22 22:19 Attending Provider: August Jang Admit Provider: Barrera Pulido Primary Care Provider: Dena Fermin Other Providers: Barrera Pulido ; Amos Baeza ; Georges Krishnamurthy ; Toni Ortiz ; Matthew Eugene ; Ede Laurent ; Toy Baird ; Yue Franklin ; Mago Smith ; Grace Mejia ; Prince Wyatt ; Aruna Padron ; Conrad Reynolds ; [facility] Other Interventions: Discharge Summary Assessment (RN) Last Done: 07/28/22 12:04
== END 2022-07-28 14:15 | DRG 242 ==
LOC: ED 16:55 → SUATTDRO 22:19 → 4W 22:19